=== PATIENT | male | born 1940 | race Caucasian/White ===

== ENCOUNTER 2017-06-19 20:40 | Emergency (ER) | payer MEDICARE, OTHER ==
--- NOTE | 2017-06-19 21:09 | UC ---
Lower Extremity/Ankle HPI - HPI Summary HPI Summary: worsening infection right foot second toe lateral side of 2second toe necrotic 3rd toe macerated, - History of Current Complaint Chief Complaint: UCSkin Stated Complaint: TOE COMPLAINT Time Seen by Provider: 06/19/17 21:00 Hx Obtained From: Patient Onset/Duration: Gradual Onset, Lasting Weeks, Still Present Severity Initially: Moderate Severity Currently: Severe Pain Intensity: 0 - no feeling in foot Aggravating Factor(s): Nothing Alleviating Factor(s): Nothing Able to Bear Weight: Yes - Allergies/Home Medications Allergies/Adverse Reactions: Allergies Allergy/AdvReac Type Severity Reaction Status Date / Time No Known Allergies Allergy Verified 06/19/17 20:52 Home Medications: Home Medications Insulin GLARGINE(*) [Lantus(*)] 35 units SUBCUT DAILY 06/19/17 [History Confirmed 06/19/17] PMH/Surg Hx/FS Hx/Imm Hx Previously Healthy: No Endocrine History: Diabetes, Dyslipidemia Cardiovascular History: Cardiac Disease, Hypertension Respiratory History: COPD, Asthma - Surgical History Surgical History: Yes Surgery Procedure, Year, and Place: CABG, AMPUTATION OF TOES LT FOOT - Family History Known Family History: Positive: None - Social History Occupation: Retired Lives: With Family Alcohol Use: Occasionally Substance Use Type: None Smoking Status (MU): Former Smoker Type: Cigarettes Amount Used/How Often: pack per week Length of Time of Smoking/Using Tobacco: 5 years Have You Smoked in the Last Year: No When Did the Patient Quit Smoking/Using Tobacco: 40 years ago - Immunization History Most Recent Influenza Vaccination: 08/08 Most Recent Tetanus Shot: within last 10 years Most Recent Pneumonia Vaccination: 08/08 Review of Systems Constitutional: Negative Skin: Other - necrotic and maserated 2/3 toes right foot Eyes: Negative ENT: Negative Respiratory: Negative Cardiovascular: Negative Gastrointestinal: Negative Genitourinary: Negative Motor: Negative Neurovascular: Negative Musculoskeletal: Negative, Other: - no sensation in feet--- Neurological: Negative Psychological: Negative All Other Systems Reviewed And Are Negative: Yes Physical Exam Triage Information Reviewed: Yes Appearance: No Pain Distress, Ill-Appearing, Obese Vital Signs: Initial Vital Signs Temp 100 F 06/19/17 20:47 Pulse 89 06/19/17 20:47 Resp 16 06/19/17 20:47 BP 220/89 06/19/17 20:47 Pulse Ox 98 06/19/17 20:47 Vital Signs Reviewed: Yes Eye Exam: Normal Eyes: Positive: Conjunctiva Clear ENT Exam: Normal ENT: Positive: Normal ENT inspection, Hearing grossly normal. Negative: Nasal congestion, Nasal drainage, Trismus, Muffled/hoarse voice Dental Exam: Normal Neck exam: Normal Neck: Positive: Supple, Nontender Respiratory Exam: Normal Respiratory: Positive: No respiratory distress, No accessory muscle use Cardiovascular Exam: Normal Cardiovascular: Positive: RRR, Brisk Capillary Refill, Distal Pulses Absent, Delayed Capillary Refill, Other: - no pulses palpated in feet Musculoskeletal Exam: Normal Musculoskeletal: Positive: ROM Intact, Strength Limited @ - right foot, Edema @ - right foot Neurological Exam: Normal Neurological: Positive: Alert, Muscle Tone Normal Psychological Exam: Normal Skin Exam: Other Skin: Positive: Other - necrotic area and maseration right 2/3 toe Lower Extremity Course/Dx - Course Course Of Treatment: [place] [facility] [place], dry dressing between toes - Differential Dx/Diagnosis Differential Diagnosis/HQI/PQRI: Cellulitis, Osteomyelitis Provider Diagnoses: Necrotic toes 2 and 3 right foot. Diabetic by history - Physician Notifications Discussed Patient Care With: Raymond Alfredo Time Discussed With Above Provider: 21:10 Instructed by Provider To: Transfer Discharge - Discharge Plan Condition: Guarded Disposition: TRANS HIGHER LVL OF CARE FAC
[2017-06-19 21:32] VITALS: BP 160/88
== END 2017-06-19 22:17 | disposition short-term general hospital (02) ==
LOC: UCEAST 20:40
DX: E11.52 Type 2 diabetes mellitus with diabetic peripheral angiopathy with gangrene (principal); Z79.4 Long term (current) use of insulin; E78.5 Hyperlipidemia, unspecified; I51.9 Heart disease, unspecified; I10 Essential (primary) hypertension; J44.9 Chronic obstructive pulmonary disease, unspecified; E66.9 Obesity, unspecified; Z95.1 Presence of aortocoronary bypass graft; Z87.891 Personal history of nicotine dependence
CPT/HCPCS: 99213; G0463

== ENCOUNTER 2017-06-19 21:44 | Inpatient (IN) | payer MEDICARE, OTHER ==
--- NOTE | 2017-06-19 22:44 | ED ---
Torres Hatch Thomas, scribed for Tal Reeves MD on 06/19/17 at 2219 . Lower Extremity - HPI Summary HPI Summary: The pt is a 77 y/o M with a Hx of DM BIB EMS from [facility] [place] c/o R foot toe infection. He reports that he developed an open area on his toes 2 weeks ago. The wound is on his 2nd and 3rd toe that have clear drainage. There is a strong foul odor with erythema to the toes. He was seen by his liberal arts teacher a week ago, who a course of Keflex that he finished today. The patient is also febrile with a temperature of 100.7. The patient denies pain or any other complaints at this time. PMHx: DM, HTN, CHF. PSHx: CABG, amputation of toes on L foot. SHx: former smoker, occasional alcohol use, no illicit drug use. - History of Current Complaint Chief Complaint: EDExtremityLower Stated Complaint: FOOT INFECTION Time Seen by Provider: 06/19/17 21:57 Hx Obtained From: Patient Onset/Duration: Weeks - 2 Pain Intensity: 0 Pain Scale Used: 0-10 Numeric Timing: Constant Associated Signs And Symptoms: Positive: Fever. Negative: Other - NEG: any pain Aggravating Factor(s): Nothing Alleviating Factor(s): Nothing Related History: Other - Hx of DM - Allergies/Home Medications Allergies/Adverse Reactions: Allergies Allergy/AdvReac Type Severity Reaction Status Date / Time No Known Allergies Allergy Verified 06/19/17 20:52 PMH/Surg Hx/FS Hx/Imm Hx Previously Healthy: No Endocrine/Hematology History: Reports: Hx Blood Transfusions, Hx Diabetes - DM II, Hx Anemia Denies: Hx Sickle Cell Disease, Hx Thyroid Disease, Hx Unexplained Bleeding Cardiovascular History: Reports: Hx Congestive Heart Failure - Maybe, Hx Coronary Artery Disease, Hx Hypertension Denies: Hx Aneurysm, Hx Angina, Hx Auto Implanted Cardiovert Defib, Hx Cardiac Arrest, Hx Cardiomegaly, Hx Hypercholesterolemia, Hx Pacemaker/ICD, Hx Peripheral Vascular Disease, Hx Rheumatic Fever, Hx Syncope Comment Only: Other Cardiovascular Problems/Disorders - DIABETIC GI History: Reports: Hx Gastroesophageal Reflux Disease Comment Only: Other GI Disorders - acute diarrhea History: Denies: Hx Renal Disease Musculoskeletal History: Denies: Hx Arthritis, Hx Osteoporosis Comment Only: Other Musculoskeletal History - generalized weakness Sensory History: Reports: Hx Contacts or Glasses - did not bring Denies: Hx Cataracts, Hx Glaucoma, Hx Macular Degeneration, Hx Deafness, Hx Hearing Aid Opthamlomology History: Reports: Hx Contacts or Glasses - did not bring Denies: Hx Cataracts, Hx Glaucoma, Hx Macular Degeneration Neurological History: Denies: Hx Headaches - Surgical History Surgery Procedure, Year, and Place: CABG, AMPUTATION OF TOES LT FOOT Hx Anesthesia Reactions: No Infectious Disease History: Yes Infectious Disease History: Reports: Hx of Known/Suspected MRSA Denies: Traveled Outside the [place] in Last 30 Days - Family History Known Family History: Positive: Diabetes - Social History Alcohol Use: Occasionally Substance Use Type: Reports: None Hx Tobacco Use: Yes Smoking Status (MU): Former Smoker Type: Cigarettes Amount Used/How Often: pack per week Length of Time of Smoking/Using Tobacco: 5 years Have You Smoked in the Last Year: No Review of Systems Positive: Fever - 100.7 Positive: Other - POS: open wound to R toes (onset 2 weeks ago, Hx of DM) All Other Systems Reviewed And Are Negative: Yes Physical Exam Triage Information Reviewed: Yes Vital Signs On Initial Exam: Initial Vitals Temp Pulse Resp BP Pulse Ox 100.7 F 88 16 184/78 97 06/19/17 21:50 06/19/17 21:50 06/19/17 21:50 06/19/17 21:50 06/19/17 21:50 Vital Signs Reviewed: Yes Appearance: Positive: No Pain Distress, Thin Skin: Positive: Warm, Other - rt 2,3,4 toes mixture of erythema and maceration with smalkl necrotic area Head/Face: Positive: Normal Head/Face Inspection Eyes: Positive: JAI ENT: Positive: Hearing grossly normal Neck: Positive: Supple Respiratory/Lung Sounds: Positive: Breath Sounds Present Cardiovascular: Positive: RRR Abdomen Description: Positive: Nontender, Soft Bowel Sounds: Positive: Present Musculoskeletal: Positive: Other - rt foot toes with cellulitis Neurological: Positive: Alert, Oriented to Person Place, Time Psychiatric: Positive: Affect/Mood Appropriate - Ni Coma Scale Coma Scale Total: 15 Diagnostics - Vital Signs Vital Signs Temp Pulse Resp BP Pulse Ox 06/19/17 22:00 86 96 06/19/17 21:56 167/81 06/19/17 21:50 100.7 F 88 16 184/78 97 - Laboratory Result Diagrams: 08/25/17 00:47 06/20/17 00:47 Lab Statement: Any lab studies that have been ordered have been reviewed, and results considered in the medical decision making process. - Radiology CXR Radiology Interpretation Completed By: ED Physician XR Foot Radiology Interpretation Completed By: ED Physician - EKG 23:04 Cardiac Rate: NL - 77 BPM EKG Interpretation: NSR with LVH. Lower Extremity Course/Dx - Course Assessment/Plan: The pt is a 77 y/o M with a Hx of DM BIB EMS from [facility] [place] c/o R foot toe infection. He reports that he developed an open area on his toes 2 weeks ago. The wound is on his 2nd and 3rd toe that have clear drainage. There is a strong foul odor with erythema to the toes. He was seen by his liberal arts teacher a week ago, who a course of Keflex that he finished today. The patient is also febrile with a temperature of 100.7. The patient denies pain or any other complaints at this time. PMHx: DM, HTN, CHF. PSHx: CABG, amputation of toes on L foot. SHx: former smoker, occasional alcohol use, no illicit drug use. Blood work shows WBC 13.5, RBC 3.58, Hgb 11.4, Hct 34, Sodium 132, CO2 19, BUN 40, Creatinine 1.56, Glucose 293, Calcium 8.5, Magnesium 1.6, AlkPhos 159, troponin 0.04. EKG reveals NSR with LVH. CXR and XR foot were also obtained. I consulted with Dr. Mtz, hospitalist, who admits the patient [place] [facility]03. Pt is agreeable to this plan. - Diagnoses Provider Diagnoses: Cellulitis - Physician Notifications Discussed Care Of Patient With: Ned Mtz Time Discussed With Above Provider: 00:03 Instructed by Provider To: Other - Dr. Mtz, hospitalist, admits the patient [place] [facility] [place] 00:03. Discharge - Discharge Plan Condition: Fair Disposition: ADMITTED TO [facility] The documentation as recorded by the [place] Thomas accurately reflects the service I personally performed and the decisions made by me, Tal Reeves MD.
[2017-06-19 23:31] LABS: Hematocrit 34 % (42-52); Hemoglobin 11.4 g/dl (14.0-18.0); Mean Corpuscular HGB Conc 34 g/dl (31-36); Mean Corpuscular Hemoglobin 32 pg (27-31); Mean Corpuscular Volume 94 fL (80-94); Mean Platelet Volume 10 um3 (7.4-10.4); Red Blood Count 3.58 10^6/ul (4.0-5.4); Red Cell Distribution Width 13 % (10.5-15); White Blood Count 13.5 10^3/ul (3.5-10.8)
[2017-06-19] MEDS ORDERED: Ondansetron INJ* 2 MG/ML VIAL IV PRN (23:31)
[2017-06-19] MEDS ORDERED: Acetaminophen TAB* 325 MG PO PRN (23:31)
[2017-06-19] MEDS ORDERED: Albuterol 2.5 MG/3 ML NEB.SOL* (0.083%) INH PRN (23:31)
[2017-06-19] MEDS ORDERED: CMCS: Melatonin (NF) 3 MG TAB PO PRN (23:31)
[2017-06-19] MEDS ORDERED: Cefepime(*) 1 GM in NS 0.9% 50 ML* 50 ML IVPB SCH (23:45)
[2017-06-19] MEDS ORDERED: Vancomycin(*) 1,000 MG in NS 0.9% 250 ML* 250 ML IVPB SCH (23:45)
[2017-06-19] MEDS ORDERED: NS 0.9% 1000 ML* 1,000 ML IV SCH (23:45)
[2017-06-19 23:46] LABS: Albumin 3.2 g/dL (3.2-5.2); BUN/Creatinine Ratio 25.6 (8-20); Calcium 8.5 mg/dL (8.6-10.3); EGFR African American 56.1 (>60); EGFR Non-African American 43.6 (>60); Globulin 2.7 g/dL (2-4); Magnesium 1.6 mg/dL (1.9-2.7); Potassium 4.2 mmol/L (3.5-5.0); Total Bilirubin 0.3 mg/dL (0.2-1.0); Total Protein 5.9 g/dL (6.4-8.9)
[2017-06-19 23:56] LABS: Troponin I 0.04 ng/mL (<0.04)
--- NOTE | 2017-06-20 00:04 | HP ---
H&P (Free Text) History and Physical: PCP: Jeffry Watkins MD Date/Time of Evaluation: 06/19/2017 7089 CC: R foot infection HPI: Mr Chowdhury is a 76YO white male HX NIDDM, L forefoot amputation, & 3vCABG who relates a non-traumatic wound forming on his R 2nd toe ~3 weeks ago. He saw his sap architect ~2 weeks ago and was placed on cephalexin completing two 1 week courses. Despite this, the 2nd toe has worsened over the past 3-4 days and the R 3rd toe has become reddened with a black spot. He denies subjective F/C, N/V, or sweats. He has no sensation in the lower extremities 2nd diabetic neuropathy. PMedHx DMT2 w/ retinopathy & neuropathy CAD/3vCABG PAOD HLD CKD stg 3 HTN GERD BPH Ambulatory Orders Nursing to reconcile. Aspirin Low Dose CHEW TAB* [Aspirin Low Dose TAB*] 81 mg PO DAILY 02/26/14 Cholecalciferol TAB* [Vitamin D TAB*] 1,000 unit PO DAILY 02/26/14 Terazosin CAP* [Hytrin CAP 5 MG*] 10 mg PO BID 02/26/14 Omeprazole CAP* [Prilosec CAP* 20 MG] 20 mg PO DAILY PRN 05/19/14 Albuterol 2.5MG/3ML (0.083%)* [Ventolin 2.5 MG/3 ML NEB.MALCOLM*] 2.5 mg INH Q4H PRN #100 neb.soln 02/24/16 Atorvastatin* [Lipitor 10 MG*] 10 mg PO 1700 #30 tab 02/24/16 Clopidogrel TAB* [Plavix TAB*] 75 mg PO DAILY #30 tab 02/24/16 Lisinopril TAB* [Prinivil TAB 10 MG*] 5 mg PO DAILY #30 02/24/16 Metoprolol Succinate XL TAB* [Toprol XL TAB*] 25 mg PO DAILY #30 tab.xl Furosemide [Lasix] 20 mg PO EVERY OTHER DAY #10 tab 03/01/16 Ketoconazole 2 % CREAM (NF) [Nizoral 2% CREAM (NF)] 1 applic TOPICAL BID #1 tube 03/01/16 Loperamide CAP* [Imodium CAP*] 2 mg PO DAILY PRN #10 cap 03/01/16 Magnesium Oxide TAB* [MagOx 400 TAB*] 800 mg PO DAILY #30 tab 03/01/16 Nystatin SUSPENSION* 200,000 units PO QID #1 bottle 03/01/16 Insulin GLARGINE(*) [Lantus(*)] 35 units SUBCUT DAILY 06/19/17 Allergies No Known Allergies Allergy (Verified 06/19/17 20:52) PSurgHx 3vCABG R inguinal hernia repair L transmetatarsal amputation SocHx: former light smoker, no alcohol or recreational drugs; 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[employer]; 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, no children, lives alone; full code status FamHx: reviewed, non-contributory ROS: as above, otherwise reviewed and all were negative Constitutional: NAD, normally developed, well-nourished white male vitals: Vital Signs Temp 38.2 C 06/19/17 21:50 Pulse 74 06/19/17 23:30 Resp 16 06/19/17 21:50 BP 160/77 06/19/17 23:30 Pulse Ox 97 06/19/17 23:30 Intake & Output 06/19/17 06/19/17 06/20/17 11:59 23:59 11:59 Weight 77.111 kg HEENM: atraumatic; sclera/conjunctiva: non-icteric/clear; hearing: clinically intact; oropharynx: clear, mucosa moist Neck: soft tissue: non-tender; thyroid: normal Pulmonary: clear to auscultation bilaterally, good aeration, no accessory muscle use CV: RR/RR, normal S1S2, no carotid bruit, no jugular venous distention, trace L & 1+ R DP/PT, no edema Abdominal: soft, non-distended, non-tender, no rebound/guarding/rigidity, normoactive bowel sounds, no hepatosplenomegaly or masses, no costovertebral angle tenderness Musculoskeletal: general: healed L transmetatarsal amputation; R 2nd>3rd toes with a blackened area of escar and erythema with exfoliation Integumental: as above Psychiatric orientation: AA&O to PPS affect: somewhat flat mood: cooperative eye contact: fair to good content: reliable insight: timely Testing: Lab Results 08/24/17 08/24/17 08/24/17 Range/Units 23:20 23:20 23:20 WBC 13.5 H (3.5-10.8) 10^3/ul RBC 3.58 L (4.0-5.4) 10^6/ul Hgb 11.4 L (14.0-18.0) g/dl Hct 34 L (42-52) % MCV 94 (80-94) fL MCH 32 H (27-31) pg MCHC 34 (31-36) g/dl RDW 13 (10.5-15) % Plt Count 224 (150-450) 10^3/ul MPV 10 (7.4-10.4) um3 Neut % (Auto) 87.3 H (38-83) % Lymph % (Auto) 4.8 L (25-47) % Dauphin % (Auto) 7.0 (1-9) % Eos % (Auto) 0.2 (0-6) % Baso % (Auto) 0.7 (0-2) % Absolute Neuts (auto) 11.8 H (1.5-7.7) 10^3/ul Absolute Lymphs (auto) 0.6 L (1.0-4.8) 10^3/ul Absolute Monos (auto) 0.9 H (0-0.8) 10^3/ul Absolute Eos (auto) 0 (0-0.6) 10^3/ul Absolute Basos (auto) 0.1 (0-0.2) 10^3/ul Absolute Nucleated RBC 0 10^3/ul Nucleated RBC % 0 Sodium 132 L (133-145) mmol/L Potassium 4.2 (3.5-5.0) mmol/L Chloride 105 (101-111) mmol/L Carbon Dioxide 19 L (22-32) mmol/L Anion Gap 8 (2-11) mmol/L BUN 40 H (6-24) mg/dL Creatinine 1.56 H (0.67-1.17) mg/dL Est GFR ( Amer) 56.1 (>60) Est GFR (Non-Af Amer) 43.6 (>60) BUN/Creatinine Ratio 25.6 H (8-20) Glucose 293 H (70-100) mg/dL Lactic Acid 0.8 (0.5-2.0) mmol/L Calcium 8.5 L (8.6-10.3) mg/dL Magnesium 1.6 L (1.9-2.7) mg/dL Total Bilirubin 0.30 (0.2-1.0) mg/dL AST 15 (13-39) U/L ALT 13 (7-52) U/L Alkaline Phosphatase 159 H (34-104) U/L Troponin I 0.04 H* (<0.04) ng/mL Total Protein 5.9 L (6.4-8.9) g/dL Albumin 3.2 (3.2-5.2) g/dL Globulin 2.7 (2-4) g/dL Albumin/Globulin Ratio 1.2 (1-3) ECG, personally reviewed: NSR rate 77, mild ST depression V5/6 & I/II CXR, personally reviewed: no acute process, median sternotomy wires Impression: 77M HX DM2 w/ L forefoot amputation presents with R toe infection DIAGNOSIS & PLAN Primary diabetic R foot infection : IV vancomycin, cefepime, & metronidazole : blood & wound CXs : consider ID consult in AM : supportive care Secondary DMT2 w/ retinopathy & neuropathy : check A1c : insulin carb ratio diet : basal/bolus/correctional insulin : ACHS glucometry HTN : review meds once reconciled Admission Rational: inpatient for limb threatening diabetic foot infection failed outpatient ABX DVTp: heparin SQ Code Status: full HCP: friend, Roseanna Espinoza
[2017-06-20] MEDS ORDERED: Cefepime(*) 2 GM in NS 0.9% 50 ML* 50 ML IVPB SCH (00:40)
[2017-06-20] MEDS ORDERED: Vancomycin(*) 1,000 MG ADVAN IVPB ONE (00:41)
[2017-06-20] MEDS ORDERED: Vancomycin(*) 1,250 MG in NS 0.9% 250 ML* 250 ML IVPB ONE (01:00)
[2017-06-20 01:01] LABS: Hematocrit 39 % (42-52); Hemoglobin 13.4 g/dl (14.0-18.0); Mean Corpuscular HGB Conc 35 g/dl (31-36); Mean Corpuscular Hemoglobin 31 pg (27-31); Mean Corpuscular Volume 90 fL (80-94); Mean Platelet Volume 9 um3 (7.4-10.4); Red Blood Count 4.28 10^6/ul (4.0-5.4); Red Cell Distribution Width 13 % (10.5-15); White Blood Count 8.4 10^3/ul (3.5-10.8)
[2017-06-20] MEDS ORDERED: Vancomycin per Pharmacy* NOTE FOLLOW UP PRN (01:06)
[2017-06-20 01:07] LABS: Urine Bacteria 1+ (Absent); Urine Bilirubin Negative (Negative); Urine Glucose 2+(150 mg/dL) (Negative); Urine Nitrite Negative (Negative)
[2017-06-20 01:17] LABS: Calcium 9.3 mg/dL (8.6-10.3); EGFR African American 130.6 (>60); EGFR Non-African American 101.5 (>60); Potassium 3.3 mmol/L (3.5-5.0)
[2017-06-20] MEDS ORDERED: metroNIDAZOLE IV 500 MG/100ML* 500 MG/100 ML BAG IVPB SCH ×2 (01:30→11:30)
[2017-06-20] MEDS: Heparin VIAL(*) 5000 UNITS/ML VIAL (FIVE THOUSAND) SUBCUT SCH ×3 (06:20→22:22)
--- NOTE | 2017-06-20 07:52 | RAD ---
INDICATION: Fever. COMPARISON: Comparison is made with a prior chest x-ray study from February 26, 2016. TECHNIQUE: AP and lateral views of the chest were obtained. FINDINGS: The patient is status post coronary artery bypass surgery. The heart is within normal limits in size. The lungs are clear. No pleural effusion is present. IMPRESSION: POSTSURGICAL CHANGES, NO EVIDENCE FOR ACUTE FINDING.
--- NOTE | 2017-06-20 07:56 | RAD ---
INDICATION: Fever, diabetes evaluate for infection. TECHNIQUE: 2 views of the right foot were obtained. FINDINGS: There is diffuse soft tissue swelling. The bones appear osteopenic. No significant focal osseous abnormality is seen. There are prominent vascular calcifications. IMPRESSION: SOFT TISSUE SWELLING, NO SPECIFIC EVIDENCE FOR OSTEOMYELITIS. IF THE PATIENT'S SYMPTOMS PERSIST CONSIDER MR IMAGING OF THE FOOT WITHOUT CONTRAST.
[2017-06-20] MEDS ORDERED: Vancomycin(*) 1,250 MG IV x ONCE IVPB ONE ×2 (08:30)
[2017-06-20] MEDS: Docusate CAP* 100 MG PO SCH ×2 (10:06→22:21)
[2017-06-20] MEDS: Insulin LISPRO* 1 UNITS UNIT SUBCUT SCH ×7 (10:06→22:25)
--- NOTE | 2017-06-20 14:52 | PN ---
Subjective Date of Service: 06/20/17 Interval History: HOSPITALIST PROGRESS NOTE Patient seen and examined at bedside. He feels a little better today. Has no sensation on his toes, so denies pain. Family History: Unchanged from Admission Social History: Unchanged from Admission Past Medical History: Unchanged from Admission Objective Active Medications: Acetaminophen (Tylenol Tab*) 650 mg PO Q6H PRN PRN Reason: FEVER/PAIN Albuterol (Ventolin 2.5 Mg/3 Ml Neb.Susy*) 2.5 mg INH Q2H PRN PRN Reason: SOB/WHEEZING Docusate Sodium (Colace Cap*) 200 mg PO BID [facility] Last Admin: 06/20/17 10:06 Dose: 200 mg Heparin Sodium (Porcine) (Heparin Vial(*)) 5,000 units SUBCUT Q8HR [facility] Last Admin: 06/20/17 13:11 Dose: 5,000 units Sodium Chloride (Ns 0.9% 1000 Ml*) 1,000 mls @ 75 mls/hr IV PER RATE [facility] Last Admin: 06/20/17 02:28 Dose: 75 mls/hr Cefepime HCl 2 gm/ Sodium (Chloride) 50 mls @ 100 mls/hr IVPB Q24H [facility] Last Admin: 06/20/17 02:30 Dose: 100 mls/hr Metronidazole/Sodium Chloride (Flagyl 500 Mg Ivpb*) 500 mg in 100 mls @ 100 mls /hr IVPB Q12HR [facility] Insulin Glargine (Lantus(*)) 15 units SUBCUT 2100 [facility] Stop: 06/21/17 20:00 Insulin Human Lispro (Humalog*) 0 units SUBCUT AC [facility] PRN Reason: Protocol Last Admin: 06/20/17 13:10 Dose: 3 units Insulin Human Lispro (Humalog*) 0 units SUBCUT ACHS [facility] PRN Reason: Protocol Last Admin: 06/20/17 13:11 Dose: 2 units Melatonin (Melatonin (Nf)) 3 mg PO BEDTIME PRN; Protocol PRN Reason: Sleep Nystatin (Nystatin Top Powder*) 1 applic TOPICAL TID [facility] Ondansetron HCl (Zofran Inj*) 4 mg IV Q6H PRN PRN Reason: NAUSEA Oxycodone HCl (Roxycodone Tab*) 5 mg PO Q4H PRN PRN Reason: PAIN Pharmacy Profile Note (Vancomycin Trough Check) 1 note FOLLOW UP 0030 ONE Stop: 06/21/17 00:31 Vital Signs 06/20/17 06/20/17 06/20/17 00:31 00:58 01:17 Temperature 98 F 98.3 F Pulse Rate 78 78 82 Respiratory 16 17 Rate Blood Pressure 173/79 173/79 162/72 (mmHg) O2 Sat by Pulse 98 98 Oximetry Oxygen Devices in Use Now: None Appearance: Pleasant elderly male lying in bed in NAD. Eyes: No Scleral Icterus Ears/Nose/Mouth/Throat: Mucous Membranes Moist Neck: Trachea Midline Respiratory: Symmetrical Chest Expansion and Respiratory Effort, Clear to Auscultation Cardiovascular: RRR - Normal S1 and S2 Abdominal: NL Sounds; No Tenderness; No Distention Extremities: - - s/p left TMA; right foot with wet gangrene 2nd and 3rd toes, foul smelling. Neurological: Alert and Oriented x 3, NL Muscle Strength and Tone Lines/Tubes/Other Access: Clean, Dry and Intact Peripheral IV Nutrition: Taking PO's Result Diagrams: 06/20/17 00:47 06/20/17 00:47 Assess/Plan/Problems-Billing Assessment: Mr. 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 - Patient Problems (1) Type 2 diabetes mellitus with right diabetic foot infection Comment: - Patient was treated by his Diamond Driller with cephalexin, but had worsening after he completed treatment. - Now presents with wet gangrene of 2nd and 3rd toes on the right. - Continue Cefepime and Metronidazole. - ID and Ortho consults requested. (2) Type 2 diabetes mellitus Comment: - HbA1c is 9, down from 12.4 in 2016. - Continue Lantus and Lispro SS. (3) HTN (hypertension) Comment: - Resume Lisinopril. (4) Peripheral vascular disease Comment: - Continue Aspirin and Plavix. (5) DVT prophylaxis Comment: - SQ heparin. (6) Full code status Status and Disposition: Inpatient requiring >48h for stabilization and management.
[2017-06-20] MEDS ORDERED: Vancomycin(*) 1,000 MG in NS 0.9% 250 ML* 250 ML IVPB SCH (16:30)
[2017-06-20] MEDS ORDERED: Atorvastatin* 10 MG TAB PO SCH (17:00)
--- NOTE | 2017-06-20 17:21 | CONS ---
CONSULTATION REPORT: DATE OF CONSULT/DICTATION: 06/20/17 ATTENDING PHYSICIAN: Dr. Marte (DICTATED BY RACHEL AIKEN) REQUESTING PHYSICIAN: Dr. Ramos REASON FOR CONSULT: Wet gangrene of right foot. HISTORY OF PRESENT ILLNESS: Mr. Chowdhury is a very pleasant 77-year-old gentleman who presented to the hospital on 06/19/17 upon recommendation from his neighbor. The patient reports approximately a few weeks ago, he noted a cut on his second right toe. He was seen by his insurance account manager approximately 2 weeks ago and was started on cephalexin, completing a 2-week course. He stated for the first week of antibiotics, he noted improvement to his foot; however, over the past couple of days, he has noted that the redness has begun to spread up to his midfoot and his second toe was turning black. This was seen by his neighbor who recommended he get an evaluation and brought him to the emergency room. The patient does have a history of a left midfoot amputation approximately 6 to 7 years ago for a similar presentation. Prior to admission, he denies any fevers, chills, nausea, vomiting, or sweats. Upon admission, he was febrile to 100.7 degrees Fahrenheit. He does have a history of insulin- dependent diabetes and takes Lantus 35 units subcutaneous daily. He also has a history of CAD with a 3-vessel CABG as well as diabetic neuropathy. The patient does live alone. He is ambulatory with the use of a walker or a cane. PAST MEDICAL HISTORY: 1. Insulin-dependent diabetes type 2 with associated retinopathy and neuropathy in bilateral lower extremities. 2. CAD with 3-vessel CABG. 3. PAD. 4. HLD 5. Chronic kidney disease stage 2. 6. Hypertension. 7. GERD. 8. BPH. PAST SURGICAL HISTORY: 1. Three-vessel CABG. 2. Right inguinal hernia repair. 3. Left transmetatarsal amputation. ALLERGIES: No known drug allergies. SOCIAL HISTORY: Former light smoker, stopped approximately 65 years ago. No alcohol or recreational drug use. 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 Single, no children, lives alone. Ambulatory with walker or cane. REVIEW OF SYSTEMS: The patient denies any pain in the lower extremities, has noted redness and swelling. No chest pain, shortness of breath, fevers, chills , nausea, vomiting, constipation, muscle aches, pains, or night sweats. PHYSICAL EXAM: General: Well appearing, in no acute distress. Alert and oriented. Eating lunch without difficulty. Musculoskeletal: Right lower extremity, posterior tibial pulse 1+ with 1+ pitting edema. Erythema extending from all toes up to midfoot. Positive gangrene seen over second toe on the lateral aspect with increased erythema surrounding lesions. Superficial ulcerations seen over second and fourth toes. Decreased range of motion of all toes, likely due to swelling. The patient has decreased sensation from midfoot down with no sensation over second to fourth toes, and minimal sensation over great toe. Positive mild odor. Hyperpigmentation noted over bilateral shins. ASSESSMENT: Second, third, and fourth right toe infection. PLAN: The patient was discussed with Dr. Marte. A Vascular consult will be ordered to evaluate the patient's foot prior to undergoing surgery. It is likely that the patient will require a midfoot amputation and this will be set up for Friday. The patient will be n.p.o. after midnight and he will continue antibiotics throughout the weekend. We will be following the patient to continue to progress his course and continue to determine his progress. The patient also was seen by the hospitalist and Infectious Disease. RACHEL AIKEN [id number]/CPS #: [id number] MTDD
[2017-06-20] MEDS: Nystatin TOP POWDER* 15 GM BTL TOPICAL SCH ×2 (17:34→23:28)
[2017-06-20] MEDS: ceFAZolin 1 GM VIAL(*) 1 GM in NS 0.9% 50 ML* 50 ML IVPB SCH (17:34)
[2017-06-20] MEDS: Lisinopril TAB* 5 MG PO SCH (17:39)
[2017-06-20] MEDS: metroNIDAZOLE IV 500 MG/100ML* 500 MG/100 ML BAG IVPB SCH (22:16)
[2017-06-20] MEDS: Potassium Chlor TAB* 20 MEQ TAB.ER PO SCH (22:21)
[2017-06-20] MEDS: Insulin GLARGINE(*) 1 UNITS UNIT SUBCUT SCH (22:26)
--- NOTE | 2017-06-20 22:37 | CONS ---
CONSULTATION REPORT: DATE OF CONSULTATION: 06/20/17 REQUESTING PHYSICIAN: Dr. Ramos. CONSULTING SERVICE: Infectious Disease. REASON FOR CONSULTATION: Right foot infection. IMPRESSION: Peripheral vascular disease and right second and third toe cellulitis with second toe g angrene and outpatient wound culture associated with the toe had grown MSSA on 06/04/17. I think hi s primary issue here is vascular insufficiency. He has significant soft tissue necrosis on the secon d and part of the third toes, and antibiotics alone are unlikely to cure the infection. I agree wit h having Dr. Marte see him and consider some degree of surgical treatment. RECOMMENDATIONS: 1. Ankle brachial index. 2. We will stop his vancomycin, change cefepime to cefazolin and continue Flagyl. HISTORY OF PRESENT ILLNESS: This is a 77-year-old diabetic man admitted with right foot infection. He had a wound develop about 2 weeks ago[address] He saw Dr. Hines, had Keflex started. A wound cultur e was taken by him that showed MSSA. He had initially some improvement and then the toe started to develop a foul odor, so he came to the hospital yesterday, his white count was 13,000. It is 8000 t alessia after vancomycin, cefepime, and Flagyl and fluids. Foot x-ray was unremarkable. He has not low d any ulceration like this recently. He has had a left transmetatarsal amputation in distant past. PAST MEDICAL HISTORY: 1. Peripheral vascular disease. 2. Diabetes with neuropathy and retinopathy. 3. Coronary artery disease, status post CABG. 4. Hyperlipidemia. 5. Stage 3 chronic kidney disease. 6. Hypertension. 7. Gastroesophageal reflux disease. 8. Benign prostatic hypertrophy. 9. Status post right inguinal hernia repair. 10. Status post left transmetatarsal amputation. MEDICATIONS: 1. Vancomycin. 2. Cefepime 2 g once a day. 3. Tylenol. 4. Aspirin. 5. Lipitor. 6. Plavix. 7. Docusate. 8. Heparin subcutaneous injection. 9. Flagyl 500 mg IV every 12 hours. ALLERGIES: No known drug allergies. FAMILY HISTORY: No recurrent infections. SOCIAL HISTORY: He lives in [place] by himself. He has got a pet cat, it has not been licking the w ound. He has no travel. REVIEW OF SYSTEMS: All negative except as noted above in the history of present illness. PHYSICAL EXAM: Vital Signs: Temperature 36.7, heart rate 70, respiratory rate 15, blood pressure 1 70/70, and O2 sat 97% on room air. In general, he is awake, not in distress. HEENT: There is no c onjunctival hemorrhage. Oropharynx is without lesions. Neurologic: He is oriented x3. Follows al l commands. The sensation is absent to light touch in the feet bilaterally. Neck is supple without nuchal rigidity. Lymph Nodes: There is no inguinal, axillary, epitrochlear lymphadenopathy. Hear t has regular rate and rhythm without murmurs, rubs, or gallops. Lungs are clear to auscultation bi laterally. Abdomen is soft, nontender, nondistended. There are bowel sounds present. Skin: There is no rash or splinter hemorrhages. Musculoskeletal: Right foot, there is no palpable dorsalis pe dis pulse. The foot is warm. Second toe, there is purple discoloration. Third toe has some denuda tion of skin in the medial forefoot and there is mild erythema in the forefoot without crepitus or f luctuance. LABORATORY DATA: White blood cell count 8, hemoglobin 13, platelets 212,000. Creatinine is 0.7. Ple ase see impressions and recommendations outlined above, which I have discussed with Dr. Ramos. Thank you for asking me to see Mr. Chowdhury in consultation. [id number]/[facility] #: [id number]
[2017-06-21] MEDS ORDERED: Vancomycin Trough Check NOTE FOLLOW UP ONE (00:30)
[2017-06-21] MEDS: ceFAZolin 1 GM VIAL(*) 1 GM in NS 0.9% 50 ML* 50 ML IVPB SCH ×4 (02:24→19:00)
[2017-06-21] MEDS: Heparin VIAL(*) 5000 UNITS/ML VIAL (FIVE THOUSAND) SUBCUT SCH ×3 (05:57→23:22)
[2017-06-21 06:32] LABS: Hematocrit 33 % (42-52); Hemoglobin 11.4 g/dl (14.0-18.0); Mean Corpuscular HGB Conc 34 g/dl (31-36); Mean Corpuscular Hemoglobin 32 pg (27-31); Mean Corpuscular Volume 94 fL (80-94); Mean Platelet Volume 10 um3 (7.4-10.4); Red Blood Count 3.57 10^6/ul (4.0-5.4); Red Cell Distribution Width 13 % (10.5-15); White Blood Count 10.9 10^3/ul (3.5-10.8)
[2017-06-21 06:46] LABS: BUN/Creatinine Ratio 23.9 (8-20); Calcium 8.2 mg/dL (8.6-10.3); EGFR African American 64.6 (>60); EGFR Non-African American 50.2 (>60); Potassium 4.5 mmol/L (3.5-5.0)
[2017-06-21 07:00] LABS: Troponin I 0.04 ng/mL (<0.04)
[2017-06-21] MEDS: Insulin LISPRO* 1 UNITS UNIT SUBCUT SCH ×7 (08:05→23:21)
[2017-06-21] MEDS ORDERED: Lisinopril TAB* 5 MG PO SCH (09:00)
[2017-06-21] MEDS: Potassium Chlor TAB* 20 MEQ TAB.ER PO SCH (09:21)
[2017-06-21] MEDS: Lisinopril TAB* 5 MG PO SCH (09:21)
[2017-06-21] MEDS: Clopidogrel TAB* 75 MG PO SCH (09:21)
[2017-06-21] MEDS: Nystatin TOP POWDER* 15 GM BTL TOPICAL SCH ×3 (09:22→23:31)
[2017-06-21] MEDS: Docusate CAP* 100 MG PO SCH ×2 (09:22→23:32)
[2017-06-21] MEDS: Aspirin Low Dose CHEW TAB* 81 MG PO SCH (09:34)
[2017-06-21] MEDS: metroNIDAZOLE IV 500 MG/100ML* 500 MG/100 ML BAG IVPB SCH ×2 (10:49→23:15)
--- NOTE | 2017-06-21 14:08 | CONS ---
CC: Dr. Watkins; Dr. Hines; Dr. Marte; Dr. Dixon; Dr. Kruse * INTERVENTIONAL CARDIOLOGY CONSULT NOTE: DATE OF CONSULT: 06/21/17 PRIMARY: Dr. Watkins PACKING CLERK: Dr. Hines ORTHOPEDIC SURGEON: Dr. Marte INFECTIOUS DISEASE: Dr. Dixon CASCADE OPERATOR: Dr. Kruse HISTORY OF PRESENT ILLNESS: A 77-year-old diabetic with previous coronary artery disease and prior left transmetatarsal amputation, admitted with wet gangrene, right second digit. Interventional Cardiology was consulted regarding possible need for pedal revascularization. He is a good historian, he had a left transmetatarsal amputation 8 years ago apparently for CLI. In February of last year, he was admitted here with a febrile illness. About 3 weeks ago, he noticed some drainage from the tip of his right second toe, and it has subsequently become gangrenous. It is painless. He is not aware of any injury. He has no history of claudication. He tells me he had remote ABIs, but I have not been able to find them yet in [place]. To his knowledge, he has never had lower extremity intervention. He had bypass grafting 12 years ago, had a vein harvest from the left leg. PAST MEDICAL HISTORY: 1. Diastolic heart failure. 2. 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 3. Previous bypass grafting. 4. CKD stage 3. I reviewed a prior CT of the abdomen without contrast, he has extensive aortic calcification including near the renal artery ostia. 5. Hypertension. PREHOSPITAL MEDICATIONS: 1. Insulin. 2. Lisinopril 5 mg daily. 3. Lipitor 10 mg daily. 4. Aspirin 81 mg daily. 5. Plavix 75 mg daily. REVIEW OF SYSTEMS: General: No weight loss. He is ambulatory, walks with a cane, lives independently, cares for an older woman with a broken hip. For him , the ability to ambulate is very important. FULL STACK DEVELOPER: No history of TIA or CVA. GI: He has a history of esophageal bleeding. He is apparently not on a PPI while on aspirin and Plavix. Pulmonary: No cough. No hemoptysis. Remainder negative. CURRENT MEDICATIONS: 1. Aspirin 81 mg daily. 2. Lipitor increased to 80 mg. 3. Ancef. 4. Plavix 75 mg daily. 5. Heparin 5000 units subcu q. 8. 6. Insulin. 7. Lisinopril 5 mg daily. 8. Flagyl. PHYSICAL EXAM: General: He is articulate, he is in bed. He is afebrile. Blood pressure 151/64, pulse is in the 60s. Lungs: Clear. Neck: JVP is normal. Carotids are normal without bruits. HEENT: Unremarkable. Cardiac Exam : Normal without gallop or murmur. Sternum is stable. Abdomen: I cannot feel the abdominal aorta, he has no abdominal bruit. Extremities: Femoral pulses are faintly palpable on the right, questionable on the left. His radials were also diminished. His left leg has a transmetatarsal amputation. Right foot, he has wet gangrene of the second digit extending to the base of the toe, there is foul odor, there is drainage from between the second and third toe. There is some erythema on the dorsum of the foot without norah cellulitis. His first toe has no wound. Doppler exam by me revealed the signal at the peroneal, at the posterior tibial, at the ankle, and proximal dorsalis pedis. The deep learning center instructor has a high-pitched signal, likely stenotic. The arcuate has a signal. I cannot track the plantars. DIAGNOSTIC STUDIES/LAB DATA: White count on admission 13.5, hemoglobin 11.4. His creatinine was 1.56, then down to 0.75, today 1.38. It has been as high as 2.44 in January 2016. A1c last one was 9. IMPRESSION: Atherosclerotic lower extremity vascular disease with wet gangrene , right second toe. He likely has an incomplete pedal arch, likely has multilevel disease. 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 Depending on his digital blood supply, he may need revascularization of the anterior tibial or posterior tibial if the second and possibly third toe amputation site fails to heal. As he already has a left transmetatarsal amputation, preserving his right first toe is of vital importance to help with balance and ambulation. To that end, I would recommend amputation of the second toe only, extending back into the metatarsal only if absolutely necessary, preserving the first toe, amputate the third toe only if necessary. In the meantime, I have ordered toe pressure as well as a CTA with volume loading pre-study. If he has failure to heal, he definitely will need an angiogram to plan a revascularization. He understands the critical importance of preserving his first toe. His second toe is not salvageable. Thanks for the consult. I will follow with you. I have increased his Lipitor to high dose. [id number]/[facility] #: [id number] MTDD
--- NOTE | 2017-06-21 14:49 | PN ---
Subjective Date of Service: 06/21/17 Interval History: HOSPITALIST PROGRESS NOTE Patient seen and examined at bedside. He offers no new complaints today. Family History: Unchanged from Admission Social History: Unchanged from Admission Past Medical History: Unchanged from Admission Objective Active Medications: Acetaminophen (Tylenol Tab*) 650 mg PO Q6H PRN PRN Reason: FEVER/PAIN Albuterol (Ventolin 2.5 Mg/3 Ml Neb.Susy*) 2.5 mg INH Q2H PRN PRN Reason: SOB/WHEEZING Aspirin (Aspirin Low Dose Tab*) 81 mg PO DAILY [facility] Last Admin: 06/21/17 09:34 Dose: 81 mg Atorvastatin Calcium (Lipitor*) 80 mg PO 1700 [facility] Clopidogrel Bisulfate (Plavix Tab*) 75 mg PO DAILY [facility] Last Admin: 06/21/17 09:21 Dose: 75 mg Docusate Sodium (Colace Cap*) 200 mg PO BID [facility] Last Admin: 06/21/17 09:22 Dose: Not Given Heparin Sodium (Porcine) (Heparin Vial(*)) 5,000 units SUBCUT Q8HR [facility] Last Admin: 06/21/17 13:27 Dose: 5,000 units Metronidazole/Sodium Chloride (Flagyl 500 Mg Ivpb*) 500 mg in 100 mls @ 100 mls /hr IVPB Q12HR [facility] Last Admin: 06/21/17 10:49 Dose: 100 mls/hr Cefazolin Sodium 1 gm/ Sodium (Chloride) 50 mls @ 200 mls/hr IVPB Q8H [facility] Last Admin: 06/21/17 09:21 Dose: 200 mls/hr Insulin Glargine (Lantus(*)) 15 units SUBCUT 2100 [facility] Last Admin: 06/20/17 22:26 Dose: 15 units Insulin Human Lispro (Humalog*) 0 units SUBCUT AC [facility] PRN Reason: Protocol Last Admin: 06/21/17 13:25 Dose: 4 units Insulin Human Lispro (Humalog*) 0 units SUBCUT ACHS [facility] PRN Reason: Protocol Last Admin: 06/21/17 13:26 Dose: 2 units Lisinopril (Prinivil Tab*) 5 mg PO DAILY [facility] Last Admin: 06/21/17 09:21 Dose: 5 mg Melatonin (Melatonin (Nf)) 3 mg PO BEDTIME PRN; Protocol PRN Reason: Sleep Nystatin (Nystatin Top Powder*) 1 applic TOPICAL TID TETE Last Admin: 06/21/17 13:28 Dose: 1 applic Ondansetron HCl (Zofran Inj*) 4 mg IV Q6H PRN PRN Reason: NAUSEA Oxycodone HCl (Roxycodone Tab*) 5 mg PO Q4H PRN PRN Reason: PAIN Vital Signs 06/21/17 06/21/17 06/21/17 00:21 03:39 07:29 Temperature 98.9 F 98.3 F 98.3 F Pulse Rate 69 69 69 Respiratory 14 18 16 Rate Blood Pressure 131/61 151/78 151/64 (mmHg) O2 Sat by Pulse 98 99 98 Oximetry Oxygen Devices in Use Now: None Appearance: Pleasant elderly male sitting up in a chair in NAD. Eyes: No Scleral Icterus Ears/Nose/Mouth/Throat: Mucous Membranes Moist Neck: Trachea Midline Respiratory: Symmetrical Chest Expansion and Respiratory Effort, Clear to Auscultation Cardiovascular: RRR - Normal S1 and S2 Extremities: - - Right 2nd toe wet gangrene, extending to 3rd, foul smelly Neurological: Alert and Oriented x 3, NL Muscle Strength and Tone Lines/Tubes/Other Access: Clean, Dry and Intact Peripheral IV Nutrition: Taking PO's Result Diagrams: 06/21/17 05:42 06/21/17 05:42 Assess/Plan/Problems-Billing Assessment: Mr. 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 - Patient Problems (1) Type 2 diabetes mellitus with right diabetic foot infection Comment: - Patient was treated by his Commissary Production Supervisor with cephalexin, but had worsening after he completed treatment. - Now presents with wet gangrene of 2nd and 3rd toes on the right. - Continue Cefazoline and Metronidazole. - ID and Ortho consults appreciated - tentative plan for OR 06/23/17. - Vascular input appreciated - recommended 2nd toe amputation only, maybe 3rd if necessary, but to try and save hallux as patient already has a left TMA and his mobility and ability to live independently will be compromised with a right TMA. Recommended NERY and CTA aorta and run off. (2) Type 2 diabetes mellitus Comment: - HbA1c is 9, down from 12.4 in 2016. - Continue Lantus and Lispro SS. (3) HTN (hypertension) Comment: - Continue Lisinopril. (4) Peripheral vascular disease Comment: - Continue Aspirin and Plavix. (5) Abnormal urinalysis Comment: - Patient has no urinary complaints. - Follow culture, continue Cefazolin for now. (6) DVT prophylaxis Comment: - SQ heparin. (7) Full code status Status and Disposition: Inpatient requiring >48h for stabilization and management.
[2017-06-21] MEDS ORDERED: Iodixanol* (CONTRAST) 320 MG/ML 100 ML SDV IV ONE (15:42)
[2017-06-21] MEDS: Atorvastatin* 80 MG TAB PO SCH (18:21)
[2017-06-21] MEDS: Insulin GLARGINE(*) 1 UNITS UNIT SUBCUT SCH (23:20)
[2017-06-22] MEDS: ceFAZolin 1 GM VIAL(*) 1 GM in NS 0.9% 50 ML* 50 ML IVPB SCH ×2 (00:37→08:32)
[2017-06-22] MEDS: Heparin VIAL(*) 5000 UNITS/ML VIAL (FIVE THOUSAND) SUBCUT SCH ×3 (06:23→21:32)
[2017-06-22] MEDS: Aspirin Low Dose CHEW TAB* 81 MG PO SCH (08:32)
[2017-06-22] MEDS: Docusate CAP* 100 MG PO SCH ×2 (08:32→20:27)
[2017-06-22] MEDS: Clopidogrel TAB* 75 MG PO SCH (08:32)
[2017-06-22] MEDS: Lisinopril TAB* 5 MG PO SCH (08:32)
[2017-06-22] MEDS: Insulin LISPRO* 1 UNITS UNIT SUBCUT SCH ×7 (09:52→20:30)
[2017-06-22] MEDS: Nystatin TOP POWDER* 15 GM BTL TOPICAL SCH ×3 (09:53→20:27)
[2017-06-22] MEDS: metroNIDAZOLE IV 500 MG/100ML* 500 MG/100 ML BAG IVPB SCH ×2 (09:53→20:26)
--- NOTE | 2017-06-22 11:06 | RAD ---
INDICATIONS: Diabetes, gangrene COMPARISONS: None TECHNIQUE: Ankle-brachial indices and Doppler tracings were obtained of the lower extremities bilaterally. FINDINGS: Right: The posterior tibial ankle brachial index is noncompressible. The dorsalis pedis ankle brachial index is noncompressible. The digital brachial index is 0.05 The posterior tibial waveform is monophasic. The dorsalis pedis waveform is monophasic. Left: The posterior tibial ankle brachial index is noncompressible. The dorsalis pedis ankle brachial index is noncompressible.. The posterior tibial waveform is monophasic. The dorsalis pedis waveform is monophasic. OTHER: None. IMPRESSION: THE DORSALIS PEDIS AND POSTERIOR TIBIAL VESSELS ARE NONCOMPRESSIBLE BILATERALLY CONSISTENT WITH ARTERIOSCLEROSIS GIVEN THE HISTORY OF DIABETES. THE RIGHT DIGITAL BRACHIAL INDEX IS 0.05 CONSISTENT WITH SEVERE PERIPHERAL ARTERIAL DISEASE.
[2017-06-22] MEDS: Cefepime(*) 1 GM in NS 0.9% 50 ML* 50 ML IVPB SCH ×2 (11:27→22:11)
--- NOTE | 2017-06-22 16:24 | PN ---
Subjective Date of Service: 06/22/17 Interval History: HOSPITALIST PROGRESS NOTE Patient seen and examined at bedside. He offers no new complaints today. Anxious for surgery tomorrow. Family History: Unchanged from Admission Social History: Unchanged from Admission Past Medical History: Unchanged from Admission Objective Active Medications: Acetaminophen (Tylenol Tab*) 650 mg PO Q6H PRN PRN Reason: FEVER/PAIN Albuterol (Ventolin 2.5 Mg/3 Ml Neb.Susy*) 2.5 mg INH Q2H PRN PRN Reason: SOB/WHEEZING Aspirin (Aspirin Low Dose Tab*) 81 mg PO DAILY [facility] Last Admin: 06/22/17 08:32 Dose: 81 mg Atorvastatin Calcium (Lipitor*) 80 mg PO 1700 [facility] Last Admin: 06/21/17 18:21 Dose: 80 mg Clopidogrel Bisulfate (Plavix Tab*) 75 mg PO DAILY [facility] Last Admin: 06/22/17 08:32 Dose: 75 mg Docusate Sodium (Colace Cap*) 200 mg PO BID [facility] Last Admin: 06/22/17 08:32 Dose: Not Given Heparin Sodium (Porcine) (Heparin Vial(*)) 5,000 units SUBCUT Q8HR [facility] Last Admin: 06/22/17 13:42 Dose: Not Given Metronidazole/Sodium Chloride (Flagyl 500 Mg Ivpb*) 500 mg in 100 mls @ 100 mls /hr IVPB Q12HR [facility] Last Admin: 06/22/17 09:53 Dose: 100 mls/hr Cefepime HCl 1 gm/ Sodium (Chloride) 50 mls @ 100 mls/hr IVPB Q12H [facility] Last Admin: 06/22/17 11:27 Dose: 100 mls/hr Insulin Glargine (Lantus(*)) 7 units SUBCUT 2100 [facility] Insulin Human Lispro (Humalog*) 0 units SUBCUT AC [facility] PRN Reason: Protocol Last Admin: 06/22/17 13:41 Dose: 4 units Insulin Human Lispro (Humalog*) 0 units SUBCUT ACHS [facility] PRN Reason: Protocol Last Admin: 06/22/17 13:41 Dose: 2 units Lisinopril (Prinivil Tab*) 5 mg PO DAILY [facility] Last Admin: 06/22/17 08:32 Dose: 5 mg Melatonin (Melatonin (Nf)) 3 mg PO BEDTIME PRN; Protocol PRN Reason: Sleep Nystatin (Nystatin Top Powder*) 1 applic TOPICAL TID TETE Last Admin: 06/22/17 13:42 Dose: 1 applic Ondansetron HCl (Zofran Inj*) 4 mg IV Q6H PRN PRN Reason: NAUSEA Oxycodone HCl (Roxycodone Tab*) 5 mg PO Q4H PRN PRN Reason: PAIN Vital Signs 06/22/17 06/22/17 11:37 15:40 Temperature 98.9 F 98.6 F Pulse Rate 75 79 Respiratory 16 16 Rate Blood Pressure 173/76 182/76 (mmHg) O2 Sat by Pulse 99 100 Oximetry Oxygen Devices in Use Now: None Appearance: Pleasant elderly male sitting up in bed in NAD. Eyes: No Scleral Icterus Ears/Nose/Mouth/Throat: Mucous Membranes Moist Neck: Trachea Midline Respiratory: Symmetrical Chest Expansion and Respiratory Effort, Clear to Auscultation Cardiovascular: RRR - Normal S1 and S2 Abdominal: NL Sounds; No Tenderness; No Distention Extremities: No Edema, - - 2nd toe wet gangrene extending to 3rd toe, foul smelling discharge Neurological: Alert and Oriented x 3, NL Muscle Strength and Tone Lines/Tubes/Other Access: Clean, Dry and Intact Peripheral IV Nutrition: Taking PO's Result Diagrams: 06/21/17 05:42 06/21/17 05:42 Assess/Plan/Problems-Billing Assessment: Mr. 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 - Patient Problems (1) Type 2 diabetes mellitus with right diabetic foot infection Comment: - Patient was treated by his Research Nurse with cephalexin, but had worsening after he completed treatment. - Now presents with wet gangrene of 2nd and 3rd toes on the right. - Continue Metronidazole. Culture is growing Pseudomonas, so will change back to Cefepime. - ID and Ortho consults appreciated - tentative plan for OR 06/23/17. - Vascular input appreciated - recommended 2nd toe amputation only, maybe 3rd if necessary, but to try and save hallux as patient already has a left TMA and his mobility and ability to live independently will be compromised with a right TMA. Recommended NERY and CTA aorta and run off - done, will be read by Dr. Lawson. (2) Type 2 diabetes mellitus Comment: - HbA1c is 9, down from 12.4 in 2016. - Continue Lantus (half dose as he'll be NPO for surgery tomorrow) and Lispro SS. (3) HTN (hypertension) Comment: - Uncontrolled. - Increase Lisinopril to 10mg/day. (4) Peripheral vascular disease Comment: - Continue Aspirin and Plavix. (5) Abnormal urinalysis Comment: - Patient has no urinary complaints. - Urine culture showed no growth. (6) DVT prophylaxis Comment: - SQ heparin. (7) Full code status Status and Disposition: Inpatient requiring >48h for stabilization and management.
[2017-06-22] MEDS ORDERED: Lisinopril TAB* 5 MG PO ONE (16:26)
[2017-06-22] MEDS: Atorvastatin* 80 MG TAB PO SCH (17:14)
[2017-06-22] MEDS: Insulin GLARGINE(*) 1 UNITS UNIT SUBCUT SCH (20:27)
--- NOTE | 2017-06-23 04:29 | CONS ---
CONSULTATION REPORT: DATE OF CONSULT: 06/22/17 HISTORY OF PRESENT ILLNESS: Mr. Chowdhury is a very pleasant 77-year-old diabetic gentleman with peripheral vascular disease, who has had some wet gangrene of his second toe, some cellulitis of the third and first for the last few weeks. He has been admitted for the last 48 hours for some IV antibiotics for some borderline bacteremia and vascular workup. So far his ABIs are noncompressible which is not surprising and CTA to be read in the morning. Mr. Chowdhury is very much amenable to having just his second toe excised or even possibly a transmetatarsal amputation depending on intraoperative findings. He has a history of heart failure, diabetes type 2, previous bypass grafting and hypertension. MEDICATIONS: Medicines are outlined in the chart. PHYSICAL EXAM: He is on examination, in no acute distress. He is bright, alert and very pleasant. The right foot shows him to have warm midfoot and hindfoot. There is no essentially no capillary refill noted. I am really not able to feel any definitive dorsal or posterior pulse. The great toe is intact. Second toe with wet, dry gangrene just distal to the MTP level. Third toe more marginal, but not overtly gangrenous today. ASSESSMENT AND PLAN: The patient is amenable to having second toe removed, intraoperatively checking for some arterial blood to the bed of the toe. If no flow is noted intraoperatively, then I would consider potentially transmetatarsal amputation. This will be scheduled tomorrow. He is to be n.p.o. magdy. [id number]/[facility] #: [id number] MTDD
[2017-06-23] MEDS: Heparin VIAL(*) 5000 UNITS/ML VIAL (FIVE THOUSAND) SUBCUT SCH ×2 (05:08→13:15)
[2017-06-23] MEDS: Insulin LISPRO* 1 UNITS UNIT SUBCUT SCH ×7 (07:41→22:08)
[2017-06-23] MEDS: Aspirin Low Dose CHEW TAB* 81 MG PO SCH ×2 (08:45→09:05)
[2017-06-23] MEDS: Clopidogrel TAB* 75 MG PO SCH ×2 (08:45→08:55)
[2017-06-23] MEDS: Docusate CAP* 100 MG PO SCH ×3 (08:45→22:07)
[2017-06-23] MEDS: Nystatin TOP POWDER* 15 GM BTL TOPICAL SCH ×3 (08:46→22:08)
[2017-06-23] MEDS: metroNIDAZOLE IV 500 MG/100ML* 500 MG/100 ML BAG IVPB SCH ×2 (08:46→22:07)
[2017-06-23] MEDS: Lisinopril TAB* 10 MG PO SCH (08:46)
--- NOTE | 2017-06-23 09:43 | RAD ---
INDICATION: Critical limb ischemia involving the right second toe. COMPARISON: NERY dated June 22, 2017 that yielded noncompressible pedal arteries with evidence of left lower leg arterial compromise. CT abdomen pelvis dated February 27, 2016. TECHNIQUE: A CT angiogram of the abdomen, pelvis and lower extremities was performed before and following arterial phase intravenous contrast enhancement with 100 mL of Visipaque 320. Delayed images of the lower legs were acquired as well. Contiguous axial sections were obtained and reconstructed in the sagittal, coronal planes and a maximum intensity projection 3-D was created. FINDINGS: Non-arterial findings: The lung bases exhibit diffuse centrilobular emphysematous changes. Otherwise the lung bases appear clear without significant infiltrate. There are no large pleural effusions. There is a small hiatal hernia. The liver, pancreas and adrenal glands appear to be within normal limits. There is hyperattenuating material in the dependent portion of the gallbladder. Scattered calcified granulomas are noted in the otherwise normal-appearing spleen. The renal cortices enhance promptly and symmetrically on these arterial phase images. There is no mass or hydronephrosis. Multilevel degenerative changes of the lower thoracic and lumbar spine includes loss of intervertebral disc height. There has been interval appearance of a compression deformity of the L1 vertebral body not seen on the February 27, 2016 CT examination. The sclerotic appearance of the vertebral body indicates a subacute or chronic injury. Arterial findings: Abdomen \T\ Pelvis: There is widespread calcified atherosclerosis of the abdominal aorta and major branch vessels. Coarse calcification at the origins of the celiac trunk and superior mesenteric artery likely cause mild narrowing but patency is maintained in the proximal portions of the arteries. At the mid-level superior mesenteric artery (axial image 61 and sagittal image 54) there is partially coarsely calcified mixed attenuation atherosclerosis causes a more severe degree of narrowing. Distal to this the middle colic and right colic arteries are mildly hypertrophied suggesting the presence of collateralization. There is no pathologically enlarged Arc of [place]. The inferior mesenteric artery appears to fill adequately. Coarse calcification at the origin of the bilateral renal arteries causes at least mild stenosis. Incidentally noted is bifurcation of the right renal artery immediately beyond the ostium. Coarse calcification of the infrarenal abdominal aorta extends into the bilateral common iliac arteries are adequately patent the is maintained. There is in-line flow into the bilateral common femoral arteries. There is coarse atherosclerotic calcification of the bilateral internal iliac arteries and branch arteries by patency appears to be maintained at the proximal portions of the arteries. Right leg: The right common femoral artery provides in-line flow into the femoral profundus and superficial femoral artery. There is mild narrowing in the SFA as it courses through Abel's canal (for example image 263 of 554) but luminal patency is maintained into the popliteal artery. Coarse calcification of the more inferior popliteal artery and infrapopliteal arteries greatly diminishes the ability of CTA to determine luminal patency. Patency beyond the inferior popliteal artery is indeterminant on this CTA. Left leg: The left common femoral artery provides in-line flow into the femoral profundus and superficial femoral artery. There is severe narrowing in the SFA at its junction with the popliteal artery (axial image 3 July 31, 1952) with potential focal obstruction. More distally there is questionable filling of the popliteal artery as exuberant calcified atherosclerosis limited CTA evaluation. Coarse calcification of the infrapopliteal arteries greatly diminishes the ability of CTA to determine luminal patency. Patency beyond the popliteal artery is indeterminant on this CTA. IMPRESSION: 1. Widespread calcified atherosclerosis as described in more detail in the body the report. The more severe and/or clinically relevant findings are as follows: * Advanced calcified atherosclerosis of the lower popliteal and infrapopliteal arteries renders this CTA nondiagnostic for popliteal and infrapopliteal arterial patency. Catheter arteriography is necessary to determine luminal patency of these lower extremity arteries. * There appears to be high-grade stenosis versus short, focal occlusion at the junction of the left SFA and popliteal artery. * Calcified atherosclerosis at the midportion of the superior mesenteric artery may cause flow-limiting stenosis. Please correlate to signs and symptoms of mesenteric ischemia including postprandial abdominal pain and unintentional weight loss. 2. Hyperattenuating material in the dependent portion of the otherwise normal-appearing gallbladder is noted. This could represent gallstones or sludge. 3. Compression deformity of the L1 vertebral body is new since the February 27, 2016 CT examination. Please correlate to focal back pain at this level.
--- NOTE | 2017-06-23 10:13 | PN ---
Progress Note - Progress Note Date of Service: 06/23/17 SOAP: Subjective: CC: foot infection HPI: 77 yo man with vascular disease and diabetes admitted with black 2nd right toe and foul odor, associated cellulitis. Otherwise feels well. No fever, rash , or diarrhea. Objective: [] Vital Signs Temp 36.7 C 06/23/17 08:24 Pulse 80 06/23/17 09:29 Resp 16 06/23/17 09:29 BP 181/90 06/23/17 08:24 Pulse Ox 96 06/23/17 09:29 Intake & Output 06/22/17 06/23/17 06/23/17 18:59 06:59 18:59 Intake Total 870 250 Output Total 340 950 Balance 530 -700 Weight 164 lb 14.4 oz Intake: IV Fluids 150 150 ABX - FLAGYL 100 100 NS (0.9%) 50 cefazolin 50 Oral 720 100 Output: Urine 340 950 Other: Estimated Void Medium # Bowel Movements 1 1 Estimated Stool Amount Small Small # Voids 1 1 Gen:awake, no distress HEENT:PERRL, MMM Neck:supple Heart:RRR no murmur Lungs:CTA BL Abd:+BS NTND soft Skin: no rash MSK: R 2nd toe gangrene, foul odor, faint associated erythema Laboratory Results - last 24 hr 06/22/17 06/22/17 06/22/17 11:20 16:39 20:08 POC Glucose (mg/dL) 162 H 180 H 168 H 06/23/17 07:19 POC Glucose (mg/dL) 92 Microbiology 06/20/17 00:40 Blood Venous Aerobic Blood Culture - Preliminary No Growth Day 3 06/20/17 00:40 Blood Venous Anaerobic Blood Culture - Preliminary No Growth Day 3 06/20/17 00:40 Blood Venous Blood Culture - Final 06/20/17 00:47 Blood Venous Aerobic Blood Culture - Preliminary No Growth Day 3 06/20/17 00:47 Blood Venous Anaerobic Blood Culture - Preliminary No Growth Day 3 06/20/17 00:47 Blood Venous Blood Culture - Final 06/20/17 18:00 Toe - Right Gram Stain - Final 06/20/17 18:00 Toe - Right Wound Culture - Preliminary Pseudomonas Aeruginosa Assessment: 1. R foot dry gangrene, polymicrobial, with vascular disease and diabetes 2. neuropathy 3. CAD Plan: 1. continue cefepime and flagyl; surgical therapy pending, further antibiotic plans pending extent of surgery.
[2017-06-23] MEDS: Cefepime(*) 1 GM in NS 0.9% 50 ML* 50 ML IVPB SCH ×2 (11:24→23:28)
--- NOTE | 2017-06-23 11:32 | PN ---
Subjective Date of Service: 06/23/17 Interval History: No c/o. No pain. No exertional chest pain or SOB at home, does climb 5 steps at times. Both feet have decreased sensation. Family History: Unchanged from Admission Social History: Unchanged from Admission Past Medical History: Unchanged from Admission Objective Active Medications: Acetaminophen (Tylenol Tab*) 650 mg PO Q6H PRN PRN Reason: FEVER/PAIN Albuterol (Ventolin 2.5 Mg/3 Ml Neb.Susy*) 2.5 mg INH Q2H PRN PRN Reason: SOB/WHEEZING Aspirin (Aspirin Low Dose Tab*) 81 mg PO DAILY [facility] Last Admin: 06/23/17 09:05 Dose: Not Given Atorvastatin Calcium (Lipitor*) 80 mg PO 1700 [facility] Last Admin: 06/22/17 17:14 Dose: 80 mg Clopidogrel Bisulfate (Plavix Tab*) 75 mg PO DAILY [facility] Last Admin: 06/23/17 08:55 Dose: Not Given Docusate Sodium (Colace Cap*) 200 mg PO BID [facility] Last Admin: 06/23/17 08:52 Dose: Not Given Heparin Sodium (Porcine) (Heparin Vial(*)) 5,000 units SUBCUT Q8HR [facility] Last Admin: 06/23/17 05:08 Dose: 5,000 units Metronidazole/Sodium Chloride (Flagyl 500 Mg Ivpb*) 500 mg in 100 mls @ 100 mls /hr IVPB Q12HR [facility] Last Admin: 06/23/17 08:46 Dose: 100 mls/hr Cefepime HCl 1 gm/ Sodium (Chloride) 50 mls @ 100 mls/hr IVPB Q12H [facility] Last Admin: 06/23/17 11:24 Dose: 100 mls/hr Insulin Glargine (Lantus(*)) 7 units SUBCUT 2100 [facility] Last Admin: 06/22/17 20:27 Dose: 7 units Insulin Human Lispro (Humalog*) 0 units SUBCUT AC [facility] PRN Reason: Protocol Last Admin: 06/23/17 07:41 Dose: Not Given Insulin Human Lispro (Humalog*) 0 units SUBCUT ACHS [facility] PRN Reason: Protocol Last Admin: 06/23/17 07:41 Dose: Not Given Lisinopril (Prinivil Tab*) 10 mg PO DAILY [facility] Last Admin: 06/23/17 08:46 Dose: 10 mg Melatonin (Melatonin (Nf)) 3 mg PO BEDTIME PRN; Protocol PRN Reason: Sleep Nystatin (Nystatin Top Powder*) 1 applic TOPICAL TID TETE Last Admin: 06/23/17 08:46 Dose: 1 applic Ondansetron HCl (Zofran Inj*) 4 mg IV Q6H PRN PRN Reason: NAUSEA Oxycodone HCl (Roxycodone Tab*) 5 mg PO Q4H PRN PRN Reason: PAIN Vital Signs 06/22/17 06/22/17 06/22/17 11:37 15:40 19:31 Temperature 98.9 F 98.6 F Pulse Rate 75 79 Respiratory 16 16 16 Rate Blood Pressure 173/76 182/76 (mmHg) O2 Sat by Pulse 99 100 Oximetry 06/22/17 06/22/17 06/23/17 19:45 23:38 03:17 Temperature 98.5 F 98.8 F Pulse Rate 81 82 16 Respiratory 17 96 Rate Blood Pressure 173/73 171/71 (mmHg) O2 Sat by Pulse 98 96 82 Oximetry 06/23/17 06/23/17 06/23/17 03:40 08:00 08:24 Temperature 98.4 F 98.1 F Pulse Rate 73 80 Respiratory 17 15 15 Rate Blood Pressure 164/71 181/90 (mmHg) O2 Sat by Pulse 95 97 Oximetry 06/23/17 06/23/17 09:29 10:15 Temperature Pulse Rate 80 Respiratory 16 Rate Blood Pressure 157/69 (mmHg) O2 Sat by Pulse 96 Oximetry Oxygen Devices in Use Now: None Appearance: Alert, partly up in bed. In good spirits. Looks comfortable. Eyes: No Scleral Icterus Neck: NL Appearance and Movements; NL JVP, No Thyroid Enlargement, Masses Respiratory: Symmetrical Chest Expansion and Respiratory Effort, Clear to Auscultation, Clear to Percussion Cardiovascular: NL Sounds; No Murmurs; No JVD, RRR, No Edema, - Extremities: No Edema, No Clubbing, Cyanosis, - - R 2nd and 3rd toes discolored , moist Skin: No Rash or Ulcers, No Nodules or Sclerosis, - Neurological: Alert and Oriented x 3, NL Sensation Result Diagrams: 06/21/17 05:42 06/21/17 05:42 Microbiology and Other Data: Microbiology 06/20/17 18:00 Gram Stain - Final Toe - Right Wound Culture - Preliminary Pseudomonas Aeruginosa 06/20/17 00:40 Aerobic Blood Culture - Preliminary Blood Venous No Growth Day 3 Anaerobic Blood Culture - Preliminary No Growth Day 3 Blood Culture - Final 06/20/17 00:47 Aerobic Blood Culture - Preliminary Blood Venous No Growth Day 3 Anaerobic Blood Culture - Preliminary No Growth Day 3 Blood Culture - Final 06/20/17 00:45 Urine Culture - Final Urine No Growth (<1,000 CFU/mL) 06/20/17 00:45 Nasal Screen MRSA (PCR)(SHELLY) - Final Nasal Mrsa Negative Assess/Plan/Problems-Billing Assessment: Mr. 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 - Patient Problems (1) Type 2 diabetes mellitus with right diabetic foot infection Current Visit: Yes Status: Acute Code(s): E11.628 - TYPE 2 DIABETES MELLITUS WITH OTHER SKIN COMPLICATIONS; L08.9 - LOCAL INFECTION OF THE SKIN AND SUBCUTANEOUS TISSUE, UNSP SNOMED Code(s): 48179170 Comment: - Patient was treated by his Broadcast News Producer with cephalexin, but had worsening after he completed treatment. - Now presents with wet gangrene of 2nd and 3rd toes on the right. - Continue Metronidazole and Cefepime. Plan for OR 06/23/17. - Vascular input appreciated - recommended 2nd toe amputation only, maybe 3rd if necessary, but to try and save hallux as patient already has a left TMA and his mobility and ability to live independently will be compromised with a right TMA. Recommended NERY and CTA aorta and run off is done. (2) CAD (coronary artery disease) Current Visit: Yes Status: Acute Code(s): I25.10 - ATHSCL HEART DISEASE OF [place] CORONARY ARTERY W/O ANG PCTRS SNOMED Code(s): 48839912 Comment: Remote hx CABG. Cardiac cath 02/2014 showed patent SLATER and saphenous vein grafts patent, recommended medical tx. (3) Preoperative clearance Current Visit: Yes Status: Acute Code(s): Z01.818 - ENCOUNTER FOR OTHER PREPROCEDURAL EXAMINATION SNOMED Code(s): 17256067 Comment: Patient is stable and optimized for surgery with an acceptable risk. (4) Type 2 diabetes mellitus Current Visit: Yes Status: Chronic Comment: - HbA1c is 9, down from 12.4 in 2016. - Continue Lantus and Lispro SS. Status and Disposition: Inpatient requiring >48h for stabilization and management.
[2017-06-23 13:52] LABS: BUN/Creatinine Ratio 26.1 (8-20); Calcium 8.3 mg/dL (8.6-10.3); EGFR African American 64.6 (>60); EGFR Non-African American 50.2 (>60); Potassium 4.5 mmol/L (3.5-5.0)
[2017-06-23] MEDS: Atorvastatin* 80 MG TAB PO SCH (16:45)
[2017-06-23] MEDS ORDERED: Lidocaine 2% PF * 5 ML VIAL ONE ×2 (17:17→18:59)
[2017-06-23] MEDS ORDERED: Ondansetron INJ* 2 MG/ML VIAL ONE (17:17)
[2017-06-23] MEDS ORDERED: fentaNYL* 50 MCG/ML 2 ML VIAL (100 MCG VIAL) ONE (17:17)
[2017-06-23] MEDS ORDERED: Propofol* 10 MG/ML 20 ML BTL IV PUSH ONE ×2 (17:17→18:59)
[2017-06-23] MEDS ORDERED: Midazolam* 1 MG/ML 5 ML VIAL (5 MG) ONE (17:18)
[2017-06-23] MEDS ORDERED: Bupivacaine 0.5% SDV PF* 30 ML VIAL ONE (18:08)
[2017-06-23] MEDS ORDERED: Sodium Citrate/Citric Acid* 15 ML UDC ONE (18:28)
[2017-06-23] MEDS ORDERED: Sodium Citrate/Citric Acid* 15 ML UDC PO ONE (19:14)
[2017-06-23] MEDS ORDERED: Phenylephrine IV* 40 MCG/ML 10 ML SYRINGE ONE (19:16)
[2017-06-23] MEDS: Insulin GLARGINE(*) 1 UNITS UNIT SUBCUT SCH (22:08)
[2017-06-24] MEDS: oxyCODONE TAB* 5 MG TAB PO PRN ×2 (02:50→08:35)
[2017-06-24] MEDS: Insulin LISPRO* 1 UNITS UNIT SUBCUT SCH ×8 (08:28→21:30)
[2017-06-24] MEDS: Nystatin TOP POWDER* 15 GM BTL TOPICAL SCH ×3 (08:35→21:34)
[2017-06-24] MEDS: metroNIDAZOLE IV 500 MG/100ML* 500 MG/100 ML BAG IVPB SCH (08:35)
[2017-06-24] MEDS: Aspirin Low Dose CHEW TAB* 81 MG PO SCH (08:36)
[2017-06-24] MEDS: Lisinopril TAB* 10 MG PO SCH (08:36)
[2017-06-24] MEDS: Docusate CAP* 100 MG PO SCH ×3 (08:36→21:32)
--- NOTE | 2017-06-24 10:27 | PN ---
Progress Note - Progress Note Date of Service: 06/24/17 SOAP: Subjective: []Patient seen at bedside, alert and oriented, no complaints of foot pain. No SOB, or dizziness. Objective: [] Vital Signs Temp 98.8 F 06/24/17 07:17 Pulse 80 06/24/17 07:17 Resp 20 06/24/17 09:50 BP 159/69 06/24/17 07:17 Pulse Ox 99 06/24/17 07:17 Intake & Output 06/23/17 06/24/17 06/24/17 18:59 06:59 18:59 Intake Total 245 1840 Output Total 700 1370 Balance -455 470 Weight 162 lb 8 oz Intake: IV Fluids 245 1000 ABX - FLAGYL 110 100 Cefepime 55 50 LR 750 NS (0.9%) 80 100 Oral 0 840 Output: Urine 700 1350 Estimated Blood Loss 20 Other: Estimated Void Small # Bowel Movements 0 1 Estimated Stool Amount Large # Voids 2 Laboratory Results - last 24 hr 06/23/17 06/23/17 06/23/17 11:28 13:23 16:28 Sodium 133 Potassium 4.5 Chloride 106 Carbon Dioxide 20 L Anion Gap 7 BUN 36 H Creatinine 1.38 H Est GFR ( Amer) 64.6 Est GFR (Non-Af Amer) 50.2 BUN/Creatinine Ratio 26.1 H Glucose 103 H POC Glucose (mg/dL) 113 H 120 H Calcium 8.3 L 06/23/17 06/23/17 06/23/17 17:32 19:04 21:48 Sodium Potassium Chloride Carbon Dioxide Anion Gap BUN Creatinine Est GFR ( Amer) Est GFR (Non-Af Amer) BUN/Creatinine Ratio Glucose POC Glucose (mg/dL) 127 H 135 H 124 H Calcium 06/24/17 07:19 Sodium Potassium Chloride Carbon Dioxide Anion Gap BUN Creatinine Est GFR ( Amer) Est GFR (Non-Af Amer) BUN/Creatinine Ratio Glucose POC Glucose (mg/dL) 104 H Calcium Microbiology 06/23/17 18:58 Anaerobic Culture - Preliminary Wound - Right No Growth Day 1 06/23/17 18:58 Gram Stain - Final Foot Right Wound Culture - Preliminary No Growth Day 1 06/20/17 18:00 Gram Stain - Final Toe - Right Wound Culture - Final Pseudomonas Aeruginosa Staphylococcus Aureus Normal Fely 06/20/17 00:40 Aerobic Blood Culture - Preliminary Blood Venous No Growth Day 4 Anaerobic Blood Culture - Preliminary No Growth Day 4 Blood Culture - Final 06/20/17 00:47 Aerobic Blood Culture - Preliminary Blood Venous No Growth Day 4 Anaerobic Blood Culture - Preliminary No Growth Day 4 Blood Culture - Final 06/20/17 00:45 Urine Culture - Final Urine No Growth (<1,000 CFU/mL) 06/20/17 00:45 Nasal Screen MRSA (PCR)(SHELLY) - Final Nasal Mrsa Negative Right foot splint and dressings are dry and intact Assessment: []Right TMA for gangrene POD #1 Plan: []Cefepime/ Flagyl per Dr. Dixon NWB RLE Follow up with Dr. Marte in 7- 10 days after discharge.
[2017-06-24] MEDS: Cefepime(*) 1 GM in NS 0.9% 50 ML* 50 ML IVPB SCH (10:40)
--- NOTE | 2017-06-24 14:34 | PN ---
Progress Note - Progress Note Date of Service: 06/24/17 SOAP: Subjective: CC: foot infection HPI: 77 yo man with vascular disease and diabetes admitted with black 2nd right toe and foul odor, associated cellulitis. Had TMA 06/23, feels well. No fever, rash, or diarrhea. Objective: [] Vital Signs Temp 36.9 C 06/24/17 11:21 Pulse 76 06/24/17 11:21 Resp 22 06/24/17 11:21 BP 144/70 06/24/17 11:21 Pulse Ox 99 06/24/17 11:21 Intake & Output 06/23/17 06/24/17 06/24/17 18:59 06:59 18:59 Intake Total 245 1840 295 Output Total 700 1370 200 Balance -455 470 95 Weight 162 lb 8 oz Intake: IV Fluids 245 1000 60 ABX - FLAGYL 110 100 Cefepime 55 50 LR 750 NS (0.9%) 80 100 60 IVPB 115 ABX - FLAGYL 60 Cefepime 55 Oral 0 840 120 Output: Urine 700 1350 200 Estimated Blood Loss 20 Other: Estimated Void Small Date of Last Bowel 06/23/2017 Movement # Bowel Movements 0 1 0 Estimated Stool Amount Large # Voids 2 0 Gen:awake, no distress HEENT:PERRL, MMM Neck:supple Heart:RRR no murmur Lungs:CTA BL Abd:+BS NTND soft Skin: no rash MSK: R foot wrapped Microbiology 06/23/17 18:58 Anaerobic Culture - Preliminary Wound - Right No Growth Day 1 06/23/17 18:58 Gram Stain - Final Foot Right Wound Culture - Preliminary No Growth Day 1 06/20/17 18:00 Gram Stain - Final Toe - Right Wound Culture - Final Pseudomonas Aeruginosa Staphylococcus Aureus Normal Fely 06/20/17 00:40 Aerobic Blood Culture - Preliminary Blood Venous No Growth Day 4 Anaerobic Blood Culture - Preliminary No Growth Day 4 Blood Culture - Final 06/20/17 00:47 Aerobic Blood Culture - Preliminary Blood Venous No Growth Day 4 Anaerobic Blood Culture - Preliminary No Growth Day 4 Blood Culture - Final Assessment: 1. R foot dry gangrene, polymicrobial, with vascular disease and diabetes s/p TMA 2. neuropathy 3. CAD Plan: 1. 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
--- NOTE | 2017-06-24 14:54 | PN ---
Subjective Date of Service: 06/24/17 Interval History: Pain control good with oral hydrocodone/APAP. BM last night. Appetite OK. No new c/o. Family History: Unchanged from Admission Social History: Unchanged from Admission Past Medical History: Unchanged from Admission Objective Active Medications: Acetaminophen (Tylenol Tab*) 650 mg PO Q6H PRN PRN Reason: FEVER/PAIN Albuterol (Ventolin 2.5 Mg/3 Ml Neb.Susy*) 2.5 mg INH Q2H PRN PRN Reason: SOB/WHEEZING Aspirin (Aspirin Low Dose Tab*) 81 mg PO DAILY [facility] Last Admin: 06/24/17 08:36 Dose: 81 mg Atorvastatin Calcium (Lipitor*) 80 mg PO 1700 [facility] Last Admin: 06/23/17 16:45 Dose: 80 mg Clopidogrel Bisulfate (Plavix Tab*) 75 mg PO 0900 [facility] Docusate Sodium (Colace Cap*) 200 mg PO BID [facility] Last Admin: 06/24/17 08:36 Dose: 200 mg Heparin Sodium (Porcine) (Heparin Vial(*)) 5,000 units SUBCUT Q8H [facility] Cefazolin Sodium 1 gm/ Sodium (Chloride) 50 mls @ 200 mls/hr IVPB Q8H [facility] Insulin Glargine (Lantus(*)) 7 units SUBCUT 2100 [facility] Last Admin: 06/23/17 22:08 Dose: Not Given Insulin Human Lispro (Humalog*) 0 units SUBCUT AC [facility] PRN Reason: Protocol Last Admin: 06/24/17 13:05 Dose: 5 units Insulin Human Lispro (Humalog*) 0 units SUBCUT ACHS [facility] PRN Reason: Protocol Last Admin: 06/24/17 13:05 Dose: 1 units Lisinopril (Prinivil Tab*) 10 mg PO DAILY [facility] Last Admin: 06/24/17 08:36 Dose: 10 mg Melatonin (Melatonin (Nf)) 3 mg PO BEDTIME PRN; Protocol PRN Reason: Sleep Nystatin (Nystatin Top Powder*) 1 applic TOPICAL TID [facility] Last Admin: 06/24/17 13:06 Dose: 1 applic Ondansetron HCl (Zofran Inj*) 4 mg IV Q6H PRN PRN Reason: NAUSEA Oxycodone HCl (Roxycodone Tab*) 5 mg PO Q4H PRN PRN Reason: PAIN Last Admin: 06/24/17 08:35 Dose: 5 mg Vital Signs 06/23/17 06/23/17 06/23/17 16:06 19:32 19:36 Temperature 97.5 F 97.9 F Pulse Rate 101 85 81 Respiratory 22 20 21 Rate Blood Pressure 154/82 156/78 158/82 (mmHg) O2 Sat by Pulse 99 99 97 Oximetry 06/23/17 06/23/17 06/23/17 19:40 19:45 20:00 Temperature 98.1 F Pulse Rate 83 81 78 Respiratory 20 20 18 Rate Blood Pressure 144/73 132/76 160/77 (mmHg) O2 Sat by Pulse 98 96 97 Oximetry 06/23/17 06/23/17 06/23/17 20:29 21:30 22:20 Temperature 98.7 F 97.8 F 97.6 F Pulse Rate 81 69 78 Respiratory 16 20 20 Rate Blood Pressure 158/74 150/64 169/77 (mmHg) O2 Sat by Pulse 98 98 100 Oximetry 06/24/17 06/24/17 06/24/17 01:15 02:40 02:50 Temperature 99.0 F 98.2 F Pulse Rate 79 82 Respiratory 16 16 18 Rate Blood Pressure 164/78 174/76 (mmHg) O2 Sat by Pulse 99 98 Oximetry 06/24/17 06/24/17 06/24/17 03:01 03:50 04:49 Temperature Pulse Rate 78 Respiratory 16 16 Rate Blood Pressure 164/74 (mmHg) O2 Sat by Pulse 99 Oximetry 06/24/17 06/24/17 06/24/17 07:02 07:17 07:30 Temperature 99.7 F 98.8 F Pulse Rate 83 80 Respiratory 16 22 18 Rate Blood Pressure 168/78 159/69 (mmHg) O2 Sat by Pulse 96 99 Oximetry 06/24/17 06/24/17 06/24/17 07:36 08:35 09:50 Temperature Pulse Rate Respiratory 18 20 20 Rate Blood Pressure (mmHg) O2 Sat by Pulse Oximetry 06/24/17 11:21 Temperature 98.4 F Pulse Rate 76 Respiratory 22 Rate Blood Pressure 144/70 (mmHg) O2 Sat by Pulse 99 Oximetry Oxygen Devices in Use Now: None Appearance: Alert, supine in bed. In good spiits. Looks comfortable. Ears/Nose/Mouth/Throat: Mucous Membranes Moist Extremities: No Edema, No Clubbing, Cyanosis, - - R foot bandaged Neurological: Alert and Oriented x 3, NL Sensation Result Diagrams: 06/21/17 05:42 06/23/17 13:23 Microbiology and Other Data: Microbiology 06/20/17 18:00 Gram Stain - Final Toe - Right Wound Culture - Preliminary Pseudomonas Aeruginosa 06/20/17 00:40 Aerobic Blood Culture - Preliminary Blood Venous No Growth Day 3 Anaerobic Blood Culture - Preliminary No Growth Day 3 Blood Culture - Final 06/20/17 00:47 Aerobic Blood Culture - Preliminary Blood Venous No Growth Day 3 Anaerobic Blood Culture - Preliminary No Growth Day 3 Blood Culture - Final 06/20/17 00:45 Urine Culture - Final Urine No Growth (<1,000 CFU/mL) 06/20/17 00:45 Nasal Screen MRSA (PCR)(SHELLY) - Final Nasal Mrsa Negative Assess/Plan/Problems-Billing Assessment: Mr. 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 - Patient Problems (1) Type 2 diabetes mellitus with right diabetic foot infection Current Visit: Yes Status: Acute Code(s): E11.628 - TYPE 2 DIABETES MELLITUS WITH OTHER SKIN COMPLICATIONS; L08.9 - LOCAL INFECTION OF THE SKIN AND SUBCUTANEOUS TISSUE, UNSP SNOMED Code(s): 54427088 Comment: - Patient was treated by his Pneumatic Jack Operator with cephalexin, but had worsening after he completed treatment, presented here with wet gangrene of 2nd , 3rd toes on the right. - Continue cefazolin. TMA R foot 06/23/17. - Vascular input appreciated (2) CAD (coronary artery disease) Current Visit: Yes Status: Acute Code(s): I25.10 - ATHSCL HEART DISEASE OF [place] CORONARY ARTERY W/O ANG PCTRS SNOMED Code(s): 91701719 Comment: Remote hx CABG. Cardiac cath 02/2014 showed patent SLATER and saphenous vein grafts patent, recommended medical tx. (3) Type 2 diabetes mellitus Current Visit: Yes Status: Chronic Comment: - HbA1c is 9, down from 12.4 in 2016. - Continue Lantus and Lispro SS. Status and Disposition: Inpatient requiring >48h for stabilization and management.
[2017-06-24] MEDS: Heparin VIAL(*) 5000 UNITS/ML VIAL (FIVE THOUSAND) SUBCUT SCH (16:23)
[2017-06-24] MEDS: ceFAZolin 1 GM VIAL(*) 1 GM in NS 0.9% 50 ML* 50 ML IVPB SCH ×2 (16:23→22:44)
[2017-06-24] MEDS: Atorvastatin* 80 MG TAB PO SCH (17:47)
[2017-06-24] MEDS: Insulin GLARGINE(*) 1 UNITS UNIT SUBCUT SCH (21:29)
[2017-06-25] MEDS: Heparin VIAL(*) 5000 UNITS/ML VIAL (FIVE THOUSAND) SUBCUT SCH ×5 (00:11→22:59)
[2017-06-25] MEDS: Docusate CAP* 100 MG PO SCH ×3 (03:20→22:52)
[2017-06-25] MEDS: ceFAZolin 1 GM VIAL(*) 1 GM in NS 0.9% 50 ML* 50 ML IVPB SCH ×3 (06:04→22:52)
[2017-06-25] MEDS: Insulin LISPRO* 1 UNITS UNIT SUBCUT SCH ×7 (07:40→22:58)
[2017-06-25] MEDS: Nystatin TOP POWDER* 15 GM BTL TOPICAL SCH ×3 (09:06→22:59)
[2017-06-25] MEDS: Clopidogrel TAB* 75 MG PO SCH (09:07)
[2017-06-25] MEDS: Lisinopril TAB* 10 MG PO SCH (09:07)
[2017-06-25] MEDS: Aspirin Low Dose CHEW TAB* 81 MG PO SCH (09:07)
[2017-06-25] MEDS ORDERED: Insulin GLARGINE(*) 1 UNITS UNIT SUBCUT SCH (09:45)
--- NOTE | 2017-06-25 09:50 | PN ---
Progress Note - Progress Note Date of Service: 06/25/17 SOAP: Subjective: []Patient seen at bedside. Nsg reports patient is fearful to get OOB. He offers no complaints of foot pain. Objective: [] Laboratory Results - last 24 hr 06/24/17 06/24/17 06/24/17 11:32 16:23 20:18 POC Glucose (mg/dL) 141 H 263 H 266 H 06/25/17 07:35 POC Glucose (mg/dL) 120 H Vital Signs Temp 98.2 F 06/25/17 07:45 Pulse 80 06/25/17 07:45 Resp 16 06/25/17 07:45 BP 160/71 06/25/17 07:45 Pulse Ox 98 06/25/17 07:45 Intake & Output 06/24/17 06/25/17 06/25/17 18:59 06:59 18:59 Intake Total 691 1020 Output Total 200 450 Balance 491 570 Weight 162 lb 8 oz Intake: IV Fluids 60 20 NS (0.9%) 60 20 IVPB 171 120 ABX - FLAGYL 60 Cefepime 55 cefazolin 56 120 Oral 460 880 Output: Urine 200 450 Other: Estimated Void Small Date of Last Bowel 06/23/2017 Movement # Bowel Movements 0 0 # Voids 0 100 Microbiology 06/23/17 18:58 Anaerobic Culture - Preliminary Wound - Right No Growth Day 2 06/23/17 18:58 Gram Stain - Final Foot Right Wound Culture - Preliminary No Growth Day 2 06/20/17 00:40 Aerobic Blood Culture - Final Blood Venous No Growth Day 5 Anaerobic Blood Culture - Final No Growth Day 5 Blood Culture - Final 06/20/17 00:47 Aerobic Blood Culture - Final Blood Venous No Growth Day 5 Anaerobic Blood Culture - Final No Growth Day 5 Blood Culture - Final 06/20/17 18:00 Gram Stain - Final Toe - Right Wound Culture - Final Pseudomonas Aeruginosa Staphylococcus Aureus Normal Fely 06/20/17 00:45 Urine Culture - Final Urine No Growth (<1,000 CFU/mL) 06/20/17 00:45 Nasal Screen MRSA (PCR)(SHELLY) - Final Nasal Mrsa Negative Right foot dressing and splint remains dry and intact Assessment: []s/p TMA right foot for gangrene Plan: []Will need SNF rehab Heparin/Plavix per medicine Cefazolin per Dr. Dixon Follow up in 7-[address] Marte
--- NOTE | 2017-06-25 10:10 | PN ---
Subjective Date of Service: 06/25/17 Interval History: No more pain. Had BM during th night, once only. Appetite OK. No new c/o. Family History: Unchanged from Admission Social History: Unchanged from Admission Past Medical History: Unchanged from Admission Objective Active Medications: Acetaminophen (Tylenol Tab*) 650 mg PO Q6H PRN PRN Reason: FEVER/PAIN Albuterol (Ventolin 2.5 Mg/3 Ml Neb.Susy*) 2.5 mg INH Q2H PRN PRN Reason: SOB/WHEEZING Aspirin (Aspirin Low Dose Tab*) 81 mg PO DAILY [facility] Last Admin: 06/25/17 09:07 Dose: 81 mg Atorvastatin Calcium (Lipitor*) 80 mg PO 1700 [facility] Last Admin: 06/24/17 17:47 Dose: 80 mg Clopidogrel Bisulfate (Plavix Tab*) 75 mg PO 0900 [facility] Last Admin: 06/25/17 09:07 Dose: 75 mg Docusate Sodium (Colace Cap*) 200 mg PO BID [facility] Last Admin: 06/25/17 09:07 Dose: 200 mg Heparin Sodium (Porcine) (Heparin Vial(*)) 5,000 units SUBCUT Q8H [facility] Last Admin: 06/25/17 09:11 Dose: 5,000 units Cefazolin Sodium 1 gm/ Sodium (Chloride) 50 mls @ 200 mls/hr IVPB Q8H [facility] Last Admin: 06/25/17 06:04 Dose: 200 mls/hr Insulin Glargine (Lantus(*)) 10 units SUBCUT 2100 TETE Insulin Human Lispro (Humalog*) 0 units SUBCUT ACHS [facility] PRN Reason: Protocol Last Admin: 06/25/17 07:40 Dose: Not Given Insulin Human Lispro (Humalog*) 0 units SUBCUT AC [facility] PRN Reason: Protocol Lisinopril (Prinivil Tab*) 10 mg PO DAILY [facility] Last Admin: 06/25/17 09:07 Dose: 10 mg Nystatin (Nystatin Top Powder*) 1 applic TOPICAL TID [facility] Last Admin: 06/25/17 09:06 Dose: 1 applic Ondansetron HCl (Zofran Inj*) 4 mg IV Q6H PRN PRN Reason: NAUSEA Oxycodone HCl (Roxycodone Tab*) 5 mg PO Q4H PRN PRN Reason: PAIN Last Admin: 06/24/17 08:35 Dose: 5 mg Vital Signs 06/24/17 06/24/17 06/24/17 11:21 15:37 18:15 Temperature 98.4 F 99.7 F Pulse Rate 76 78 75 Respiratory 22 16 16 Rate Blood Pressure 144/70 150/67 (mmHg) O2 Sat by Pulse 99 98 98 Oximetry 06/24/17 06/24/17 06/24/17 20:00 20:02 23:18 Temperature 98.9 F 98.9 F Pulse Rate 85 74 Respiratory 16 16 16 Rate Blood Pressure 160/70 154/66 (mmHg) O2 Sat by Pulse 97 99 Oximetry 06/25/17 06/25/17 06/25/17 00:00 04:05 04:11 Temperature 98.9 F Pulse Rate 79 16 Respiratory 16 98 Rate Blood Pressure 166/72 (mmHg) O2 Sat by Pulse 99 99 82 Oximetry 06/25/17 07:45 Temperature 98.2 F Pulse Rate 80 Respiratory 16 Rate Blood Pressure 160/71 (mmHg) O2 Sat by Pulse 98 Oximetry Oxygen Devices in Use Now: None Appearance: Alert, supine in bed. In good spirits. Looks comfortable. Eyes: No Scleral Icterus Extremities: No Edema, No Clubbing, Cyanosis, - - BL TMA's. R foot bandaged Skin: No Rash or Ulcers, No Nodules or Sclerosis Neurological: Alert and Oriented x 3, NL Sensation Result Diagrams: 06/21/17 05:42 06/23/17 13:23 Microbiology and Other Data: Microbiology 06/20/17 18:00 Gram Stain - Final Toe - Right Wound Culture - Preliminary Pseudomonas Aeruginosa 06/20/17 00:40 Aerobic Blood Culture - Preliminary Blood Venous No Growth Day 3 Anaerobic Blood Culture - Preliminary No Growth Day 3 Blood Culture - Final 06/20/17 00:47 Aerobic Blood Culture - Preliminary Blood Venous No Growth Day 3 Anaerobic Blood Culture - Preliminary No Growth Day 3 Blood Culture - Final 06/20/17 00:45 Urine Culture - Final Urine No Growth (<1,000 CFU/mL) 06/20/17 00:45 Nasal Screen MRSA (PCR)(SHELLY) - Final Nasal Mrsa Negative Assess/Plan/Problems-Billing Assessment: Mr. 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 - Patient Problems (1) Type 2 diabetes mellitus with right diabetic foot infection Current Visit: Yes Status: Acute Code(s): E11.628 - TYPE 2 DIABETES MELLITUS WITH OTHER SKIN COMPLICATIONS; L08.9 - LOCAL INFECTION OF THE SKIN AND SUBCUTANEOUS TISSUE, UNSP SNOMED Code(s): 73778725 Comment: - Patient was treated by his Plant Sciences Professor with cephalexin, but had worsening after he completed treatment, presented here with wet gangrene of 2nd , 3rd toes on the right. - Continue cefazolin, . TMA R foot 06/23/17. (2) CAD (coronary artery disease) Current Visit: Yes Status: Acute Code(s): I25.10 - ATHSCL HEART DISEASE OF [place] CORONARY ARTERY W/O ANG PCTRS SNOMED Code(s): 74562381 Comment: Remote hx CABG. Cardiac cath 02/2014 showed patent SLATER and saphenous vein grafts patent, recommended medical tx. (3) Type 2 diabetes mellitus Current Visit: Yes Status: Chronic Comment: - HbA1c is 9, down from 12.4 in 2016. - Continue Lantus and Lispro SS. Status and Disposition: Inpatient requiring >48h for stabilization and management.
[2017-06-25] MEDS: Atorvastatin* 80 MG TAB PO SCH (16:38)
[2017-06-26] MEDS ORDERED: amLODIPine TAB* 5 MG PO PRN (01:00)
[2017-06-26] MEDS ORDERED: amLODIPine TAB* 5 MG PO ONE (01:00)
[2017-06-26] MEDS: ceFAZolin 1 GM VIAL(*) 1 GM in NS 0.9% 50 ML* 50 ML IVPB SCH (06:05)
--- NOTE | 2017-06-26 08:03 | PN ---
PROGRESS NOTE: DATE OF SERVICE: 06/26/17 - ROOM #410 HISTORY: Emile is 3 days now status post right transmetatarsal amputation. He is having 0 pain in the foot at this time. The dressing is clean and dry, and I have overwrapped with a fiberglass cast so that he can begin to heel weightbear. He will need to be fit with a cast shoe, can be supplied by the physical therapist, so that he can heel weightbear. He has up-to-date recommendations in the chart and will require some type of rehab evaluation and referral. He can follow up in my office in 10 to 14 days. [id number]/[facility] #: [id number] ANDREW
[2017-06-26] MEDS: Insulin LISPRO* 1 UNITS UNIT SUBCUT SCH ×4 (08:55→13:09)
[2017-06-26] MEDS: Clopidogrel TAB* 75 MG PO SCH (08:57)
[2017-06-26] MEDS: Lisinopril TAB* 10 MG PO SCH (08:57)
[2017-06-26] MEDS: Nystatin TOP POWDER* 15 GM BTL TOPICAL SCH ×2 (08:57→13:45)
[2017-06-26] MEDS: Heparin VIAL(*) 5000 UNITS/ML VIAL (FIVE THOUSAND) SUBCUT SCH (08:57)
[2017-06-26] MEDS: Docusate CAP* 100 MG PO SCH (08:57)
[2017-06-26] MEDS: Aspirin Low Dose CHEW TAB* 81 MG PO SCH (08:57)
--- NOTE | 2017-06-26 09:31 | PN ---
Progress Note - Progress Note Date of Service: 06/26/17 SOAP: Subjective: CC: foot infection HPI: 77 yo man with vascular disease and diabetes admitted with black 2nd right toe and foul odor, associated cellulitis. Had TMA 06/23. Casted today. No fever, rash, or diarrhea. Objective: [] Vital Signs Temp 36.6 C 06/26/17 07:48 Pulse 77 06/26/17 07:48 Resp 16 06/26/17 08:00 BP 147/76 06/26/17 07:48 Pulse Ox 96 06/26/17 07:48 Intake & Output 06/25/17 06/26/17 06/26/17 18:59 06:59 18:59 Intake Total 3135 215 Output Total 600 1100 Balance 2535 -885 Weight 160 lb 4.8 oz Intake: IV Fluids 20 30 NS (0.9%) 20 30 IVPB 55 65 cefazolin 55 65 Oral 3060 120 Output: Urine 600 1100 Other: Estimated Void Small # Bowel Movements 0 # Voids 1 Gen:awake, no distress HEENT:PERRL, MMM Neck:supple Heart:RRR no murmur Lungs:CTA BL Abd:+BS NTND soft Skin: no rash MSK: R foot casted Laboratory Results - last 24 hr 06/25/17 06/25/17 06/25/17 12:02 17:08 22:36 POC Glucose (mg/dL) 181 H 184 H 149 H C-Reactive Protein 06/26/17 06/26/17 04:57 07:53 POC Glucose (mg/dL) 135 H C-Reactive Protein 147.61 H Assessment: 1. R foot dry gangrene, polymicrobial, with vascular disease and diabetes s/p TMA 2. neuropathy 3. CAD Plan: 1. continue ancef 1 gm IV Q8hrs for staph; given sufficient removal of infected bone and soft tissue, when he is discharged keflex 500 mg po TID for 14 days.
[2017-06-26] MEDS ORDERED: Insulin LISPRO* 1 UNITS UNIT SUBCUT SCH ×2 (11:41→13:00)
--- NOTE | 2017-06-26 11:41 | PN ---
Subjective Date of Service: 06/26/17 Interval History: No c/o. Family History: Unchanged from Admission Social History: Unchanged from Admission Past Medical History: Unchanged from Admission Objective Active Medications: Acetaminophen (Tylenol Tab*) 650 mg PO Q6H PRN PRN Reason: FEVER/PAIN Last Admin: 06/25/17 22:51 Dose: 650 mg Albuterol (Ventolin 2.5 Mg/3 Ml Neb.Susy*) 2.5 mg INH Q2H PRN PRN Reason: SOB/WHEEZING Amlodipine Besylate (Norvasc Tab*) 5 mg PO ONCE PRN PRN Reason: ELEVATED SYSTOLIC Stop: 06/27/17 00:59 Last Admin: 06/26/17 01:19 Dose: 5 mg Aspirin (Aspirin Low Dose Tab*) 81 mg PO DAILY [facility] Last Admin: 06/26/17 08:57 Dose: 81 mg Atorvastatin Calcium (Lipitor*) 80 mg PO 1700 [facility] Last Admin: 06/25/17 16:38 Dose: 80 mg Clopidogrel Bisulfate (Plavix Tab*) 75 mg PO 0900 [facility] Last Admin: 06/26/17 08:57 Dose: 75 mg Docusate Sodium (Colace Cap*) 200 mg PO BID [facility] Last Admin: 06/26/17 08:57 Dose: 200 mg Heparin Sodium (Porcine) (Heparin Vial(*)) 5,000 units SUBCUT Q8H [facility] Last Admin: 06/26/17 08:57 Dose: 5,000 units Cefazolin Sodium 1 gm/ Sodium (Chloride) 50 mls @ 200 mls/hr IVPB Q8H [facility] Last Admin: 06/26/17 06:05 Dose: 200 mls/hr Insulin Glargine (Lantus(*)) 10 units SUBCUT 2100 [facility] Last Admin: 06/25/17 22:58 Dose: 10 units Insulin Human Lispro (Humalog*) 0 units SUBCUT ACHS [facility] PRN Reason: Protocol Last Admin: 06/26/17 08:55 Dose: 1 units Insulin Human Lispro (Humalog*) 0 units SUBCUT AC [facility] PRN Reason: Protocol Last Admin: 06/26/17 08:56 Dose: 4 units Lisinopril (Prinivil Tab*) 10 mg PO DAILY [facility] Last Admin: 06/26/17 08:57 Dose: 10 mg Nystatin (Nystatin Top Powder*) 1 applic TOPICAL TID [facility] Last Admin: 06/26/17 08:57 Dose: 1 applic Ondansetron HCl (Zofran Inj*) 4 mg IV Q6H PRN PRN Reason: NAUSEA Oxycodone HCl (Roxycodone Tab*) 5 mg PO Q4H PRN PRN Reason: PAIN Last Admin: 06/24/17 08:35 Dose: 5 mg Vital Signs 06/25/17 06/25/17 06/25/17 15:44 16:00 19:34 Temperature 98.3 F 99.1 F Pulse Rate 82 81 Respiratory 22 21 Rate Blood Pressure 163/77 164/67 (mmHg) O2 Sat by Pulse 98 98 99 Oximetry 06/25/17 06/25/17 06/26/17 20:00 23:21 01:35 Temperature 99.3 F Pulse Rate 90 79 Respiratory 18 15 16 Rate Blood Pressure 182/85 (mmHg) O2 Sat by Pulse 96 97 Oximetry 06/26/17 06/26/17 06/26/17 03:11 07:48 08:00 Temperature 98.1 F 97.8 F Pulse Rate 72 77 Respiratory 14 16 16 Rate Blood Pressure 147/68 147/76 (mmHg) O2 Sat by Pulse 96 96 Oximetry Oxygen Devices in Use Now: None Appearance: Alert, partly up in bed. In good spirits. Looks comfortable. Extremities: No Edema, No Clubbing, Cyanosis, - - R foot in cast Skin: No Rash or Ulcers, No Nodules or Sclerosis, - Neurological: Alert and Oriented x 3, NL Sensation Result Diagrams: 06/21/17 05:42 06/23/17 13:23 Microbiology and Other Data: Microbiology 06/20/17 18:00 Gram Stain - Final Toe - Right Wound Culture - Preliminary Pseudomonas Aeruginosa 06/20/17 00:40 Aerobic Blood Culture - Preliminary Blood Venous No Growth Day 3 Anaerobic Blood Culture - Preliminary No Growth Day 3 Blood Culture - Final 06/20/17 00:47 Aerobic Blood Culture - Preliminary Blood Venous No Growth Day 3 Anaerobic Blood Culture - Preliminary No Growth Day 3 Blood Culture - Final 06/20/17 00:45 Urine Culture - Final Urine No Growth (<1,000 CFU/mL) 06/20/17 00:45 Nasal Screen MRSA (PCR)(SHELLY) - Final Nasal Mrsa Negative Assess/Plan/Problems-Billing Assessment: Mr. 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 - Patient Problems (1) Type 2 diabetes mellitus with right diabetic foot infection Current Visit: Yes Status: Acute Code(s): E11.628 - TYPE 2 DIABETES MELLITUS WITH OTHER SKIN COMPLICATIONS; L08.9 - LOCAL INFECTION OF THE SKIN AND SUBCUTANEOUS TISSUE, UNSP SNOMED Code(s): 60284542 Comment: TMA R foot 06/23/17. Change to cephalexin 500 mg po tid x 14 d on discharge. (2) CAD (coronary artery disease) Current Visit: Yes Status: Acute Code(s): I25.10 - ATHSCL HEART DISEASE OF [place] CORONARY ARTERY W/O ANG PCTRS SNOMED Code(s): 19282233 Comment: Remote hx CABG. Cardiac cath 02/2014 showed patent SLATER and saphenous vein grafts patent, recommended medical tx. (3) Type 2 diabetes mellitus Current Visit: Yes Status: Chronic Comment: - HbA1c is 9, down from 12.4 in 2016. -Increase Lantus to 12 U hs and Lispro 4 U ac. Status and Disposition: Discharge to [facility] now.
--- NOTE | 2017-06-26 12:05 | PN ---
Progress Note - Progress Note Date of Service: 06/26/17 Note: Time spent on discharge 50 minutes.
--- NOTE | 2017-06-26 12:39 | DS ---
CC: Dr. Watkins * DATE OF ADMISSION: 06/19/2017. DATE OF DISCHARGE: 06/26/2017. HISTORY OF PRESENT ILLNESS: This 77-year-old man presented with a right foot infection. He had a nontraumatic wound form on his right second toe. About three weeks ago he saw a tool sharpener and was placed on Cephalexin. He took this for two one week courses, but the toe worsened and blackened and the third toe had a black spot as well. He had a severe diabetic foot infection. He was started with treated of Vancomycin, Cefepime, and Metronidazole. He was seen in consultation by Dr. Allen to assess the possibility of revascularization. Dr. Dixon saw the patient in consultation as well. On 06/23/2017, the patient had a right transmetatarsal amputation. He tolerated this well. I note he did have an aortic study with run-off CTA on , as well as an extremity arterial study. The patient's diabetes is being managed with Lantus once a day and a fixed dose of Lispro with meals at the time of discharge. The plan is for him to take Cephalexin p.o. for 14 days following discharge. He needs to see Dr. Marte again in seven to ten days after discharge. FINAL DIAGNOSES: 1. Diabetic foot infection. 2. Coronary artery disease. 3. Diabetes. 4. COPD. DISCHARGE MEDICATIONS: 1. Acetaminophen 650 mg every 6 hours prn. 2. Albuterol 2.5 mg by nebulizer every 2 hours prn. 3. Atorvastatin 80 mg daily at 1700 hours. 4. Cephalexin 500 mg t.i.d. times 14 days. 5. Glargine insulin 12 units subcu at 2100 hours daily. 6. Lispro 4 units subcu before meals. 7. Lisinopril 10 mg daily. 8. Nystatin powder to affected areas t.i.d. 9. Amlodipine 5 mg daily. 10. Aspirin 81 mg daily. 11. Clopidogrel 75 mg daily. [id number]/[facility] #: [id number] MTDD
[2017-06-26 13:17] VITALS: BP 147/69
[2017-06-26] MEDS ORDERED: Cephalexin CAP* 500 MG PO SCH (14:00)
[2017-06-26] MEDS ORDERED: Insulin GLARGINE(*) 1 UNITS UNIT SUBCUT SCH (21:00)
--- NOTE | 2017-08-04 10:42 | OP ---
DATE OF OPERATION: 06/23/17 - ROOM #410 DATE OF : 44 SURGEON: David Marte MD. PRE-OP DIAGNOSIS: Right forefoot necrosis with infection. POST-OP DIAGNOSIS: Right forefoot necrosis with infection. OPERATIVE PROCEDURE: Right transmetatarsal amputation. DESCRIPTION OF PROCEDURE: The patient was taken to the operating room with MAC anesthetic. We made a transverse fishmouth incision over the right forefoot just at the base of the phalanges. We dissected proximally to expose the necks of the metatarsals, which were transected with a microsagittal saw. We then plantar flexed through the flap and dissected away the plantar flap. We gained electrocautery control of all hemostasis, irrigated thoroughly, sending cultures to the lab, closing with 2-0 Vicryl deep sutures and 2-0 Surgipro for the flap itself and a compression dressing and plaster splint applied. [id number] #: [id number] MTDD
== END 2017-06-26 14:25 | DRG 240 ==
LOC: ED 21:44 → MED 22:32
PROVIDERS: ADMIT Hospitalist; ATTEND Internal Medicine
PROC: 0Y6M0ZB Detachment at Right Foot, Partial 2nd Ray, Open Approach (ICD-10-PCS; 2017-06-23)
PROC: 0Y6M0ZC Detachment at Right Foot, Partial 3rd Ray, Open Approach (ICD-10-PCS; 2017-06-23)
PROC: 0Y6M0ZD Detachment at Right Foot, Partial 4th Ray, Open Approach (ICD-10-PCS; 2017-06-23)
PROC: 0Y6M0ZF Detachment at Right Foot, Partial 5th Ray, Open Approach (ICD-10-PCS; 2017-06-23)
PROC: 0Y6M0Z9 Detachment at Right Foot, Partial 1st Ray, Open Approach (ICD-10-PCS; principal; 2017-06-23 18:15)
DX: E11.52 Type 2 diabetes mellitus with diabetic peripheral angiopathy with gangrene (principal); I13.0 Hypertensive heart and chronic kidney disease with heart failure and stage 1 through stage 4 chronic kidney disease, or unspecified chronic kidney disease; E11.22 Type 2 diabetes mellitus with diabetic chronic kidney disease; I50.32 Chronic diastolic (congestive) heart failure; L03.115 Cellulitis of right lower limb; E11.40 Type 2 diabetes mellitus with diabetic neuropathy, unspecified; E11.621 Type 2 diabetes mellitus with foot ulcer; L08.9 Local infection of the skin and subcutaneous tissue, unspecified; J44.9 Chronic obstructive pulmonary disease, unspecified; I25.10 Atherosclerotic heart disease of native coronary artery without angina pectoris; E11.319 Type 2 diabetes mellitus with unspecified diabetic retinopathy without macular edema; E78.5 Hyperlipidemia, unspecified; K21.9 Gastro-esophageal reflux disease without esophagitis; R40.2412 Glasgow coma scale score 13-15, at arrival to emergency department; N18.3 Chronic kidney disease, stage 3 (moderate); N40.0 Benign prostatic hyperplasia without lower urinary tract symptoms; Z79.4 Long term (current) use of insulin; Z79.82 Long term (current) use of aspirin; Z79.02 Long term (current) use of antithrombotics/antiplatelets; Z95.1 Presence of aortocoronary bypass graft; Z89.432 Acquired absence of left foot; Z87.891 Personal history of nicotine dependence; Z83.3 Family history of diabetes mellitus; Z72.89 Other problems related to lifestyle
CPT/HCPCS: 36415; 71020; 75635; 80048; 80053; 81003; 81015; 83036; 83605; 83735; 84484; 85025; 86140; 87040; 87070; 87073; 87077; 87086; 87186; 87205; 87641; 88307; 88311; 93005; 93922; 99213; A9270-GY; G0463; J0690; J0692; J1644; J2250; J2405; J2704; J3010; J3370; Q9967

== ENCOUNTER 2017-07-15 13:43 | Inpatient (IN) | payer MEDICARE, OTHER ==
[2017-07-15] MEDS ORDERED: Vancomycin(*) 1,250 MG in NS 0.9% 250 ML* 250 ML IVPB ONE (14:48)
[2017-07-15] MEDS ORDERED: Cefepime(*) 1 GM in NS 0.9% 50 ML* 50 ML IVPB ONE (14:48)
[2017-07-15] MEDS ORDERED: NS 0.9% 1000 ML* 1,000 ML IV SCH (15:00)
[2017-07-15] MEDS ORDERED: Calcium Carbonate CHEW TAB* 500 MG (TUMS) PO PRN (15:06)
[2017-07-15] MEDS ORDERED: PROCHLORPERAZINE INJ 5 MG/ML 2 ML VIAL IV PRN (15:07)
[2017-07-15] MEDS ORDERED: Morphine INJ* 2 MG/ML 1 ML CARPUJECT IV PRN (15:07)
--- NOTE | 2017-07-15 15:26 | RAD ---
Indication: Right foot swelling. 3 views of the right foot demonstrates amputation through the mid metatarsals. Osteopenia is noted however no focal lytic areas are noted. IMPRESSION: NO EVIDENCE OF FOCAL LUCENCY TO SUGGEST OSTEOMYELITIS.
[2017-07-15] MEDS ORDERED: Dextrose 50% Syringe 50 ML* 25 GM/50 ML SYRINGE IV PUSH PRN (15:31)
[2017-07-15 15:33] LABS: Hematocrit 34 % (42-52); Hemoglobin 10.9 g/dl (14.0-18.0); Mean Corpuscular HGB Conc 32 g/dl (31-36); Mean Corpuscular Hemoglobin 30 pg (27-31); Mean Corpuscular Volume 94 fL (80-94); Mean Platelet Volume 10 um3 (7.4-10.4); Red Cell Distribution Width 13 % (10.5-15); White Blood Count 29.6 10^3/ul (3.5-10.8)
[2017-07-15 15:35] LABS: Comments Flag Yes
[2017-07-15 15:36] LABS: Add Diff/Slide Review? Slide Review Added
[2017-07-15] MEDS ORDERED: Vancomycin(*) 1,000 MG in NS 0.9% 250 ML* 250 ML IVPB SCH (16:00)
[2017-07-15 16:11] LABS: Albumin 2.5 g/dL (3.2-5.2); Calcium 8.4 mg/dL (8.6-10.3); EGFR African American 36.4 (>60); EGFR Non-African American 28.3 (>60); Globulin 4.2 g/dL (2-4); Total Bilirubin 0.7 mg/dL (0.2-1.0); Total Protein 6.7 g/dL (6.4-8.9)
[2017-07-15 16:13] LABS: Potassium 5.7 mmol/L (3.5-5.0)
[2017-07-15] MEDS ORDERED: Vancomycin per Pharmacy* NOTE FOLLOW UP PRN (16:19)
[2017-07-15] MEDS ORDERED: Sodium Polystyrene ORAL.SOL* 15 GM/60 ML BTL PO ONE (16:32)
[2017-07-15 18:02] LABS: Erythrocyte Sed Rate 115 mm/Hr (0-40)
--- NOTE | 2017-07-15 18:10 | ED ---
Lower Extremity - HPI Summary HPI Summary: 77 year old male s/p transmetatarsal amputation by DR. Marte, seen in clinic today, was to be directly admitted to hospitalist, seen in ER first. Patient states noted foot was black with an odor, brought to office by neighbor. Denies pain. - History of Current Complaint Chief Complaint: EDExtremityLower Stated Complaint: RT FOOT ISSUE Time Seen by Provider: 07/15/17 14:42 Hx Obtained From: Patient Onset of Pain: Days Onset/Duration: Days Severity Initially: Moderate Severity Currently: Moderate - no pain, however black area on foot Pain Intensity: 0 Pain Scale Used: 0-10 Numeric - Allergies/Home Medications Allergies/Adverse Reactions: Allergies Allergy/AdvReac Type Severity Reaction Status Date / Time No Known Allergies Allergy Verified 06/19/17 20:52 Home Medications: Home Medications Calcium Carbonate CHEW TAB* [Tums*] 500 mg PO Q8H PRN 07/15/17 [History Confirmed 07/15/17] Insulin GLARGINE(*) [Lantus(*)] 18 units SUBCUT 2100 07/15/17 [History Confirmed 07/15/17] Insulin LISPRO* [HumaLOG*] 3 units SUBCUT AC 07/15/17 [History Confirmed ] amLODIPine TAB* [Norvasc 5 mg TAB*] 5 mg PO DAILY 07/15/17 [History Confirmed ] PMH/Surg Hx/FS Hx/Imm Hx Previously Healthy: No - diabetes, htn Endocrine/Hematology History: Reports: Hx Blood Transfusions, Hx Diabetes - DMII with retinopathy, Hx Anemia Denies: Hx Sickle Cell Disease, Hx Thyroid Disease, Hx Unexplained Bleeding Cardiovascular History: Reports: Hx Congestive Heart Failure - Maybe, Hx Coronary Artery Disease, Hx Hypertension Denies: Hx Aneurysm, Hx Angina, Hx Auto Implanted Cardiovert Defib, Hx Cardiac Arrest, Hx Cardiomegaly, Hx Deep Vein Thrombosis, Hx Hypercholesterolemia, Hx Pacemaker/ICD, Hx Peripheral Vascular Disease, Hx Rheumatic Fever, Hx Syncope Comment Only: Other Cardiovascular Problems/Disorders - DIABETIC GI History: Reports: Hx Gastroesophageal Reflux Disease, Hx Hiatal Hernia Comment Only: Other GI Disorders - acute diarrhea History: Reports: Hx Benign Prostatic Hyperplasia, Hx Chronic Renal Failure - Stage 2 Denies: Hx Renal Disease Musculoskeletal History: Denies: Hx Arthritis, Hx Osteoporosis Comment Only: Other Musculoskeletal History - generalized weakness Sensory History: Reports: Hx Contacts or Glasses - did not bring, Other Sensory Impairments - Retinopathy Denies: Hx Cataracts, Hx Glaucoma, Hx Macular Degeneration, Hx Deafness, Hx Hearing Aid Opthamlomology History: Reports: Hx Contacts or Glasses - did not bring, Other Sensory Impairments - Retinopathy Denies: Hx Cataracts, Hx Glaucoma, Hx Macular Degeneration Neurological History: Denies: Hx Headaches - Surgical History Surgery Procedure, Year, and Place: CABG, AMPUTATION OF TOES LT FOOT Hx Anesthesia Reactions: No Infectious Disease History: Yes Infectious Disease History: Reports: Hx of Known/Suspected MRSA Denies: Hx Shingles, Traveled Outside the [place] in Last 30 Days - Family History Known Family History: Positive: None, Diabetes - Social History Alcohol Use: Occasionally Substance Use Type: Reports: None Hx Tobacco Use: Yes Smoking Status (MU): Former Smoker Type: Cigarettes Amount Used/How Often: pack per week Length of Time of Smoking/Using Tobacco: 5 years Have You Smoked in the Last Year: No Review of Systems Positive: Arthralgia, Myalgia, Decreased ROM, Edema Positive: Other - black area on foot Positive: Weakness, Numbness All Other Systems Reviewed And Are Negative: Yes Physical Exam Triage Information Reviewed: Yes Vital Signs On Initial Exam: Initial Vitals Temp Pulse Resp BP Pulse Ox 97.4 F 96 20 147/58 99 07/15/17 13:46 07/15/17 13:46 07/15/17 13:46 07/15/17 13:46 07/15/17 13:46 Vital Signs Reviewed: Yes Appearance: Positive: No Pain Distress, Ill-Appearing, Thin Skin: Positive: Warm, Other - ashen Head/Face: Positive: Normal Head/Face Inspection Musculoskeletal: Positive: Other - RIGHT foot- dressing taken down, + odor, black area on base of foot with superficial skin sloughing, incision intact, minimal weeping from around incision, non-tender to touch, erythematous region from distal foot extending to midfoot on dorsal aspect. PT 2+. no ankle pain. Neurological: Positive: Normal, Alert, Oriented to Person Place, Time, CN Intact II-III - [place] Coma Scale Coma Scale Total: 15 Diagnostics - Vital Signs Vital Signs Temp Pulse Resp BP Pulse Ox 07/15/17 14:30 96 165/95 98 09/19/17 14:00 90 148/71 97 09/19/17 13:51 97 98 07/15/17 13:50 151/66 07/15/17 13:46 97.4 F 96 20 147/58 99 - Laboratory Result Diagrams: 07/15/17 15:19 07/15/17 15:19 Lab Statement: Any lab studies that have been ordered have been reviewed, and results considered in the medical decision making process. Lower Extremity Course/Dx - Course Course Of Treatment: hospitalist aware of patient, IV abx started, hospitalists managing DM, AKD - Diagnoses Differential Diagnosis/HQI/PQRI: Positive: Bursitis, Cellulitis Provider Diagnoses: Cellulitis of right foot, Gangrene of right foot Discharge - Discharge Plan Condition: Guarded Disposition: ADMITTED TO [facility]
[2017-07-15] MEDS: Insulin LISPRO* 1 UNITS UNIT SUBCUT SCH ×3 (18:33→21:18)
[2017-07-15] MEDS: Cefepime(*) 1 GM in NS 0.9% 50 ML* 50 ML IVPB SCH (18:33)
[2017-07-15] MEDS: Atorvastatin* 80 MG TAB PO SCH (18:33)
[2017-07-15] MEDS: NS 0.9% 1000 ML* 1,000 ML IV SCH (18:44)
--- NOTE | 2017-07-15 21:14 | HP ---
CC: Dr. Watkins; Dr. Xochitl Amador; Dr. Dixon; Dr. Marte; Dr. Allen * HISTORY AND PHYSICAL: DATE OF ADMISSION: 07/15/17 TIME OF EVALUATION: 2:45 p.m. PRIMARY CARE PHYSICIAN: Dr. Watkins. PROVIDER AT JAIL: Dr. Xochitl Amador. CONSULTING INFECTIOUS DISEASE SPECIALIST: Dr. Dixon. CONSULTING ORTHOPEDIST: Dr. Marte. CONSULTING AIR LIFT OPERATOR: Dr. Allen. CHIEF COMPLAINT: "My foot is bad." HISTORY OF PRESENT ILLNESS: Mr. 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 The patient was initially admitted to [facility] on 06/19/17, and at that point, he had complaints of infection to his second toe, was found to have a wet gangrene and he was taken to the OR by Dr. Marte where he had a transmetatarsal amputation on 06/23/17. He was discharged to [facility] on cephalexin and he states he had a cast for 3 weeks and today was the first day it was removed and it was seen that he had black discoloration and foul- smelling discharge, so he was sent to the emergency room for further evaluation and treatment. He denies fever, chills, pain, or any other complaints. PAST MEDICAL HISTORY: 1. 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 2. Coronary artery disease, status post 3-vessel CABG. 3. Peripheral arterial disease. While on the prior admission, he was seen by Dr. Allen and his impression was that the patient had atherosclerotic lower extremity vascular disease with wet gangrene of the right second toe. Dr. Allen felt the patient likely had an incomplete pedal arch with multilevel disease. Depending on his digital blood supply, he would recommend revascularization of the anterior tibial or posterior tibial. The patient underwent a CTA of aorta and runoff that showed wide-spread calcified atherosclerosis of the lower popliteal and infrapopliteal artery, but the CTA was nondiagnostic for arterial patency. The recommendation was for catheter arteriography. 4. Hyperlipidemia. 5. CKD, stage 3. 6. Hypertension. 7. GERD. 8. BPH. MEDICATION LIST: 1. Acetaminophen 650 mg p.o. q.6 hours p.r.n. pain or fever. 2. Albuterol 2.5 mg nebulizer q.2 hours p.r.n. shortness of breath. 3. Amlodipine 5 mg p.o. daily. 4. Aspirin 81 mg p.o. daily. 5. Atorvastatin 80 mg p.o. at 5 p.m. 6. Calcium carbonate 500 mg p.o. q.8 hours p.r.n. indigestion. 7. Clopidogrel 75 mg p.o. daily. 8. Lantus 18 units subcutaneously at bedtime. 9. Lispro 3 units subcutaneously before meals. 10. Lisinopril 10 mg p.o. daily. 11. Nystatin powder to affected areas twice a day. ALLERGIES: No known drug allergies. FAMILY HISTORY: Reviewed and noncontributory. SOCIAL HISTORY: The patient is a former smoker and no history of alcohol or drug use. He is now residing at [facility] for rehab. Surrogate decision maker is his partner, Karina Espinoza, phone number is [phone]. REVIEW OF SYSTEMS: A 14-point review of systems was performed and all the pertinent negative and positive findings are in the HPI. PHYSICAL EXAMINATION GENERAL: The patient is a pleasant elderly male, sitting up in the ER stretcher , in no acute distress. VITAL SIGNS: Temperature 97.4, heart rate is 96, respiratory rate is 20, oxygen saturation 99% on room air, blood pressure is 147/58. HEENT: Pupils are equal. Moist mucous membranes. CHEST: Breath sounds bilaterally with no added sounds. CVS: Normal S1, S2. Regular rate and rhythm. ABDOMEN: Soft and nontender. Bowel sounds are present. EXTREMITIES: The patient has no lower extremity edema, pain. There is foul smell coming from his TMA site with black discoloration of the wound. I do not appreciate any discharge at this point, but the wound had been cleansed. NEURO: He is alert and oriented x3. Able to move all 4 extremities. DIAGNOSTIC STUDIES/LAB DATA: Labs were sent, but results are not yet available. Right foot x-ray showed no evidence for focal lucency to suggest osteomyelitis. ASSESSMENT AND PLAN: Mr. 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 1. Diabetic foot infection. The patient will be admitted to the medical floor. We are going to start him empirically on vancomycin and cefepime. He will be seen by Infectious Disease, orthopedist, and Vascular to decide what is the best approach for his foot at this time. Wound cultures were sent from the emergency room. The patient may require an angiogram since his CTA was nondiagnostic. 2. Peripheral arterial disease. As above, the patient may require a CT angiogram since a CTA was nondiagnostic. We will continue aspirin, Plavix, and atorvastatin. 3. Type 2 diabetes. We will continue Lantus and lispro. 4. Hypertension. Controlled, we will continue amlodipine and lisinopril. 5. DVT prophylaxis. The patient has a score of 3 on the DVT Prophylaxis Risk Assessment Guide and he will be started on subcutaneous heparin. 6. Code status is full. TIME SPENT: Approximately 60 minutes was spent with the patient's interview, medical records review, physical examination to complete admission. More than half of this time was spent [id number] with the patient in coordination of care. [id number]/[facility] #: [id number] ANDREW
[2017-07-15] MEDS: Insulin GLARGINE(*) 1 UNITS UNIT SUBCUT SCH (21:19)
[2017-07-15] MEDS: Nystatin TOP POWDER* 15 GM BTL TOPICAL SCH (21:20)
[2017-07-15] MEDS: Heparin VIAL(*) 5000 UNITS/ML VIAL (FIVE THOUSAND) SUBCUT SCH (21:21)
[2017-07-16] MEDS: NS 0.9% 1000 ML* 1,000 ML IV SCH ×2 (04:16→12:10)
[2017-07-16 05:54] LABS: Hematocrit 30 % (42-52); Hemoglobin 9.7 g/dl (14.0-18.0); Mean Corpuscular HGB Conc 33 g/dl (31-36); Mean Corpuscular Hemoglobin 31 pg (27-31); Mean Corpuscular Volume 93 fL (80-94); Mean Platelet Volume 10 um3 (7.4-10.4); Red Blood Count 3.18 10^6/ul (4.0-5.4); Red Cell Distribution Width 13 % (10.5-15); White Blood Count 24.5 10^3/ul (3.5-10.8)
[2017-07-16 05:55] LABS: Comments Flag Yes
[2017-07-16 05:56] LABS: Add Diff/Slide Review? Slide Review Added
[2017-07-16 06:09] LABS: BUN/Creatinine Ratio 47.8 (8-20); Calcium 7.6 mg/dL (8.6-10.3); EGFR African American 48.2 (>60); EGFR Non-African American 37.4 (>60); Potassium 3.9 mmol/L (3.5-5.0)
[2017-07-16] MEDS: Heparin VIAL(*) 5000 UNITS/ML VIAL (FIVE THOUSAND) SUBCUT SCH ×3 (07:20→22:20)
[2017-07-16] MEDS: amLODIPine TAB* 5 MG PO SCH (08:39)
[2017-07-16] MEDS: Aspirin Low Dose CHEW TAB* 81 MG PO SCH (08:39)
[2017-07-16] MEDS: Lisinopril TAB* 10 MG PO SCH (08:39)
[2017-07-16] MEDS: Clopidogrel TAB* 75 MG PO SCH (08:39)
[2017-07-16] MEDS: Insulin LISPRO* 1 UNITS UNIT SUBCUT SCH ×7 (08:40→22:21)
[2017-07-16] MEDS: Nystatin TOP POWDER* 15 GM BTL TOPICAL SCH ×3 (08:44→23:17)
--- NOTE | 2017-07-16 12:38 | PN ---
Subjective Date of Service: 07/16/17 Interval History: HOSPITALIST PROGRESS NOTE Patient seen and examined at bedside. He is anxious to have surgery, "I want the infection cut out!". Denies pain. Overall feels better today, with more energy and appetite is improving. Family History: Unchanged from Admission Social History: Unchanged from Admission Past Medical History: Unchanged from Admission Objective Active Medications: Acetaminophen (Tylenol Tab*) 650 mg PO Q6H PRN PRN Reason: FEVER/PAIN Albuterol (Ventolin 2.5 Mg/3 Ml Neb.Susy*) 2.5 mg INH Q2H PRN PRN Reason: SOB/WHEEZING Amlodipine Besylate (Norvasc Tab*) 5 mg PO DAILY [facility] Last Admin: 07/16/17 08:39 Dose: 5 mg Aspirin (Aspirin Low Dose Tab*) 81 mg PO DAILY [facility] Last Admin: 07/16/17 08:39 Dose: 81 mg Atorvastatin Calcium (Lipitor*) 80 mg PO 1700 [facility] Last Admin: 07/15/17 18:33 Dose: 80 mg Calcium Carbonate (Tums*) 500 mg PO Q8H PRN PRN Reason: DYSPEPSIA Clopidogrel Bisulfate (Plavix Tab*) 75 mg PO DAILY [facility] Last Admin: 07/16/17 08:39 Dose: 75 mg Dextrose (D50w Syringe 50 Ml*) 12.5 gm IV PUSH .FOR FS < 60 - SS PRN PRN Reason: FS < 60 Heparin Sodium (Porcine) (Heparin Vial(*)) 5,000 units SUBCUT Q8HR [facility] Last Admin: 07/16/17 07:20 Dose: 5,000 units Sodium Chloride (Ns 0.9% 1000 Ml*) 1,000 mls @ 0 mls/hr IV WIDE OPEN [facility] PRN Reason: Wide Open Last Admin: 07/15/17 15:17 Dose: 1,000 mls/hr Cefepime HCl 1 gm/ Sodium (Chloride) 50 mls @ 100 mls/hr IVPB Q24H [facility] Last Admin: 07/15/17 18:33 Dose: 100 mls/hr Sodium Chloride (Ns 0.9% 1000 Ml*) 1,000 mls @ 125 mls/hr IV PER RATE [facility] Last Admin: 07/16/17 12:10 Dose: 125 mls/hr Vancomycin HCl 1,000 mg/ (Sodium Chloride) 250 mls @ 166.667 mls/hr IVPB Q24H [facility] Insulin Glargine (Lantus(*)) 18 units SUBCUT 2100 [facility] Last Admin: 07/15/17 21:19 Dose: 18 units Insulin Human Lispro (Humalog*) 3 units SUBCUT AC [facility] Last Admin: 07/16/17 08:40 Dose: 3 units Insulin Human Lispro (Humalog*) 0 units SUBCUT ACHS [facility] PRN Reason: Protocol Last Admin: 07/16/17 08:40 Dose: 1 units Lisinopril (Prinivil Tab*) 10 mg PO DAILY [facility] Last Admin: 07/16/17 08:39 Dose: 10 mg Metronidazole (Flagyl Tab*) 500 mg PO TID [facility] Morphine Sulfate (Morphine Inj (Syringe)*) 2 mg IV Q4H PRN PRN Reason: SEVERE PAIN Nystatin (Nystatin Top Powder*) 1 applic TOPICAL TID [facility] Last Admin: 07/16/17 08:44 Dose: 1 applic Pharmacy Consult (Vancomycin Per Pharmacy*) 1 note FOLLOW UP . PRN PRN Reason: PER PROTOCOL Pharmacy Profile Note (Vancomycin Trough Check) 1 note FOLLOW UP 1530 ONE Stop: 07/18/17 15:31 Prochlorperazine Edisylate (Compazine Inj*) 5 mg IV Q6H PRN PRN Reason: NAUSEA/VOMITING Vital Signs 07/15/17 07/15/17 07/15/17 15:07 15:46 15:54 Temperature 98.3 F Pulse Rate 103 99 76 Respiratory 16 Rate Blood Pressure 143/71 149/86 (mmHg) O2 Sat by Pulse 99 98 100 Oximetry 07/15/17 07/15/17 07/15/17 16:00 19:21 21:15 Temperature 97.5 F Pulse Rate 98 106 Respiratory 18 16 Rate Blood Pressure 157/67 166/75 (mmHg) O2 Sat by Pulse 97 97 Oximetry 07/15/17 07/16/17 07/16/17 23:13 03:20 07:39 Temperature 98.6 F 99.1 F 98.5 F Pulse Rate 96 94 133 Respiratory 14 15 18 Rate Blood Pressure 141/63 156/64 118/65 (mmHg) O2 Sat by Pulse 97 96 96 Oximetry 07/16/17 07/16/17 07:45 08:00 Temperature Pulse Rate 96 Respiratory 18 Rate Blood Pressure (mmHg) O2 Sat by Pulse Oximetry Oxygen Devices in Use Now: Nasal Cannula Appearance: Elderly male lying in bed in NAD. Eyes: No Scleral Icterus Ears/Nose/Mouth/Throat: Mucous Membranes Moist Neck: Trachea Midline Respiratory: Symmetrical Chest Expansion and Respiratory Effort, Clear to Auscultation Cardiovascular: RRR - Normal S1 and S2 Abdominal: NL Sounds; No Tenderness; No Distention Extremities: - - Right foot surgical incision has foul smelling discharge with areas of necrosis extending to plantar aspect Neurological: Alert and Oriented x 3, NL Muscle Strength and Tone Lines/Tubes/Other Access: Clean, Dry and Intact Peripheral IV Nutrition: Taking PO's Result Diagrams: 07/16/17 05:16 07/16/17 05:16 Assess/Plan/Problems-Billing Assessment: Mr. Chowdhury is a 77yo M with PMH of type 2 DM, diabetic neuropathy, diabetic retinopathy, CAD s/p CABG, PAD, HLD, CKD stage 3, HTN, GERD, BPH, s/p recent admission for right foot wet gangrene, s/p TMA, who [place] [facility] with worsening infection. - Patient Problems (1) Severe sepsis Comment: - Patient met sepsis criteria on admission with leukocytosis and tachycardia. Also has ALLEN. - Source is right diabetic foot infection. (2) Type 2 diabetes mellitus with right diabetic foot infection Comment: - S/p TMA R foot 06/23/17 complicated by post op infection. - Continue Vanco, Cefepime. - ID, Ortho, and Vascular consults requested. - Follow cultures. (3) ALLEN (acute kidney injury) Comment: - Acute on chronic kidney injury, likely renal in the setting of ATN secondary to sepsis. - Improving. (4) Peripheral arterial disease Comment: - Dr. Allen to evaluate for possible revascularization. - Continue Aspirin, Plavix, Atorvastatin. (5) Type 2 diabetes mellitus Comment: - HbA1c was 9 in May 2017. - Continue Lantus 18 units and Lispro SS. (6) HTN (hypertension) Comment: - Controlled. - Continue Amlodipine and Lisinopril. (7) DVT prophylaxis Comment: - SQ heparin. (8) Full code status Status and Disposition: Inpatient for management of sepsis and foot infection requiring >48h for stabilization.
[2017-07-16] MEDS: metroNIDAZOLE TAB* 250 MG PO SCH ×2 (14:28→22:23)
[2017-07-16] MEDS ORDERED: Vancomycin(*) 1,000 MG in NS 0.9% 250 ML* 250 ML IVPB SCH (16:00)
--- NOTE | 2017-07-16 16:21 | CONS ---
CONSULTATION REPORT: DATE OF CONSULT: 07/16/17 REQUESTING PHYSICIAN: Dr. Alaniz. CONSULTING SERVICE: Infectious Disease. REASON FOR CONSULT: Right foot infection and gangrene. IMPRESSION: 1. Recent right foot infection with dry gangrene of the toes, status post transmetatarsal amputation, now with necrosis of his skin with dry gangrene of the skin and soft tissue on the plantar forefoot. Incision otherwise intact. There is likely a component of infection, but predominantly a vascular issue. 2. Type 2 diabetes, with retinopathy and neuropathy. 3. Coronary artery disease, status post CABG. 4. Peripheral vascular disease. CTA with arterial sclerosis, which made it nondiagnostic. 5. Chronic kidney disease. 6. Diarrhea. He has chronic diarrhea, but then more recently a few days of frequent liquid stools, minimal abdominal pain, chills, up to 7 or 8 bowel movements a day. It has eased off in the last 12 hours. C. diff is a consideration. RECOMMENDATIONS: 1. I agree with vancomycin, goal trough 10 to 15, and cefepime 1 g daily. We will add Flagyl 500 mg by mouth 3 times a day to cover anaerobes that may be related to his foot infection. 2. C. diff PCR. HISTORY OF PRESENT ILLNESS: This is a 77-year-old male with a recent right foot transmetatarsal amputation, has been at [facility], was on Keflex. His cast came off yesterday, found to have dry gangrene of the plantar forefoot skin , was sent to the ER. White blood cell count was 29. An x-ray of his foot showed no foreign body or fracture. He was on antibiotics here. His foot pain is a bit improved today. He has had no fevers overnight. He has had longstanding frequent loose stools, but then for the last couple of days had frequent liquid urgent stools. He had been on antibiotics a couple of weeks ago. He has been in a shelter up until yesterday. PAST MEDICAL HISTORY: 1. Chronic kidney disease, stage 3. 2. Diabetes with neuropathy and retinopathy. 3. Coronary artery disease, status post CABG. 4. Peripheral vascular disease. 5. Hyperlipidemia. 6. Hypertension. 7. Gastroesophageal reflux disease. 8. Benign prostatic hypertrophy. MEDICATIONS: 1. Tylenol. 2. Lipitor. 3. Calcium. 4. Plavix. 5. Heparin subcutaneous injection. 6. Insulin glargine. 7. Insulin lispro subcu daily. 8. Lisinopril. 9. Vancomycin 1 g once a day. 10. Amlodipine. ALLERGIES: No known drug allergies. FAMILY HISTORY: No recurrent infections or tuberculosis. SOCIAL HISTORY: He has been at [facility]. No sick contacts. REVIEW OF SYSTEMS: All negative, except as noted above. PHYSICAL EXAM: Vital Signs: Temperature 37, heart rate 90, respiratory rate 18 , blood pressure 118/65, O2 sat 96% on room air. General: He is awake, not in distress. Neurologic: He is oriented x3. Follows all commands. HEENT: There is no conjunctival hemorrhage. Oropharynx without lesions. Neck: Supple , without nuchal rigidity. Lymph nodes: There is no inguinal, axillary or epitrochlear lymphadenopathy. Heart: Regular and tachycardic, without murmurs. Lungs: Clear to auscultation bilaterally. Abdomen: Soft, nontender, nondistended. There is bowel sounds present. Skin: There is no rash or splinter hemorrhages. Musculoskeletal: No spine tenderness to palpation. The right foot, there is a transmetatarsal amputation site which is intact. Sutures are present. Plantar surface, there is necrosis of the skin. There is no crepitus or fluctuance. DIAGNOSTIC STUDIES/LAB DATA: White blood cell count 24, hemoglobin 9, platelets 354. Creatinine is 1.7. ALT was 58 and alk phos 394. Please see the impression and recommendations outlined above, which I have discussed with Dr. Alaniz. Thank you for asking me to see Mr. Chowdhury in consultation. [id number]/[facility] #: [id number] ANDREW
[2017-07-16] MEDS: Atorvastatin* 80 MG TAB PO SCH (17:45)
[2017-07-16] MEDS: Cefepime(*) 1 GM in NS 0.9% 50 ML* 50 ML IVPB SCH (17:46)
[2017-07-16] MEDS: Insulin GLARGINE(*) 1 UNITS UNIT SUBCUT SCH (22:21)
[2017-07-17] MEDS: NS 0.9% 1000 ML* 1,000 ML IV SCH ×3 (00:10→20:17)
--- NOTE | 2017-07-17 00:20 | CONS ---
CC: Dr. Allen; Dr. Lawson * FOLLOWUP INTERVENTIONAL CARDIOLOGY NOTE: DATE OF SERVICE: 07/16/17 PRIMARY: Dr. Hines and Dr. Watkins; vascular surgeon, Dr. Marte; Infectious Disease, Dr. Dixon. HISTORY OF PRESENT ILLNESS: A 77-year-old male known to me from previous consultation of 06/21/17. Subsequent CTA with run off demonstrated by report patent inflow and inadequate visualization of the below knee vessels because of heavy calcification. On my review of the CTA, there is fairly focal calcified stenosis, which may be significant at the origin of the right common iliac artery as well as the origin of the right SFA. I discussed this with Dr. Lawson , who will review the CTA before tomorrow's procedure. If needed, these areas will be evaluated with ultrasound. Noninvasive studies on 06/22/17 reported a right toe brachial index of 0.05 consistent with severe pedal ischemia. PT and DP signals were monophasic. He underwent amputation on 06/23/17 with a transmetatarsal resection. Surgical path showed osteomyelitis without specifying which digit. He was readmitted yesterday apparently after his cast was removed, apparently for the first time since surgery and he was found to have gangrene of the midfoot flap. He continues to be without pain. He has had a low-grade fever. Blood cultures are pending. Significant comorbidities include CKD, stage 3, and a history of diastolic heart failure. Past medical history, social history, family history, review of systems, see the previous consult. There was no change. CURRENT MEDICATIONS: 1. Bronchodilators. 2. Norvasc 5 mg daily. 3. Aspirin 81 daily. 4. Lipitor 80 daily. 5. Cefepime. 6. Plavix 75 daily. 7. Subcu heparin. 8. Insulin. 9. Lisinopril 10 mg daily. 10. Flagyl 500 t.i.d. 11. Vancomycin IV. PHYSICAL EXAM: He is cachectic, weak, drowsy, but easily arousable. His femoral pulses are palpable. His right midfoot has a gangrene at the surgical site with surrounding cellulitis, foul odor. DIAGNOSTIC STUDIES/LAB DATA: Today white count of 24.5 down from 29.6 on admission. Sed rate is high, 115. Hemoglobin 9.7 with hematocrit 30, his anemia has worsened since last admission. BMP yesterday showed a sodium of 131, potassium 5.7, creatinine was high at 2.27 up from 1.58 on 07/09/17 with an A1c of 305. Today's creatinine is down to 1.78 after IV fluid, blood sugar has improved to 184 to 220. Potassium is 3.9. IMPRESSION AND PLAN: Right midfoot gangrene with cellulitis. He has severe below knee calcific occlusive disease with extremely low TBI before amputation. I have discussed the case with Dr. Marte and Dr. Lawson, Dr. Lawson has a time on the schedule to do an angiogram tomorrow afternoon with potential revascularization to facilitate wound healing after additional resection. He may require a below knee amputation particularly if there is insufficient tissue to reconstruct his heel with further surgery. It is also unclear to me how ambulatory he is at this point. The extent of final surgery would be determined subsequently with Dr. Marte. The patient is aware of the increased risk of angiography with his renal insufficiency, I will order hydration and Mucomyst preprocedure. He is already on aspirin, high- dose statin, and Plavix. We will follow with you as needed. Thanks for the consultation. [id number]/[facility] #: [id number] ANDREW
[2017-07-17] MEDS: Heparin VIAL(*) 5000 UNITS/ML VIAL (FIVE THOUSAND) SUBCUT SCH (05:34)
[2017-07-17 07:32] LABS: BUN/Creatinine Ratio 47.7 (8-20); Calcium 7.3 mg/dL (8.6-10.3); EGFR African American 57.3 (>60); EGFR Non-African American 44.6 (>60)
[2017-07-17 08:16] LABS: Hematocrit 27 % (42-52); Hemoglobin 8.9 g/dl (14.0-18.0); Mean Corpuscular HGB Conc 33 g/dl (31-36); Mean Corpuscular Hemoglobin 31 pg (27-31); Mean Corpuscular Volume 92 fL (80-94); Mean Platelet Volume 10 um3 (7.4-10.4); Red Cell Distribution Width 13 % (10.5-15); White Blood Count 20.5 10^3/ul (3.5-10.8)
[2017-07-17] MEDS: Insulin LISPRO* 1 UNITS UNIT SUBCUT SCH ×7 (08:47→21:53)
[2017-07-17] MEDS: metroNIDAZOLE TAB* 250 MG PO SCH ×3 (08:59→21:53)
[2017-07-17] MEDS: amLODIPine TAB* 5 MG PO SCH (09:00)
[2017-07-17] MEDS: Clopidogrel TAB* 75 MG PO SCH (09:00)
[2017-07-17] MEDS: Lisinopril TAB* 10 MG PO SCH (09:00)
[2017-07-17] MEDS: Nystatin TOP POWDER* 15 GM BTL TOPICAL SCH ×2 (09:02→16:46)
[2017-07-17] MEDS: Aspirin Low Dose CHEW TAB* 81 MG PO SCH (09:03)
--- NOTE | 2017-07-17 10:05 | PN ---
Progress Note - Progress Note Date of Service: 07/17/17 SOAP: Subjective: CC: R foot gangrene HPI: 77 yo diabetic with vascular disease and recent R foot TMA for gangrene and osteomyelitis now with r plantar forefoot ganrene. Had chills and malaise which are improving. No fever or rash, previous diarrhea resolved, no BM since yesterday without abd pain and +flatus. Objective: [] Vital Signs Temp 36.9 C 07/17/17 07:17 Pulse 87 07/17/17 07:17 Resp 18 07/17/17 07:17 BP 136/67 07/17/17 07:17 Pulse Ox 96 07/17/17 07:17 Intake & Output 07/16/17 07/17/17 07/17/17 18:59 06:59 18:59 Intake Total 3201 1410 Output Total 200 500 Balance 3001 910 Intake: IV Fluids 2369 1410 NS (0.9%) 2369 1410 IVPB 272 ABX - VANCOMYCIN 272 Oral 560 0 Output: Urine 200 500 Other: Estimated Void Medium Large # Bowel Movements 2 0 Estimated Stool Amount Large # Voids 1 1 Gen:awake, no distress HEENT:PERRL, MMM Neck:supple Heart:RRR no murmur Lungs:CTA BL Abd:+BS NTND soft Skin: R plantar forefoot gangrene, odor improved; incision intact, no dorsal erythema Microbiology Blood culture: GN ramesh x2 Assessment: 1. GN bacteremia secondary to foot infection 2. R foot gangrene 3. PAD 4. T2DM 5. CKD 6. Diarrhea, improving Plan: 1. continue cefepime and flagyl; will stop vancomycin 2. angiography pending 35 minutes floor time >50% face to face discussing further workup and treatmen of his foot infection. Discussed with Dr Ramos.
[2017-07-17] MEDS ORDERED: Heparin 2 UNITS/ML IVPREMIX* 1,000 ML IV ONE ×3 (13:14→17:50)
[2017-07-17] MEDS ORDERED: Naloxone* 0.4 MG/ML 1 ML VIAL ONE (13:14)
[2017-07-17] MEDS ORDERED: Midazolam* 1 MG/ML 5 ML VIAL (5 MG) ONE (13:14)
[2017-07-17] MEDS ORDERED: Flumazenil* 0.1 MG/ML 5 ML MDV ONE (13:14)
[2017-07-17] MEDS ORDERED: fentaNYL* 50 MCG/ML 5 ML VIAL (250 MCG VIAL) ONE (13:14)
[2017-07-17] MEDS ORDERED: Lidocaine 1% INJ* 10 MG/ML 30 ML SDV ONE (13:14)
[2017-07-17] MEDS ORDERED: Iodixanol* (CONTRAST) 320 MG/ML 100 ML SDV ONE (13:27)
[2017-07-17] MEDS ORDERED: Heparin(*) 1000 UNIT/ML 10 ML VIAL CATH LAB IV ONE (13:46)
[2017-07-17] MEDS ORDERED: nitroGLYCERIN DRIP* 250 ML ONE (13:46)
--- NOTE | 2017-07-17 14:32 | PN ---
Subjective Date of Service: 07/17/17 Interval History: HOSPITALIST PROGRESS NOTE Patient seen and examined at bedside. Offers no new complaints today. Family History: Unchanged from Admission Social History: Unchanged from Admission Past Medical History: Unchanged from Admission Objective Active Medications: Acetaminophen (Tylenol Tab*) 650 mg PO Q6H PRN PRN Reason: FEVER/PAIN Albuterol (Ventolin 2.5 Mg/3 Ml Neb.Susy*) 2.5 mg INH Q2H PRN PRN Reason: SOB/WHEEZING Amlodipine Besylate (Norvasc Tab*) 5 mg PO DAILY [facility] Last Admin: 07/17/17 09:00 Dose: 5 mg Aspirin (Aspirin Low Dose Tab*) 81 mg PO DAILY [facility] Last Admin: 07/17/17 09:03 Dose: Not Given Atorvastatin Calcium (Lipitor*) 80 mg PO 1700 [facility] Last Admin: 07/16/17 17:45 Dose: 80 mg Calcium Carbonate (Tums*) 500 mg PO Q8H PRN PRN Reason: DYSPEPSIA Clopidogrel Bisulfate (Plavix Tab*) 75 mg PO DAILY [facility] Last Admin: 07/17/17 09:00 Dose: 75 mg Dextrose (D50w Syringe 50 Ml*) 12.5 gm IV PUSH .FOR FS < 60 - SS PRN PRN Reason: FS < 60 Cefepime HCl 1 gm/ Sodium (Chloride) 50 mls @ 100 mls/hr IVPB Q24H [facility] Last Admin: 07/16/17 17:46 Dose: 100 mls/hr Sodium Chloride (Ns 0.9% 1000 Ml*) 1,000 mls @ 125 mls/hr IV PER RATE [facility] Last Admin: 07/17/17 09:01 Dose: 125 mls/hr Insulin Glargine (Lantus(*)) 18 units SUBCUT 2100 [facility] Last Admin: 07/16/17 22:21 Dose: 18 units Insulin Human Lispro (Humalog*) 0 units SUBCUT ACHS [facility] PRN Reason: Protocol Last Admin: 07/17/17 11:20 Dose: Not Given Insulin Human Lispro (Humalog*) 0 units SUBCUT AC [facility] PRN Reason: Protocol Last Admin: 07/17/17 11:11 Dose: Not Given Lisinopril (Prinivil Tab*) 10 mg PO DAILY [facility] Last Admin: 07/17/17 09:00 Dose: 10 mg Metronidazole (Flagyl Tab*) 500 mg PO TID [facility] Last Admin: 07/17/17 08:59 Dose: 500 mg Morphine Sulfate (Morphine Inj (Syringe)*) 2 mg IV Q4H PRN PRN Reason: SEVERE PAIN Nystatin (Nystatin Top Powder*) 1 applic TOPICAL TID [facility] Last Admin: 07/17/17 09:02 Dose: Not Given Prochlorperazine Edisylate (Compazine Inj*) 5 mg IV Q6H PRN PRN Reason: NAUSEA/VOMITING Vital Signs 07/16/17 07/16/17 07/17/17 22:30 23:50 03:46 Temperature 99.7 F 98.1 F Pulse Rate 91 88 Respiratory 20 16 16 Rate Blood Pressure 150/59 129/68 (mmHg) O2 Sat by Pulse 97 97 Oximetry 07/17/17 07/17/17 07/17/17 07:17 08:00 11:13 Temperature 98.4 F 98.3 F Pulse Rate 87 91 Respiratory 18 18 18 Rate Blood Pressure 136/67 131/64 (mmHg) O2 Sat by Pulse 96 97 Oximetry Oxygen Devices in Use Now: Nasal Cannula Appearance: Pleasant elderly gentleman lying in bed in [facility]. Eyes: No Scleral Icterus Ears/Nose/Mouth/Throat: Mucous Membranes Moist Neck: Trachea Midline Respiratory: Symmetrical Chest Expansion and Respiratory Effort, Clear to Auscultation Cardiovascular: - - Normal S1 and S2, irregular Abdominal: NL Sounds; No Tenderness; No Distention Extremities: - - CDI to right foot Neurological: Alert and Oriented x 3, NL Muscle Strength and Tone Lines/Tubes/Other Access: Clean, Dry and Intact Peripheral IV Nutrition: Taking PO's Result Diagrams: 07/17/17 07:56 07/17/17 05:58 Assess/Plan/Problems-Billing Assessment: Mr. Chowdhury is a 77yo M with PMH of type 2 DM, diabetic neuropathy, diabetic retinopathy, CAD s/p CABG, PAD, HLD, CKD stage 3, HTN, GERD, BPH, s/p recent admission for right foot wet gangrene, s/p TMA, who returns to [facility] [place] with worsening infection. - Patient Problems (1) Severe sepsis Comment: - Patient met sepsis criteria on admission with leukocytosis and tachycardia. Also has ALLEN. - Source is right diabetic foot infection and gram negative septicemia. (2) Gram negative septicemia Comment: - Blood culture is growing Proteus penneri, sensitivities pending. - Follow repeat blood culture. (3) Type 2 diabetes mellitus with right diabetic foot infection Comment: - S/p TMA R foot 06/23/17 complicated by post op infection. - D/c Vanco, continue Cefepime and Flagyl. - ID, Ortho, and Vascular consults appreciated. (4) ALLEN (acute kidney injury) Comment: - Acute on chronic kidney injury, likely renal in the setting of ATN secondary to sepsis. - Improving. (5) Peripheral arterial disease Comment: - Dr. Allen input much appreciated - plan for angiogram with Dr. Lawson today. - Continue Aspirin, Plavix, Atorvastatin. (6) Irregular heart beat Comment: - EKG shows NSR with PVCs. - Potassium is normal, check magnesium. (7) Metabolic acidosis Comment: - Secondary to infection and renal failure. - Will buffer with Bicitra. (8) Type 2 diabetes mellitus Comment: - HbA1c was 9 in May 2017. - Continue Lantus 18 units and Lispro SS. (9) HTN (hypertension) Comment: - Controlled. - Continue Amlodipine and Lisinopril. (10) DVT prophylaxis Comment: - SQ heparin. (11) Full code status Status and Disposition: Inpatient for management of sepsis and foot infection requiring >48h for stabilization.
[2017-07-17 15:07] LABS: Magnesium 1.6 mg/dL (1.9-2.7)
[2017-07-17] MEDS ORDERED: Buffered Lidocaine 0.9% SYRIN* 5 ML/SYR SYRINGE INTRADERM ONE (15:20)
--- NOTE | 2017-07-17 15:41 | PN ---
Progress Note - Progress Note Date of Service: 07/17/17 SOAP: Subjective: Pt with right foot TMA, non-healing wound. Scheduled for revasculariztion procedure today. States that he has some burning pain in foot but feeling well overall. Denies CP/SOB Objective: Vital Signs: Temp Pulse Resp BP Pulse Ox 98.3 F 91 18 131/64 97 07/17/17 11:13 07/17/17 11:13 07/17/17 11:13 07/17/17 11:13 07/17/17 11:13 Gen: A&O x3, NAD at rest RLE: Incision continues to have foul odor, dusky appearance with erythema extending into foot. DP not palpable, but foot warm, sensation decreased secondary to peripheral neuropathy Labs: Laboratory Results - last 24 hr 07/16/17 07/16/17 07/17/17 17:22 22:05 05:58 WBC RBC Hgb Hct MCV MCH MCHC RDW Plt Count MPV Neut % (Auto) Lymph % (Auto) Finney % (Auto) Eos % (Auto) Baso % (Auto) Absolute Neuts (auto) Absolute Lymphs (auto) Absolute Monos (auto) Absolute Eos (auto) Absolute Basos (auto) Absolute Nucleated RBC Nucleated RBC % Sodium 136 Potassium 4.0 Chloride 113 H Carbon Dioxide 15 L Anion Gap 8 BUN 73 H Creatinine 1.53 H Est GFR ( Amer) 57.3 Est GFR (Non-Af Amer) 44.6 BUN/Creatinine Ratio 47.7 H Glucose 68 L POC Glucose (mg/dL) 200 H 211 H Calcium 7.3 L Magnesium 1.6 L 07/17/17 07/17/17 07/17/17 07:56 08:35 11:14 WBC 20.5 H RBC 2.90 L Hgb 8.9 L Hct 27 L MCV 92 MCH 31 MCHC 33 RDW 13 Plt Count 334 MPV 10 Neut % (Auto) 90.6 H Lymph % (Auto) 3.1 L Finney % (Auto) 4.6 Eos % (Auto) 1.3 Baso % (Auto) 0.4 Absolute Neuts (auto) 18.6 H Absolute Lymphs (auto) 0.6 L Absolute Monos (auto) 1.0 H Absolute Eos (auto) 0.3 Absolute Basos (auto) 0.1 Absolute Nucleated RBC 0 Nucleated RBC % 0 Sodium Potassium Chloride Carbon Dioxide Anion Gap BUN Creatinine Est GFR ( Amer) Est GFR (Non-Af Amer) BUN/Creatinine Ratio Glucose POC Glucose (mg/dL) 98 155 H Calcium Magnesium Assessment: Right foot gangrene Plan: Pt will likely need BKA, to be scheduled for tomorrow morning. NPO after midnight Will continue to follow
[2017-07-17] MEDS ORDERED: Clopidogrel TAB* 300 MG ONE (16:31)
[2017-07-17] MEDS: Cefepime(*) 1 GM in NS 0.9% 50 ML* 50 ML IVPB SCH (18:36)
[2017-07-17] MEDS ORDERED: Metoprolol Tartrate IV* 1 MG/ML 5 ML VIAL IV ONE (19:27)
[2017-07-17] MEDS ORDERED: Metoprolol Tartrate IV* 1 MG/ML 5 ML VIAL ONE (19:32)
[2017-07-17] MEDS ORDERED: Insulin GLARGINE(*) 1 UNITS UNIT SUBCUT ONE (21:00)
[2017-07-17] MEDS: Metoprolol Tartrate TAB* 25 MG PO SCH (21:53)
[2017-07-17] MEDS: Sodium Citrate/Citric Acid* 15 ML UDC PO SCH (21:54)
[2017-07-17] MEDS: Atorvastatin* 80 MG TAB PO SCH (21:55)
--- NOTE | 2017-07-17 22:16 | PN ---
PROGRESS NOTE: DATE OF SERVICE/DICTATION: 07/17/17 HISTORY: Emile is interviewed and examined in the angio recovery area. Today , he had a balloon angiopathy of the SFA and hopefully will have increased blood flow to his right foot and ankle area where he displayed a couple of days ago with norah gangrene almost up to the mid plantar arch. I discussed with Mr. Chowdhury the options for revision. We could try a hindfoot amputation, which would give him a heel surface to stand on, or go up to a below -knee prosthesis. He understands that the higher we go, the greater the chance of healing, but also the lower the utility level. At any rate, he is quite keen on trying to save at least the hindfoot area, so we will attempt this tomorrow morning. I have spoken with the medical attending. [id number]/[facility] #: [id number] ANDREW
[2017-07-17] MEDS ORDERED: Morphine INJ* 4 MG/ML 1 ML CARPUJECT ONE (23:17)
[2017-07-17] MEDS ORDERED: Morphine INJ* 4 MG/ML 1 ML CARPUJECT IV ONE (23:20)
--- NOTE | 2017-07-17 23:51 | PN ---
Progress Note - Progress Note Date of Service: 07/17/17 SOAP: Subjective: Patient with no groin or RLE pain complaints. Objective: NAD, AAO x 3 Selected Entries 07/17/17 22:49 Pulse Rate 93 Heart Rate 88 Respiratory 22 Rate O2 Sat by Pulse 98 Oximetry Arterial Blood 108/72 Pressure (ART) ART Mean 94 Groin was pulled at bedside and direct manual pressure held x 30 minutes. Figure of 8 suture tied over the percutaneous site to control superficial bleeding. 2+ pulse at right AIRCRAFT MAINTENANCE MANAGER, 1+ popliteal, doppler at DPA and CHEMICAL PREPARER Right lower leg and ankle are warm to touch Dressing is intact- no visible bleeding. Motor function in RLE grossly intact. Assessment: 77 YOM status post right leg arteriography via ipsilateral right AIRCRAFT MAINTENANCE MANAGER antegrade arteriotomy, balloon angioplasty of right SFA, popliteal, LADONNA and peroneal arteries. Sheath pulled at 2320 hours and pressure held x 30 minutes. Bleeding controlled. Suture tied at percutaneous site. Plan: 1. Patient to OR tomorrow with Dr. Marte to revise amputation. 2. Will determine need for Plavix therapy after surgery. 3. Standard groin, pulse and vitals checks s/p sheath removal.
[2017-07-18] MEDS: Nystatin TOP POWDER* 15 GM BTL TOPICAL SCH ×4 (00:59→22:05)
[2017-07-18] MEDS: NS 0.9% 1000 ML* 1,000 ML IV SCH (01:59)
[2017-07-18] MEDS ORDERED: Famotidine IV* 10 MG/ML 2 ML (20 mg) IV ONE (06:00)
[2017-07-18] MEDS ORDERED: Metoclopramide IV* 5 MG/ML 2 ML VIAL IV SLOW PU ONE (06:00)
[2017-07-18 08:28] LABS: Hematocrit 29 % (42-52); Hemoglobin 9.4 g/dl (14.0-18.0); Mean Corpuscular HGB Conc 33 g/dl (31-36); Mean Corpuscular Hemoglobin 31 pg (27-31); Mean Corpuscular Volume 94 fL (80-94); Mean Platelet Volume 10 um3 (7.4-10.4); Red Blood Count 3.06 10^6/ul (4.0-5.4); Red Cell Distribution Width 13 % (10.5-15); White Blood Count 22.8 10^3/ul (3.5-10.8)
[2017-07-18 08:29] LABS: Comments Flag Yes
--- NOTE | 2017-07-18 08:30 | PN ---
PROGRESS NOTE: DATE OF SERVICE: 07/18/17 HISTORY: Last night, I spoke with Mr. Chowdhury about his hope of saving at least part of his hindfoot. He now has forefoot necrosis. He had a revascularization last night, which appeared to be a positive intervention for him; he is now loaded with Plavix. I do not want to put Mr. Chowdhury through more than one additional surgery, so I would recommend at this point that we observe his foot for 3 to 4 days to see if he has some positive signs of hyperemia around the necrotic area. If not, then he would proceed perhaps more toward the BK level. At any rate, I think a surgical decision today would be premature, I am canceling the surgery. [id number]/[facility] #: [id number] ANDREW
[2017-07-18] MEDS: Insulin LISPRO* 1 UNITS UNIT SUBCUT SCH ×7 (08:36→22:05)
[2017-07-18 08:41] LABS: Calcium 7.1 mg/dL (8.6-10.3); Potassium 3.8 mmol/L (3.5-5.0)
[2017-07-18] MEDS: Clopidogrel TAB* 75 MG PO SCH (08:48)
[2017-07-18] MEDS: metroNIDAZOLE TAB* 250 MG PO SCH ×3 (08:48→21:52)
[2017-07-18] MEDS: Metoprolol Tartrate TAB* 25 MG PO SCH ×2 (08:48→21:53)
[2017-07-18] MEDS: Sodium Citrate/Citric Acid* 15 ML UDC PO SCH ×3 (08:48→21:51)
[2017-07-18] MEDS: Aspirin Low Dose CHEW TAB* 81 MG PO SCH (08:48)
[2017-07-18] MEDS: amLODIPine TAB* 5 MG PO SCH (08:49)
--- NOTE | 2017-07-18 09:17 | PN ---
Progress Note - Progress Note Date of Service: 07/18/17 SOAP: Subjective: Patient without pain complaints. Sitting in bed eating breakfast. Objective: [] Selected Entries 07/17/17 07/18/17 07/18/17 20:15 06:01 06:15 Temperature 98.6 F Pulse Rate 75 Heart Rate 74 Respiratory 15 Rate Blood Pressure 148/83 (mmHg) Blood Pressure 107 Mean O2 Sat by Pulse 98 Oximetry NAD, AAO x 3 Right groin is soft, nontender, slight ecchymosis Dressing is CDI 2+ pulse at right CAMERA MECHANIC, 1+ right popliteal Doppler + at DPA and WORKERS COMPENSATION COORDINATOR RLE motor function grossly intact Right foot dressing is CDI (not taken down at bedside evaluation) Assessment: 77 YOM POD #1 RLE arteriogram from ipsilateral antegrade right CF arteriotomy, balloon angioplasty of the right SFA, popliteal, LADONNA and peroneal arteries. Plan: 1. Plavix 75 mg PO daily x 6 months (this will be likely be withheld when/if Dr. Marte operates on his RLE). 2. ASA 81 mg daily for life. 3. IR clinic follow up in ~1 month. 4. Right groin suture to be removed 07/21/17
[2017-07-18] MEDS: Cefepime(*) 1 GM in NS 0.9% 50 ML* 50 ML IVPB SCH ×2 (11:12→21:49)
--- NOTE | 2017-07-18 12:25 | RAD ---
CPT II Codes: 6045F Procedure(s) performed: 1. Diagnostic right lower extremity arteriogram. 2. Balloon angioplasty of the right common femoral artery, superficial femoral artery, popliteal artery, anterior tibial artery and peroneal artery. Date of service: July 17, 2017 Indication for procedure: Critical limb ischemia. The patient is status post recent right transmetatarsal amputation with gangrenous transformation of the surgical stump. Comparison: NERY dated June 22, 2017 and CTA aorta with runoff June 21, 2017 Contrast: 95 mL of Visipaque 320 Fluoroscopy Time: 29.4 minutes Vessels Accessed: Percutaneous access was obtained with ultrasound guidance in the right common femoral artery in the antegrade direction towards the right foot. Catheter arteriography, with the catheter tip located within the lumen of the following arteries, was performed at the right common femoral artery, right superficial femoral artery and right popliteal artery. Anesthesia: Conscious sedation with IV Fentanyl and Versed as well as local 1% lidocaine injected locally at the arteriotomy site. Conscious sedation time: Timeout: 1355 hours Case end: 1612 hours Total conscious sedation time: 2 hours and 17 minutes Additional medications: * 300 mcg IA nitroglycerin injected intermittently throughout the course of the procedure to alleviate arterial spasm. * IV heparin 7000 Units to achieve a goal ACT of 250-300. PROCEDURE NOTE AND INTRAPROCEDURAL IMAGING FINDINGS: Immediately prior to the procedure the patient signed consent after thoroughly discussing all risks, benefits and alternative therapies. The patient was positioned on the fluoroscopy table in the supine position and the bilateral groins were shaved, prepped and the patient was draped in standard sterile fashion. Using fluoroscopic imaging the location of the right common femoral head was marked externally with a skin marker on the patient's groin. Utilizing sonographic guidance and palpation, the right common femoral artery was cannulated overlying the femoral head with an 21-gauge needle. An ultrasound image was saved. A microwire was slowly and smoothly advanced into the right femoral profundus under fluoroscopic imaging. No buckling of the wire was visualized to indicate dissection. With the wire securing percutaneous arterial access, the needle was removed and a 5-Venezuelan sheath was advanced under fluoroscopic control into the right femoral profundus. Attempt was made to redirect unsuccessfully into the right superficial femoral artery. Over a 0.035 inch wire a 5-Venezuelan SideArm access sheath was advanced into the proximal most portion of the right femoral profundus securing the arteriotomy. A second 0.035 inch hydrophilic wire was advanced into the sheath and the sheath was drawn back until the tip was in the right common femoral artery. From this point the 0.035 inch hydrophilic wire was directed into the right superficial femoral artery. Although the patient had prior CT angiography of the lower extremities, the heavy calcium burden prevented confident determination of luminal patency and therefore catheter arteriography was necessary. With the right common femoral access sheath in the proximal right superficial femoral artery arteriography was performed. Over the wire a 5-Venezuelan curved tip catheter was advanced into the midportion of the right superficial femoral artery and arteriography of the remaining SFA and popliteal artery was performed. Arteriography shows widespread calcified atherosclerosis with irregularity of the endothelial wall. There is narrowing at the proximal most portion of the SFA and ostium. More distally there are multifocal narrowings in the SFA as it courses through Abel's canal. The catheter was advanced to the popliteal artery and arteriography of the infrapopliteal arteries was performed. There is a focal high-grade stenosis at the proximal post portion of the right anterior tibial artery. There is high-grade stenosis at the tibioperoneal trunk immediately after the bifurcation of the LADONNA. The right posterior tibial artery is essentially occluded throughout its entire length. There is high-grade stenosis in the proximal portion of the peroneal artery with additional high-grade stenoses at the midportion. More distally the right anterior tibial artery exhibits additional foci of stenoses but in-line flow appears to be retained to the pedal arch. There is patchy filling of the distal right posterior tibial artery due to collateralized vessels. But the plantar arteries appear to derive most of their flow from collateralized branches of the peroneal artery which reconstitutes distally after a series of stenoses at its midportion. Balloon angioplasty of the distal right common femoral artery, superficial femoral ostium and proximal portion of the SFA was performed with a 5 mm x 100 mm Marcus [place] balloon. Next, this balloon was removed and the 0.035 inch wire was exchanged for a 0.014 inch advantage microwire which was advanced into the anterior tibial artery under fluoroscopic control. Over this wire a 6 mm x 200 mm ev3 NanoCross balloon was advanced into the superficial femoral artery at the narrowing is identified at Abel's canal and balloon angioplasty was performed in the lower half of the superficial femoral artery extending into the popliteal artery. This balloon was inflated slightly above nominal pressure and remained inflated for minimum of 2 minutes to assure adequate balloon angioplasty and to address vasospasm. To further address vasospasm nitroglycerin was slowly injected intermittently from the common femoral arterial sheath. This balloon was removed and replaced with a ev3 2.5-3.0 mm x 210 mm length NanoCross balloon which was advanced into the anterior tibial artery. Balloon angioplasty was performed from the distal most segment of the popliteal artery extending into the mid-level right lower leg. During each balloon inflation the balloon remained inflated for minimum of 2 minutes to a sure adequate angioplasty. The balloon was advanced further after deflation and balloon angioplasty was performed up to the level of the ankle. Arteriogram showed improved patency in the right anterior tibial artery, specifically the focal stenosis at the proximal portion had resolved. Next the wire and balloon were utilized to select the peroneal artery and balloon angioplasty was performed in the peroneal artery approximately to the mid-level right leg. Difficulty was encountered advancing the balloon further and no further angioplasty was performed more distally in the peroneal artery. Over the wire the access sheath was exchanged for a new 5-Venezuelan, 11 cm length access sheath. Due to the calcified fragility of the patient's arterial system and the inpatient status a percutaneous closure device was deemed unnecessary. The short 5-Venezuelan sheath was secured to the skin. There were no signs of bleeding at the percutaneous arterial access site and the site was dressed with sterile gauze and Tegaderm. The patient tolerated the procedure well and was transferred to the ICU to monitor the ACT to determine a safe level at which the 5-Venezuelan access sheath couldn't be removed and manual pressure applied to the groin. SUMMARY OF PROCEDURE, IMAGING FINDINGS AND INTERVENTIONS PERFORMED: 1. Diagnostic studies performed: * Arterial access was obtained at the right common femoral artery in the antegrade direction (i.e. towards the foot) with ultrasound guidance. A sonographic image was recorded. * Diagnostic catheter angiography (necessary to perform the appropriate interventions) was performed with the catheter tip in the right common femoral artery, right superficial femoral artery, right femoral profundus and right popliteal artery.. * Catheter arteriography was performed of the entire arterial vasculature of the right lower extremity from the right external iliac artery to the pedal arch at the level of the right mid foot. * At the conclusion of the procedure arteriography was performed through the side arm of the access sheath to image the distal right external iliac artery, right common femoral artery and proximal superficial femoral artery and femoral profundus. 2. Interpretation of diagnostic studies performed: * As was seen on the prior CTA with runoff, there is widespread calcified atherosclerosis which necessitated arteriography even with prior CTA imaging. * Stenosis at the right SFA ostium and in the proximal portion, multifocal long segment stenoses in the right SFA through Abel's canal extending into the popliteal artery. * There are multifocal stenoses in the right anterior tibial artery and more severely in the right peroneal artery. The right posterior tibial artery is essentially occluded throughout most of its length. * Arteriography performed for the purpose of deploying a percutaneous arterial closure device demonstrates adequately patent right external iliac artery, common femoral artery and proximal superficial femoral artery and femoral profundus. 3. Surgical interventions performed: * Balloon angioplasty of the right SFA ostium and proximal portion with a 5 mm x 100 mm Marcus [place] balloon. * Balloon angioplasty of the more distal right superficial femoral artery and proximal popliteal artery at the level of Abel's canal utilizing a 6 mm x 200 mm ev3 NanoCross balloon. * Balloon angioplasty of the right anterior tibial artery and peroneal artery utilizing a 2.5-3 0.0 mm x 210 mm Nanocross balloon. 4. Interpretation of interventions performed: * Final arteriography demonstrated improved patency in the aforementioned angioplastied arteries. Plan: 1. Aspirin 81 mg p.o. daily for life. 2. Plavix 75 mg p.o. daily x 6 months. 3. Clinical and imaging follow-up according to standard Interventional Radiology protocol. 4. Potential further surgical amputation of the right lower extremity will be determined and performed by Dr. Marte.
--- NOTE | 2017-07-18 12:34 | PN ---
Subjective Date of Service: 07/18/17 Interval History: HOSPITALIST PROGRESS NOTE Patient seen and examined at bedside. He denies any pain at this time, feels comfortable. Had an episode of Afib overnight, now back in NSR. Family History: Unchanged from Admission Social History: Unchanged from Admission Past Medical History: Unchanged from Admission Objective Active Medications: Acetaminophen (Tylenol Tab*) 650 mg PO Q6H PRN PRN Reason: FEVER/PAIN Albuterol (Ventolin 2.5 Mg/3 Ml Neb.Susy*) 2.5 mg INH Q2H PRN PRN Reason: SOB/WHEEZING Amlodipine Besylate (Norvasc Tab*) 5 mg PO DAILY [facility] Last Admin: 07/18/17 08:49 Dose: 5 mg Aspirin (Aspirin Low Dose Tab*) 81 mg PO DAILY [facility] Last Admin: 07/18/17 08:48 Dose: 81 mg Atorvastatin Calcium (Lipitor*) 80 mg PO 1700 [facility] Last Admin: 07/17/17 21:55 Dose: Not Given Calcium Carbonate (Tums*) 500 mg PO Q8H PRN PRN Reason: DYSPEPSIA Citric Acid/Sodium Citrate (Bicitra*) 15 ml PO TID [facility] Last Admin: 07/18/17 08:48 Dose: 15 ml Clopidogrel Bisulfate (Plavix Tab*) 75 mg PO DAILY [facility] Last Admin: 07/18/17 08:48 Dose: 75 mg Dextrose (D50w Syringe 50 Ml*) 12.5 gm IV PUSH .FOR FS < 60 - SS PRN PRN Reason: FS < 60 Heparin Sodium (Porcine) (Heparin Vial(*)) 5,000 units SUBCUT Q8HR [facility] Lactated Ringer's (Lactated Ringers 1000 Ml Bag*) 1,000 mls @ 125 mls/hr IV PER RATE [facility] Last Admin: 07/18/17 07:46 Dose: 125 mls/hr Cefepime HCl 1 gm/ Sodium (Chloride) 50 mls @ 100 mls/hr IVPB Q12HR [facility] Last Admin: 07/18/17 11:12 Dose: 100 mls/hr Insulin Glargine (Lantus(*)) 10 units SUBCUT 2100 [facility] Insulin Human Lispro (Humalog*) 0 units SUBCUT ACHS [facility] PRN Reason: Protocol Last Admin: 07/18/17 11:56 Dose: Not Given Insulin Human Lispro (Humalog*) 0 units SUBCUT AC [facility] PRN Reason: Protocol Last Admin: 07/18/17 11:57 Dose: Not Given Lisinopril (Prinivil Tab*) 10 mg PO 0900 [facility] Metoprolol Tartrate (Lopressor Tab*) 25 mg PO 0900,2099 [facility] Last Admin: 07/18/17 08:48 Dose: 25 mg Metronidazole (Flagyl Tab*) 500 mg PO TID [facility] Last Admin: 07/18/17 08:48 Dose: 500 mg Morphine Sulfate (Morphine Inj (Syringe)*) 2 mg IV Q4H PRN PRN Reason: SEVERE PAIN Last Admin: 07/17/17 23:23 Dose: 2 mg Nystatin (Nystatin Top Powder*) 1 applic TOPICAL TID [facility] Last Admin: 07/18/17 08:49 Dose: 1 applic Prochlorperazine Edisylate (Compazine Inj*) 5 mg IV Q6H PRN PRN Reason: NAUSEA/VOMITING Vital Signs 07/18/17 07/18/17 07/18/17 10:15 10:30 10:31 Temperature Pulse Rate 71 63 68 Respiratory 15 20 22 Rate Blood Pressure 131/58 (mmHg) O2 Sat by Pulse 99 100 99 Oximetry 07/18/17 07/18/17 07/18/17 10:45 11:00 11:01 Temperature Pulse Rate 70 71 71 Respiratory 18 22 24 Rate Blood Pressure 101/74 (mmHg) O2 Sat by Pulse 98 98 99 Oximetry Oxygen Devices in Use Now: Nasal Cannula Appearance: Pleasant elderly gentleman lying in bed in [facility]. Eyes: No Scleral Icterus Ears/Nose/Mouth/Throat: Mucous Membranes Moist Neck: Trachea Midline Respiratory: Symmetrical Chest Expansion and Respiratory Effort, Clear to Auscultation Cardiovascular: RRR Abdominal: NL Sounds; No Tenderness; No Distention Extremities: - - CDI to right foot, no right groin hematoma, sensation is intact Neurological: Alert and Oriented x 3, NL Muscle Strength and Tone Lines/Tubes/Other Access: Clean, Dry and Intact Peripheral IV Nutrition: Taking PO's Result Diagrams: 07/18/17 08:00 07/18/17 08:00 Assess/Plan/Problems-Billing Assessment: Mr. Chowdhury is a 77yo M with PMH of type 2 DM, diabetic neuropathy, diabetic retinopathy, CAD s/p CABG, PAD, HLD, CKD stage 3, HTN, GERD, BPH, s/p recent admission for right foot wet gangrene, s/p TMA, who returns to [facility] with worsening infection. - Patient Problems (1) Severe sepsis Comment: - Patient met sepsis criteria on admission with leukocytosis and tachycardia. Also has ALLEN. - Source is right diabetic foot infection and Proteus septicemia. (2) Gram negative septicemia Comment: - Blood culture is growing Proteus penneri, sensitive to Cefepime. - Repeat blood cultures show no growth so far. (3) Type 2 diabetes mellitus with right diabetic foot infection Comment: - S/p TMA R foot 06/23/17 complicated by post op infection. - Continue Cefepime and Flagyl. - ID, Ortho, and Vascular consults appreciated. (4) ALLEN (acute kidney injury) Comment: - Acute on chronic kidney injury, likely renal in the setting of ATN secondary to sepsis. - Improving. (5) Peripheral arterial disease Comment: - S/p RLE arteriogram from ipsilateral antegrade right CF arteriotomy, balloon angioplasty of the right SFA, popliteal, LADONNA and peroneal arteries by Dr. Lawson on 07/17/17. - Continue Aspirin, Plavix, Atorvastatin. (6) Irregular heart beat Comment: - He is NSR with PVCs now, but had Afib overnight. - Will replete lytes to keep K>4 and Mg>2. - [id number] score is 5 - will have low threshold to start anticoagulation if Afib reccurs (probably heparin as he'll have surgery in the near future). (7) Metabolic acidosis Comment: - Secondary to infection and renal failure - improving. - Continue buffer with Bicitra. (8) Type 2 diabetes mellitus Comment: - HbA1c was 9 in May 2017. - Continue Lantus 18 units and Lispro SS. (9) HTN (hypertension) Comment: - Controlled. - Continue Amlodipine and Lisinopril. (10) DVT prophylaxis Comment: - SQ heparin. (11) Full code status Status and Disposition: Inpatient for management of sepsis and foot infection requiring >48h for stabilization. Transfer to Telemetry floor.
[2017-07-18] MEDS ORDERED: Magnesium Sulfate 2 GM IV* 2 GM/50 ML BAG IVPB ONE (13:07)
[2017-07-18] MEDS: Heparin VIAL(*) 5000 UNITS/ML VIAL (FIVE THOUSAND) SUBCUT SCH ×2 (13:49→21:53)
[2017-07-18] MEDS ORDERED: Vancomycin Trough Check NOTE FOLLOW UP ONE (15:30)
--- NOTE | 2017-07-18 16:00 | RAD ---
HISTORY: PICC line placement COMPARISONS: June 19, 2017 VIEWS: 1: frontal portable view of the chest at 3:24 PM FINDINGS: LINES AND TUBES: A right-sided PICC line is noted with tip overlying the superior vena cava. CARDIOMEDIASTINAL SILHOUETTE: The cardiomediastinal silhouette is normal for portable technique. PLEURA: The costophrenic angles are sharp. No pleural abnormalities are noted. LUNG PARENCHYMA: There is patchy alveolar opacification of left lung base ABDOMEN: The upper abdomen is clear. There is no subphrenic gas. BONES AND SOFT TISSUES: The patient is status post median sternotomy. IMPRESSION: LINES AND TUBES ABOVE. PATCHY LEFT BASILAR ATELECTASIS VERSUS CONSOLIDATION
[2017-07-18] MEDS: Atorvastatin* 80 MG TAB PO SCH (17:49)
[2017-07-18] MEDS ORDERED: Insulin GLARGINE(*) 1 UNITS UNIT SUBCUT SCH (21:00)
[2017-07-18] MEDS: Potassium Chlor TAB* 20 MEQ TAB.ER PO SCH (21:52)
[2017-07-18] MEDS: Insulin GLARGINE(*) 1 UNITS UNIT SUBCUT SCH (21:53)
[2017-07-19] MEDS: Heparin VIAL(*) 5000 UNITS/ML VIAL (FIVE THOUSAND) SUBCUT SCH ×3 (06:00→23:06)
[2017-07-19 06:16] LABS: Hematocrit 28 % (42-52); Mean Corpuscular HGB Conc 33 g/dl (31-36); Mean Corpuscular Hemoglobin 31 pg (27-31); Mean Corpuscular Volume 95 fL (80-94); Mean Platelet Volume 10 um3 (7.4-10.4); Red Blood Count 2.92 10^6/ul (4.0-5.4); Red Cell Distribution Width 13 % (10.5-15); White Blood Count 22.3 10^3/ul (3.5-10.8)
[2017-07-19 06:17] LABS: Add Diff/Slide Review? Slide Review Added; Comments Flag Yes
[2017-07-19 06:34] LABS: BUN/Creatinine Ratio 42.7 (8-20); C Reactive Protein 127.01 mg/L (< 5.00); Calcium 7.1 mg/dL (8.6-10.3); EGFR African American 55.7 (>60); EGFR Non-African American 43.3 (>60); Potassium 4.5 mmol/L (3.5-5.0)
[2017-07-19] MEDS: Insulin LISPRO* 1 UNITS UNIT SUBCUT SCH ×7 (08:28→23:51)
[2017-07-19] MEDS: Sodium Citrate/Citric Acid* 15 ML UDC PO SCH ×3 (09:36→23:10)
[2017-07-19] MEDS: Potassium Chlor TAB* 20 MEQ TAB.ER PO SCH ×2 (09:36→23:00)
[2017-07-19] MEDS: metroNIDAZOLE TAB* 250 MG PO SCH ×3 (09:36→23:00)
[2017-07-19] MEDS: Lisinopril TAB* 10 MG PO SCH (09:37)
[2017-07-19] MEDS: amLODIPine TAB* 5 MG PO SCH (09:37)
[2017-07-19] MEDS: Clopidogrel TAB* 75 MG PO SCH (09:37)
[2017-07-19] MEDS: Aspirin Low Dose CHEW TAB* 81 MG PO SCH (09:37)
[2017-07-19] MEDS: Metoprolol Tartrate TAB* 25 MG PO SCH ×2 (09:37→22:59)
[2017-07-19] MEDS: Nystatin TOP POWDER* 15 GM BTL TOPICAL SCH ×2 (09:38→14:16)
[2017-07-19] MEDS: Cefepime(*) 1 GM in NS 0.9% 50 ML* 50 ML IVPB SCH ×2 (09:38→22:47)
[2017-07-19] MEDS: Albuterol 2.5 MG/3 ML NEB.SOL* (0.083%) INH PRN (09:57)
--- NOTE | 2017-07-19 11:16 | PN ---
Progress Note - Progress Note Date of Service: 07/19/17 Note: Cross cover note Pt doing ok. Somewhat SOB. nebulizer this am. feeling better. Had revascularization procedure with Politi. Dressing in place. Temp Pulse Resp BP Pulse Ox 97.5 F 99 26 123/54 90 07/19/17 07:57 07/19/17 09:58 07/19/17 09:58 07/19/17 07:57 07/19/17 09:58 NAD. pleasant. AAOx3. right foot dressing removed. no active drainage. dark and dusky on plantar aspect extending proximally. sensate dorsally. cap refill ~3 sec dorsally. densely neuropathic. calf soft, nontender. foul odor Laboratory Results - last 24 hr 07/18/17 07/18/17 07/18/17 11:55 17:17 20:55 WBC RBC Hgb Hct MCV MCH MCHC RDW Plt Count MPV Neut % (Auto) Lymph % (Auto) Beckham % (Auto) Eos % (Auto) Baso % (Auto) Absolute Neuts (auto) Absolute Lymphs (auto) Absolute Monos (auto) Absolute Eos (auto) Absolute Basos (auto) Absolute Nucleated RBC Nucleated RBC % Sodium Potassium Chloride Carbon Dioxide Anion Gap BUN Creatinine Est GFR ( Amer) Est GFR (Non-Af Amer) BUN/Creatinine Ratio Glucose POC Glucose (mg/dL) 115 H 104 H 110 H Calcium C-Reactive Protein 07/19/17 07/19/17 07/19/17 05:51 05:51 08:11 WBC 22.3 H RBC 2.92 L Hgb 9.0 L Hct 28 L MCV 95 H MCH 31 MCHC 33 RDW 13 Plt Count 311 MPV 10 Neut % (Auto) 92.4 H Lymph % (Auto) 2.1 L Beckham % (Auto) 4.9 Eos % (Auto) 0.2 Baso % (Auto) 0.4 Absolute Neuts (auto) 20.6 H Absolute Lymphs (auto) 0.5 L Absolute Monos (auto) 1.1 H Absolute Eos (auto) 0.1 Absolute Basos (auto) 0.1 Absolute Nucleated RBC 0 Nucleated RBC % 0 Sodium 136 Potassium 4.5 Chloride 115 H Carbon Dioxide 15 L Anion Gap 6 BUN 67 H Creatinine 1.57 H Est GFR ( Amer) 55.7 Est GFR (Non-Af Amer) 43.3 BUN/Creatinine Ratio 42.7 H Glucose 49 L POC Glucose (mg/dL) 99 Calcium 7.1 L C-Reactive Protein 127.01 H A/P s/p TMA with post op infection and hypoperfusion. s/p reperfusion procedure still dusky with foul odor dressing removed. may replace if any drainage will continue to follow but may need a bka if no reperfusion evident currently does not appear septic. please call if any acute changes but will continue to follow patient. cont medical care
--- NOTE | 2017-07-19 15:19 | PN ---
Subjective Date of Service: 07/19/17 Interval History: Patient had episode of dyspnea and hypoxia this AM. Resolved w/ O2, nebulizer, and d/c of IV fluids. Denies h/o asthma or COPD. Patient quit smoking "50 years ago." Here w/ amputation RT forefoot, w/ poor perfusion. Had angioplasty w/ Dr Renny GIBSON 2 days ago. Family History: Unchanged from Admission Social History: Unchanged from Admission Past Medical History: Unchanged from Admission Objective Active Medications: Acetaminophen (Tylenol Tab*) 650 mg PO Q6H PRN PRN Reason: FEVER/PAIN Albuterol (Ventolin 2.5 Mg/3 Ml Neb.Susy*) 2.5 mg INH Q2H PRN PRN Reason: SOB/WHEEZING Last Admin: 07/19/17 09:57 Dose: 2.5 mg Amlodipine Besylate (Norvasc Tab*) 5 mg PO DAILY [facility] Last Admin: 07/19/17 09:37 Dose: 5 mg Aspirin (Aspirin Low Dose Tab*) 81 mg PO DAILY [facility] Last Admin: 07/19/17 09:37 Dose: 81 mg Atorvastatin Calcium (Lipitor*) 80 mg PO 1700 [facility] Last Admin: 07/18/17 17:49 Dose: 80 mg Calcium Carbonate (Tums*) 500 mg PO Q8H PRN PRN Reason: DYSPEPSIA Citric Acid/Sodium Citrate (Bicitra*) 15 ml PO TID [facility] Last Admin: 07/19/17 14:15 Dose: 15 ml Clopidogrel Bisulfate (Plavix Tab*) 75 mg PO DAILY [facility] Stop: 01/12/18 08:59 Last Admin: 07/19/17 09:37 Dose: 75 mg Dextrose (D50w Syringe 50 Ml*) 12.5 gm IV PUSH .FOR FS < 60 - SS PRN PRN Reason: FS < 60 Heparin Sodium (Porcine) (Heparin Vial(*)) 5,000 units SUBCUT Q8HR [facility] Last Admin: 07/19/17 14:16 Dose: 5,000 units Heparin Sodium (Porcine) (Heparin Flush Picc/Ml/Cvc(*)) 1 - 3 ml FLUSH 0600, 1800 [facility] PRN Reason: Protocol Last Admin: 07/19/17 06:02 Dose: Not Given Lactated Ringer's (Lactated Ringers 1000 Ml Bag*) 1,000 mls @ 125 mls/hr IV PER RATE [facility] Last Admin: 07/19/17 05:56 Dose: 125 mls/hr Cefepime HCl 1 gm/ Sodium (Chloride) 50 mls @ 100 mls/hr IVPB Q12HR [facility] Last Admin: 07/19/17 09:38 Dose: 100 mls/hr Insulin Glargine (Lantus(*)) 18 units SUBCUT 2100 [facility] Last Admin: 07/18/17 21:53 Dose: 18 unit Insulin Human Lispro (Humalog*) 0 units SUBCUT ACHS [facility] PRN Reason: Protocol Last Admin: 07/19/17 14:02 Dose: Not Given Insulin Human Lispro (Humalog*) 0 units SUBCUT AC [facility] PRN Reason: Protocol Last Admin: 07/19/17 14:16 Dose: 9 unit Lisinopril (Prinivil Tab*) 10 mg PO 0900 [facility] Last Admin: 07/19/17 09:37 Dose: 10 mg Metoprolol Tartrate (Lopressor Tab*) 25 mg PO 0900,2099 [facility] Last Admin: 07/19/17 09:37 Dose: 25 mg Metronidazole (Flagyl Tab*) 500 mg PO TID [facility] Last Admin: 07/19/17 14:15 Dose: 500 mg Morphine Sulfate (Morphine Inj (Syringe)*) 2 mg IV Q4H PRN PRN Reason: SEVERE PAIN Last Admin: 07/17/17 23:23 Dose: 2 mg Nystatin (Nystatin Top Powder*) 1 applic TOPICAL TID [facility] Last Admin: 07/19/17 14:16 Dose: Not Given Potassium Chloride (Klor Con Er Tab*) 40 meq PO BID [facility] Stop: 07/19/17 21:01 Last Admin: 07/19/17 09:36 Dose: 40 meq Prochlorperazine Edisylate (Compazine Inj*) 5 mg IV Q6H PRN PRN Reason: NAUSEA/VOMITING Vital Signs 07/18/17 07/19/17 07/19/17 23:26 03:51 07:41 Temperature 37.2 C 36.8 C Pulse Rate 81 75 Respiratory 20 20 20 Rate Blood Pressure 107/59 118/50 (mmHg) O2 Sat by Pulse 95 94 Oximetry 07/19/17 07/19/17 07:57 09:58 Temperature 36.4 C Pulse Rate 82 99 Respiratory 16 26 Rate Blood Pressure 123/54 (mmHg) O2 Sat by Pulse 94 90 Oximetry Oxygen Devices in Use Now: Nasal Cannula Appearance: no acute distress Eyes: PERRLA Ears/Nose/Mouth/Throat: Clear Oropharnyx Neck: Trachea Midline Respiratory: Symmetrical Chest Expansion and Respiratory Effort, Clear to Auscultation Cardiovascular: NL Sounds; No Murmurs; No JVD, RRR Abdominal: NL Sounds; No Tenderness; No Distention, No Hepatosplenomegaly Lymphatic: No Cervical Adenopathy Extremities: - - 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, RT forefoot w/ recent amputation, skin distal to suture line purple/black Neurological: Alert and Oriented x 3 Lines/Tubes/Other Access: Clean, Dry and Intact PICC Line Result Diagrams: 07/19/17 05:51 07/19/17 05:51 Microbiology and Other Data: Microbiology Microbiology 07/17/17 05:50 Blood Venous Blood Culture - Final 07/17/17 05:45 Blood Venous Blood Culture - Final 07/15/17 15:19 Blood Venous Aerobic Blood Culture - Final 07/15/17 15:19 Blood Venous Blood Culture - Final Proteus Penneri Proteus Penneri 07/17/17 05:50 Blood Venous Aerobic Blood Culture - Preliminary 07/17/17 05:50 Blood Venous Anaerobic Blood Culture - Preliminary No Growth Day 2 No Growth Day 2 07/17/17 05:45 Blood Venous Aerobic Blood Culture - Preliminary 07/17/17 05:45 Blood Venous Anaerobic Blood Culture - Preliminary No Growth Day 2 No Growth Day 2 Assess/Plan/Problems-Billing Assessment: Mr. Chowdhury is a 77yo M with PMH of type 2 DM, diabetic neuropathy, diabetic retinopathy, CAD s/p CABG, PAD, HLD, CKD stage 3, HTN, GERD, BPH, s/p recent admission for right foot wet gangrene, s/p TMA, who returns to [facility] with worsening infection. - Patient Problems (1) Type 2 diabetes mellitus with right diabetic foot infection Current Visit: Yes Status: Acute Priority: High Code(s): E11.628 - TYPE 2 DIABETES MELLITUS WITH OTHER SKIN COMPLICATIONS; L08.9 - LOCAL INFECTION OF THE SKIN AND SUBCUTANEOUS TISSUE, UNSP SNOMED Code(s): 10246816 Comment: - S/p TMA R foot 06/23/17 complicated by post op infection. - Continue Cefepime and Flagyl. - ID, Ortho, and Vascular consults appreciated. (2) Type 2 diabetes mellitus Current Visit: Yes Status: Chronic Priority: Medium Comment: - diabetes under good control - Continue Lantus 18 units and Lispro SS. (3) Wheezing Current Visit: Yes Status: Acute Priority: High Code(s): R06.2 - WHEEZING SNOMED Code(s): 17011715 Comment: - New onset dypnea concerning for asthma, COPD exacerbation, OR, CHF w/ volume overload. - Improved w/ nebulizer and d/c IV fluids, may have mild COPD, or diastolic CHF - Will observe, consider echo if recurrent (4) DVT prophylaxis Current Visit: Yes Status: Acute Code(s): TFG7739 - SNOMED Code(s): 201107445 Comment: - SQ heparin. Status and Disposition: Inpatient for management of deep foot infection requiring >48h for stabilization.
[2017-07-19] MEDS: Atorvastatin* 80 MG TAB PO SCH (18:25)
[2017-07-19] MEDS ORDERED: Insulin GLARGINE(*) 1 UNITS UNIT SUBCUT ONE (23:15)
[2017-07-19] MEDS: Insulin GLARGINE(*) 1 UNITS UNIT SUBCUT SCH (23:51)
[2017-07-20] MEDS: Nystatin TOP POWDER* 15 GM BTL TOPICAL SCH ×4 (01:49→21:31)
[2017-07-20] MEDS: Heparin VIAL(*) 5000 UNITS/ML VIAL (FIVE THOUSAND) SUBCUT SCH ×3 (05:30→21:22)
[2017-07-20] MEDS: Albuterol 2.5 MG/3 ML NEB.SOL* (0.083%) INH PRN (05:49)
[2017-07-20] MEDS ORDERED: Furosemide IV* 10 MG/ML 2 ML VIAL (20 MG) IV SLOW PU ONE (06:15)
--- NOTE | 2017-07-20 08:27 | PN ---
Progress Note - Progress Note Date of Service: 07/20/17 Note: Pt doing well. Still some SOB but was diuresed and sao2 improving. Denies CP, nausea, fevers, chills. Temp Pulse Resp BP Pulse Ox 98.4 F 87 18 134/63 96 07/20/17 07:55 07/20/17 08:16 07/20/17 08:16 07/20/17 07:55 07/20/17 08:16 NAD. right foot remains dusky. black. mild sensation dorsally. cap refill 3 sec. calf soft, nontender. foul odor. no drainage Laboratory Results - last 24 hr 07/19/17 07/19/17 07/19/17 08:11 11:37 16:33 POC Glucose (mg/dL) 99 99 128 H 07/19/17 07/20/17 20:23 08:00 POC Glucose (mg/dL) 84 159 H A/P 77 yo M with multiple medical problems s/p TMA with infection with attempted reperfusion. Do not see any noticeable improvement Likely needs an amputation Defer to foot and ankle team Discussed with Dr Garcia who will address surgically NPO after midnight in case surgery tomorrow
[2017-07-20] MEDS: Clopidogrel TAB* 75 MG PO SCH (10:14)
[2017-07-20] MEDS: metroNIDAZOLE TAB* 250 MG PO SCH ×3 (10:14→21:29)
[2017-07-20] MEDS: Aspirin Low Dose CHEW TAB* 81 MG PO SCH (10:15)
[2017-07-20] MEDS: amLODIPine TAB* 5 MG PO SCH (10:15)
[2017-07-20] MEDS: Metoprolol Tartrate TAB* 25 MG PO SCH ×2 (10:15→21:29)
[2017-07-20] MEDS: Lisinopril TAB* 10 MG PO SCH (10:15)
[2017-07-20] MEDS: Cefepime(*) 1 GM in NS 0.9% 50 ML* 50 ML IVPB SCH ×2 (10:15→21:11)
[2017-07-20] MEDS: Sodium Citrate/Citric Acid* 15 ML UDC PO SCH ×3 (10:15→21:18)
[2017-07-20] MEDS: Insulin LISPRO* 1 UNITS UNIT SUBCUT SCH ×7 (10:17→21:31)
--- NOTE | 2017-07-20 16:12 | PN ---
Subjective Date of Service: 07/20/17 Interval History: Patient has some dyspnea at rest today. [place] better yesterday. Albuterol nebulizer seemed to help this AM. He does feel he is wheezing. Denies h/o asthma, COPD. No chest pain. Dr. Bertrand evaluated today. Patient aware RT foot not perfusing, and that he may need to go to OR tomorrow. Family History: Unchanged from Admission Social History: Unchanged from Admission Past Medical History: Unchanged from Admission Objective Active Medications: Acetaminophen (Tylenol Tab*) 650 mg PO Q6H PRN PRN Reason: FEVER/PAIN Albuterol (Ventolin 2.5 Mg/3 Ml Neb.Susy*) 2.5 mg INH Q2H PRN PRN Reason: SOB/WHEEZING Last Admin: 07/20/17 05:49 Dose: 2.5 mg Amlodipine Besylate (Norvasc Tab*) 5 mg PO DAILY [facility] Last Admin: 07/20/17 10:15 Dose: 5 mg Aspirin (Aspirin Low Dose Tab*) 81 mg PO DAILY [facility] Last Admin: 07/20/17 10:15 Dose: 81 mg Atorvastatin Calcium (Lipitor*) 80 mg PO 1700 [facility] Last Admin: 07/19/17 18:25 Dose: 80 mg Calcium Carbonate (Tums*) 500 mg PO Q8H PRN PRN Reason: DYSPEPSIA Citric Acid/Sodium Citrate (Bicitra*) 15 ml PO TID [facility] Last Admin: 07/20/17 14:07 Dose: 15 ml Clopidogrel Bisulfate (Plavix Tab*) 75 mg PO DAILY [facility] Stop: 01/12/18 08:59 Last Admin: 07/20/17 10:14 Dose: 75 mg Dextrose (D50w Syringe 50 Ml*) 12.5 gm IV PUSH .FOR FS < 60 - SS PRN PRN Reason: FS < 60 Heparin Sodium (Porcine) (Heparin Vial(*)) 5,000 units SUBCUT Q8HR [facility] Last Admin: 07/20/17 14:07 Dose: 5,000 units Heparin Sodium (Porcine) (Heparin Flush Picc/Ml/Cvc(*)) 1 - 3 ml FLUSH 0600, 1800 [facility] PRN Reason: Protocol Last Admin: 07/20/17 09:21 Dose: Not Given Cefepime HCl 1 gm/ Sodium (Chloride) 50 mls @ 100 mls/hr IVPB Q12HR [facility] Last Admin: 07/20/17 10:15 Dose: 100 mls/hr Insulin Glargine (Lantus(*)) 18 units SUBCUT BEDTIME [facility] Insulin Human Lispro (Humalog*) 0 units SUBCUT ACHS [facility] PRN Reason: Protocol Last Admin: 07/20/17 14:07 Dose: 1 units Insulin Human Lispro (Humalog*) 0 units SUBCUT AC [facility] PRN Reason: Protocol Last Admin: 07/20/17 14:07 Dose: 7 unit Lisinopril (Prinivil Tab*) 10 mg PO 0900 [facility] Last Admin: 07/20/17 10:15 Dose: 10 mg Metoprolol Tartrate (Lopressor Tab*) 25 mg PO 0900,2099 [facility] Last Admin: 07/20/17 10:15 Dose: 25 mg Metronidazole (Flagyl Tab*) 500 mg PO TID [facility] Last Admin: 07/20/17 14:07 Dose: 500 mg Morphine Sulfate (Morphine Inj (Syringe)*) 2 mg IV Q4H PRN PRN Reason: SEVERE PAIN Last Admin: 07/17/17 23:23 Dose: 2 mg Nystatin (Nystatin Top Powder*) 1 applic TOPICAL TID [facility] Last Admin: 07/20/17 14:13 Dose: Not Given Prochlorperazine Edisylate (Compazine Inj*) 5 mg IV Q6H PRN PRN Reason: NAUSEA/VOMITING Vital Signs 07/20/17 07/20/17 07/20/17 05:50 07:29 07:55 Temperature 36.9 C Pulse Rate 87 87 Respiratory 26 22 18 Rate Blood Pressure 134/63 (mmHg) O2 Sat by Pulse 92 97 Oximetry 07/20/17 07/20/17 08:16 13:02 Temperature 36.0 C Pulse Rate 87 73 Respiratory 18 20 Rate Blood Pressure 117/66 (mmHg) O2 Sat by Pulse 96 96 Oximetry Oxygen Devices in Use Now: Nasal Cannula Appearance: no distress, pleasant/cooperative Eyes: No Scleral Icterus Neck: NL Appearance and Movements; NL JVP Respiratory: Symmetrical Chest Expansion and Respiratory Effort, - - scattered wheezes and few ronchi throughout Cardiovascular: NL Sounds; No Murmurs; No JVD, RRR Abdominal: NL Sounds; No Tenderness; No Distention Lymphatic: No Cervical Adenopathy Skin: - - RT forefoot w/ black skin distal to suture line across mid-foot. Lines/Tubes/Other Access: Clean, Dry and Intact PICC Line Result Diagrams: 07/19/17 05:51 07/19/17 05:51 Microbiology and Other Data: Microbiology 07/17/17 05:50 Blood Venous Blood Culture - Final 07/17/17 05:45 Blood Venous Blood Culture - Final 07/15/17 15:19 Blood Venous Aerobic Blood Culture - Final 07/15/17 15:19 Blood Venous Blood Culture - Final Proteus Penneri Proteus Penneri 07/17/17 05:50 Blood Venous Aerobic Blood Culture - Preliminary 07/17/17 05:50 Blood Venous Anaerobic Blood Culture - Preliminary No Growth Day 3 No Growth Day 3 07/17/17 05:45 Blood Venous Aerobic Blood Culture - Preliminary 07/17/17 05:45 Blood Venous Anaerobic Blood Culture - Preliminary No Growth Day 3 No Growth Day 3 Assess/Plan/Problems-Billing Assessment: Mr. Chowdhury is a 77yo M with PMH of type 2 DM, diabetic neuropathy, diabetic retinopathy, CAD s/p CABG, PAD, HLD, CKD stage 3, HTN, GERD, BPH, s/p recent admission for right foot wet gangrene, s/p TMA, who returns to [facility] with worsening infection. - Patient Problems (1) Type 2 diabetes mellitus with right diabetic foot infection Current Visit: Yes Status: Acute Priority: High Code(s): E11.628 - TYPE 2 DIABETES MELLITUS WITH OTHER SKIN COMPLICATIONS; L08.9 - LOCAL INFECTION OF THE SKIN AND SUBCUTANEOUS TISSUE, UNSP SNOMED Code(s): 79718568 Comment: - S/p TMA R foot 06/23/17 complicated by post op infection. - Continue Cefepime and Flagyl. - Dr Bertrand today states foot/ankle surgical team will assess in AM - appears to need more proximal amputation (2) Type 2 diabetes mellitus Current Visit: Yes Status: Chronic Priority: Medium Comment: - diabetes under good control - Continue Lantus 18 units and Lispro SS. (3) Wheezing Current Visit: Yes Status: Acute Priority: High Code(s): R06.2 - WHEEZING SNOMED Code(s): 43954885 Comment: - new-onset dyspnea yesterday and today - Improved w/ nebulizer, suspect COPD, checking CXR today. - CHF in differential, echo, BNP ordered (4) DVT prophylaxis Current Visit: Yes Status: Acute Code(s): [id number] - SNOMED Code(s): 538457765 Comment: - SQ heparin. (5) Anemia Current Visit: Yes Status: Acute Priority: Medium Code(s): D64.9 - ANEMIA , UNSPECIFIED SNOMED Code(s): 541544816 Comment: - Suspect anemia related to CKD, chronic disease - checking B12, iron studies tomorrow Status and Disposition: Inpatient for management of deep foot infection requiring >48h for stabilization.
--- NOTE | 2017-07-20 17:22 | RAD ---
Indication: Dyspnea. 2 views of the chest x-ray is cardiomegaly. Interstitial edema consistent with CHF is noted. Bilateral pleural effusion with bibasilar atelectasis is noted. Patient is status post tracer thoracotomy. IMPRESSION: CARDIOMEGALY WITH INTERSTITIAL EDEMA AND BILATERAL PLEURAL EFFUSIONS.
[2017-07-20] MEDS: Atorvastatin* 80 MG TAB PO SCH (17:48)
[2017-07-20] MEDS ORDERED: Insulin GLARGINE(*) 1 UNITS UNIT SUBCUT SCH (21:00)
[2017-07-20] MEDS ORDERED: Insulin GLARGINE(*) 1 UNITS UNIT SUBCUT ONE (23:00)
[2017-07-21] MEDS: Albuterol 2.5 MG/3 ML NEB.SOL* (0.083%) INH PRN (00:37)
[2017-07-21] MEDS: Heparin VIAL(*) 5000 UNITS/ML VIAL (FIVE THOUSAND) SUBCUT SCH ×3 (05:14→21:07)
[2017-07-21 05:26] LABS: Corrected Retic Count 0.8 % (0.5-1.5); Hematocrit 25 % (42-52); Hemoglobin 8.2 g/dl (14.0-18.0); Immature Retic Fraction 0.52; Mean Corpuscular HGB Conc 33 g/dl (31-36); Mean Corpuscular Hemoglobin 31 pg (27-31); Mean Corpuscular Volume 93 fL (80-94); Mean Platelet Volume 9 um3 (7.4-10.4); Red Blood Count 2.63 10^6/ul (4.0-5.4); Red Cell Distribution Width 13 % (10.5-15); White Blood Count 21.2 10^3/ul (3.5-10.8)
[2017-07-21 05:40] LABS: BUN/Creatinine Ratio 42.9 (8-20); Blood Urea Nitrogen 69 mg/dL (6-24); C Reactive Protein 97.43 mg/L (< 5.00); CO2 Carbon Dioxide 20 mmol/L (22-32); Calcium 7.3 mg/dL (8.6-10.3); EGFR African American 54.1 (>60); Glucose 68 mg/dL (70-100); Sodium 137 mmol/L (133-145)
[2017-07-21 05:41] LABS: Iron 35 ug/dL (50-212); Total Iron Binding Capacity 105 mcg/dL (250-450); Transferrin < 75 mg/dL (203-362)
[2017-07-21 06:08] LABS: Vitamin B12 1394 pg/mL (180-914)
[2017-07-21 06:26] LABS: Anion Gap 4 mmol/L (2-11); Chloride 113 mmol/L (101-111); Potassium 5.5 mmol/L (3.5-5.0)
[2017-07-21] MEDS ORDERED: Furosemide IV* 10 MG/ML 2 ML VIAL (20 MG) IV SLOW PU ONE (08:44)
--- NOTE | 2017-07-21 08:51 | PN ---
Subjective Date of Service: 07/21/17 Interval History: HOSPITALIST PROGRESS NOTE Patient seen and examined at bedside. Family History: Unchanged from Admission Social History: Unchanged from Admission Past Medical History: Unchanged from Admission Objective Active Medications: Acetaminophen (Tylenol Tab*) 650 mg PO Q6H PRN PRN Reason: FEVER/PAIN Albuterol (Ventolin 2.5 Mg/3 Ml Neb.Susy*) 2.5 mg INH Q2H PRN PRN Reason: SOB/WHEEZING Last Admin: 07/21/17 00:37 Dose: 2.5 mg Amlodipine Besylate (Norvasc Tab*) 5 mg PO DAILY [facility] Last Admin: 07/20/17 10:15 Dose: 5 mg Aspirin (Aspirin Low Dose Tab*) 81 mg PO DAILY [facility] Last Admin: 07/20/17 10:15 Dose: 81 mg Atorvastatin Calcium (Lipitor*) 80 mg PO 1700 [facility] Last Admin: 07/20/17 17:48 Dose: 80 mg Calcium Carbonate (Tums*) 500 mg PO Q8H PRN PRN Reason: DYSPEPSIA Citric Acid/Sodium Citrate (Bicitra*) 15 ml PO TID [facility] Last Admin: 07/20/17 21:18 Dose: 15 ml Clopidogrel Bisulfate (Plavix Tab*) 75 mg PO DAILY [facility] Stop: 01/12/18 08:59 Last Admin: 07/20/17 10:14 Dose: 75 mg Dextrose (D50w Syringe 50 Ml*) 12.5 gm IV PUSH .FOR FS < 60 - SS PRN PRN Reason: FS < 60 Heparin Sodium (Porcine) (Heparin Vial(*)) 5,000 units SUBCUT Q8HR [facility] Last Admin: 07/21/17 05:14 Dose: 5,000 units Heparin Sodium (Porcine) (Heparin Flush Picc/Ml/Cvc(*)) 1 - 3 ml FLUSH 0600, 1800 TEET PRN Reason: Protocol Last Admin: 07/21/17 04:56 Dose: 1 ml Cefepime HCl 1 gm/ Sodium (Chloride) 50 mls @ 100 mls/hr IVPB Q12HR [facility] Last Admin: 07/20/17 21:11 Dose: 100 mls/hr Insulin Glargine (Lantus(*)) 18 units SUBCUT 2100 [facility] Insulin Human Lispro (Humalog*) 0 units SUBCUT ACHS TETE PRN Reason: Protocol Last Admin: 07/20/17 21:31 Dose: Not Given Insulin Human Lispro (Humalog*) 0 units SUBCUT AC [facility] PRN Reason: Protocol Last Admin: 07/20/17 18:02 Dose: Not Given Lisinopril (Prinivil Tab*) 10 mg PO 0900 [facility] Last Admin: 07/20/17 10:15 Dose: 10 mg Metoprolol Tartrate (Lopressor Tab*) 25 mg PO 0900,2100 [facility] Last Admin: 07/20/17 21:29 Dose: 25 mg Metronidazole (Flagyl Tab*) 500 mg PO TID [facility] Last Admin: 07/20/17 21:29 Dose: 500 mg Morphine Sulfate (Morphine Inj (Syringe)*) 2 mg IV Q4H PRN PRN Reason: SEVERE PAIN Last Admin: 07/17/17 23:23 Dose: 2 mg Nystatin (Nystatin Top Powder*) 1 applic TOPICAL TID [facility] Last Admin: 07/20/17 21:31 Dose: Not Given Prochlorperazine Edisylate (Compazine Inj*) 5 mg IV Q6H PRN PRN Reason: NAUSEA/VOMITING Sodium Polystyrene Sulfonate (Kayexalate Oral.Susy*) 15 gm PO ONCE ONE Stop: 07/21/17 09:01 Vital Signs 07/20/17 07/20/17 07/20/17 13:02 16:56 17:00 Temperature 96.8 F 98.1 F Pulse Rate 73 81 Respiratory 20 32 26 Rate Blood Pressure 117/66 128/69 (mmHg) O2 Sat by Pulse 96 92 Oximetry 07/20/17 07/20/17 07/20/17 20:00 20:04 23:59 Temperature 97.7 F 98.0 F Pulse Rate 84 71 Respiratory 18 18 20 Rate Blood Pressure 129/62 115/58 (mmHg) O2 Sat by Pulse 93 91 Oximetry 07/21/17 04:19 Temperature 97.3 F Pulse Rate 81 Respiratory 20 Rate Blood Pressure 118/59 (mmHg) O2 Sat by Pulse 94 Oximetry Oxygen Devices in Use Now: Nasal Cannula Result Diagrams: 07/21/17 05:05 07/21/17 05:05 Microbiology and Other Data: Microbiology 07/17/17 05:50 Blood Venous Blood Culture - Final 07/17/17 05:45 Blood Venous Blood Culture - Final 07/15/17 15:19 Blood Venous Aerobic Blood Culture - Final 07/15/17 15:19 Blood Venous Blood Culture - Final Proteus Penneri Proteus Penneri 07/17/17 05:50 Blood Venous Aerobic Blood Culture - Preliminary 07/17/17 05:50 Blood Venous Anaerobic Blood Culture - Preliminary No Growth Day 3 No Growth Day 3 07/17/17 05:45 Blood Venous Aerobic Blood Culture - Preliminary 07/17/17 05:45 Blood Venous Anaerobic Blood Culture - Preliminary No Growth Day 3 No Growth Day 3 Assess/Plan/Problems-Billing Assessment: Mr. Chowdhury is a 77yo M with PMH of type 2 DM, diabetic neuropathy, diabetic retinopathy, CAD s/p CABG, PAD, HLD, CKD stage 3, HTN, GERD, BPH, s/p recent admission for right foot wet gangrene, s/p TMA, who returns to [facility] [place] with worsening infection. - Patient Problems (1) Severe sepsis Comment: - Patient met sepsis criteria on admission with leukocytosis and tachycardia. Also has ALLEN. - Source is right diabetic foot infection and Proteus septicemia. (2) Gram negative septicemia Comment: - Blood culture is growing Proteus penneri, sensitive to Cefepime. - Repeat blood cultures show no growth so far. (3) Type 2 diabetes mellitus with right diabetic foot infection Comment: - S/p TMA R foot 06/23/17 complicated by post op infection. - Continue Cefepime and Flagyl. - Dr Bertrand today states foot/ankle surgical team will assess in AM - appears to need more proximal amputation (4) ALLEN (acute kidney injury) Comment: - Acute on chronic kidney injury, likely renal in the setting of ATN secondary to sepsis. - Improving. (5) Peripheral arterial disease Comment: - S/p RLE arteriogram from ipsilateral antegrade right CF arteriotomy, balloon angioplasty of the right SFA, popliteal, LADONNA and peroneal arteries by Dr. Lawson on 07/17/17. - Continue Aspirin, Plavix, Atorvastatin. (6) Irregular heart beat Comment: - He is NSR with PVCs now, but had Afib overnight. - Will replete lytes to keep K>4 and Mg>2. - [id number] score is 5 - will have low threshold to start anticoagulation if Afib reccurs (probably heparin as he'll have surgery in the near future). (7) Metabolic acidosis Comment: - Secondary to infection and renal failure - improving. - Continue buffer with Bicitra. (8) Type 2 diabetes mellitus Comment: - diabetes under good control - Continue Lantus 18 units and Lispro SS. (9) HTN (hypertension) Comment: - Controlled. - Continue Amlodipine and Lisinopril. (10) DVT prophylaxis Comment: - SQ heparin. (11) Full code status Status and Disposition: Inpatient for management of deep foot infection requiring >48h for stabilization.
[2017-07-21] MEDS ORDERED: Sodium Polystyrene ORAL.SOL* 15 GM/60 ML BTL PO ONE (09:00)
[2017-07-21] MEDS: Lisinopril TAB* 10 MG PO SCH (09:11)
[2017-07-21] MEDS: Metoprolol Tartrate TAB* 25 MG PO SCH ×2 (09:11→20:57)
[2017-07-21] MEDS: metroNIDAZOLE TAB* 250 MG PO SCH ×3 (09:11→20:57)
[2017-07-21] MEDS: Clopidogrel TAB* 75 MG PO SCH (09:11)
[2017-07-21] MEDS: amLODIPine TAB* 5 MG PO SCH (09:11)
[2017-07-21] MEDS: Cefepime(*) 1 GM in NS 0.9% 50 ML* 50 ML IVPB SCH ×2 (09:12→20:57)
[2017-07-21] MEDS: Sodium Citrate/Citric Acid* 15 ML UDC PO SCH ×3 (09:12→21:01)
[2017-07-21] MEDS: Insulin LISPRO* 1 UNITS UNIT SUBCUT SCH ×7 (09:13→21:01)
[2017-07-21] MEDS: Aspirin Low Dose CHEW TAB* 81 MG PO SCH (09:19)
--- NOTE | 2017-07-21 09:28 | PN ---
Progress Note - Progress Note Date of Service: 07/21/17 SOAP: Subjective: CC: R foot gangrene HPI: 77 yo diabetic with vascular disease and recent R foot TMA for gangrene and osteomyelitis now with r plantar forefoot ganrene. No foot pain. No fever or rash; had loose stool x1 today, no abd pain. Short of breath overnight without cough, better this morning. Objective: [] Vital Signs Temp 36.7 C 07/21/17 07:38 Pulse 83 07/21/17 07:38 Resp 22 07/21/17 07:38 BP 126/54 07/21/17 07:38 Pulse Ox 96 07/21/17 07:38 Intake & Output 07/20/17 07/21/17 07/21/17 18:59 06:59 18:59 Intake Total 80 Output Total 225 250 100 Balance -225 -170 -100 Intake: IV Fluids 20 ABX - CEFEPIME 20 IVPB 60 ABX - CEFEPIME 60 Oral 0 Output: Urine 225 250 100 Other: # Bowel Movements 1 Estimated Stool Amount Large Gen:awake, no distress HEENT:PERRL, MMM Neck:supple Heart:RRR no murmur Lungs:CTA BL Abd:+BS NTND soft Skin: R plantar forefoot gangrene; incision intact, no dorsal erythema Assessment: 1. Proteus bacteremia and septicemia secondary to foot infection 2. R foot gangrene 3. PAD 4. T2DM 5. CKD 6. Diarrhea Plan: 1. continue cefepime and flagyl, awaiting further debridement 25 minutes floor time >50% face to face discussing further workup and treatmen of his foot infection. Discussed with Dr Ramos.
[2017-07-21] MEDS: Nystatin TOP POWDER* 15 GM BTL TOPICAL SCH ×3 (09:38→21:01)
--- NOTE | 2017-07-21 11:46 | PN ---
Progress Note - Progress Note Date of Service: 07/21/17 SOAP: History: Mr Chowdhury is a 77 old man with diabetes and peripheral vascular disease who previously had TMA by Dr. Marte. The wound has not been healing and there is an area of necrosis plantarly. He underwent angioplasty with Dr. Lawson at the end of last week. However, the wound continues to look worse. Subjective: He denies any pain in the foot. He denies any pain in the lower leg. Objective: Temp Pulse Resp BP Pulse Ox 98.0 F 83 22 126/54 96 07/21/17 07:38 07/21/17 07:38 07/21/17 07:38 07/21/17 07:38 07/21/17 07:38 WBC 07/15/17 07/16/17 07/17/17 15:19 05:16 07:56 WBC 29.6 10^3/ul H 10^3/ul 24.5 10^3/ul H 10^3/ul 20.5 10^3/ul H 10^3/ul (3.5-10.8) (3.5-10.8) (3.5-10.8) 07/18/17 07/19/17 07/21/17 08:00 05:51 05:05 WBC 22.8 10^3/ul H 10^3/ul 22.3 10^3/ul H 10^3/ul 21.2 10^3/ul H 10^3/ul (3.5-10.8) (3.5-10.8) (3.5-10.8) examination reveals wound necrosis plantarly. The wound is malodorous. no spreading erythema. See picture below. [] J Assessment/Plan: 77-year-old man with diabetes and peripheral vascular disease who is not healing his wound from his prior TMA with Dr. Marte. at this point I think it is unlikely for this wound to improve and I think that likely the best course of action would be a revision amputation. I discussed this at length this morning with Mr. Chowdhury. He discussed his options including no surgery, a revision amputation at the level of the transverse tarsal joint, or a below knee amputation. I worry that no surgery would lead to worsening of the wound and potentially worsening of the infection. A revision amputation at the transverse tarsal joint is an option however I worry that it will lead to a similar outcome with necrosis of the plantar flap as there does not appear to be posterior tibial flow. I do feel a below knee amputation is likely to provide the best outcome as well as get the infection under the best control and get him on the road to recovery faster. We also discussed the risks of surgery at length. He expressed his understanding of this. We had a long discussion about all of these factors and I asked him to spend the next day or 2 thinking about what he would like to do moving forward. We'll plan on surgery this coming . In the meantime we will stop the Plavix if that is okay with Dr. Lawson. This was communicated with his primary team. All of Trenton's questions were answered this morning. [] A total of 45 minutes were spent [id number] with the patient during this encounter and over half of that time was spent on counseling and coordination of care. Gurpreet Garcia MD
--- NOTE | 2017-07-21 13:43 | PN ---
Subjective Date of Service: 07/21/17 Interval History: HOSPITALIST PROGRESS NOTE Patient seen and examined at bedside. He did not sleep well last night due to dyspnea. Denies CP, palpitations. No foot pain. Family History: Unchanged from Admission Social History: Unchanged from Admission Past Medical History: Unchanged from Admission Objective Active Medications: Acetaminophen (Tylenol Tab*) 650 mg PO Q6H PRN PRN Reason: FEVER/PAIN Albuterol (Ventolin 2.5 Mg/3 Ml Neb.Susy*) 2.5 mg INH Q2H PRN PRN Reason: SOB/WHEEZING Last Admin: 07/21/17 00:37 Dose: 2.5 mg Amlodipine Besylate (Norvasc Tab*) 5 mg PO DAILY [facility] Last Admin: 07/21/17 09:11 Dose: 5 mg Aspirin (Aspirin Low Dose Tab*) 81 mg PO DAILY [facility] Last Admin: 07/21/17 09:19 Dose: 81 mg Atorvastatin Calcium (Lipitor*) 80 mg PO 1700 [facility] Last Admin: 07/20/17 17:48 Dose: 80 mg Calcium Carbonate (Tums*) 500 mg PO Q8H PRN PRN Reason: DYSPEPSIA Citric Acid/Sodium Citrate (Bicitra*) 15 ml PO TID [facility] Last Admin: 07/21/17 09:12 Dose: 15 ml Dextrose (D50w Syringe 50 Ml*) 12.5 gm IV PUSH .FOR FS < 60 - SS PRN PRN Reason: FS < 60 Heparin Sodium (Porcine) (Heparin Vial(*)) 5,000 units SUBCUT Q8HR [facility] Last Admin: 07/21/17 05:14 Dose: 5,000 units Heparin Sodium (Porcine) (Heparin Flush Picc/Ml/Cvc(*)) 1 - 3 ml FLUSH 0600, 1800 TETE PRN Reason: Protocol Last Admin: 07/21/17 04:56 Dose: 1 ml Cefepime HCl 1 gm/ Sodium (Chloride) 50 mls @ 100 mls/hr IVPB Q12HR [facility] Last Admin: 07/21/17 09:12 Dose: 100 mls/hr Insulin Glargine (Lantus(*)) 18 units SUBCUT 2100 [facility] Insulin Human Lispro (Humalog*) 0 units SUBCUT ACHS TETE PRN Reason: Protocol Last Admin: 07/21/17 09:13 Dose: Not Given Insulin Human Lispro (Humalog*) 0 units SUBCUT AC [facility] PRN Reason: Protocol Last Admin: 07/21/17 09:13 Dose: Not Given Lisinopril (Prinivil Tab*) 10 mg PO 0900 [facility] Last Admin: 07/21/17 09:11 Dose: 10 mg Metoprolol Tartrate (Lopressor Tab*) 25 mg PO 0900,2100 [facility] Last Admin: 07/21/17 09:11 Dose: 25 mg Metronidazole (Flagyl Tab*) 500 mg PO TID [facility] Last Admin: 07/21/17 09:11 Dose: 500 mg Morphine Sulfate (Morphine Inj (Syringe)*) 2 mg IV Q4H PRN PRN Reason: SEVERE PAIN Last Admin: 07/17/17 23:23 Dose: 2 mg Nystatin (Nystatin Top Powder*) 1 applic TOPICAL TID [facility] Last Admin: 07/21/17 09:38 Dose: Not Given Prochlorperazine Edisylate (Compazine Inj*) 5 mg IV Q6H PRN PRN Reason: NAUSEA/VOMITING Vital Signs 07/21/17 07/21/17 07:30 07:38 Temperature 98.0 F Pulse Rate 83 Respiratory 22 22 Rate Blood Pressure 126/54 (mmHg) O2 Sat by Pulse 96 Oximetry Oxygen Devices in Use Now: Nasal Cannula Appearance: Elderly gentleman sitting up in bed in [facility]. Eyes: No Scleral Icterus Ears/Nose/Mouth/Throat: Mucous Membranes Moist Neck: Trachea Midline Respiratory: Symmetrical Chest Expansion and Respiratory Effort, - - BS+ bilaterally with bibasilar crackles Cardiovascular: RRR - normal S1 and S2 Abdominal: NL Sounds; No Tenderness; No Distention Extremities: - - Right TMA site dry gangrene, no surrounding erythema, fould smelling Neurological: Alert and Oriented x 3, NL Muscle Strength and Tone Lines/Tubes/Other Access: Clean, Dry and Intact Peripheral IV Nutrition: Taking PO's Result Diagrams: 07/21/17 05:05 07/21/17 05:05 Assess/Plan/Problems-Billing Assessment: Mr. Chowdhury is a 77yo M with PMH of type 2 DM, diabetic neuropathy, diabetic retinopathy, CAD s/p CABG, PAD, HLD, CKD stage 3, HTN, GERD, BPH, s/p recent admission for right foot wet gangrene, s/p TMA, who returns to [facility] [place] with worsening infection. - Patient Problems (1) Fluid overload Comment: - Continue gentle diuresis. (2) Severe sepsis Comment: - Patient met sepsis criteria on admission with leukocytosis and tachycardia. Also has ALLEN. - Source is right diabetic foot infection and Proteus septicemia. (3) Gram negative septicemia Comment: - Blood culture grew Proteus penneri, sensitive to Cefepime. - Repeat blood cultures show no growth so far. (4) Type 2 diabetes mellitus with right diabetic foot infection Comment: - S/p TMA R foot 06/23/17 complicated by post op infection. - Continue Cefepime and Flagyl. - Plan for surgery 07/23 or 07/24 - ortho considering a proximal amputation at the tarsal joint level vs BKA. - ID input appreciated. (5) ALLEN (acute kidney injury) Comment: - Acute on chronic kidney injury, likely renal in the setting of ATN secondary to sepsis. - Resolved. (6) Peripheral arterial disease Comment: - S/p RLE arteriogram from ipsilateral antegrade right CF arteriotomy, balloon angioplasty of the right SFA, popliteal, LADONNA and peroneal arteries by Dr. Lawson on 07/17/17. - D/w Dr. Lawson - okay to hold Plavix for now in preparation for surgery, considering risks and benefits (especially getting rid of source of infection). - Continue Aspirin and Atorvastatin. (7) Irregular heart beat Comment: - Remains NSR with PVCs. - [id number] score is 5 - will have low threshold to start anticoagulation if Afib reccurs (probably heparin as he'll have surgery in the near future). (8) Metabolic acidosis Comment: - Secondary to infection and renal failure - improving. - Continue buffer with Bicitra. (9) Type 2 diabetes mellitus Comment: - Glucose trending down. - Decrease Lantus dose to 15 units and continue Lispro SS. (10) HTN (hypertension) Comment: - Controlled. - Continue Amlodipine and Lisinopril. (11) DVT prophylaxis Comment: - SQ heparin. (12) Full code status Status and Disposition: Inpatient for management of deep foot infection requiring >48h for stabilization.
[2017-07-21] MEDS: Atorvastatin* 80 MG TAB PO SCH (18:03)
[2017-07-21] MEDS ORDERED: Insulin GLARGINE(*) 1 UNITS UNIT SUBCUT SCH (21:00)
[2017-07-21] MEDS: Insulin GLARGINE(*) 1 UNITS UNIT SUBCUT SCH (21:27)
[2017-07-22 04:49] LABS: Hematocrit 24 % (42-52); Hemoglobin 7.9 g/dl (14.0-18.0); Mean Corpuscular HGB Conc 33 g/dl (31-36); Mean Corpuscular Hemoglobin 31 pg (27-31); Mean Corpuscular Volume 94 fL (80-94); Mean Platelet Volume 9 um3 (7.4-10.4); Red Blood Count 2.58 10^6/ul (4.0-5.4); Red Cell Distribution Width 14 % (10.5-15); White Blood Count 19.4 10^3/ul (3.5-10.8)
[2017-07-22 05:05] LABS: BUN/Creatinine Ratio 43.3 (8-20); C Reactive Protein 77.82 mg/L (< 5.00); Calcium 7.3 mg/dL (8.6-10.3); EGFR African American 58.7 (>60); EGFR Non-African American 45.6 (>60)
[2017-07-22] MEDS: Heparin VIAL(*) 5000 UNITS/ML VIAL (FIVE THOUSAND) SUBCUT SCH ×3 (05:50→22:03)
[2017-07-22] MEDS: Insulin LISPRO* 1 UNITS UNIT SUBCUT SCH ×7 (07:22→22:01)
[2017-07-22] MEDS ORDERED: Magnesium Sulf 4 GM/100 ML IV* 4,000 MG/100 ML BAG IVPB ONE (07:30)
[2017-07-22] MEDS: Loperamide CAP* 2 MG PO PRN ×2 (09:48→13:11)
[2017-07-22] MEDS: Metoprolol Tartrate TAB* 25 MG PO SCH ×2 (09:49→22:02)
[2017-07-22] MEDS: Lisinopril TAB* 10 MG PO SCH (09:50)
[2017-07-22] MEDS: Sodium Citrate/Citric Acid* 15 ML UDC PO SCH ×3 (09:51→22:03)
[2017-07-22] MEDS: metroNIDAZOLE TAB* 250 MG PO SCH ×3 (09:52→22:02)
[2017-07-22] MEDS: amLODIPine TAB* 5 MG PO SCH (09:53)
[2017-07-22] MEDS: Aspirin Low Dose CHEW TAB* 81 MG PO SCH (09:54)
[2017-07-22] MEDS: Cefepime(*) 1 GM in NS 0.9% 50 ML* 50 ML IVPB SCH ×2 (09:55→21:58)
[2017-07-22] MEDS: Nystatin TOP POWDER* 15 GM BTL TOPICAL SCH ×3 (10:33→22:02)
--- NOTE | 2017-07-22 11:43 | PN ---
Progress Note - Progress Note Date of Service: 07/22/17 SOAP: Subjective: Pt with right foot gangrene on plantar forefoot, planning for BKA to happen given worsening of necrosis. Pt denies significant pain. States that he doesn't feel well overall. Denies f/c, CP, SOB Objective: Vitals: Temp Pulse Resp BP Pulse Ox 98.5 F 91 18 133/63 94 07/22/17 08:07 07/22/17 08:07 07/22/17 09:48 07/22/17 08:07 07/22/17 08:07 Gen: A&O x3, NAD at rest laying in bed RLE: Large area of necrosis to plantar forefoot, no active discharge. Odor improving. Sensation decreased below ankle. 1+ DP Labs: Laboratory Results - last 24 hr 07/21/17 07/21/17 07/22/17 16:28 20:47 04:40 WBC RBC Hgb Hct MCV MCH MCHC RDW Plt Count MPV Neut % (Auto) Lymph % (Auto) [place] % (Auto) Eos % (Auto) Baso % (Auto) Absolute Neuts (auto) Absolute Lymphs (auto) Absolute Monos (auto) Absolute Eos (auto) Absolute Basos (auto) Absolute Nucleated RBC Nucleated RBC % Sodium 138 Potassium 5.0 Chloride 113 H Carbon Dioxide 21 L Anion Gap 4 BUN 65 H Creatinine 1.50 H Est GFR ( Amer) 58.7 Est GFR (Non-Af Amer) 45.6 BUN/Creatinine Ratio 43.3 H Glucose 70 POC Glucose (mg/dL) 153 H 131 H Calcium 7.3 L C-Reactive Protein 77.82 H Blood Type Crossmatch 07/22/17 07/22/17 07/22/17 04:40 04:40 07:14 WBC 19.4 H RBC 2.58 L Hgb 7.9 L Hct 24 L MCV 94 MCH 31 MCHC 33 RDW 14 Plt Count 365 MPV 9 Neut % (Auto) 90.1 H Lymph % (Auto) 3.3 L [place] % (Auto) 4.1 Eos % (Auto) 1.8 Baso % (Auto) 0.7 Absolute Neuts (auto) 17.5 H Absolute Lymphs (auto) 0.6 L Absolute Monos (auto) 0.8 Absolute Eos (auto) 0.3 Absolute Basos (auto) 0.1 Absolute Nucleated RBC 0 Nucleated RBC % 0 Sodium Potassium Chloride Carbon Dioxide Anion Gap BUN Creatinine Est GFR ( Amer) Est GFR (Non-Af Amer) BUN/Creatinine Ratio Glucose POC Glucose (mg/dL) 98 Calcium C-Reactive Protein Blood Type A Positive Crossmatch See Detail Assessment: Right foot gangrene Plan: Cont abx per ID Cont dry dressing changes as needed Cont NWB RLE PT/OT consult to prevent significant decompensation Plan for OR 07/24/17 unless condition worsens
[2017-07-22] MEDS ORDERED: Perflutren Lipid Microsphere* 3 ML VIAL ONE (11:50)
--- NOTE | 2017-07-22 13:22 | ECHO ---
Patient: FIGUEROA BELLAMY [facility] Rec#: [id number] : 1940 Date: 07/22/2017 Age: 77y Height: 172.72 cm / 68.0 in Weight: 76.66 kg / 169.0 lbs Sex: M BSA: 1.9 Room#: 451 Admit Date#: 07/15/2017 Type: Inpatient Referring: Kalyn Siu MD Reading: Karan Love MD [employer] Machine Mechanic: Amira RealRDCS,RDMS Transthoracic Echocardiogram Indication: Dyspnea, CHF BP: 133/63 Rhythm: NSR with PVCs Findings History: CAD, CABG, DM, PAD, HLD, HTN, CKD Technical Comments: The study quality is poor. The study is technically limited due to poor apical windows. Left Ventricle: The left ventricular chamber size is normal. Mild concentric left ventricular hypertrophy is observed. Basal interventricular septum shows moderate thickening. There is a focal wall motion abnormality present.Hypokinesis of the proximal inferior wall is noted on contrast enhanced imaging. The estimated ejection fraction is 40-45%. There is no consistent Doppler evidence of clinically significant diastolic dysfunction. Left Atrium: The left atrium is moderately dilated. Right Ventricle: The right ventricle is mildly dilated. The right ventricular global systolic function is normal. Right Atrium: The right atrial cavity size is normal. Aortic Valve: The aortic valve is trileaflet. The aortic valve leaflets are mildly thickened. Systolic excursion of the aortic valve is normal. Systolic excursion of the non coronary cusp is reduced. There is no evidence of aortic regurgitation. There is no evidence of aortic stenosis. Mitral Valve: The mitral valve leaflets are mildly thickened. There is mild mitral regurgitation. There is no evidence of mitral stenosis. Tricuspid Valve: The tricuspid valve leaflets are normal. There is mild to moderate tricuspid regurgitation. There is evidence of moderate pulmonary hypertension. Pulmonic Valve: The pulmonic valve appears normal. There is a trace pulmonic regurgitation. Pericardium: There is no significant pericardial effusion. A left pleural effusion is present. Aorta: The aortic root appears normal. There is no dilatation of the aortic arch. Pulmonary Artery: The main pulmonary artery appears normal. Venous: The inferior vena cava appears normal in size. There is an approximate 50% respiratory change in the inferior vena cava dimension. Contrast: Definity was used to optimize study. A total of 3.5 ml was used Conclusions The study is technically limited due to poor apical windows. Mild concentric left ventricular hypertrophy is observed. Basal interventricular septum shows moderate thickening. Hypokinesis of the proximal inferior wall is noted on the contrast enhanced images. The apex is never visualized well. The estimated ejection fraction is 40-45%. There is mild mitral regurgitation. There is mild to moderate tricuspid regurgitation. There is a trace pulmonic regurgitation. A left pleural effusion is present. Compared to report of study from 02/27/2016 the overall LV systolic function is less (was reported as 50-55%) .the mitral regurgitation is mildly increased (was trace to mild), the tricuspid regurgitation is increased (was trace to mild). Measurements Name Value Normal Range RVIDd (AP) 2D 3.7 cm (0.9 - 2.6) RAd ISD 4CH 4.6 cm (3.4 - 4.9) RA (A4C)W 4.1 cm (2.9 - 4.6) IVSd (2D) 2 cm (0.6 - 1) LVPWd (2D) 1.1 cm (0.6 - 1) LVIDd (2D) 4.4 cm (3.6 - 5.4) LVIDs (2D) 2.9 cm - LV FS (2D) 35 % (25 - 45) Aortic Annulus 2.2 cm (1.4 - 2.6) Ao root diameter (2D) 2.8 cm (2.1 - 3.5) Ascending Ao 2.6 cm (2.1 - 3.4) Aortic arch 3.2 cm (1.8 - 3.4) LA dimension (AP) 2D 5.2 cm (2.3 - 3.8) LAd ISD 4CH 5.6 cm (2.9 - 5.3) LA ISD 4CH W 4.8 cm (2.5 - 4.5) Name Value Normal Range LA ESV SP 4CH (A/L) 83.8 ml - LA ESV SP 2CH (A/L) 104.27 ml - LA ESV BP (A/L) 98.92 ml - LA ESV BP (A/L) index 52 ml/m2 - LA ESV SP 4CH (MOD) 74.42 ml - LA ESV SP 2CH (MOD) 96.25 ml - LV EDV SP 4CH (MOD) 130.9 ml - LV ESV SP 4CH (MOD) 74.66 ml - EF SP 4CH (MOD) 42.96 % - LV EDV SP 2CH (MOD) 172.4 ml - LV ESV SP 2CH (MOD) 106.31 ml - EF SP 2CH (MOD) 38.34 % - LV EDV BP 148.97 ml - LV ESV BP 88.47 ml - BP EF (MOD) 40.61 % - LV EDV BP index 78.29 ml/m2 - LV ESV BP index 46.5 ml/m2 - Name Value Normal Range MV E-wave Vmax 0.9 m/sec - MV deceleration time 100 msec - MV A-wave Vmax 0.6 m/sec - MV E:A ratio 1.5 ratio - LV septal e' Vmax 0.04 m/sec - LV lateral e' Vmax 0.1 m/sec - LV E:e' septal ratio 22.5 ratio - LV E:e' lateral ratio 9 ratio - Name Value Normal Range AV Vmax 1.4 m/sec - AV VTI 27.5 cm - AV peak gradient 8 mmHg - AV mean gradient 4.6 mmHg - LVOT Vmax 0.8 m/sec - LVOT VTI 17.6 cm - LVOT peak gradient 2.6 mmHg - LVOT mean gradient 1.4 mmHg - Name Value Normal Range TR Vmax 3.5 m/sec - TR peak gradient 49 mmHg - RAP 3 mmHg - RVSP 52 mmHg - IVC diameter 2 cm - Name Value Normal Range PV Vmax 0.9 m/sec - PV peak gradient 3.2 mmHg -
--- NOTE | 2017-07-22 14:18 | PN ---
Subjective Date of Service: 07/22/17 Interval History: HOSPITALIST PROGRESS NOTE Patient seen and examined at bedside. He states his breathing is better today, but still gets dyspneic with exertion. Episode of 7 beat of Vtach earlier today, asymptomatic. He's very discouraged he 'll need more extensive surgery than he was hoping for. Family History: Unchanged from Admission Social History: Unchanged from Admission Past Medical History: Unchanged from Admission Objective Active Medications: Acetaminophen (Tylenol Tab*) 650 mg PO Q6H PRN PRN Reason: FEVER/PAIN Albuterol (Ventolin 2.5 Mg/3 Ml Neb.Susy*) 2.5 mg INH Q2H PRN PRN Reason: SOB/WHEEZING Last Admin: 07/21/17 00:37 Dose: 2.5 mg Amlodipine Besylate (Norvasc Tab*) 5 mg PO DAILY [facility] Last Admin: 07/22/17 09:53 Dose: 5 mg Aspirin (Aspirin Low Dose Tab*) 81 mg PO DAILY [facility] Last Admin: 07/22/17 09:54 Dose: 81 mg Atorvastatin Calcium (Lipitor*) 80 mg PO 1700 [facility] Last Admin: 07/21/17 18:03 Dose: 80 mg Calcium Carbonate (Tums*) 500 mg PO Q8H PRN PRN Reason: DYSPEPSIA Citric Acid/Sodium Citrate (Bicitra*) 15 ml PO TID [facility] Last Admin: 07/22/17 09:51 Dose: 15 ml Dextrose (D50w Syringe 50 Ml*) 12.5 gm IV PUSH .FOR FS < 60 - SS PRN PRN Reason: FS < 60 Furosemide (Lasix Iv*) 20 mg IV SLOW PU ONCE ONE Stop: 07/22/17 15:01 Heparin Sodium (Porcine) (Heparin Vial(*)) 5,000 units SUBCUT Q8HR [facility] Last Admin: 07/22/17 05:50 Dose: 5,000 units Heparin Sodium (Porcine) (Heparin Flush Picc/Ml/Cvc(*)) 1 - 3 ml FLUSH 0600, 1800 TETE PRN Reason: Protocol Last Admin: 07/22/17 04:40 Dose: 1 ml Cefepime HCl 1 gm/ Sodium (Chloride) 50 mls @ 100 mls/hr IVPB Q12HR [facility] Last Admin: 07/22/17 09:55 Dose: 100 mls/hr Insulin Glargine (Lantus(*)) 9 units SUBCUT 2100 [facility] Last Admin: 07/21/17 21:27 Dose: 9 units Insulin Human Lispro (Humalog*) 0 units SUBCUT ACHS [facility] PRN Reason: Protocol Last Admin: 07/22/17 13:03 Dose: 2 units Insulin Human Lispro (Humalog*) 0 units SUBCUT AC [facility] PRN Reason: Protocol Last Admin: 07/22/17 14:14 Dose: Not Given Lisinopril (Prinivil Tab*) 10 mg PO 0900 [facility] Last Admin: 07/22/17 09:50 Dose: 10 mg Loperamide HCl (Imodium Cap*) 2 mg PO .SEE DIRECTIONS PRN PRN Reason: DIARRHEA Last Admin: 07/22/17 13:11 Dose: 2 mg Metoprolol Tartrate (Lopressor Tab*) 25 mg PO 0900,2099 [facility] Last Admin: 07/22/17 09:49 Dose: 25 mg Metronidazole (Flagyl Tab*) 500 mg PO TID [facility] Last Admin: 07/22/17 09:52 Dose: 500 mg Morphine Sulfate (Morphine Inj (Syringe)*) 2 mg IV Q4H PRN PRN Reason: SEVERE PAIN Last Admin: 07/17/17 23:23 Dose: 2 mg Nystatin (Nystatin Top Powder*) 1 applic TOPICAL TID [facility] Last Admin: 07/22/17 10:33 Dose: Not Given Prochlorperazine Edisylate (Compazine Inj*) 5 mg IV Q6H PRN PRN Reason: NAUSEA/VOMITING Vital Signs 07/22/17 07/22/17 07/22/17 08:07 09:48 11:16 Temperature 98.5 F 98.2 F Pulse Rate 91 86 Respiratory 18 20 Rate Blood Pressure 133/63 132/112 (mmHg) O2 Sat by Pulse 94 100 Oximetry Oxygen Devices in Use Now: Nasal Cannula Appearance: Elderly male lying in bed in NAD. Eyes: No Scleral Icterus Ears/Nose/Mouth/Throat: Mucous Membranes Moist Neck: Trachea Midline Respiratory: Symmetrical Chest Expansion and Respiratory Effort, - - BS+ bilaterally with bibasilar rales Cardiovascular: RRR - Normal S1 and S2 Abdominal: NL Sounds; No Tenderness; No Distention Extremities: - - Right TMA incision dry gangrene, with no extension of erythema Neurological: Alert and Oriented x 3, NL Muscle Strength and Tone Lines/Tubes/Other Access: Clean, Dry and Intact PICC Line Nutrition: Taking PO's Result Diagrams: 07/22/17 04:40 07/22/17 04:40 Assess/Plan/Problems-Billing Assessment: Mr. Chowdhury is a 77yo M with PMH of type 2 DM, diabetic neuropathy, diabetic retinopathy, CAD s/p CABG, PAD, HLD, CKD stage 3, HTN, GERD, BPH, s/p recent admission for right foot wet gangrene, s/p TMA, who returns to [facility] [place] with worsening infection. - Patient Problems (1) V-tach Comment: - Episode of NSVtach earlier today, asymptomatic. - Electrolytes are normal. - Ef shows lower EF 40-45%. - Cardiology consultation requested. (2) Fluid overload Comment: - Continue gentle diuresis. (3) Severe sepsis Comment: - Patient met sepsis criteria on admission with leukocytosis and tachycardia. Also has ALLEN. - Source is right diabetic foot infection and Proteus septicemia. (4) Gram negative septicemia Comment: - Blood culture grew Proteus penneri, sensitive to Cefepime. - Repeat blood cultures showed no growth. (5) Type 2 diabetes mellitus with right diabetic foot infection Comment: - S/p TMA R foot 06/23/17 complicated by post op infection. - Continue Cefepime and Flagyl. - Plan for surgery 07/24 - ortho considering a proximal amputation at the tarsal joint level vs BKA. - ID input appreciated. (6) ALLEN (acute kidney injury) Comment: - Acute on chronic kidney injury, likely renal in the setting of ATN secondary to sepsis. - Resolved. (7) Peripheral arterial disease Comment: - S/p RLE arteriogram from ipsilateral antegrade right CF arteriotomy, balloon angioplasty of the right SFA, popliteal, LADONNA and peroneal arteries by Dr. Lawson on 07/17/17. - D/w Dr. Lawson - okay to hold Plavix for now in preparation for surgery, considering risks and benefits (especially getting rid of source of infection). - Continue Aspirin and Atorvastatin. (8) Irregular heart beat Comment: - Remains NSR with PVCs. - [id number] score is 5 - will have low threshold to start anticoagulation if Afib reccurs (probably heparin as he'll have surgery in the near future). (9) Metabolic acidosis Comment: - Secondary to infection and renal failure - improving. - Continue buffer with Bicitra. (10) Type 2 diabetes mellitus Comment: - Fasting glucose is controlled, but still spikes with meals - Continue Lantus 15 units and increase Lispro SS coverage. (11) HTN (hypertension) Comment: - Controlled. - Continue Amlodipine and Lisinopril. (12) DVT prophylaxis Comment: - SQ heparin. (13) Full code status Status and Disposition: Inpatient for management of deep foot infection requiring >48h for stabilization.
[2017-07-22] MEDS ORDERED: Furosemide IV* 10 MG/ML 2 ML VIAL (20 MG) IV SLOW PU ONE (15:00)
[2017-07-22] MEDS: Atorvastatin* 80 MG TAB PO SCH (17:10)
--- NOTE | 2017-07-22 21:37 | CONS ---
CARDIOLOGY CONSULTATION: DATE OF CONSULTATION: 07/22/17 INDICATION FOR CONSULTATION: History of coronary artery disease, preop right BKA. HISTORY OF PRESENT ILLNESS: The patient is a 77-year-old gentleman with multiple medical problems, who was admitted to the hospital with critical limb ischemia. The patient ultimately underwent an interventional procedure to his right leg on 07/17/17. At that time, he had balloon angioplasty to his right common femoral artery, superficial femoral artery, and popliteal artery, which then significantly changed the perfusion to his lower extremities. The patient is now being considered for right BKA. In speaking with the patient, I any specific cardiac symptoms. He says occasionally he will have some shortness of breath. He denies any angina. He denies any palpitations. He denies any lightheadedness, dizziness, or syncope. The patient does have a history of coronary artery disease, history of coronary artery bypass surgery in the distant past. He did have a cardiac catheterization in 2013, which showed that his [place] arteries are occluded. His saphenous vein graft to his obtuse marginal branch and to his PDA is open and patient. His arteriograph to the LAD is open and patent. In the hospital, the patient did have one episode of atrial fibrillation, which spontaneously converted to normal sinus rhythm. The patient also has had 2 episodes of nonsustained ventricular tachycardia, the first episode occurred in the setting of low potassium and low magnesium; however, his most recent episode of nonsustained VT, he had normal electrolytes. His most recent VT was on 07/22/17 at 6 o'clock this morning. It was a 7-beat run of VT at about 150 beats per minute. He was asymptomatic. PAST MEDICAL HISTORY: Significant for diabetes, coronary artery disease, peripheral vascular disease, hyperlipidemia, chronic kidney disease, hypertension, gastroesophageal reflux disease. OUTPATIENT MEDICATIONS: 1. Tylenol p.r.n. 2. Albuterol inhaler as needed. 3. Amlodipine 5 mg a day. 4. Aspirin 81 mg a day. 5. Atorvastatin 80 mg a day. 6. Clopidogrel 75 mg a day. 7. Insulin as directed. 8. Lisinopril 10 mg a day. 9. Nystatin. ALLERGIES: No known drug allergies. SOCIAL HISTORY: He came from [facility]. His partner is Karina Espinoza. He is a previous smoker. He denies any alcohol or tobacco use at this time. PHYSICAL EXAMINATION: On physical exam, height is 5 feet 8 inches, weight in 169 pounds, temperature is 98.2, heart rate is 80, blood pressure 132/100, respiratory rate is 20, oxygen saturation is 100% on 2 L. Sclerae anicteric. Oropharynx is pink without erythema. Carotid are 2+ without bruits. JVD is normal. Thyroid is normal. Cardiac Exam: S1, S2 without any murmurs, rubs, or gallops. Lungs are clear to auscultation. He does have some mild rales, but clear with deep inspiration. Abdomen is soft, nontender, nondistended with normoactive bowel sounds. Extremities show no edema. He has poor pulses in his right lower extremity. The patient is awake, alert, and oriented. LABORATORY DATA/DIAGNOSTIC DATA: White count 19.4, hemoglobin 8, hematocrit 24 , platelet count 365. The patient is getting a transfusion as I was interviewing him. Chemistries within normal limits. BUN 65, creatinine 1.5. EKG demonstrates normal sinus rhythm with poor R wave progression, T wave inversions unchanged from previous EKGs. He had an echocardiogram today, which demonstrated ejection fraction of 45%. It was of poor quality because of the patient's body habitus. He had no significant valvular abnormalities. His estimated ejection fraction is slightly lower than his previous study, which was done in February 2016. IMPRESSION: This is a 77-year-old gentleman with multiple medical problems, history of coronary artery disease, who is now being considered for right below the knee amputation. The patient is on appropriate medical therapy on Plavix, statin therapy, beta- beverley, and LINDY inhibitor. The patient's recent runs of nonsustained ventricular tachycardia are of unclear significance. He does not have any symptoms associated with this. At this point, I do not think the patient needs to undergo a stress test. It is not going to really change management lead at all. The patient should proceed with his [id number] as scheduled. I think the patient is at increased risk for cardiovascular complications. My recommendation is to increase his beta-blockers to Toprol XL 50 mg b.i.d. His other medications will remain the same. [id number]/[facility] #: [id number] [facility]
[2017-07-22] MEDS: Insulin GLARGINE(*) 1 UNITS UNIT SUBCUT SCH (21:59)
[2017-07-23 04:42] LABS: Hematocrit 29 % (42-52); Hemoglobin 9.5 g/dl (14.0-18.0); Mean Corpuscular HGB Conc 33 g/dl (31-36); Mean Corpuscular Hemoglobin 30 pg (27-31); Mean Corpuscular Volume 92 fL (80-94); Mean Platelet Volume 9 um3 (7.4-10.4); Red Blood Count 3.14 10^6/ul (4.0-5.4); Red Cell Distribution Width 15 % (10.5-15); White Blood Count 23.5 10^3/ul (3.5-10.8)
[2017-07-23 04:55] LABS: BUN/Creatinine Ratio 40.8 (8-20); Calcium 7.4 mg/dL (8.6-10.3); EGFR African American 57.8 (>60); EGFR Non-African American 44.9 (>60); Potassium 4.8 mmol/L (3.5-5.0)
[2017-07-23 04:56] LABS: Add Diff/Slide Review? Slide Review Added; Comments Flag Yes
[2017-07-23] MEDS: Heparin VIAL(*) 5000 UNITS/ML VIAL (FIVE THOUSAND) SUBCUT SCH ×3 (05:57→22:22)
[2017-07-23] MEDS: Insulin LISPRO* 1 UNITS UNIT SUBCUT SCH ×7 (08:30→23:25)
--- NOTE | 2017-07-23 08:50 | PN ---
Progress Note - Progress Note Date of Service: 07/23/17 SOAP: Subjective: No pain. Mr Chowdhury states he has thought a lot about our conversation on Friday and feels that a BKA is the best way to proceed. [] Objective: Exam of the foot stable. No spreading erythema. Continued necrosis of plantar skin flap. Malodorous. See picture in my last note for appearance which is unchanged. [] Assessment:77-year-old man with diabetes, CAD and peripheral vascular disease who is not healing his wound from his prior TMA with Dr. Marte and has a gangrenous foot. [] Plan: We again dicussed at length this difficult situation and his options, including attempted limb salvage. He states he has been able to wrap his head around a BKA and feels this is his best option with regards to clearing the infection and tissue as well as let him move forward with his life. I agree with him on this and feel a BKA is his best option at this point given the gangrene of the foot. We again discussed what a BKA entails and we discussed at length the pros/cons and potential risks and benefits of surgery. Surgical risks reviewed included but were not limited to recurrent/persistent infection, failure of healing, nerve injury/neuroma/phantom pain, recurrent problems/need for further surgery, deep venous thrombosis or pulmonary embolism , chronic regional pain sydrome (reflex sympathetic dystrophy), failure to return to previous functional level, failure of the surgery and also the remote risk of catastrophic complications including . After this extensive discussion Mr Chowdhury expressed his desire to move forward with surgery. All questions were answered. Specifically, the surgical plan will be for a right below the knee amputation tomorrow morning. He should be NPO at midnight tonight and will need pre-op labs and a blood bank sample. A total of 30 minutes were spent [id number] with the patient during this encounter and over half of that time was spent on counseling and coordination of care. Gurpreet Garcia MD
[2017-07-23] MEDS: Nystatin TOP POWDER* 15 GM BTL TOPICAL SCH ×3 (10:39→22:19)
[2017-07-23] MEDS: Cefepime(*) 1 GM in NS 0.9% 50 ML* 50 ML IVPB SCH ×2 (10:40→22:22)
[2017-07-23] MEDS: metroNIDAZOLE TAB* 250 MG PO SCH ×3 (10:47→22:21)
[2017-07-23] MEDS: Sodium Citrate/Citric Acid* 15 ML UDC PO SCH ×3 (10:47→22:19)
[2017-07-23] MEDS: Lisinopril TAB* 10 MG PO SCH (10:47)
[2017-07-23] MEDS: Metoprolol Tartrate TAB* 25 MG PO SCH ×2 (10:47→22:22)
[2017-07-23] MEDS: amLODIPine TAB* 5 MG PO SCH (10:47)
[2017-07-23] MEDS: Aspirin Low Dose CHEW TAB* 81 MG PO SCH (10:47)
[2017-07-23] MEDS: Loperamide CAP* 2 MG PO PRN (13:47)
--- NOTE | 2017-07-23 17:06 | PN ---
Subjective Date of Service: 07/23/17 Interval History: Pt feels "OK". anxious prior to surgery Had a period of 15 min of asymptomatic a. fib that resolved early this AM and 5 beats of V. tach Family History: Unchanged from Admission Social History: Unchanged from Admission Past Medical History: Unchanged from Admission Objective Active Medications: Acetaminophen (Tylenol Tab*) 650 mg PO Q6H PRN PRN Reason: FEVER/PAIN Albuterol (Ventolin 2.5 Mg/3 Ml Neb.Susy*) 2.5 mg INH Q2H PRN PRN Reason: SOB/WHEEZING Last Admin: 07/21/17 00:37 Dose: 2.5 mg Amlodipine Besylate (Norvasc Tab*) 5 mg PO DAILY [facility] Last Admin: 07/23/17 10:47 Dose: 5 mg Aspirin (Aspirin Low Dose Tab*) 81 mg PO DAILY [facility] Last Admin: 07/23/17 10:47 Dose: 81 mg Atorvastatin Calcium (Lipitor*) 80 mg PO 1700 [facility] Last Admin: 07/22/17 17:10 Dose: 80 mg Calcium Carbonate (Tums*) 500 mg PO Q8H PRN PRN Reason: DYSPEPSIA Citric Acid/Sodium Citrate (Bicitra*) 15 ml PO TID [facility] Last Admin: 07/23/17 10:47 Dose: 15 ml Dextrose (D50w Syringe 50 Ml*) 12.5 gm IV PUSH .FOR FS < 60 - SS PRN PRN Reason: FS < 60 Heparin Sodium (Porcine) (Heparin Vial(*)) 5,000 units SUBCUT Q8HR [facility] Last Admin: 07/23/17 13:45 Dose: 5,000 units Heparin Sodium (Porcine) (Heparin Flush Picc/Ml/Cvc(*)) 1 - 3 ml FLUSH 0600, 1800 TETE PRN Reason: Protocol Last Admin: 07/23/17 16:55 Dose: 1 ml Cefepime HCl 1 gm/ Sodium (Chloride) 50 mls @ 100 mls/hr IVPB Q12HR [facility] Last Admin: 07/23/17 10:40 Dose: 100 mls/hr Insulin Glargine (Lantus(*)) 9 units SUBCUT 2100 [facility] Last Admin: 07/22/17 21:59 Dose: 9 units Insulin Human Lispro (Humalog*) 0 units SUBCUT AC [facility] PRN Reason: Protocol Last Admin: 07/23/17 13:46 Dose: 4 unit Insulin Human Lispro (Humalog*) 0 units SUBCUT ACHS [facility] PRN Reason: Protocol Last Admin: 07/23/17 13:46 Dose: 2 units Lisinopril (Prinivil Tab*) 10 mg PO 0900 [facility] Last Admin: 07/23/17 10:47 Dose: 10 mg Loperamide HCl (Imodium Cap*) 2 mg PO .SEE DIRECTIONS PRN PRN Reason: DIARRHEA Last Admin: 07/23/17 13:47 Dose: 2 mg Metoprolol Succinate (Toprol Xl Tab*) 50 mg PO DAILY [facility] Metoprolol Tartrate (Lopressor Tab*) 25 mg PO 0900,2099 [facility] Stop: 07/23/17 23:59 Last Admin: 07/23/17 10:47 Dose: 25 mg Metronidazole (Flagyl Tab*) 500 mg PO TID [facility] Last Admin: 07/23/17 10:47 Dose: 500 mg Morphine Sulfate (Morphine Inj (Syringe)*) 2 mg IV Q4H PRN PRN Reason: SEVERE PAIN Last Admin: 07/17/17 23:23 Dose: 2 mg Nystatin (Nystatin Top Powder*) 1 applic TOPICAL TID [facility] Last Admin: 07/23/17 10:39 Dose: Not Given Prochlorperazine Edisylate (Compazine Inj*) 5 mg IV Q6H PRN PRN Reason: NAUSEA/VOMITING Vital Signs 07/22/17 07/22/17 07/22/17 19:54 20:00 23:47 Temperature 98.3 F 99.0 F Pulse Rate 79 71 Respiratory 17 17 20 Rate Blood Pressure 137/65 121/53 (mmHg) O2 Sat by Pulse 97 93 Oximetry 07/23/17 07/23/17 07/23/17 02:07 02:24 03:01 Temperature Pulse Rate 79 79 76 Respiratory 26 20 Rate Blood Pressure 129/59 129/59 (mmHg) O2 Sat by Pulse 94 94 94 Oximetry 07/23/17 07/23/17 07/23/17 03:22 07:22 08:00 Temperature 97.9 F Pulse Rate 74 81 Respiratory 20 16 Rate Blood Pressure 124/56 144/68 (mmHg) O2 Sat by Pulse 97 99 Oximetry 07/23/17 07/23/17 07/23/17 08:12 12:03 13:47 Temperature 98.1 F 97.3 F Pulse Rate 84 85 Respiratory 26 24 20 Rate Blood Pressure 139/68 119/60 (mmHg) O2 Sat by Pulse 100 100 Oximetry 07/23/17 07/23/17 15:33 15:47 Temperature 98.3 F Pulse Rate 76 Respiratory 18 20 Rate Blood Pressure 129/62 (mmHg) O2 Sat by Pulse 97 Oximetry Oxygen Devices in Use Now: Nasal Cannula - at 2l Appearance: 77 yo M in nAD, AAOx3 Eyes: No Scleral Icterus, PERRLA Ears/Nose/Mouth/Throat: NL Teeth, Lips, Gums, Mucous Membranes Moist Neck: NL Appearance and Movements; NL JVP, Trachea Midline Respiratory: Symmetrical Chest Expansion and Respiratory Effort, Clear to Auscultation Cardiovascular: NL Sounds; No Murmurs; No JVD, RRR Abdominal: NL Sounds; No Tenderness; No Distention Lymphatic: No Cervical Adenopathy Extremities: No Clubbing, Cyanosis Skin: No Nodules or Sclerosis, - - R foot (s/p TMA) wet gangrene, left foot s/p TMA with well healed stump Neurological: Alert and Oriented x 3, NL Muscle Strength and Tone Result Diagrams: 07/23/17 04:21 07/23/17 04:21 Microbiology and Other Data: Microbiology 07/17/17 05:50 Blood Venous Blood Culture - Final 07/17/17 05:45 Blood Venous Blood Culture - Final 07/15/17 15:19 Blood Venous Aerobic Blood Culture - Final 07/15/17 15:19 Blood Venous Blood Culture - Final Proteus Penneri Proteus Penneri 07/17/17 05:50 Blood Venous Aerobic Blood Culture - Preliminary 07/17/17 05:50 Blood Venous Anaerobic Blood Culture - Preliminary No Growth Day 3 No Growth Day 3 07/17/17 05:45 Blood Venous Aerobic Blood Culture - Preliminary 07/17/17 05:45 Blood Venous Anaerobic Blood Culture - Preliminary No Growth Day 3 No Growth Day 3 Assess/Plan/Problems-Billing Assessment: Mr. Chowdhury is a 77yo M with PMH of type 2 DM, diabetic neuropathy, diabetic retinopathy, CAD s/p CABG, PAD, HLD, CKD stage 3, HTN, GERD, BPH, s/p recent admission for right foot wet gangrene, s/p TMA, who [place] [facility]. - Patient Problems (1) V-tach Comment: - Episode of NSVtach earlier today and a day prior, asymptomatic. - Electrolytes are normal. - Ef shows lower EF 40-45%. - Cardiology consultation appreciated, toprol XL started. No other modifiable factors noted priro to surgery. OK to proceed as per Dr. Blanca. (2) Fluid overload Comment: - no diuresis prior to surgery (3) Severe sepsis Comment: - Patient met sepsis criteria on admission with leukocytosis and tachycardia. Also has ALLEN. - Source is right diabetic foot infection and Proteus septicemia. Plan for BKA on R by Dr. Garcia (4) Type 2 diabetes mellitus with right diabetic foot infection Comment: - S/p TMA R foot 06/23/17 complicated by post op infection. - Continue Cefepime and Flagyl. - Plan for surgery 07/24 - BKA. called blood bank and had one U PRBC placed on hold for surgery - ID input appreciated. (5) ALLEN (acute kidney injury) Comment: - Acute on chronic kidney injury, likely renal in the setting of ATN secondary to sepsis. - Resolved. creat back to baseline CKD stage 3 due to DM (6) Peripheral arterial disease Comment: - S/p RLE arteriogram from ipsilateral antegrade right CF arteriotomy, balloon angioplasty of the right SFA, popliteal, LADONNA and peroneal arteries by Dr. Lawson on 07/17/17. - as per previous d/w Dr. Lawson - okay to hold Plavix for now in preparation for surgery, considering risks and benefits (especially getting rid of source of infection). - Continue Aspirin and Atorvastatin. (7) Irregular heart beat Comment: - Remains NSR with PVCs.One period of 15 min of a. fib on 07/23/17 - [id number] score is 5 - will have low threshold to start anticoagulation if Afib reccurs post op. (8) Metabolic acidosis Comment: - Secondary to infection and renal failure - improving. - Continue buffer with Bicitra. (9) Type 2 diabetes mellitus Comment: - Fasting glucose is controlled, but still spikes with meals holding Lantus for NPO in AM (10) HTN (hypertension) Comment: - Controlled. - hold Amlodipine and Lisinopril preop, cont Toprol. (11) DVT prophylaxis Comment: - SQ heparin. Status and Disposition: Inpatient for management of deep foot infection requiring >48h for stabilization.
[2017-07-23] MEDS: Atorvastatin* 80 MG TAB PO SCH (17:16)
[2017-07-23] MEDS ORDERED: Buffered Lidocaine 0.9% SYRIN* 5 ML/SYR SYRINGE INTRADERM ONE (21:52)
[2017-07-24] MEDS: NS 0.9% 1000 ML* 1,000 ML IV SCH ×2 (05:05→12:16)
[2017-07-24 05:24] LABS: Hematocrit 28 % (42-52); Hemoglobin 9.2 g/dl (14.0-18.0); Mean Corpuscular HGB Conc 33 g/dl (31-36); Mean Corpuscular Hemoglobin 30 pg (27-31); Mean Corpuscular Volume 92 fL (80-94); Mean Platelet Volume 9 um3 (7.4-10.4); Red Blood Count 3.02 10^6/ul (4.0-5.4); Red Cell Distribution Width 14 % (10.5-15); White Blood Count 19.9 10^3/ul (3.5-10.8)
[2017-07-24 05:34] LABS: BUN/Creatinine Ratio 41.2 (8-20); Calcium 7.3 mg/dL (8.6-10.3); EGFR African American 65.7 (>60); EGFR Non-African American 51.1 (>60); Magnesium 2.3 mg/dL (1.9-2.7); Potassium 4.9 mmol/L (3.5-5.0)
[2017-07-24] MEDS: Heparin VIAL(*) 5000 UNITS/ML VIAL (FIVE THOUSAND) SUBCUT SCH ×3 (06:26→21:17)
[2017-07-24] MEDS ORDERED: EPHEDrine (Pressors)* 50 MG/ML VIAL ONE (08:14)
[2017-07-24] MEDS ORDERED: Lidocaine 2% PF * 5 ML VIAL ONE (08:14)
[2017-07-24] MEDS ORDERED: Dexamethasone IV* 4 MG/ML 1 ML (4 MG) ONE (08:14)
[2017-07-24] MEDS ORDERED: Midazolam* 1 MG/ML 2 ML VIAL (2 MG) ONE (08:14)
[2017-07-24] MEDS ORDERED: Phenylephrine INJ* 10 MG/ML 1 ML VIAL (10 MG) ONE ×2 (08:14→09:56)
[2017-07-24] MEDS ORDERED: Famotidine IV* 10 MG/ML 2 ML (20 mg) ONE (08:14)
[2017-07-24] MEDS ORDERED: Mivacurium Chloride* 20 MG/10 ML VIAL IV ONE (08:14)
[2017-07-24] MEDS ORDERED: Phenylephrine IV* 40 MCG/ML 10 ML SYRINGE ONE (08:14)
[2017-07-24] MEDS ORDERED: fentaNYL* 50 MCG/ML 2 ML VIAL (100 MCG VIAL) ONE (08:14)
[2017-07-24] MEDS ORDERED: Propofol* 10 MG/ML 20 ML BTL IV PUSH ONE (08:14)
[2017-07-24] MEDS ORDERED: Metoprolol Tartrate IV* 1 MG/ML 5 ML VIAL ONE (08:26)
[2017-07-24] MEDS: Sodium Citrate/Citric Acid* 15 ML UDC PO SCH ×2 (09:00→13:48)
[2017-07-24] MEDS: Nystatin TOP POWDER* 15 GM BTL TOPICAL SCH ×3 (09:00→21:19)
[2017-07-24] MEDS: metroNIDAZOLE TAB* 250 MG PO SCH ×3 (09:00→21:17)
[2017-07-24] MEDS: Insulin LISPRO* 1 UNITS UNIT SUBCUT SCH ×7 (09:06→21:18)
[2017-07-24] MEDS ORDERED: Calcium CHLORIDE 10% SYRINGE* 1 GM/10 ML ONE (09:20)
[2017-07-24] MEDS ORDERED: Levalbuterol 0.63MG/3ML NEB* UNIT OF USE INH PRN (09:24)
[2017-07-24] MEDS ORDERED: Phenylephrine INJ* 50 MG in NS 0.9% 250 ML* 245 ML IV PRN (09:24)
[2017-07-24] MEDS ORDERED: Ondansetron INJ* 2 MG/ML VIAL IV PRN (09:24)
[2017-07-24] MEDS ORDERED: fentaNYL* 50 MCG/ML 2 ML VIAL (100 MCG VIAL) IV PRN (09:24)
[2017-07-24] MEDS ORDERED: Bupivacaine 0.5% SDV PF* 30 ML VIAL ONE (09:43)
[2017-07-24] MEDS ORDERED: Levalbuterol 1.25MG/0.5ML NEB ONE (09:55)
[2017-07-24] MEDS: Cefepime(*) 1 GM in NS 0.9% 50 ML* 50 ML IVPB SCH ×2 (11:49→21:18)
[2017-07-24] MEDS: Metoprolol Succinate XL TAB* 50 MG PO SCH (12:14)
[2017-07-24] MEDS: Aspirin Low Dose CHEW TAB* 81 MG PO SCH (12:15)
--- NOTE | 2017-07-24 16:03 | PN ---
Subjective Date of Service: 07/24/17 Interval History: Pt is seen post op, very thankful for successful surgery. No pain. C/o wet cough Family History: Unchanged from Admission Social History: Unchanged from Admission Past Medical History: Unchanged from Admission Objective Active Medications: Acetaminophen (Tylenol Tab*) 650 mg PO Q6H PRN PRN Reason: FEVER/PAIN Albuterol (Ventolin 2.5 Mg/3 Ml Neb.Susy*) 2.5 mg INH Q2H PRN PRN Reason: SOB/WHEEZING Last Admin: 07/21/17 00:37 Dose: 2.5 mg Aspirin (Aspirin Low Dose Tab*) 81 mg PO DAILY [facility] Last Admin: 07/24/17 12:15 Dose: 81 mg Atorvastatin Calcium (Lipitor*) 80 mg PO 1700 [facility] Last Admin: 07/23/17 17:16 Dose: 80 mg Calcium Carbonate (Tums*) 500 mg PO Q8H PRN PRN Reason: DYSPEPSIA Citric Acid/Sodium Citrate (Bicitra*) 15 ml PO TID [facility] Last Admin: 07/24/17 13:48 Dose: 15 ml Dextrose (D50w Syringe 50 Ml*) 12.5 gm IV PUSH .FOR FS < 60 - SS PRN PRN Reason: FS < 60 Heparin Sodium (Porcine) (Heparin Vial(*)) 5,000 units SUBCUT Q8HR [facility] Last Admin: 07/24/17 13:49 Dose: 5,000 units Heparin Sodium (Porcine) (Heparin Flush Picc/Ml/Cvc(*)) 1 - 3 ml FLUSH 0600, 1800 TETE PRN Reason: Protocol Last Admin: 07/24/17 06:26 Dose: Not Given Cefepime HCl 1 gm/ Sodium (Chloride) 50 mls @ 100 mls/hr IVPB Q12HR [facility] Last Admin: 07/24/17 11:49 Dose: Not Given Sodium Chloride (Ns 0.9% 1000 Ml*) 1,000 mls @ 25 mls/hr IV PER RATE [facility] Last Admin: 07/24/17 12:16 Dose: 25 mls/hr Insulin Human Lispro (Humalog*) 0 units SUBCUT AC TETE PRN Reason: Protocol Last Admin: 07/24/17 13:49 Dose: 3 unit Insulin Human Lispro (Humalog*) 0 units SUBCUT ACHS [facility] PRN Reason: Protocol Last Admin: 07/24/17 13:15 Dose: Not Given Levalbuterol HCl (Xopenex 0.63mg/3ml Neb*) 0.63 mg INH ONCE PRN PRN Reason: SOB/WHEEZING Stop: 07/25/17 09:25 Loperamide HCl (Imodium Cap*) 2 mg PO .SEE DIRECTIONS PRN PRN Reason: DIARRHEA Last Admin: 07/23/17 13:47 Dose: 2 mg Metoprolol Succinate (Toprol Xl Tab*) 50 mg PO DAILY [facility] Last Admin: 07/24/17 12:14 Dose: 50 mg Metronidazole (Flagyl Tab*) 500 mg PO TID [facility] Last Admin: 07/24/17 13:48 Dose: 500 mg Morphine Sulfate (Morphine Inj (Syringe)*) 2 mg IV Q4H PRN PRN Reason: SEVERE PAIN Last Admin: 07/17/17 23:23 Dose: 2 mg Nystatin (Nystatin Top Powder*) 1 applic TOPICAL TID [facility] Last Admin: 07/24/17 09:00 Dose: Not Given Prochlorperazine Edisylate (Compazine Inj*) 5 mg IV Q6H PRN PRN Reason: NAUSEA/VOMITING Vital Signs 07/23/17 07/23/17 07/24/17 19:50 20:00 00:37 Temperature 98.2 F 98.1 F Pulse Rate 80 69 Respiratory 24 24 20 Rate Blood Pressure 126/58 129/62 (mmHg) O2 Sat by Pulse 98 96 Oximetry 07/24/17 07/24/17 07/24/17 03:16 10:25 10:30 Temperature 97.9 F 98.4 F Pulse Rate 74 85 83 Respiratory 20 24 25 Rate Blood Pressure 128/57 127/63 123/61 (mmHg) O2 Sat by Pulse 96 94 95 Oximetry 07/24/17 07/24/17 07/24/17 10:35 10:40 10:45 Temperature 98.2 F Pulse Rate 83 83 83 Respiratory 25 23 25 Rate Blood Pressure 125/61 121/64 118/62 (mmHg) O2 Sat by Pulse 97 95 94 Oximetry 07/24/17 07/24/17 07/24/17 11:43 11:52 11:53 Temperature 97.8 F Pulse Rate 83 83 Respiratory 20 20 Rate Blood Pressure 147/72 147/72 (mmHg) O2 Sat by Pulse 94 94 Oximetry 07/24/17 07/24/17 07/24/17 12:00 12:52 15:43 Temperature Pulse Rate 81 76 75 Respiratory Rate Blood Pressure (mmHg) O2 Sat by Pulse 96 Oximetry Oxygen Devices in Use Now: Nasal Cannula - at 4l Appearance: 77 yo M in nAD, AAOx3 Eyes: No Scleral Icterus, PERRLA Ears/Nose/Mouth/Throat: NL Teeth, Lips, Gums, Mucous Membranes Moist Neck: NL Appearance and Movements; NL JVP, Trachea Midline Respiratory: Symmetrical Chest Expansion and Respiratory Effort, - - R lung rhonchi, clear partially with cough Cardiovascular: NL Sounds; No Murmurs; No JVD, RRR Abdominal: NL Sounds; No Tenderness; No Distention Lymphatic: No Cervical Adenopathy Extremities: No Edema, No Clubbing, Cyanosis, - - R leg in post op dressings, L - s/p remote TMA Skin: No Nodules or Sclerosis, - - post op leg dressings not removed Neurological: Alert and Oriented x 3, NL Muscle Strength and Tone Result Diagrams: 07/24/17 05:10 07/24/17 05:10 Microbiology and Other Data: Microbiology 07/17/17 05:50 Blood Venous Blood Culture - Final 07/17/17 05:45 Blood Venous Blood Culture - Final 07/15/17 15:19 Blood Venous Aerobic Blood Culture - Final 07/15/17 15:19 Blood Venous Blood Culture - Final Proteus Penneri Proteus Penneri 07/17/17 05:50 Blood Venous Aerobic Blood Culture - Preliminary 07/17/17 05:50 Blood Venous Anaerobic Blood Culture - Preliminary No Growth Day 3 No Growth Day 3 07/17/17 05:45 Blood Venous Aerobic Blood Culture - Preliminary 07/17/17 05:45 Blood Venous Anaerobic Blood Culture - Preliminary No Growth Day 3 No Growth Day 3 Assess/Plan/Problems-Billing Assessment: Mr. Chowdhury is a 77yo M with PMH of type 2 DM, diabetic neuropathy, diabetic retinopathy, CAD s/p CABG, PAD, HLD, CKD stage 3, HTN, GERD, BPH, s/p recent admission for right foot wet gangrene, s/p TMA, who returns to [facility] [place] with worsening infection. - Patient Problems (1) V-tach Comment: - Episode of NSVtach on 07/23/17 and a day prior, asymptomatic. - Electrolytes are normal. - Ef shows lower EF 40-45%. - Cardiology consultation appreciated, toprol XL started (2) Fluid overload Comment: - no diuresis periop (3) Severe sepsis Comment: - Patient met sepsis criteria on admission with leukocytosis and tachycardia. Also has ALLEN. - Source is right diabetic foot infection and Proteus septicemia. 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 Garcia on 07/24/17 (4) Type 2 diabetes mellitus with right diabetic foot infection Comment: - S/p TMA R foot 06/23/17 complicated by post op infection. - Continue Cefepime and Flagyl. - s/p BKA on 07/24 - BKA. (5) ALLEN (acute kidney injury) Comment: - Acute on chronic kidney injury, likely renal in the setting of ATN secondary to sepsis. - Resolved. creat back to baseline CKD stage 3 due to DM (6) Peripheral arterial disease Comment: - S/p RLE arteriogram from ipsilateral antegrade right CF arteriotomy, balloon angioplasty of the right SFA, popliteal, LADONNA and peroneal arteries by Dr. Lawson on 07/17/17. - as per previous d/w Dr. Lawson - okay to hold Plavix for now, plan to restart possibly tomorrow if OK with surgery - Continue Aspirin and Atorvastatin. (7) Irregular heart beat Comment: - Remains NSR with PVCs.One period of 15 min of a. fib on 07/23/17 - [id number] score is 5 - will have low threshold to start anticoagulation if Afib reccurs post op. (8) Metabolic acidosis Comment: - Secondary to infection and renal failure - reolved. will d/c Bicitra (9) Type 2 diabetes mellitus Comment: cont ISS, lantus on hold post op (10) HTN (hypertension) Comment: - Controlled. - hold Amlodipine and Lisinopril periop, cont Toprol. (11) DVT prophylaxis Comment: - SQ heparin. Status and Disposition: Inpatient for management of deep foot infection requiring >48h for stabilization.
[2017-07-24] MEDS: Atorvastatin* 80 MG TAB PO SCH (18:19)
[2017-07-24] MEDS: Morphine INJ* 2 MG/ML 1 ML SYRINGE (TWO MG - NEW SYRINGE VERSION) IV PRN ×2 (18:20→22:32)
[2017-07-24] MEDS: Acetaminophen TAB* 325 MG PO PRN (21:17)
--- NOTE | 2017-07-25 00:29 | OP ---
OPERATIVE REPORT: DATE OF OPERATION: 07/24/17 DATE OF : 44 SURGEON: Gurpreet Garcia MD PHOTOLITHOGRAPHER: RACHEL Gudino ANESTHESIA: General endotracheal anesthesia. PRE-OP DIAGNOSIS: Right foot gangrene. POST-OP DIAGNOSIS: Right foot gangrene. OPERATIVE PROCEDURE: Right [id number] amputation. IMPLANTS: None. ESTIMATED BLOOD LOSS: Minimal. SPECIMEN: Right lower leg to pathology. TOURNIQUET TIME: Less than 2 hours at 275 mmHg. STATUS: Stable from the operating room to the recovery room. INDICATION FOR PROCEDURE: Mr. Chowdhury is a 77-year-old man with coronary artery disease, type 2 diabetes, and peripheral vascular disease, who has had bilateral transmetatarsal amputations in the past. Most recently, he had a TMA on the right side by Dr. Marte. Due to his peripheral vascular disease, the inferior flap of the TMA became necrotic and gangrenous. Angioplasty of the right lower extremity was attempted last week to improve blood flow, but the foot continued to worsen. Both operative and nonoperative treatment alternatives were reviewed at length with the patient. Further, the nature and risks of surgery were reviewed in careful detail both on the hospital floor as well as in the preoperative holding area. Our discussions regarding risk of surgery included, but were not limited to persistent infection, wound problems, neuroma or nerve injury, phantom limb pain, RSD, persistent problems and need for further surgery and even the remote chance of a catastrophic complication such as . DESCRIPTION OF PROCEDURE: The patient was seen in the preoperative holding unit and informed consent was obtained. The appropriate extremity was marked. The patient was then brought to the operating room and carefully positioned on the operating room table. DVT prophylaxis in the form of a compression boot was on the nonsurgical extremity. A well-padded thigh tourniquet was applied. Anesthesia was induced. All bony prominences were padded with great care. A chlorhexidine based pre-scrub was performed followed by a standard ChloraPrep scrub and then the patient was draped in the standard sterile fashion. A surgical safety pause was conducted in which we confirmed the appropriate patient, extremity, planned procedure, availability of equipment, indication and administration of antibiotics. We began with an Esmarch exsanguination of limb avoiding the foot and the tourniquet was inflated to 275 mmHg. We utilized a posterior flap-based incision. The tibial osteotomy was measured to be about 15 cm below the level of the knee joint. We carefully planned out the incision and began anteriorly. I dissected down through the anterior compartment musculature and identified the peroneal nerves and associated surrounding neurovascular bundle. The bundle was carefully tied off with 0 silk hand ties and the nerves were transected proximally in the soft tissue. Dissection was carried down in the intermuscular septum anteriorly and laterally. I then dissected medially. The saphenous nerve and vein were identified and transected proximally and ligated respectively. I then came down the leg both medially and laterally with care taken to maintain hemostasis. At this point, a malleable retractor was placed posterior to the tibia. I performed a tibia and fibular osteotomy with an oscillating saw, with the fibular osteotomy a couple centimeters proximal to the tibial osteotomy. The leg was then flexed up through the osteotomy site and I dissected down the posterior aspect of the tibia and removed the specimen after coming across the posterior flap distally. The posterior flap was maintained approximately 15 cm in length. Hemostasis was obtained after the leg was passed off. At this point, I dissected out the posterior neurovascular bundle. The tibial artery and vein were ligated with 0 silk ties. Tibial nerve was then transected proximal to the stump of the remnant tibia. I debulked the posterior flap and then removed the excess skin and soft tissue from the posterior flap. I identified the sural nerve and transected as far proximally as possible. I beveled the anterior tibia with a 1-25 oscillating blade and used a rasp to smooth the stump. I then used a 2.5 mm drill bit to drill 2 holes into the distal tibia through which #2 Ethibond was passed and then into the Achilles to a perform myodesis bringing the gastroc-soleus complex and Achilles tendon up to the remnant tibia. This nicely covered with tibial stump. The wound was thoroughly irrigated with saline. I then passed a 10-Wallis[place] Emir drain through the wound and out of the lateral thigh. The wound was meticulously closed in layers utilizing #1 Vicryl, 0 Vicryl, 2-0 Vicryl, 3-0 Monocryl, and 3-0 nylon on the skin. Xeroform and a sterile dressing were then applied followed by a knee immobilizer with the knee fully extended. The patient was awakened from anesthesia and transferred to the recovery room in stable condition. There were no complications. All needle and sponge counts were correct at the end of the case. ATTESTATION: I attest that I was present, scrubbed, and performed the entire procedure myself. I also attest that the assistance of Heidi Reese was necessary. POSTOPERATIVE PLAN: The patient will be readmitted to the hospitalist service postoperatively. We will monitor the drain output, and pull it when there is minimal to no output. The sutures will be left in the stump for a likely duration of 3 to 4 weeks. [id number]/CPS #: [id number] MTDD
[2017-07-25] MEDS: Morphine INJ* 2 MG/ML 1 ML SYRINGE (TWO MG - NEW SYRINGE VERSION) IV PRN ×2 (03:49→13:04)
[2017-07-25 03:51] LABS: Hematocrit 24 % (42-52); Hemoglobin 8.1 g/dl (14.0-18.0); Mean Corpuscular HGB Conc 33 g/dl (31-36); Mean Corpuscular Hemoglobin 31 pg (27-31); Mean Corpuscular Volume 93 fL (80-94); Mean Platelet Volume 9 um3 (7.4-10.4); Red Blood Count 2.62 10^6/ul (4.0-5.4); Red Cell Distribution Width 14 % (10.5-15); White Blood Count 23.4 10^3/ul (3.5-10.8)
[2017-07-25 03:56] LABS: Comments Flag Yes
[2017-07-25 04:22] LABS: BUN/Creatinine Ratio 46.3 (8-20); Calcium 7.4 mg/dL (8.6-10.3); EGFR African American 66.8 (>60); Magnesium 2.1 mg/dL (1.9-2.7)
[2017-07-25 04:31] LABS: Potassium 5.5 mmol/L (3.5-5.0)
[2017-07-25] MEDS: Heparin VIAL(*) 5000 UNITS/ML VIAL (FIVE THOUSAND) SUBCUT SCH ×3 (05:30→21:06)
[2017-07-25] MEDS ORDERED: Sodium Polystyrene ORAL.SOL* 15 GM/60 ML BTL PO ONE (07:45)
[2017-07-25] MEDS: Metoprolol Succinate XL TAB* 50 MG PO SCH (08:30)
[2017-07-25] MEDS: Cefepime(*) 1 GM in NS 0.9% 50 ML* 50 ML IVPB SCH ×2 (08:30→21:03)
[2017-07-25] MEDS: Aspirin Low Dose CHEW TAB* 81 MG PO SCH (08:30)
[2017-07-25] MEDS: metroNIDAZOLE TAB* 250 MG PO SCH ×3 (08:30→21:06)
[2017-07-25] MEDS: Nystatin TOP POWDER* 15 GM BTL TOPICAL SCH ×3 (08:40→21:06)
[2017-07-25] MEDS: Insulin LISPRO* 1 UNITS UNIT SUBCUT SCH ×7 (10:15→21:06)
--- NOTE | 2017-07-25 11:40 | PN ---
Progress Note - Progress Note Date of Service: 07/25/17 SOAP: Subjective: CC: R foot gangrene HPI: 77 yo diabetic with vascular disease and recent R foot TMA for gangrene and osteomyelitis admitted with r plantar forefoot ganrene. Below knee amputation 07/24. Tolerated it well and energy, appetite improved. No fever, rash, or diarrhea. Objective: [] Vital Signs Temp 36.3 C 07/25/17 08:25 Pulse 77 07/25/17 08:25 Resp 18 07/25/17 08:25 BP 133/69 07/25/17 08:25 Pulse Ox 100 07/25/17 08:25 Intake & Output 07/24/17 07/25/17 07/25/17 18:59 06:59 18:59 Intake Total 850 457 Output Total 120 Balance 850 457 -120 Intake: IV Fluids 850 402 1GM CEFEPRIME 50 ABX - CEFEPIME 256 NS 800 NS (0.9%) 146 IVPB 55 ABX - CEFEPIME 55 Output: Urine 120 Other: Estimated Void Small # Bowel Movements 0 # Voids 1 Gen:awake, no distress HEENT:PERRL, MMM Neck:supple Heart:RRR no murmur Lungs:CTA BL Abd:+BS NTND soft Skin: R leg amp site wrapped Laboratory Results - last 24 hr 07/22/17 07/24/17 07/24/17 04:40 12:14 17:10 WBC RBC Hgb Hct MCV MCH MCHC RDW Plt Count MPV Neut % (Auto) Lymph % (Auto) [place] % (Auto) Eos % (Auto) Baso % (Auto) Absolute Neuts (auto) Absolute Lymphs (auto) Absolute Monos (auto) Absolute Eos (auto) Absolute Basos (auto) Absolute Nucleated RBC Nucleated RBC % Sodium Potassium Chloride Carbon Dioxide Anion Gap BUN Creatinine Est GFR ( Amer) Est GFR (Non-Af Amer) BUN/Creatinine Ratio Glucose POC Glucose (mg/dL) 123 H 239 H Calcium Magnesium Crossmatch See Detail 07/24/17 07/25/17 07/25/17 19:56 03:30 03:41 WBC 23.4 H RBC 2.62 L Hgb 8.1 L Hct 24 L MCV 93 MCH 31 MCHC 33 RDW 14 Plt Count 319 MPV 9 Neut % (Auto) 94.8 H Lymph % (Auto) 2.1 L [place] % (Auto) 2.9 Eos % (Auto) 0 Baso % (Auto) 0.2 Absolute Neuts (auto) 22.2 H Absolute Lymphs (auto) 0.5 L Absolute Monos (auto) 0.7 Absolute Eos (auto) 0 Absolute Basos (auto) 0 Absolute Nucleated RBC 0 Nucleated RBC % 0 Sodium 136 Potassium 5.5 H Chloride 110 Carbon Dioxide 21 L Anion Gap 5 BUN 62 H Creatinine 1.34 H Est GFR ( Amer) 66.8 Est GFR (Non-Af Amer) 52.0 BUN/Creatinine Ratio 46.3 H Glucose 133 H POC Glucose (mg/dL) 307 H Calcium 7.4 L Magnesium 2.1 Crossmatch 07/25/17 07:41 WBC RBC Hgb Hct MCV MCH MCHC RDW Plt Count MPV Neut % (Auto) Lymph % (Auto) [place] % (Auto) Eos % (Auto) Baso % (Auto) Absolute Neuts (auto) Absolute Lymphs (auto) Absolute Monos (auto) Absolute Eos (auto) Absolute Basos (auto) Absolute Nucleated RBC Nucleated RBC % Sodium Potassium Chloride Carbon Dioxide Anion Gap BUN Creatinine Est GFR ( Amer) Est GFR (Non-Af Amer) BUN/Creatinine Ratio Glucose POC Glucose (mg/dL) 182 H Calcium Magnesium Crossmatch Assessment: 1. Proteus bacteremia and septicemia (present on admission) secondary to foot infection 2. R foot gangrene s/p BKA 3. PAD 4. T2DM 5. CKD Plan: 1. continue cefepime and flagyl day 9, for 48 more hours to cover bacteremia and soft tissue infection though likely all removed with surgery.
--- NOTE | 2017-07-25 14:30 | PN ---
Progress Note - Progress Note Date of Service: 07/25/17 SOAP: Subjective: []Patient seen OOB in chair. He states that he feels much better now that the amputation has been completed. His pain is tolerable. Objective: [] Vital Signs Temp 97.9 F 07/25/17 11:31 Pulse 73 07/25/17 11:31 Resp 18 07/25/17 14:04 BP 110/48 07/25/17 11:31 Pulse Ox 99 07/25/17 11:31 Intake & Output 07/24/17 07/25/17 07/25/17 18:59 06:59 18:59 Intake Total 850 457 Output Total 120 Balance 850 457 -120 Intake: IV Fluids 850 402 1GM CEFEPRIME 50 ABX - CEFEPIME 256 NS 800 NS (0.9%) 146 IVPB 55 ABX - CEFEPIME 55 Output: Urine 120 Other: Estimated Void Small # Bowel Movements 0 # Voids 1 Laboratory Results - last 24 hr 07/22/17 07/24/17 07/24/17 04:40 17:10 19:56 WBC RBC Hgb Hct MCV MCH MCHC RDW Plt Count MPV Neut % (Auto) Lymph % (Auto) [place] % (Auto) Eos % (Auto) Baso % (Auto) Absolute Neuts (auto) Absolute Lymphs (auto) Absolute Monos (auto) Absolute Eos (auto) Absolute Basos (auto) Absolute Nucleated RBC Nucleated RBC % Sodium Potassium Chloride Carbon Dioxide Anion Gap BUN Creatinine Est GFR ( Amer) Est GFR (Non-Af Amer) BUN/Creatinine Ratio Glucose POC Glucose (mg/dL) 239 H 307 H Calcium Magnesium Crossmatch See Detail 07/25/17 07/25/17 07/25/17 03:30 03:41 07:41 WBC 23.4 H RBC 2.62 L Hgb 8.1 L Hct 24 L MCV 93 MCH 31 MCHC 33 RDW 14 Plt Count 319 MPV 9 Neut % (Auto) 94.8 H Lymph % (Auto) 2.1 L [place] % (Auto) 2.9 Eos % (Auto) 0 Baso % (Auto) 0.2 Absolute Neuts (auto) 22.2 H Absolute Lymphs (auto) 0.5 L Absolute Monos (auto) 0.7 Absolute Eos (auto) 0 Absolute Basos (auto) 0 Absolute Nucleated RBC 0 Nucleated RBC % 0 Sodium 136 Potassium 5.5 H Chloride 110 Carbon Dioxide 21 L Anion Gap 5 BUN 62 H Creatinine 1.34 H Est GFR ( Amer) 66.8 Est GFR (Non-Af Amer) 52.0 BUN/Creatinine Ratio 46.3 H Glucose 133 H POC Glucose (mg/dL) 182 H Calcium 7.4 L Magnesium 2.1 Crossmatch 07/25/17 11:41 WBC RBC Hgb Hct MCV MCH MCHC RDW Plt Count MPV Neut % (Auto) Lymph % (Auto) [place] % (Auto) Eos % (Auto) Baso % (Auto) Absolute Neuts (auto) Absolute Lymphs (auto) Absolute Monos (auto) Absolute Eos (auto) Absolute Basos (auto) Absolute Nucleated RBC Nucleated RBC % Sodium Potassium Chloride Carbon Dioxide Anion Gap BUN Creatinine Est GFR ( Amer) Est GFR (Non-Af Amer) BUN/Creatinine Ratio Glucose POC Glucose (mg/dL) 284 H Calcium Magnesium Crossmatch Microbiology 07/17/17 05:50 Aerobic Blood Culture - Final Blood Venous No Growth Day 5 Anaerobic Blood Culture - Final No Growth Day 5 Blood Culture - Final 07/17/17 05:45 Aerobic Blood Culture - Final Blood Venous No Growth Day 5 Anaerobic Blood Culture - Final No Growth Day 5 Blood Culture - Final 07/15/17 15:19 Aerobic Blood Culture - Final Blood Venous Proteus Penneri Anaerobic Blood Culture - Final Proteus Penneri Blood Culture - Final 07/17/17 18:36 Nasal Screen MRSA (PCR)(SHELLY) - Final Nasal Mrsa Negative Right LE stump/dressings are dry and intact PACO drain is in, a few ccs of bloody drainage in grenade Immobilizer around distal LE for protection Assessment: []s/p BKA RLE POD #1 Plan: []PACO drain to be discontinued per Dr. Garcia IV Cefepime, Flagyl for [address] Dixon
--- NOTE | 2017-07-25 16:41 | PN ---
Subjective Date of Service: 07/25/17 Interval History: pt feels well today, off 02, better appetite. no pain Family History: Unchanged from Admission Social History: Unchanged from Admission Past Medical History: Unchanged from Admission Objective Active Medications: Acetaminophen (Tylenol Tab*) 650 mg PO Q6H PRN PRN Reason: FEVER/PAIN Last Admin: 07/24/17 21:17 Dose: 650 mg Albuterol (Ventolin 2.5 Mg/3 Ml Neb.Susy*) 2.5 mg INH Q2H PRN PRN Reason: SOB/WHEEZING Last Admin: 07/21/17 00:37 Dose: 2.5 mg Aspirin (Aspirin Low Dose Tab*) 81 mg PO DAILY [facility] Last Admin: 07/25/17 08:30 Dose: 81 mg Atorvastatin Calcium (Lipitor*) 80 mg PO 1700 [facility] Last Admin: 07/24/17 18:19 Dose: 80 mg Calcium Carbonate (Tums*) 500 mg PO Q8H PRN PRN Reason: DYSPEPSIA Dextrose (D50w Syringe 50 Ml*) 12.5 gm IV PUSH .FOR FS < 60 - SS PRN PRN Reason: FS < 60 Heparin Sodium (Porcine) (Heparin Vial(*)) 5,000 units SUBCUT Q8HR [facility] Last Admin: 07/25/17 13:03 Dose: 5,000 units Heparin Sodium (Porcine) (Heparin Flush Picc/Ml/Cvc(*)) 1 - 3 ml FLUSH 0600, 1800 [facility] PRN Reason: Protocol Last Admin: 07/25/17 05:33 Dose: Not Given Cefepime HCl 1 gm/ Sodium (Chloride) 50 mls @ 100 mls/hr IVPB Q12HR [facility] Last Admin: 07/25/17 08:30 Dose: 100 mls/hr Sodium Chloride (Ns 0.9% 1000 Ml*) 1,000 mls @ 25 mls/hr IV PER RATE [facility] Last Admin: 07/24/17 12:16 Dose: 25 mls/hr Insulin Human Lispro (Humalog*) 0 units SUBCUT AC [facility] PRN Reason: Protocol Last Admin: 07/25/17 13:03 Dose: 4 unit Insulin Human Lispro (Humalog*) 0 units SUBCUT ACHS [facility] PRN Reason: Protocol Last Admin: 07/25/17 13:04 Dose: 6 units Loperamide HCl (Imodium Cap*) 2 mg PO .SEE DIRECTIONS PRN PRN Reason: DIARRHEA Last Admin: 07/23/17 13:47 Dose: 2 mg Metoprolol Succinate (Toprol Xl Tab*) 50 mg PO DAILY [facility] Last Admin: 07/25/17 08:30 Dose: 50 mg Metronidazole (Flagyl Tab*) 500 mg PO TID [facility] Last Admin: 07/25/17 13:04 Dose: 500 mg Morphine Sulfate (Morphine Inj (Syringe)*) 2 mg IV Q4H PRN PRN Reason: SEVERE PAIN Last Admin: 07/25/17 13:04 Dose: 2 mg Nystatin (Nystatin Top Powder*) 1 applic TOPICAL TID [facility] Last Admin: 07/25/17 13:11 Dose: Not Given Prochlorperazine Edisylate (Compazine Inj*) 5 mg IV Q6H PRN PRN Reason: NAUSEA/VOMITING Vital Signs 07/24/17 07/24/17 07/24/17 16:43 16:52 17:00 Temperature Pulse Rate 75 76 74 Respiratory Rate Blood Pressure 136/58 (mmHg) O2 Sat by Pulse 100 99 Oximetry 07/24/17 07/24/17 07/24/17 17:43 18:20 19:20 Temperature Pulse Rate Respiratory 20 16 Rate Blood Pressure 139/57 (mmHg) O2 Sat by Pulse Oximetry 07/24/17 07/24/17 07/24/17 20:00 20:17 22:32 Temperature 97.8 F Pulse Rate 73 Respiratory 16 16 16 Rate Blood Pressure 112/56 (mmHg) O2 Sat by Pulse 96 Oximetry 07/24/17 07/25/17 07/25/17 23:32 00:00 00:25 Temperature 97.6 F 97.6 F Pulse Rate 67 67 Respiratory 16 16 16 Rate Blood Pressure 112/52 112/52 (mmHg) O2 Sat by Pulse 98 98 Oximetry 07/25/17 07/25/17 07/25/17 03:49 04:30 04:35 Temperature 97.6 F Pulse Rate 70 Respiratory 16 16 16 Rate Blood Pressure 126/59 (mmHg) O2 Sat by Pulse 99 Oximetry 07/25/17 07/25/17 07/25/17 05:14 07:11 08:25 Temperature 97.6 F 97.4 F Pulse Rate 70 77 Respiratory 16 20 18 Rate Blood Pressure 129/59 133/69 (mmHg) O2 Sat by Pulse 99 100 Oximetry 07/25/17 07/25/17 07/25/17 11:30 11:31 13:04 Temperature 97.9 F 97.9 F Pulse Rate 72 73 Respiratory 18 18 18 Rate Blood Pressure 110/48 110/48 (mmHg) O2 Sat by Pulse 99 99 Oximetry 07/25/17 14:04 Temperature Pulse Rate Respiratory 18 Rate Blood Pressure (mmHg) O2 Sat by Pulse Oximetry Oxygen Devices in Use Now: None Appearance: 77 yo M in NAD, aAOx3 Eyes: No Scleral Icterus, PERRLA Ears/Nose/Mouth/Throat: NL Teeth, Lips, Gums, Mucous Membranes Moist Neck: NL Appearance and Movements; NL JVP, Trachea Midline Respiratory: Symmetrical Chest Expansion and Respiratory Effort, Clear to Auscultation Cardiovascular: NL Sounds; No Murmurs; No JVD, RRR Abdominal: NL Sounds; No Tenderness; No Distention Lymphatic: No Cervical Adenopathy Extremities: No Clubbing, Cyanosis, - - b/l upper thigh pitting edema+1 Skin: No Nodules or Sclerosis, - - left leg -remote TMA-stump healed. R leg -s/ p BKA, surgical dressings not unwrapped Neurological: Alert and Oriented x 3, NL Muscle Strength and Tone Result Diagrams: 07/25/17 03:30 07/25/17 03:41 Microbiology and Other Data: Microbiology 07/17/17 05:50 Blood Venous Blood Culture - Final 07/17/17 05:45 Blood Venous Blood Culture - Final 07/15/17 15:19 Blood Venous Aerobic Blood Culture - Final 07/15/17 15:19 Blood Venous Blood Culture - Final Proteus Penneri Proteus Penneri 07/17/17 05:50 Blood Venous Aerobic Blood Culture - Preliminary 07/17/17 05:50 Blood Venous Anaerobic Blood Culture - Preliminary No Growth Day 3 No Growth Day 3 07/17/17 05:45 Blood Venous Aerobic Blood Culture - Preliminary 07/17/17 05:45 Blood Venous Anaerobic Blood Culture - Preliminary No Growth Day 3 No Growth Day 3 Assess/Plan/Problems-Billing Assessment: Mr. Chowdhury is a 77yo M with PMH of type 2 DM, diabetic neuropathy, diabetic retinopathy, CAD s/p CABG, PAD, HLD, CKD stage 3, HTN, GERD, BPH, s/p recent admission for right foot wet gangrene, s/p TMA, who returns to [facility] with worsening infection. - Patient Problems (1) V-tach Comment: - Episode of NSVtach on 07/23/17 and a day prior, asymptomatic. - Electrolytes are normal. - Ef shows lower EF 40-45%. - Cardiology consultation appreciated, toprol XL started (2) Fluid overload Comment: euvolemic today (3) Severe sepsis Comment: - Patient met sepsis criteria on admission with leukocytosis and tachycardia. Also has ALLEN. - Source is right diabetic foot infection and Proteus septicemia. 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 Garcia on 07/24/17 -post op leukocytosis increased to 23 000-suspect acute m reactive post op, will cont current antibiotics and monitor (4) Type 2 diabetes mellitus with right diabetic foot infection Comment: - S/p TMA R foot 06/23/17 complicated by post op infection. - Continue Cefepime and Flagyl. 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 - Resolved. creat back to baseline CKD stage 3 due to DM (6) Peripheral arterial disease Comment: - S/p RLE arteriogram from ipsilateral antegrade right CF arteriotomy, balloon angioplasty of the right SFA, popliteal, LADNONA and peroneal arteries by Dr. Lawson on 07/17/17. - as per previous d/w Dr. Lawson - okay to hold Plavix for now, plan to restart once Hb stable - Continue Aspirin and Atorvastatin. (7) Irregular heart beat Comment: - Remains NSR with PVCs.One period of 15 min of a. fib on 07/23/17 - [id number] score is 5 - will have low threshold to start anticoagulation if Afib reccurs post op. (8) Metabolic acidosis Comment: - Secondary to infection and renal failure - resolved-off Bicitra (9) Type 2 diabetes mellitus Comment: cont ISS, lantus will be restarted today (10) HTN (hypertension) Comment: - Controlled. - holding Amlodipine and Lisinopril ,cont Toprol. (11) Hyperkalemia Comment: mild holding ACEI treat with Kayexalate (12) DVT prophylaxis Comment: - SQ heparin. Status and Disposition: Inpatient Pt agrees to STR
[2017-07-25] MEDS: Atorvastatin* 80 MG TAB PO SCH (17:16)
[2017-07-25] MEDS: Insulin GLARGINE(*) 1 UNITS UNIT SUBCUT SCH (17:16)
--- NOTE | 2017-07-25 18:22 | PN ---
Progress Note - Progress Note Date of Service: 07/25/17 SOAP: Subjective: [] "I feel so much better" Objective: [] general appearance much improved. Drain with min output so pulled. Assessment: []Doing well POD1 R BKA. pt very appreciative. Plan: Dressing change Friday NWB RLE Knee immobilizer at all times
[2017-07-26] MEDS: Heparin VIAL(*) 5000 UNITS/ML VIAL (FIVE THOUSAND) SUBCUT SCH ×3 (05:04→21:28)
[2017-07-26 05:35] LABS: Hematocrit 25 % (42-52); Hemoglobin 7.8 g/dl (14.0-18.0); Mean Corpuscular HGB Conc 32 g/dl (31-36); Mean Corpuscular Hemoglobin 30 pg (27-31); Mean Corpuscular Volume 93 fL (80-94); Mean Platelet Volume 9 um3 (7.4-10.4); Red Blood Count 2.64 10^6/ul (4.0-5.4); Red Cell Distribution Width 14 % (10.5-15)
[2017-07-26 05:45] LABS: BUN/Creatinine Ratio 42.7 (8-20); Calcium 7.2 mg/dL (8.6-10.3); EGFR Non-African American 48.2 (>60)
[2017-07-26 05:52] LABS: Potassium 5.1 mmol/L (3.5-5.0)
[2017-07-26] MEDS ORDERED: Sodium Polystyrene ORAL.SOL* 15 GM/60 ML BTL PO ONE (08:07)
[2017-07-26] MEDS: Insulin LISPRO* 1 UNITS UNIT SUBCUT SCH ×8 (08:53→21:20)
[2017-07-26] MEDS: Nystatin TOP POWDER* 15 GM BTL TOPICAL SCH ×3 (08:54→21:28)
[2017-07-26] MEDS: metroNIDAZOLE TAB* 250 MG PO SCH ×3 (09:06→21:27)
[2017-07-26] MEDS: Aspirin Low Dose CHEW TAB* 81 MG PO SCH (09:06)
[2017-07-26] MEDS: Metoprolol Succinate XL TAB* 50 MG PO SCH (09:06)
[2017-07-26] MEDS: Cefepime(*) 1 GM in NS 0.9% 50 ML* 50 ML IVPB SCH ×2 (09:07→21:28)
--- NOTE | 2017-07-26 09:43 | PN ---
Subjective Family History: Unchanged from Admission Social History: Unchanged from Admission Past Medical History: Unchanged from Admission Objective Active Medications: Acetaminophen (Tylenol Tab*) 650 mg PO Q6H PRN PRN Reason: FEVER/PAIN Last Admin: 07/24/17 21:17 Dose: 650 mg Albuterol (Ventolin 2.5 Mg/3 Ml Neb.Susy*) 2.5 mg INH Q2H PRN PRN Reason: SOB/WHEEZING Last Admin: 07/21/17 00:37 Dose: 2.5 mg Aspirin (Aspirin Low Dose Tab*) 81 mg PO DAILY [facility] Last Admin: 07/26/17 09:06 Dose: 81 mg Atorvastatin Calcium (Lipitor*) 80 mg PO 1700 [facility] Last Admin: 07/25/17 17:16 Dose: 80 mg Calcium Carbonate (Tums*) 500 mg PO Q8H PRN PRN Reason: DYSPEPSIA Dextrose (D50w Syringe 50 Ml*) 12.5 gm IV PUSH .FOR FS < 60 - SS PRN PRN Reason: FS < 60 Heparin Sodium (Porcine) (Heparin Vial(*)) 5,000 units SUBCUT Q8HR [facility] Last Admin: 07/26/17 05:04 Dose: 5,000 units Heparin Sodium (Porcine) (Heparin Flush Picc/Ml/Cvc(*)) 1 - 3 ml FLUSH 0600, 1800 [facility] PRN Reason: Protocol Last Admin: 07/26/17 05:04 Dose: 1 ml Cefepime HCl 1 gm/ Sodium (Chloride) 50 mls @ 100 mls/hr IVPB Q12HR [facility] Last Admin: 07/26/17 09:07 Dose: 100 mls/hr Insulin Glargine (Lantus(*)) 5 units SUBCUT Q24H [facility] Last Admin: 07/25/17 17:16 Dose: 5 units Insulin Human Lispro (Humalog*) 0 units SUBCUT AC [facility] PRN Reason: Protocol Last Admin: 07/25/17 17:55 Dose: 2 unit Insulin Human Lispro (Humalog*) 0 units SUBCUT ACHS [facility] PRN Reason: Protocol Last Admin: 07/26/17 09:37 Dose: Not Given Loperamide HCl (Imodium Cap*) 2 mg PO .SEE DIRECTIONS PRN PRN Reason: DIARRHEA Last Admin: 07/23/17 13:47 Dose: 2 mg Metoprolol Succinate (Toprol Xl Tab*) 50 mg PO DAILY [facility] Last Admin: 07/26/17 09:06 Dose: 50 mg Metronidazole (Flagyl Tab*) 500 mg PO TID [facility] Last Admin: 07/26/17 09:06 Dose: 500 mg Morphine Sulfate (Morphine Inj (Syringe)*) 2 mg IV Q4H PRN PRN Reason: SEVERE PAIN Last Admin: 07/25/17 13:04 Dose: 2 mg Nystatin (Nystatin Top Powder*) 1 applic TOPICAL TID [facility] Last Admin: 07/26/17 08:54 Dose: Not Given Prochlorperazine Edisylate (Compazine Inj*) 5 mg IV Q6H PRN PRN Reason: NAUSEA/VOMITING Vital Signs 07/25/17 07/25/17 07/25/17 11:30 11:31 13:04 Temperature 97.9 F 97.9 F Pulse Rate 72 73 Respiratory 18 18 18 Rate Blood Pressure 110/48 110/48 (mmHg) O2 Sat by Pulse 99 99 Oximetry 07/25/17 07/25/17 07/25/17 14:04 19:37 20:00 Temperature 97.6 F Pulse Rate 73 Respiratory 18 18 16 Rate Blood Pressure 116/61 (mmHg) O2 Sat by Pulse 98 Oximetry 07/26/17 07/26/17 07/26/17 00:17 04:39 07:52 Temperature 97.7 F 98.1 F Pulse Rate 73 72 72 Respiratory 16 16 16 Rate Blood Pressure 114/59 129/58 (mmHg) O2 Sat by Pulse 97 98 98 Oximetry 07/26/17 07:56 Temperature 98.1 F Pulse Rate 75 Respiratory 20 Rate Blood Pressure 131/58 (mmHg) O2 Sat by Pulse 98 Oximetry Oxygen Devices in Use Now: None Appearance: 77 yo M in nAD, AAOx3 Eyes: No Scleral Icterus, PERRLA Ears/Nose/Mouth/Throat: NL Teeth, Lips, Gums, Mucous Membranes Moist Neck: NL Appearance and Movements; NL JVP, Trachea Midline Respiratory: Symmetrical Chest Expansion and Respiratory Effort, Clear to Auscultation Cardiovascular: NL Sounds; No Murmurs; No JVD, RRR Abdominal: NL Sounds; No Tenderness; No Distention Lymphatic: No Cervical Adenopathy Extremities: No Edema, No Clubbing, Cyanosis Skin: - - L TMA-stump healed, R Neurological: Alert and Oriented x 3, NL Muscle Strength and Tone Result Diagrams: 07/26/17 05:10 07/26/17 05:10 Microbiology and Other Data: Microbiology 07/17/17 05:50 Blood Venous Blood Culture - Final 07/17/17 05:45 Blood Venous Blood Culture - Final 07/15/17 15:19 Blood Venous Aerobic Blood Culture - Final 07/15/17 15:19 Blood Venous Blood Culture - Final Proteus Penneri Proteus Penneri 07/17/17 05:50 Blood Venous Aerobic Blood Culture - Preliminary 07/17/17 05:50 Blood Venous Anaerobic Blood Culture - Preliminary No Growth Day 3 No Growth Day 3 07/17/17 05:45 Blood Venous Aerobic Blood Culture - Preliminary 07/17/17 05:45 Blood Venous Anaerobic Blood Culture - Preliminary No Growth Day 3 No Growth Day 3 Assess/Plan/Problems-Billing Assessment: Mr. Chowdhury is a 77yo M with PMH of type 2 DM, diabetic neuropathy, diabetic retinopathy, CAD s/p CABG, PAD, HLD, CKD stage 3, HTN, GERD, BPH, s/p recent admission for right foot wet gangrene, s/p TMA, who [place] [facility] [place]. - Patient Problems (1) Type 2 diabetes mellitus with right diabetic foot infection Comment: - S/p TMA R foot 06/23/17 complicated by post op infection. - Continue Cefepime and Flagyl. 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 Also has ALLEN. - Source is right diabetic foot infection and Proteus septicemia. 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 Garcia on 07/24/17 (3) V-tach Comment: - Episode of NSVtach on 07/23/17 and a day prior, asymptomatic. - Electrolytes are normal. - Ef shows lower EF 40-45%. - Cardiology consultation appreciated, toprol XL started -no recurrence post op, telemetry d/c'd (4) Fluid overload Comment: euvolemic today (5) ALLEN (acute kidney injury) Comment: - Acute on chronic kidney injury, likely renal in the setting of ATN secondary to sepsis. - Resolved. creat back to baseline CKD stage 3 due to DM (6) Peripheral arterial disease Comment: - S/p RLE arteriogram from ipsilateral antegrade right CF arteriotomy, balloon angioplasty of the right SFA, popliteal, LADONNA and peroneal arteries by Dr. Lawson on 07/17/17. - as per previous d/w Dr. Lawson - okay to hold Plavix for now, plan to restart once Hb stable - Continue Aspirin and Atorvastatin. (7) Irregular heart beat Comment: - Remained NSR with PVCs x 2 days post op, no recurrence of a. fib. Will d/c telem. One period of 15 min of a. 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 - holding Amlodipine and Lisinopril ,cont Toprol. 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 Status and Disposition: Inpatient Pt agrees to STR
--- NOTE | 2017-07-26 11:39 | PN ---
Progress Note - Progress Note Date of Service: 07/26/17 SOAP: Subjective: POD #2 right leg BKA. Doing well. States that he is feeling much better since surgery. Denies significant pain, CP/SOB, f/c. Objective: Vitals: Temp Pulse Resp BP Pulse Ox 98.1 F 75 20 131/58 98 07/26/17 07:56 07/26/17 07:56 07/26/17 07:56 07/26/17 07:56 07/26/17 07:56 Gen: A&Ox3, NAD sitting in bed RLE: Dressing C/D/I, +f/e at knee. Assessment: POD #2 right leg BKA Plan: Dressing to be changed tomorrow. Discussed with pt knee extension exercises within immobilizer to prevent contracture Continue IV abx per ID Will continue to follow
[2017-07-26] MEDS: Sodium Citrate/Citric Acid* 15 ML UDC PO SCH ×2 (13:51→21:28)
[2017-07-26] MEDS: Morphine INJ* 2 MG/ML 1 ML SYRINGE (TWO MG - NEW SYRINGE VERSION) IV PRN (15:52)
[2017-07-26] MEDS: Loperamide CAP* 2 MG PO PRN (15:52)
[2017-07-26] MEDS: Atorvastatin* 80 MG TAB PO SCH (17:15)
[2017-07-26] MEDS: Insulin GLARGINE(*) 1 UNITS UNIT SUBCUT SCH (17:15)
[2017-07-27 04:24] LABS: Hematocrit 24 % (42-52); Hemoglobin 7.8 g/dl (14.0-18.0); Mean Corpuscular HGB Conc 33 g/dl (31-36); Mean Corpuscular Hemoglobin 31 pg (27-31); Mean Corpuscular Volume 93 fL (80-94); Mean Platelet Volume 9 um3 (7.4-10.4); Red Blood Count 2.53 10^6/ul (4.0-5.4); Red Cell Distribution Width 14 % (10.5-15)
[2017-07-27 04:36] LABS: BUN/Creatinine Ratio 40.5 (8-20); EGFR African American 75.2 (>60); EGFR Non-African American 58.5 (>60); Potassium 4.5 mmol/L (3.5-5.0)
[2017-07-27] MEDS: Heparin VIAL(*) 5000 UNITS/ML VIAL (FIVE THOUSAND) SUBCUT SCH ×3 (04:42→22:18)
[2017-07-27] MEDS: Insulin LISPRO* 1 UNITS UNIT SUBCUT SCH ×7 (07:52→22:14)
[2017-07-27] MEDS: Cefepime(*) 1 GM in NS 0.9% 50 ML* 50 ML IVPB SCH ×2 (08:37→22:14)
[2017-07-27] MEDS: Nystatin TOP POWDER* 15 GM BTL TOPICAL SCH ×3 (08:40→22:19)
[2017-07-27] MEDS: Metoprolol Succinate XL TAB* 50 MG PO SCH (08:40)
[2017-07-27] MEDS: metroNIDAZOLE TAB* 250 MG PO SCH ×3 (08:40→22:20)
[2017-07-27] MEDS: Aspirin Low Dose CHEW TAB* 81 MG PO SCH (08:40)
[2017-07-27] MEDS: Sodium Citrate/Citric Acid* 15 ML UDC PO SCH ×3 (08:40→22:15)
--- NOTE | 2017-07-27 09:33 | PN ---
Progress Note - Progress Note Date of Service: 07/27/17 SOAP: Subjective: POD #3 Right leg BKA. Doing very well. Has some mild pain to distal stump but well controlled. Denies CP/SOB, f/c. Objective: Vitals: Temp Pulse Resp BP Pulse Ox 98.6 F 87 20 132/70 99 10/11/12 08:16 10 08:16 07/27/17 08:16 07/27/17 08:16 07/27/17 08:16 Gen: A&Ox3, NAD at rest sitting in bed RLE: Incision C/I, mild serosanguinous d/c from lateral aspect of wound, no surrounding erythema, no significant edema. +ttp anterior stump. Able to fully extend at knee. Assessment: POD #3 Right leg BKA Plan: New dressing applied. Encouraged pt to continue with extension exercise at knee. PT/OT Abx per ID Will continue to follow
[2017-07-27] MEDS ORDERED: oxyCODONE/Acetamin 5/325 MG* TAB PO PRN (13:08)
--- NOTE | 2017-07-27 13:09 | PN ---
Subjective Date of Service: 07/27/17 Interval History: Pt feels well, no complains at night Family History: Unchanged from Admission Social History: Unchanged from Admission Past Medical History: Unchanged from Admission Objective Active Medications: Acetaminophen (Tylenol Tab*) 650 mg PO Q6H PRN PRN Reason: FEVER/PAIN Last Admin: 07/24/17 21:17 Dose: 650 mg Albuterol (Ventolin 2.5 Mg/3 Ml Neb.Susy*) 2.5 mg INH Q2H PRN PRN Reason: SOB/WHEEZING Last Admin: 07/21/17 00:37 Dose: 2.5 mg Aspirin (Aspirin Low Dose Tab*) 81 mg PO DAILY [facility] Last Admin: 07/27/17 08:40 Dose: 81 mg Atorvastatin Calcium (Lipitor*) 80 mg PO 1700 [facility] Last Admin: 07/26/17 17:15 Dose: 80 mg Calcium Carbonate (Tums*) 500 mg PO Q8H PRN PRN Reason: DYSPEPSIA Citric Acid/Sodium Citrate (Bicitra*) 15 ml PO TID [facility] Last Admin: 07/27/17 08:40 Dose: 15 ml Dextrose (D50w Syringe 50 Ml*) 12.5 gm IV PUSH .FOR FS < 60 - SS PRN PRN Reason: FS < 60 Heparin Sodium (Porcine) (Heparin Vial(*)) 5,000 units SUBCUT Q8HR [facility] Last Admin: 07/27/17 04:42 Dose: 5,000 units Heparin Sodium (Porcine) (Heparin Flush Picc/Ml/Cvc(*)) 1 - 3 ml FLUSH 0600, 1800 [facility] PRN Reason: Protocol Last Admin: 07/27/17 04:42 Dose: 1 ml Cefepime HCl 1 gm/ Sodium (Chloride) 50 mls @ 100 mls/hr IVPB Q12HR [facility] Last Admin: 07/27/17 08:37 Dose: 100 mls/hr Insulin Glargine (Lantus(*)) 5 units SUBCUT Q24H [facility] Last Admin: 07/26/17 17:15 Dose: 5 units Insulin Human Lispro (Humalog*) 0 units SUBCUT AC [facility] PRN Reason: Protocol Last Admin: 07/27/17 09:53 Dose: 5 unit Insulin Human Lispro (Humalog*) 0 units SUBCUT ACHS [facility] PRN Reason: Protocol Last Admin: 07/27/17 07:52 Dose: Not Given Loperamide HCl (Imodium Cap*) 2 mg PO .SEE DIRECTIONS PRN PRN Reason: DIARRHEA Last Admin: 07/26/17 15:52 Dose: 2 mg Metoprolol Succinate (Toprol Xl Tab*) 50 mg PO DAILY [facility] Last Admin: 07/27/17 08:40 Dose: 50 mg Metronidazole (Flagyl Tab*) 500 mg PO TID [facility] Last Admin: 07/27/17 08:40 Dose: 500 mg Morphine Sulfate (Morphine Inj (Syringe)*) 2 mg IV Q4H PRN PRN Reason: SEVERE PAIN Last Admin: 07/26/17 15:52 Dose: 2 mg Nystatin (Nystatin Top Powder*) 1 applic TOPICAL TID [facility] Last Admin: 07/27/17 08:40 Dose: Not Given Prochlorperazine Edisylate (Compazine Inj*) 5 mg IV Q6H PRN PRN Reason: NAUSEA/VOMITING Vital Signs 07/26/17 07/26/17 07/26/17 15:14 15:52 16:52 Temperature 98.1 F Pulse Rate 77 Respiratory 20 18 16 Rate Blood Pressure 127/59 (mmHg) O2 Sat by Pulse 100 Oximetry 07/26/17 07/26/17 07/26/17 17:52 19:53 20:00 Temperature 98.4 F Pulse Rate 79 Respiratory 16 22 22 Rate Blood Pressure 121/61 (mmHg) O2 Sat by Pulse 98 Oximetry 07/26/17 07/27/17 07/27/17 23:35 00:00 04:05 Temperature 98.9 F 98.4 F Pulse Rate 76 80 Respiratory 20 22 Rate Blood Pressure 117/56 124/59 (mmHg) O2 Sat by Pulse 97 97 95 Oximetry 07/27/17 07/27/17 07/27/17 07:50 08:16 11:28 Temperature 98.6 F 97.8 F Pulse Rate 87 72 Respiratory 17 20 20 Rate Blood Pressure 132/70 128/57 (mmHg) O2 Sat by Pulse 99 99 100 Oximetry Oxygen Devices in Use Now: None Appearance: 77 yo M in nAD, aAOx3 Eyes: No Scleral Icterus, PERRLA Ears/Nose/Mouth/Throat: NL Teeth, Lips, Gums, Mucous Membranes Moist Neck: NL Appearance and Movements; NL JVP, Trachea Midline Respiratory: Symmetrical Chest Expansion and Respiratory Effort, Clear to Auscultation Cardiovascular: NL Sounds; No Murmurs; No JVD, RRR Abdominal: NL Sounds; No Tenderness; No Distention, No Hepatosplenomegaly Lymphatic: No Cervical Adenopathy Extremities: No Edema, No Clubbing, Cyanosis Skin: - - post op stump on R not uncovered fom surgical dressings Neurological: Alert and Oriented x 3, NL Muscle Strength and Tone Result Diagrams: 07/27/17 04:10 07/27/17 04:10 Microbiology and Other Data: Microbiology 07/17/17 05:50 Blood Venous Blood Culture - Final 07/17/17 05:45 Blood Venous Blood Culture - Final 07/15/17 15:19 Blood Venous Aerobic Blood Culture - Final 07/15/17 15:19 Blood Venous Blood Culture - Final Proteus Penneri Proteus Penneri 07/17/17 05:50 Blood Venous Aerobic Blood Culture - Preliminary 07/17/17 05:50 Blood Venous Anaerobic Blood Culture - Preliminary No Growth Day 3 No Growth Day 3 07/17/17 05:45 Blood Venous Aerobic Blood Culture - Preliminary 07/17/17 05:45 Blood Venous Anaerobic Blood Culture - Preliminary No Growth Day 3 No Growth Day 3 Assess/Plan/Problems-Billing Assessment: Mr. Chowdhury is a 77yo M with PMH of type 2 DM, diabetic neuropathy, diabetic retinopathy, CAD s/p CABG, PAD, HLD, CKD stage 3, HTN, GERD, BPH, s/p recent admission for right foot wet gangrene, s/p TMA, who returns to [facility] with worsening infection. - Patient Problems (1) Type 2 diabetes mellitus with right diabetic foot infection Comment: - S/p TMA R foot 06/23/17 complicated by post op infection, now s/p BKA on 07/24 - Continue Cefepime and Flagyl. (2) Severe sepsis Comment: - Patient met sepsis criteria on admission with leukocytosis and tachycardia. Also has ALLEN. - Source is right diabetic foot infection and Proteus septicemia. 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 Garcia on 07/24/17 (3) V-tach Comment: - Episode of NSVtach on 07/23/17 and a day prior, asymptomatic. - Electrolytes are normal. - Ef shows lower EF 40-45%. - Cardiology consultation appreciated, toprol XL started -no recurrence post op, telemetry d/c'd (4) Fluid overload Comment: euvolemic today (5) ALLEN (acute kidney injury) Comment: - Acute on chronic kidney injury, likely renal in the setting of ATN secondary to sepsis. - Resolved. creat back to baseline CKD stage 3 due to DM (6) Peripheral arterial disease Comment: - S/p RLE arteriogram from ipsilateral antegrade right CF arteriotomy, balloon angioplasty of the right SFA, popliteal, LADONNA and peroneal arteries by Dr. Lawson on 07/17/17. - as per previous d/w Dr. Lawson - okay to hold Plavix for now, plan to restart once Hb stable - Continue Aspirin and Atorvastatin. (7) Irregular heart beat Comment: - Remained NSR with PVCs x 2 days post op, no recurrence of a. fib. Will d/c telem. One period of 15 min of a. 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 - holding Amlodipine and Lisinopril ,cont Toprol. 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 Status and Disposition: Inpatient Pt agrees to STR
[2017-07-27] MEDS: Insulin GLARGINE(*) 1 UNITS UNIT SUBCUT SCH (17:10)
[2017-07-27] MEDS: Atorvastatin* 80 MG TAB PO SCH (17:11)
[2017-07-28] MEDS: Acetaminophen TAB* 325 MG PO PRN (02:03)
[2017-07-28] MEDS: Morphine INJ* 2 MG/ML 1 ML SYRINGE (TWO MG - NEW SYRINGE VERSION) IV PRN (02:09)
[2017-07-28 05:47] LABS: Hematocrit 23 % (42-52); Hemoglobin 7.7 g/dl (14.0-18.0); Mean Corpuscular HGB Conc 34 g/dl (31-36); Mean Corpuscular Hemoglobin 32 pg (27-31); Mean Corpuscular Volume 94 fL (80-94); Mean Platelet Volume 9 um3 (7.4-10.4); Red Blood Count 2.44 10^6/ul (4.0-5.4); Red Cell Distribution Width 15 % (10.5-15)
[2017-07-28] MEDS: Heparin VIAL(*) 5000 UNITS/ML VIAL (FIVE THOUSAND) SUBCUT SCH ×3 (05:51→22:29)
[2017-07-28 06:02] LABS: BUN/Creatinine Ratio 37.4 (8-20); EGFR African American 79.7 (>60); Potassium 4.7 mmol/L (3.5-5.0)
[2017-07-28] MEDS: metroNIDAZOLE TAB* 250 MG PO SCH (09:46)
[2017-07-28] MEDS: Metoprolol Succinate XL TAB* 50 MG PO SCH (09:46)
[2017-07-28] MEDS: Sodium Citrate/Citric Acid* 15 ML UDC PO SCH ×3 (09:46→22:29)
[2017-07-28] MEDS: Aspirin Low Dose CHEW TAB* 81 MG PO SCH (09:46)
[2017-07-28] MEDS: Insulin LISPRO* 1 UNITS UNIT SUBCUT SCH ×7 (09:47→22:28)
[2017-07-28] MEDS: Nystatin TOP POWDER* 15 GM BTL TOPICAL SCH ×3 (09:48→22:29)
[2017-07-28] MEDS: Cefepime(*) 1 GM in NS 0.9% 50 ML* 50 ML IVPB SCH (09:53)
--- NOTE | 2017-07-28 10:45 | PN ---
Progress Note - Progress Note Date of Service: 07/28/17 SOAP: Subjective: CC: R foot gangrene HPI: 77 yo diabetic with vascular disease and recent R foot TMA for gangrene and osteomyelitis admitted with r plantar forefoot ganrene. Below knee amputation 07/24. Feels well, no complaints. Objective: [] Gen:awake, no distress HEENT:PERRL, MMM Neck:supple Heart:RRR no murmur Lungs:CTA BL Abd:+BS NTND soft Skin: R leg wrapped Laboratory Results - last 24 hr 07/27/17 07/27/17 07/27/17 11:44 16:30 22:01 WBC RBC Hgb Hct MCV MCH MCHC RDW Plt Count MPV Sodium Potassium Chloride Carbon Dioxide Anion Gap BUN Creatinine Est GFR ( Amer) Est GFR (Non-Af Amer) BUN/Creatinine Ratio Glucose POC Glucose (mg/dL) 198 H 250 H 194 H Calcium 07/28/17 07/28/17 07/28/17 05:20 05:20 07:55 WBC 9.0 RBC 2.44 L Hgb 7.7 L Hct 23 L MCV 94 MCH 32 H MCHC 34 RDW 15 Plt Count 293 MPV 9 Sodium 136 Potassium 4.7 Chloride 109 Carbon Dioxide 26 Anion Gap 1 L BUN 43 H Creatinine 1.15 Est GFR ( Amer) 79.7 Est GFR (Non-Af Amer) 62.0 BUN/Creatinine Ratio 37.4 H Glucose 108 H POC Glucose (mg/dL) 132 H Calcium 7.0 L Assessment: 1. Proteus bacteremia and septicemia (present on admission) secondary to foot infection 2. R foot gangrene s/p BKA 3. PAD 4. T2DM 5. CKD Plan: 1. has had 2 weeks cefepime/flagyl; will stop today and follow exam
--- NOTE | 2017-07-28 10:53 | PN ---
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 Patient feeling well, pain under control with pain meds, working well with PT, agreeable to D/C to rehab. No other symptoms, concerned about H&H. Objective: General- Well appearing, resting in chair comfortably, NAD MSK- surgical dressing intact with knee immobilizer in place. PT L foot 2+. 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 Plan: - Continue Pain management - IV ABX to stop per Dr. Dixon. - Follow up with Dr. Henderson within 10 days for wound check. Vital Signs Temp 97.2 F 07/28/17 07:43 Pulse 79 07/28/17 07:43 Resp 20 07/28/17 07:43 BP 139/73 07/28/17 07:43 Pulse Ox 96 07/28/17 07:43 Intake & Output 07/27/17 07/28/17 07/28/17 18:59 06:59 18:59 Intake Total 1033 75 240 Output Total 700 350 525 Balance 333 -275 -285 Intake: IV Fluids 15 25 ABX - CEFEPIME 15 25 IVPB 58 50 ABX - CEFEPIME 58 50 Oral 960 240 Output: Urine 700 350 525 Other: Estimated Void Small # Bowel Movements 0 # Voids 2 2 Active Medications Generic Name Dose Route Start Last Admin Trade Name Freq PRN Reason Stop Dose Admin Acetaminophen 650 mg 07/15/17 15:06 07/28/17 02:03 Tylenol Tab* PO 650 mg Q6H PRN Administration FEVER/PAIN Albuterol 2.5 mg 07/15/17 15:06 07/21/17 00:37 Ventolin 2.5 Mg/3 Ml Neb.Susy* INH 2.5 mg Q2H PRN Administration SOB/WHEEZING Aspirin 81 mg 07/16/17 09:00 07/28/17 09:46 Aspirin Low Dose Tab* PO 81 mg DAILY TEET Administration Atorvastatin Calcium 80 mg 07/15/17 17:00 07/27/17 17:11 Lipitor* PO 80 mg 1700 TETE Administration Calcium Carbonate 500 mg 07/15/17 15:06 Tums* PO Q8H PRN DYSPEPSIA Citric Acid/Sodium Citrate 15 ml 07/26/17 14:00 07/28/17 09:46 Bicitra* PO 15 ml TID TETE Administration Dextrose 12.5 gm 07/15/17 15:31 D50w Syringe 50 Ml* IV PUSH .FOR FS < 60 - SS PRN FS < 60 Heparin Sodium (Porcine) 5,000 units 07/18/17 14:00 07/28/17 05:51 Heparin Vial(*) SUBCUT 5,000 units Q8HR TETE Administration Heparin Sodium (Porcine) 1 - 3 ml 07/18/17 18:00 07/28/17 05:52 Heparin Flush Picc/Ml/Cvc(*) FLUSH 1 ml 0600,1800 [facility] Administration Protocol Insulin Glargine 5 units 07/25/17 17:00 07/27/17 17:10 Lantus(*) SUBCUT 5 units Q24H TETE Administration Insulin Human Lispro 0 units 07/16/17 16:30 07/28/17 09:47 Humalog* SUBCUT 6 unit AC [facility] Administration Protocol Insulin Human Lispro 0 units 07/22/17 14:22 07/28/17 09:47 Humalog* SUBCUT 1 units ACHS [facility] Administration Protocol Loperamide HCl 2 mg 07/22/17 08:59 07/26/17 15:52 Imodium Cap* PO 2 mg .SEE DIRECTIONS PRN Administration DIARRHEA Metoprolol Succinate 50 mg 07/24/17 09:00 07/28/17 09:46 Toprol Xl Tab* PO 50 mg DAILY TETE Administration Metronidazole 500 mg 07/29/17 14:00 Flagyl Tab* PO TID TETE Morphine Sulfate 2 mg 07/24/17 18:15 07/28/17 02:09 Morphine Inj (Syringe)* IV 2 mg Q4H PRN Administration SEVERE PAIN Nystatin 1 applic 07/15/17 21:00 07/28/17 09:48 Nystatin Top Powder* TOPICAL Not Given TID [facility] Oxycodone/Acetaminophen 1 tab 07/27/17 13:08 Percocet 5/325 Tab* PO Q4H PRN PAIN Prochlorperazine Edisylate 5 mg 07/15/17 15:07 Compazine Inj* IV Q6H PRN NAUSEA/VOMITING
--- NOTE | 2017-07-28 14:52 | PN ---
Subjective Date of Service: 07/28/17 Interval History: pt feels well, no new complaints Family History: Unchanged from Admission Social History: Unchanged from Admission Past Medical History: Unchanged from Admission Objective Active Medications: Acetaminophen (Tylenol Tab*) 650 mg PO Q6H PRN PRN Reason: FEVER/PAIN Last Admin: 07/28/17 02:03 Dose: 650 mg Albuterol (Ventolin 2.5 Mg/3 Ml Neb.Susy*) 2.5 mg INH Q2H PRN PRN Reason: SOB/WHEEZING Last Admin: 07/21/17 00:37 Dose: 2.5 mg Aspirin (Aspirin Low Dose Tab*) 81 mg PO DAILY [facility] Last Admin: 07/28/17 09:46 Dose: 81 mg Atorvastatin Calcium (Lipitor*) 80 mg PO 1700 [facility] Last Admin: 07/27/17 17:11 Dose: 80 mg Calcium Carbonate (Tums*) 500 mg PO Q8H PRN PRN Reason: DYSPEPSIA Citric Acid/Sodium Citrate (Bicitra*) 15 ml PO TID [facility] Last Admin: 07/28/17 14:03 Dose: 15 ml Dextrose (D50w Syringe 50 Ml*) 12.5 gm IV PUSH .FOR FS < 60 - SS PRN PRN Reason: FS < 60 Heparin Sodium (Porcine) (Heparin Vial(*)) 5,000 units SUBCUT Q8HR [facility] Last Admin: 07/28/17 14:03 Dose: 5,000 units Heparin Sodium (Porcine) (Heparin Flush Picc/Ml/Cvc(*)) 1 - 3 ml FLUSH 0600, 1800 [facility] PRN Reason: Protocol Last Admin: 07/28/17 14:19 Dose: 1 ml Insulin Glargine (Lantus(*)) 5 units SUBCUT Q24H [facility] Last Admin: 07/27/17 17:10 Dose: 5 units Insulin Human Lispro (Humalog*) 0 units SUBCUT AC [facility] PRN Reason: Protocol Last Admin: 07/28/17 14:02 Dose: 5 unit Insulin Human Lispro (Humalog*) 0 units SUBCUT ACHS [facility] PRN Reason: Protocol Last Admin: 07/28/17 14:02 Dose: 2 units Loperamide HCl (Imodium Cap*) 2 mg PO .SEE DIRECTIONS PRN PRN Reason: DIARRHEA Last Admin: 07/26/17 15:52 Dose: 2 mg Metoprolol Succinate (Toprol Xl Tab*) 50 mg PO DAILY [facility] Last Admin: 07/28/17 09:46 Dose: 50 mg Metronidazole (Flagyl Tab*) 500 mg PO TID [facility] Morphine Sulfate (Morphine Inj (Syringe)*) 2 mg IV Q4H PRN PRN Reason: SEVERE PAIN Last Admin: 07/28/17 02:09 Dose: 2 mg Nystatin (Nystatin Top Powder*) 1 applic TOPICAL TID [facility] Last Admin: 07/28/17 14:03 Dose: Not Given Oxycodone/Acetaminophen (Percocet 5/325 Tab*) 1 tab PO Q4H PRN PRN Reason: PAIN Prochlorperazine Edisylate (Compazine Inj*) 5 mg IV Q6H PRN PRN Reason: NAUSEA/VOMITING Vital Signs 07/27/17 07/27/17 07/27/17 15:39 17:14 20:00 Temperature 98.1 F Pulse Rate 73 Respiratory 16 18 Rate Blood Pressure 131/61 (mmHg) O2 Sat by Pulse 96 96 Oximetry 07/27/17 07/27/17 07/28/17 20:43 23:38 00:00 Temperature 98.5 F Pulse Rate 75 77 Respiratory 16 16 Rate Blood Pressure 127/61 143/63 (mmHg) O2 Sat by Pulse 100 95 95 Oximetry 07/28/17 07/28/17 07/28/17 02:09 03:09 04:21 Temperature 98.5 F Pulse Rate 70 Respiratory 18 18 16 Rate Blood Pressure 131/60 (mmHg) O2 Sat by Pulse 97 Oximetry 07/28/17 07:43 Temperature 97.2 F Pulse Rate 79 Respiratory 20 Rate Blood Pressure 139/73 (mmHg) O2 Sat by Pulse 96 Oximetry Oxygen Devices in Use Now: None Appearance: 77 yo M in nAD, AAOx3 Eyes: No Scleral Icterus, PERRLA Ears/Nose/Mouth/Throat: NL Teeth, Lips, Gums, Mucous Membranes Moist Neck: NL Appearance and Movements; NL JVP, Trachea Midline Respiratory: Symmetrical Chest Expansion and Respiratory Effort, Clear to Auscultation Cardiovascular: NL Sounds; No Murmurs; No JVD, RRR Abdominal: NL Sounds; No Tenderness; No Distention, No Hepatosplenomegaly Lymphatic: No Cervical Adenopathy Extremities: No Edema, No Clubbing, Cyanosis Skin: No Nodules or Sclerosis, - - lef leg with remote TMA, R leg in surgical dressings- not removed Neurological: Alert and Oriented x 3, NL Muscle Strength and Tone Result Diagrams: 07/28/17 05:20 07/28/17 05:20 Microbiology and Other Data: Microbiology 07/17/17 05:50 Blood Venous Blood Culture - Final 07/17/17 05:45 Blood Venous Blood Culture - Final 07/15/17 15:19 Blood Venous Aerobic Blood Culture - Final 07/15/17 15:19 Blood Venous Blood Culture - Final Proteus Penneri Proteus Penneri 07/17/17 05:50 Blood Venous Aerobic Blood Culture - Preliminary 07/17/17 05:50 Blood Venous Anaerobic Blood Culture - Preliminary No Growth Day 3 No Growth Day 3 07/17/17 05:45 Blood Venous Aerobic Blood Culture - Preliminary 07/17/17 05:45 Blood Venous Anaerobic Blood Culture - Preliminary No Growth Day 3 No Growth Day 3 Assess/Plan/Problems-Billing Assessment: Mr. Chowdhury is a 77yo M with PMH of type 2 DM, diabetic neuropathy, diabetic retinopathy, CAD s/p CABG, PAD, HLD, CKD stage 3, HTN, GERD, BPH, s/p recent admission for right foot wet gangrene, s/p TMA, who returns to [facility] with worsening infection. - Patient Problems (1) Type 2 diabetes mellitus with right diabetic foot infection Comment: - S/p TMA R foot 06/23/17 complicated by post op infection, now s/p BKA on 07/24 - disontinue Cefepime and Flagyl today as per ID recommendation. (2) Severe sepsis Comment: - Patient was septic on admission with leukocytosis and tachycardia. Also had ALLEN. - Source is right diabetic foot infection and Proteus septicemia. 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 Garcia on 07/24/17 (3) V-tach Comment: - Episode of NSVtach on 07/23/17 and a day prior, asymptomatic. - Electrolytes are normal. - Ef shows lower EF 40-45%. - Cardiology consultation appreciated, toprol XL started -no recurrence post op, telemetry d/c'd (4) Fluid overload Comment: euvolemic today (5) ALLEN (acute kidney injury) Comment: - Acute on chronic kidney injury, likely renal in the setting of ATN secondary to sepsis. - Resolved. creat back to baseline CKD stage 3 due to DM (6) Peripheral arterial disease Comment: - S/p RLE arteriogram from ipsilateral antegrade right CF arteriotomy, balloon angioplasty of the right SFA, popliteal, LADONNA and peroneal arteries by Dr. Lawson on 07/17/17. - as per previous d/w Dr. Lawson - held Plavix periop, will restart today since Hb stable - Continue Aspirin and Atorvastatin. (7) Irregular heart beat Comment: - Remained NSR with PVCs x 2 days post op, no recurrence of a. fib. Will d/c telem. One period of 15 min of a. 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 - holding Amlodipine and Lisinopril ,cont Toprol. 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 Status and Disposition: Inpatient Pt agrees to STR, but doesn't want to go back to [facility]. PMRU consult pending
[2017-07-28] MEDS: Atorvastatin* 80 MG TAB PO SCH (18:33)
[2017-07-28] MEDS: Insulin GLARGINE(*) 1 UNITS UNIT SUBCUT SCH (18:33)
[2017-07-28] MEDS: Ferrous Sulfate TAB* 325 MG PO SCH (18:35)
[2017-07-29] MEDS: Heparin VIAL(*) 5000 UNITS/ML VIAL (FIVE THOUSAND) SUBCUT SCH (05:54)
[2017-07-29 07:59] VITALS: BP 140/63
[2017-07-29] MEDS: Insulin LISPRO* 1 UNITS UNIT SUBCUT SCH ×2 (08:00→09:58)
--- NOTE | 2017-07-29 08:57 | PN ---
Progress Note - Progress Note Date of Service: 07/28/17 SOAP: Subjective: patient resting comfortably with no complaints of pain Objective: Vital Signs Temp Pulse Resp BP Pulse Ox 98.1 F 79 22 140/63 96 07/29/17 07:33 07/29/17 07:33 07/29/17 08:00 07/29/17 07:33 07/29/17 07:33 Laboratory Last Values WBC 9.0 10^3/ul (3.5-10.8) 07/28/17 05:20 RBC 2.44 10^6/ul (4.0-5.4) L 07/28/17 05:20 RBC (Retic) 2.63 10^6/ul (4.6-6.2) L 07/21/17 05:05 Hgb 7.7 g/dl (14.0-18.0) L 07/28/17 05:20 Hct 23 % (42-52) L 07/28/17 05:20 HCT (Retic) 25 % (42-52) L 07/21/17 05:05 MCV 94 fL (80-94) 07/28/17 05:20 MCH 32 pg (27-31) H 07/28/17 05:20 MCHC 34 g/dl (31-36) 07/28/17 05:20 RDW 15 % (10.5-15) 07/28/17 05:20 Plt Count 293 10^3/ul (150-450) 07/28/17 05:20 MPV 9 um3 (7.4-10.4) 07/28/17 05:20 Neut % (Auto) 85.3 % (38-83) H 07/26/17 05:10 Lymph % (Auto) 7.3 % (25-47) L 07/26/17 05:10 Douglas % (Auto) 4.1 % (1-9) 07/26/17 05:10 Eos % (Auto) 3.0 % (0-6) 07/26/17 05:10 Baso % (Auto) 0.3 % (0-2) 07/26/17 05:10 Absolute Neuts (auto) 13.7 10^3/ul (1.5-7.7) H 07/26/17 05:10 Absolute Lymphs (auto) 1.2 10^3/ul (1.0-4.8) 07/26/17 05:10 Absolute Monos (auto) 0.7 10^3/ul (0-0.8) 07/26/17 05:10 Absolute Eos (auto) 0.5 10^3/ul (0-0.6) 07/26/17 05:10 Absolute Basos (auto) 0.1 10^3/ul (0-0.2) 07/26/17 05:10 Absolute Nucleated RBC 0.01 10^3/ul 07/26/17 05:10 Nucleated RBC % 0.1 07/26/17 05:10 ESR 115 mm/Hr (0-40) H 07/15/17 15:19 Retic Count, Calc 1.4 % (0.5-1.5) 07/21/17 05:05 Corrected Retic Count 0.8 % (0.5-1.5) 07/21/17 05:05 Retic Shift Factor 2.0 07/21/17 05:05 Retic Production Index 0.40 07/21/17 05:05 Immature Retic Fraction 0.52 07/21/17 05:05 Mean Retic Volume 115.5 07/21/17 05:05 INR (Anticoag Therapy) 1.66 (0.89-1.11) H 07/24/17 06:25 Sodium 136 mmol/L (133-145) 07/28/17 05:20 Potassium 4.7 mmol/L (3.5-5.0) 07/28/17 05:20 Chloride 109 mmol/L (101-111) 07/28/17 05:20 Carbon Dioxide 26 mmol/L (22-32) 07/28/17 05:20 Anion Gap 1 mmol/L (2-11) L 07/28/17 05:20 BUN 43 mg/dL (6-24) H 07/28/17 05:20 Creatinine 1.15 mg/dL (0.67-1.17) 07/28/17 05:20 Est GFR ( Amer) 79.7 (>60) 07/28/17 05:20 Est GFR (Non-Af Amer) 62.0 (>60) 07/28/17 05:20 BUN/Creatinine Ratio 37.4 (8-20) H 07/28/17 05:20 Glucose 108 mg/dL (70-100) H 07/28/17 05:20 POC Glucose (mg/dL) 100 mg/dL (70-100) 07/29/17 07:38 Lactic Acid 2.0 mmol/L (0.5-2.0) 07/15/17 15:19 Calcium 7.0 mg/dL (8.6-10.3) L 07/28/17 05:20 Magnesium 2.1 mg/dL (1.9-2.7) 07/25/17 03:41 Iron 35 ug/dL (50-212) L 07/21/17 05:05 TIBC 105 mcg/dL (250-450) L 07/21/17 05:05 % Saturation 33 % (15-55) 07/21/17 05:05 Unsat Iron Binding 70 ug/dL 07/21/17 05:05 Transferrin Cancelled 07/22/17 04:40 Ferritin Cancelled 07/22/17 04:40 Total Bilirubin 0.70 mg/dL (0.2-1.0) 07/15/17 15:19 AST 46 U/L (13-39) H 07/15/17 15:19 ALT 58 U/L (7-52) H 07/15/17 15:19 Alkaline Phosphatase 394 U/L (34-104) H 07/15/17 15:19 C-Reactive Protein 77.82 mg/L (< 5.00) H 07/22/17 04:40 B-Natriuretic Peptide 1062 pg/mL (-100) H 07/21/17 05:05 Total Protein 6.7 g/dL (6.4-8.9) 07/15/17 15:19 Albumin 2.5 g/dL (3.2-5.2) L 07/15/17 15:19 Globulin 4.2 g/dL (2-4) H 07/15/17 15:19 Albumin/Globulin Ratio 0.6 (1-3) L 07/15/17 15:19 Vitamin B12 1394 pg/mL (180-914) H 07/21/17 05:05 Folate Cancelled 07/22/17 04:40 Blood Type A Positive 07/22/17 04:40 Antibody Screen Negative 07/22/17 04:40 Crossmatch See Detail 07/22/17 04:40 incision: c/d PE: able to flex/extend at knee Assessment: s/p BKA right LE Plan: 1) Hospitalist co-managing 2) PT/OT- encourage knee ROM 3) continue IV Abx per ID 4) likely PMRU transfer today 5) F/U with Jose in 10-14 days
[2017-07-29] MEDS ORDERED: Clopidogrel TAB* 75 MG PO SCH (09:00)
[2017-07-29] MEDS: Metoprolol Succinate XL TAB* 50 MG PO SCH (09:57)
[2017-07-29] MEDS: Sodium Citrate/Citric Acid* 15 ML UDC PO SCH (09:57)
[2017-07-29] MEDS: Ferrous Sulfate TAB* 325 MG PO SCH (09:57)
[2017-07-29] MEDS: Aspirin Low Dose CHEW TAB* 81 MG PO SCH (09:58)
[2017-07-29] MEDS ORDERED: metroNIDAZOLE TAB* 250 MG PO SCH (14:00)
--- NOTE | 2017-07-30 05:53 | DS ---
CC: Dr. Watkins; Dr. Dixon; Dr. Marte; Dr. Garcia; Dr. Allen; Dr. Lawson ; Dr. Tim Renteria at [facility] * DISCHARGE SUMMARY: DATE OF ADMISSION: 07/15/17 DATE OF DISCHARGE: 07/29/17 HOSPITAL COURSE: Mr. 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 He was discharged to [facility] on cephalexin, but his wound did not heal well and he developed an infection. For more details about his presentation, I refer you to his history and physical. He met severe sepsis criteria on admission with leukocytosis, tachycardia, and acute kidney injury. The patient was seen in consultation by Infectious Disease (Dr. Dixon) that recommended broad-spectrum antibiotics. The patient was seen by Interventional Radiology, Dr. Lawson and he had right lower extremity arteriogram with right CF arteriotomy, balloon angioplasty of the right SFA, popliteal, LADONNA, and peritoneal. The patient's blood cultures grew Proteus penneri and followup cultures were negative. The patient had a brief episode of atrial fibrillation while in the hospital and some episodes of V-tach. He had a transthoracic echocardiogram that showed an ejection fraction of 40% to 45% with hypokinesis of the proximal inferior wall. He was seen in consultation by Cardiology (Dr. Blanca) and his impression is that the patient had multiple medical problems, history of coronary artery disease and was now being considered for right [id number] amputation. He felt that the patient was already on appropriate medical therapy on Plavix, statin, beta-beverley, and LINDY inhibitor. He felt that the patient's recent runs of nonsustained V-tach were of unclear significance. He did not think the patient needed to undergo a stress test as it would not really change his management at all. He recommended proceeding with his vacrg-qpu-qzjf amputation as scheduled and to add metoprolol. The patient had a [id number]-ucn-[id number] amputation performed on July 24 with minimal blood loss. He did well in the postop period. Dr. Dixon felt that the patient had already completed 2 weeks of IV antibiotics (cefepime and Flagyl ) and the recommendation was to stop it. The patient was found to have rehab needs and he did not want to return to [facility]. He was seen by [facility] and offered a bed for further rehabilitation process. PHYSICAL EXAMINATION: Vital Signs: Temperature 98.1, heart rate is 79, respiratory rate is 22, oxygen saturation 96% on room air, blood pressure is 140 /63. General: The patient is a pleasant gentleman, lying in bed, in no acute distress. CVS: Normal S1 and S2, regular rate and rhythm. Chest: Breath sounds present bilaterally with no added sounds. Abdomen: Soft. Bowel sounds are present. Neuro: He is alert, awake, and oriented x3. Able to move all 4 extremities. Extremities: He has a left well-healed TMA and a right BKA with clean dressing intact. DISCHARGE DIAGNOSES: 1. Severe sepsis. 2. Acute kidney injury. 3. Right TMA site diabetic foot infection. 4. Proteus penneri septicemia. 5. Brief episode of atrial fibrillation. 6. Nonsustained ventricular tachycardia. 7. Metabolic acidosis and hyperkalemia secondary to acute kidney injury. 8. Acute chronic obstructive pulmonary disease exacerbation. 9. Fluid overload. 10. Hyperkalemia. 11. Acute blood loss anemia. SECONDARY DIAGNOSES: 1. 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 2. Coronary artery disease, status post 3-vessel CABG. 3. Peripheral arterial disease. 4. Hyperlipidemia. 5. Chronic kidney disease stage 3. 6. Hypertension. 7. Gastroesophageal reflux disease. 8. Benign prostatic hyperplasia. MEDICATION LIST: 1. Acetaminophen 650 mg p.o. q.6 hours p.r.n. pain or fever. 2. Albuterol 2.5 mg nebulizer q.2 hours p.r.n. shortness of breath. 3. Aspirin 81 mg p.o. daily. 4. Atorvastatin 80 mg p.o. daily. 5. Tums 500 mg p.o. q.8 hours p.r.n. indigestion. 6. Plavix 75 mg p.o. daily. 7. Ferrous sulfate 325 mg p.o. daily. 8. Lantus 5 units subcutaneously daily. 9. Lispro sliding scale. 10. Loperamide 2 mg p.o. after each diarrheal bowel movement, maximum 8 mg a day. 11. Metoprolol succinate 50 mg p.o. daily. 12. Percocet 5/325 mg 1 tablet p.o. q.4 hours p.r.n. pain MDD 6 tablets. DIET: Heart healthy, consistent carb diet. ACTIVITY: As tolerated. DISPOSITION: To [facility]. STATUS WHILE IN THE HOSPITAL: Inpatient. Please keep in mind, this is a summarized version of this patient's prolonged and complex hospital stay. If you need more information, please feel free to call me at [phone] or please obtain the full medical records. TIME SPENT: Approximately 45 minutes were spent to complete this discharge. [id number]/[facility] #: [id number] ANDREW
== END 2017-07-29 11:11 | DRG 853 ==
LOC: ED 13:43 → MED 14:58 → ICU 07-17 17:43 → MEDTELE 07-18 12:16
PROVIDERS: ADMIT Internal Medicine; ATTEND Internal Medicine
PROC: 047K3ZZ Dilation of Right Femoral Artery, Percutaneous Approach (ICD-10-PCS; 2017-07-18)
PROC: 047M3ZZ Dilation of Right Popliteal Artery, Percutaneous Approach (ICD-10-PCS; 2017-07-18)
PROC: 047P3ZZ Dilation of Right Anterior Tibial Artery, Percutaneous Approach (ICD-10-PCS; 2017-07-18)
PROC: 047T3ZZ Dilation of Right Peroneal Artery, Percutaneous Approach (ICD-10-PCS; 2017-07-18)
PROC: B41FYZZ Fluoroscopy of Right Lower Extremity Arteries using Other Contrast (ICD-10-PCS; 2017-07-18)
PROC: 30233N1 Transfusion of Nonautologous Red Blood Cells into Peripheral Vein, Percutaneous Approach (ICD-10-PCS; 2017-07-22)
PROC: 0Y6H0Z1 Detachment at Right Lower Leg, High, Open Approach (ICD-10-PCS; principal; 2017-07-24 07:45)
DX: A41.59 Other Gram-negative sepsis (principal); N17.0 Acute kidney failure with tubular necrosis; I13.0 Hypertensive heart and chronic kidney disease with heart failure and stage 1 through stage 4 chronic kidney disease, or unspecified chronic kidney disease; I50.32 Chronic diastolic (congestive) heart failure; N18.3 Chronic kidney disease, stage 3 (moderate); E11.52 Type 2 diabetes mellitus with diabetic peripheral angiopathy with gangrene; T87.43 Infection of amputation stump, right lower extremity; M86.9 Osteomyelitis, unspecified; L03.115 Cellulitis of right lower limb; R65.20 Severe sepsis without septic shock; T87.53 Necrosis of amputation stump, right lower extremity; E78.5 Hyperlipidemia, unspecified; I48.91 Unspecified atrial fibrillation; J44.1 Chronic obstructive pulmonary disease with (acute) exacerbation; I47.2 Ventricular tachycardia; E87.2 Acidosis; D62 Acute posthemorrhagic anemia; E87.5 Hyperkalemia; R19.7 Diarrhea, unspecified; E11.22 Type 2 diabetes mellitus with diabetic chronic kidney disease; E11.40 Type 2 diabetes mellitus with diabetic neuropathy, unspecified; E11.319 Type 2 diabetes mellitus with unspecified diabetic retinopathy without macular edema; I25.10 Atherosclerotic heart disease of native coronary artery without angina pectoris; K21.9 Gastro-esophageal reflux disease without esophagitis; N40.0 Benign prostatic hyperplasia without lower urinary tract symptoms; E11.69 Type 2 diabetes mellitus with other specified complication; B96.4 Proteus (mirabilis) (morganii) as the cause of diseases classified elsewhere; D63.1 Anemia in chronic kidney disease; Z79.82 Long term (current) use of aspirin; Z79.02 Long term (current) use of antithrombotics/antiplatelets; Z79.4 Long term (current) use of insulin; Z95.1 Presence of aortocoronary bypass graft; Z83.3 Family history of diabetes mellitus; Z89.432 Acquired absence of left foot; Z72.89 Other problems related to lifestyle; Z87.891 Personal history of nicotine dependence
CPT/HCPCS: 36415; 71010; 71020; 76937; 80048; 80053; 82270; 82607; 83540; 83550; 83605; 83735; 83880; 85025; 85027; 85045; 85610; 85652; 86140; 86850; 86900; 86901; 86922; 87040; 87077; 87186; 87205; 87641; 88307; 88311; 93005; 93306; 94640; 94760; 99156; 99157; A9270-GY; C1725; C1751; C1769; C1887; C1894; C8929; J0692; J1100; J1644; J1940; J2001; J2250; J2270; J2310; J2704; J2765; J3010; J3370; J3475; P9040

== ENCOUNTER 2017-07-29 08:04 | Inpatient (IN) | payer MEDICARE, OTHER ==
[2017-07-29] MEDS ORDERED: Senna TAB PO PRN (11:40)
[2017-07-29] MEDS ORDERED: Magnesium Hydroxide LIQ* 30 ML UDC PO PRN (11:40)
[2017-07-29] MEDS ORDERED: Acetaminophen TAB* 325 MG PO PRN (11:40)
[2017-07-29] MEDS ORDERED: Dextrose 50% Syringe 50 ML* 25 GM/50 ML SYRINGE IV PUSH PRN (11:45)
[2017-07-29] MEDS ORDERED: Docusate CAP* 100 MG PO PRN (11:52)
--- NOTE | 2017-07-29 12:38 | PMRUTEAM ---
PMRU: Goals Current Status: Physical Therapy: Current Status Bed Mobility Assistance Min Assist Transfer Moblility Assistance Total Assist,2 or More Person Assist Ambulation Assistance Unable Ambulation Assistive Devices Rolling Walker OCCUPATIONAL THERAPY: Supervision UB dressing, Total Assist LB dressing, Toileting total assist, toilet transfers total assist Goals: PHYSICAL THERAPY: Modified Independent Stand pivot transfers, household wheelchair ambulation OCCUPATIONAL THERAPY: modified independent toileting, dressing Medicine Note: Length of Stay: 3 weeks Anticipated Discharge Destination: Tentative Discharge Date: 08/19/17 Discharged to: Home
[2017-07-29] MEDS ORDERED: oxyCODONE/Acetamin 5/325 MG* TAB PO PRN (13:32)
[2017-07-29] MEDS ORDERED: metroNIDAZOLE TAB* 250 MG PO SCH (14:00)
[2017-07-29] MEDS: Heparin VIAL(*) 5000 UNITS/ML VIAL (FIVE THOUSAND) SUBCUT SCH ×2 (14:08→21:18)
[2017-07-29] MEDS: Insulin LISPRO* 1 UNITS UNIT SUBCUT SCH ×3 (18:14→21:19)
[2017-07-29] MEDS: Insulin GLARGINE(*) 1 UNITS UNIT SUBCUT SCH (18:14)
[2017-07-29] MEDS: Atorvastatin* 80 MG TAB PO SCH (18:15)
[2017-07-29] MEDS ORDERED: Docusate CAP* 100 MG PO SCH (21:00)
--- NOTE | 2017-07-29 22:33 | HP ---
ADMISSION HISTORY AND PHYSICAL: DATE OF ADMISSION: 07/29/17 REASON FOR ADMISSION: Right [id number] amputation. HISTORY OF PRESENT ILLNESS: Emile Chowdhury is a 77-year-old white male. He has a medical history significant for diabetes mellitus. In addition, he has a history of peripheral vascular disease. He also has a history of coronary artery disease. He has had a 3-vessel bypass in the past and he has a history of chronic kidney disease stage 3. In May 2017, the patient was admitted with infections of his second toe of his right foot. He was found to have wet gangrene of the right foot and was taken to the operating room by Dr. Marte. He had a transmetatarsal amputation on 06/23/17. Following the surgery, he had difficulty with mobilization and maintaining his weightbearing status on his right foot. He was transferred to [facility] to attempt rehab. According to the patient, he did not do a lot of rehab while he was there. His right foot became increasingly foul smelling and he was sent back to the emergency room at [facility] on 07/15/17. He was evaluated for possible revascularization. He was evaluated by Dr. Lawson and underwent balloon angioplasty of his right superior femoral artery, popliteal artery and peroneal arteries. His foot was observed over the next few days. Necrosis seemed to worsen in the right foot and plans were made for right below- the-knee amputation. He was taken to the operating room on 07/24/17 and underwent a right [id number] amputation that day. Postop, again he was evaluated and slowly mobilized. He was treated with IV antibiotics, cefepime and Flagyl for 2 weeks. This was discontinued after 2 full weeks. The patient was felt to have physical therapy and occupational therapy needs. He did not wish to go back to [facility]. He said he was willing to work as hard as he could to return home. He has got friend who said that he would help him at home if necessary. The patient is now being admitted for inpatient rehab so that he might return home to independent living. PAST MEDICAL HISTORY: Significant for the aforementioned diabetes mellitus, peripheral vascular disease, chronic kidney disease, diabetic peripheral neuropathy. He has a history of diabetic retinopathy as well. He has got gastro-esophageal reflux disease, benign prostatic hypertrophy, hyperlipidemia, and coronary artery disease. CURRENT MEDICATIONS: Include: 1. Lipitor. 2. Plavix. 3. He is on Lantus insulin, lispro insulin. 4. Toprol XL. 5. Percocet. 6. Bowel medications. 7. Lispro. ALLERGIES: No known drug allergies. SOCIAL HISTORY: He is a nonsmoker, nondrinker. He lives by himself in a trailer. He is never . Does not have any children. He has a friend next door, who is willing to help him. REVIEW OF SYSTEMS: The patient reports no current shortness of breath or chest pain. PHYSICAL EXAMINATION VITAL SIGNS: The patient's temperature is 97.8, blood pressure is 147/68, pulse 79, respirations 18. HEENT: His extraocular movements are intact. Tongue is midline. NECK: Supple with no lymphadenopathy. LUNGS: Sound clear to auscultation bilaterally. HEART: Sounds are regular. S1 and S2 audible. ABDOMEN: Soft and nontender. EXTREMITIES: His right BKA site is wrapped. His left foot was examined. He has a transmetatarsal amputation of the left foot. The left foot skin appears to be clean. NEUROLOGIC: The patient was awake and alert. He has decreased sensation peripherally in his left foot. Muscle strength is about 4+/5 throughout. FUNCTIONAL EXAM: He transfers with max assist. ASSESSMENT: Right [id number] amputation. PLAN: We are going to integrate him into a comprehensive and therapeutic rehab program with the following goals: 1. Physical Therapy is going to work with him. They are going to work on sitting balance, core strengthening, functional transfer training using a slide board and hopefully graduating to a stand pivot transfer. They will work on preprosthetic training as well. 2. Occupational Therapy will see the patient and work on his activities of daily living including toileting and toilet transfers. 3. Heparin for DVT prophylaxis. 4. We will continue Plavix after his interventional procedure. 5. For his diabetes, we will do fingerstick 4 times a day with appropriate insulin coverage. We may increase his Lantus depending on how his blood sugars are doing. 6. For coronary artery disease, we are going to continue with Toprol XL and Lipitor as well as an aspirin a day. 7. Adequate analgesia. 8. His bowels will be regulated. 9. director of rehabilitative services will be closely involved to make sure that any services and equipment that the patient requires are in place prior to discharge. 10. Advanced directives: The patient is a full code. His domestic partner is his healthcare proxy. 11. Training of his friend and domestic partner as needed. 12. Home with appropriate services. ESTIMATED LENGTH OF STAY: Three weeks. [id number]/CPS #: [id number] MTDD
[2017-07-30] MEDS: Heparin VIAL(*) 5000 UNITS/ML VIAL (FIVE THOUSAND) SUBCUT SCH ×3 (05:48→21:01)
[2017-07-30 06:29] LABS: Hematocrit 26 % (42-52); Hemoglobin 8.4 g/dl (14.0-18.0); Mean Corpuscular HGB Conc 32 g/dl (31-36); Mean Corpuscular Hemoglobin 30 pg (27-31); Mean Corpuscular Volume 94 fL (80-94); Mean Platelet Volume 10 um3 (7.4-10.4); Red Blood Count 2.77 10^6/ul (4.0-5.4); Red Cell Distribution Width 15 % (10.5-15); White Blood Count 11.1 10^3/ul (3.5-10.8)
[2017-07-30 06:45] LABS: Albumin 1.8 g/dL (3.2-5.2); BUN/Creatinine Ratio 38.8 (8-20); Calcium 7.2 mg/dL (8.6-10.3); EGFR African American 90.5 (>60); EGFR Non-African American 70.4 (>60); Total Bilirubin 0.3 mg/dL (0.2-1.0); Total Protein 4.8 g/dL (6.4-8.9)
[2017-07-30] MEDS: Insulin LISPRO* 1 UNITS UNIT SUBCUT SCH ×7 (07:30→21:02)
[2017-07-30 07:46] LABS: Potassium 5.2 mmol/L (3.5-5.0)
[2017-07-30] MEDS: Clopidogrel TAB* 75 MG PO SCH (09:41)
[2017-07-30] MEDS: Ferrous Sulfate TAB* 325 MG PO SCH (09:41)
[2017-07-30] MEDS: Aspirin Low Dose CHEW TAB* 81 MG PO SCH (09:41)
[2017-07-30] MEDS: Metoprolol Succinate XL TAB* 50 MG PO SCH (09:41)
[2017-07-30] MEDS ORDERED: Albuterol 2.5 MG/3 ML NEB.SOL* (0.083%) INH PRN (10:15)
[2017-07-30] MEDS: Nystatin TOP POWDER* 15 GM BTL TOPICAL SCH ×2 (11:49→21:05)
--- NOTE | 2017-07-30 15:26 | PN ---
Progress Note - Progress Note Date of Service: 07/30/17 Note: Emile visited. He feels like he is doing OK. Therapy notes read and reviewed. He is quite weak and having a hard time with endurance. He remains a Kulwant for transfers. Laboratory Results - last 24 hr 07/29/17 07/29/17 07/30/17 16:43 20:03 05:40 WBC 11.1 H RBC 2.77 L Hgb 8.4 L Hct 26 L MCV 94 MCH 30 MCHC 32 RDW 15 Plt Count 327 MPV 10 Neut % (Auto) 83.0 Lymph % (Auto) 7.2 L Troup % (Auto) 5.5 Eos % (Auto) 3.6 Baso % (Auto) 0.7 Absolute Neuts (auto) 9.2 H Absolute Lymphs (auto) 0.8 L Absolute Monos (auto) 0.6 Absolute Eos (auto) 0.4 Absolute Basos (auto) 0.1 Absolute Nucleated RBC 0 Nucleated RBC % 0 Sodium Potassium Chloride Carbon Dioxide Anion Gap BUN Creatinine Est GFR ( Amer) Est GFR (Non-Af Amer) BUN/Creatinine Ratio Glucose POC Glucose (mg/dL) 226 H 186 H Calcium Total Bilirubin AST ALT Alkaline Phosphatase Total Protein Albumin Globulin Albumin/Globulin Ratio 07/30/17 07/30/17 07/30/17 05:40 07:23 11:49 WBC RBC Hgb Hct MCV MCH MCHC RDW Plt Count MPV Neut % (Auto) Lymph % (Auto) Troup % (Auto) Eos % (Auto) Baso % (Auto) Absolute Neuts (auto) Absolute Lymphs (auto) Absolute Monos (auto) Absolute Eos (auto) Absolute Basos (auto) Absolute Nucleated RBC Nucleated RBC % Sodium 133 Potassium 5.2 H Chloride 107 Carbon Dioxide 23 Anion Gap 3 BUN 40 H Creatinine 1.03 Est GFR ( Amer) 90.5 Est GFR (Non-Af Amer) 70.4 BUN/Creatinine Ratio 38.8 H Glucose 91 POC Glucose (mg/dL) 124 H 188 H Calcium 7.2 L Total Bilirubin 0.30 AST 108 H ALT 43 Alkaline Phosphatase 566 H Total Protein 4.8 L Albumin 1.8 L Globulin 3.0 Albumin/Globulin Ratio 0.6 L Vital Signs Temp Pulse Resp BP Pulse Ox 98.3 F 75 24 140/64 97 07/30/17 06:13 07/30/17 06:13 07/30/17 06:13 07/30/17 06:13 07/30/17 06:13 EXAM: LUNGS: Coarse rales HEART: S1, S2 ABDOMEN: Soft EXTREMITIES: Right BKA. Groins erythematous, suggesting yeast ASSESSMENT/PLAN: 1. Right BKA: PT/OT. I spoke with his surgeon. Knee immobilizer AAT. Will try to arrange for grants assistant. 2. Diabetes: Continue Lantus/Lispro. May need to increase Lantus 3. Yeast: Nystatin powder 4. Asthma: Order Albuterol Nebs 5. DVT Prophylaxis: Heparin SQ 6. Full code
[2017-07-30] MEDS: Insulin GLARGINE(*) 1 UNITS UNIT SUBCUT SCH (17:04)
[2017-07-30] MEDS: Atorvastatin* 80 MG TAB PO SCH (17:05)
[2017-07-30] MEDS: Benzocaine/Menthol LOZ* 1 LOZENGE PO PRN (22:18)
[2017-07-31] MEDS: Benzocaine/Menthol LOZ* 1 LOZENGE PO PRN (03:39)
[2017-07-31] MEDS: Heparin VIAL(*) 5000 UNITS/ML VIAL (FIVE THOUSAND) SUBCUT SCH ×3 (06:04→21:35)
[2017-07-31] MEDS: Nystatin TOP POWDER* 15 GM BTL TOPICAL SCH ×2 (09:25→21:35)
[2017-07-31] MEDS: Ferrous Sulfate TAB* 325 MG PO SCH (09:26)
[2017-07-31] MEDS: Aspirin Low Dose CHEW TAB* 81 MG PO SCH (09:26)
[2017-07-31] MEDS: Clopidogrel TAB* 75 MG PO SCH (09:26)
[2017-07-31] MEDS: Metoprolol Succinate XL TAB* 50 MG PO SCH (09:26)
[2017-07-31] MEDS: Insulin LISPRO* 1 UNITS UNIT SUBCUT SCH ×7 (09:27→21:32)
[2017-07-31] MEDS: LORazepam TAB(*) 0.5 MG PO PRN (10:52)
[2017-07-31] MEDS: Atorvastatin* 80 MG TAB PO SCH (17:20)
--- NOTE | 2017-07-31 17:35 | PN ---
Progress Note - Progress Note Date of Service: 07/31/17 Note: Emile visited. Therapy notes read and reviewed. He is working hard but remains anxious and tires easily. Reports cough, which is new. Has not gotten any nebuliizer treatments. Does use the benzocaine lozenges. Transfers with gurmeet. Was able to sit forward with OT to pull shirt down Vital Signs Temp Pulse Resp BP Pulse Ox 97.2 F 78 24 149/62 99 07/31/17 15:39 07/31/17 15:39 07/31/17 15:54 07/31/17 15:39 07/31/17 15:54 Glucose Results Blood Glucose Monitoring POC Start: 07/29/17 11: 40 Freq: ACHS Status: Active Document 07/29/17 20:10 [id number] (Rec: 07/29/17 20:10 [id number] [facility]-1) Blood Glucose Monitoring POC Glucose Obtained Yes Glucose Result Being Addressed/Treated ( 186 mg/dL) Blood Glucose Method POC Glucose (bedside) Document 07/30/17 11:51 [id number] (Rec: 07/30/17 11:51 [id number] [facility] [place]-M10) Blood Glucose Monitoring POC Glucose Obtained Yes Glucose Result Being Addressed/Treated ( 188 mg/dL) Blood Glucose Method POC Glucose (bedside) Additional Actions Taken Nurse Notified Document 07/31/17 07:30 [id number] (Rec: 07/31/17 11:03 [id number] [facility] [place]-C14) Blood Glucose Monitoring POC Glucose Obtained Yes Glucose Result Being Addressed/Treated ( 145 mg/dL) Blood Glucose Method POC Glucose (bedside) Additional Actions Taken Nurse Notified Document 07/31/17 16:30 [id number] (Rec: 07/31/17 16:45 [id number] [facility] [place]-M10) Blood Glucose Monitoring POC Glucose Obtained Yes Glucose Result Being Addressed/Treated ( 132 mg/dL) Blood Glucose Method POC Glucose (bedside) Additional Actions Taken Nurse Notified Current Medications Acetaminophen (Tylenol Tab*) 650 mg PO Q6H PRN PRN Reason: FEVER/PAIN Albuterol (Ventolin 2.5 Mg/3 Ml Neb.Susy*) 2.5 mg INH Q4H PRN PRN Reason: SOB/WHEEZING Aspirin (Aspirin Low Dose Tab*) 81 mg PO DAILY [facility] Last Admin: 07/31/17 09:26 Dose: 81 mg Atorvastatin Calcium (Lipitor*) 80 mg PO 1700 [facility] Last Admin: 07/31/17 17:20 Dose: 80 mg Clopidogrel Bisulfate (Plavix Tab*) 75 mg PO DAILY [facility] Last Admin: 07/31/17 09:26 Dose: 75 mg Dextrose (D50w Syringe 50 Ml*) 12.5 gm IV PUSH .FOR FS < 60 - SS PRN PRN Reason: FS < 60 Docusate Sodium (Colace Cap*) 100 mg PO BID PRN PRN Reason: CONSTIPATION Ferrous Sulfate (Ferrous Sulfate Tab*) 325 mg PO DAILY [facility] Last Admin: 07/31/17 09:26 Dose: 325 mg Heparin Sodium (Porcine) (Heparin Vial(*)) 5,000 units SUBCUT Q8HR [facility] Last Admin: 07/31/17 14:02 Dose: 5,000 units Insulin Glargine (Lantus(*)) 5 units SUBCUT Q24H [facility] Last Admin: 07/30/17 17:04 Dose: 5 unit Insulin Human Lispro (Humalog*) 0 - 10 units SUBCUT ACHS [facility] PRN Reason: Protocol Last Admin: 07/31/17 12:00 Dose: 1 units Insulin Human Lispro (Humalog*) 0 - 20 units SUBCUT AC [facility] PRN Reason: Protocol Last Admin: 07/31/17 12:00 Dose: 5 units Lorazepam (Ativan Tab(*)) 0.5 mg PO Q6H PRN PRN Reason: ANXIETY Last Admin: 07/31/17 10:52 Dose: 0.5 mg Magnesium Hydroxide (Milk Of Magnesia Liq*) 30 ml PO Q6H PRN PRN Reason: CONSTIPATION Metoprolol Succinate (Toprol Xl Tab*) 50 mg PO DAILY [facility] Last Admin: 07/31/17 09:26 Dose: 50 mg Nystatin (Nystatin Top Powder*) 1 applic TOPICAL BID [facility] Last Admin: 07/31/17 09:25 Dose: 1 applic Oxycodone/Acetaminophen (Percocet 5/325 Tab*) 1 tab PO Q4H PRN PRN Reason: PAIN - MODERATE TO SEVERE Senna (Senokot Tab*) 2 tab PO BEDTIME PRN PRN Reason: CONSTIPATION Throat Lozenges (Chloraseptic Nigel*) 1 nigel PO Q6H PRN PRN Reason: COUGH Last Admin: 07/31/17 03:39 Dose: 1 nigel EXAM: LUNGS: CTA HEART: Reg rhythm, S1, S2 ABDOMEN: Soft EXTREMITIES: Right BKA ASSESSMENT/PLAN: 1. Right BKA: PT/OT. Try to increase endurance. Knee immobilizer AAT. Will try to arrange for biological sciences professor. 2. Diabetes: Continue Lantus/Lispro. 3. Yeast: Nystatin powder 4. Asthma: Ordered Albuterol Nebs. Has not had any. Encouraged nursing staff to use if needed 5. DVT Prophylaxis: Heparin SQ 6. Analgesia: Percocet PRN 7. Full code
[2017-07-31] MEDS: Insulin GLARGINE(*) 1 UNITS UNIT SUBCUT SCH (18:33)
[2017-08-01] MEDS: Heparin VIAL(*) 5000 UNITS/ML VIAL (FIVE THOUSAND) SUBCUT SCH ×3 (04:56→21:14)
[2017-08-01] MEDS: Insulin LISPRO* 1 UNITS UNIT SUBCUT SCH ×7 (07:41→21:06)
[2017-08-01] MEDS: Clopidogrel TAB* 75 MG PO SCH (08:52)
[2017-08-01] MEDS: Metoprolol Succinate XL TAB* 50 MG PO SCH (08:52)
[2017-08-01] MEDS: Aspirin Low Dose CHEW TAB* 81 MG PO SCH (08:52)
[2017-08-01] MEDS: Ferrous Sulfate TAB* 325 MG PO SCH (08:52)
[2017-08-01] MEDS: Nystatin TOP POWDER* 15 GM BTL TOPICAL SCH ×2 (08:54→21:14)
[2017-08-01] MEDS: LORazepam TAB(*) 0.5 MG PO PRN (09:53)
--- NOTE | 2017-08-01 12:12 | PN ---
Progress Note - Progress Note Date of Service: 08/01/17 Note: Patient visited. Therapy and nursing notes reviewed. He believes glucerna is giving him loose stools. He denies any chest pain, shortness of breath or abdominal pain. Cough resolved and he has not used nebulizer at all. Nursing asks I look at left leg abrasion possibly from right knee immobilizer. Acetaminophen (Tylenol Tab*) 650 mg PO Q6H PRN PRN Reason: FEVER/PAIN Albuterol (Ventolin 2.5 Mg/3 Ml Neb.Susy*) 2.5 mg INH Q4H PRN PRN Reason: SOB/WHEEZING Aspirin (Aspirin Low Dose Tab*) 81 mg PO DAILY [facility] Last Admin: 08/01/17 08:52 Dose: 81 mg Atorvastatin Calcium (Lipitor*) 80 mg PO 1700 [facility] Last Admin: 07/31/17 17:20 Dose: 80 mg Clopidogrel Bisulfate (Plavix Tab*) 75 mg PO DAILY [facility] Last Admin: 08/01/17 08:52 Dose: 75 mg Dextrose (D50w Syringe 50 Ml*) 12.5 gm IV PUSH .FOR FS < 60 - SS PRN PRN Reason: FS < 60 Docusate Sodium (Colace Cap*) 100 mg PO BID PRN PRN Reason: CONSTIPATION Ferrous Sulfate (Ferrous Sulfate Tab*) 325 mg PO DAILY [facility] Last Admin: 08/01/17 08:52 Dose: 325 mg Heparin Sodium (Porcine) (Heparin Vial(*)) 5,000 units SUBCUT Q8HR [facility] Last Admin: 08/01/17 04:56 Dose: 5,000 units Insulin Glargine (Lantus(*)) 5 units SUBCUT Q24H [facility] Last Admin: 07/31/17 18:33 Dose: 5 unit Insulin Human Lispro (Humalog*) 0 - 10 units SUBCUT ACHS [facility] PRN Reason: Protocol Last Admin: 08/01/17 07:41 Dose: Not Given Insulin Human Lispro (Humalog*) 0 - 20 units SUBCUT AC [facility] PRN Reason: Protocol Last Admin: 08/01/17 08:53 Dose: 5 units Lorazepam (Ativan Tab(*)) 0.5 mg PO Q6H PRN PRN Reason: ANXIETY Last Admin: 08/01/17 09:53 Dose: 0.5 mg Magnesium Hydroxide (Milk Of Magnesia Liq*) 30 ml PO Q6H PRN PRN Reason: CONSTIPATION Metoprolol Succinate (Toprol Xl Tab*) 50 mg PO DAILY [facility] Last Admin: 08/01/17 08:52 Dose: 50 mg Nystatin (Nystatin Top Powder*) 1 applic TOPICAL BID [facility] Last Admin: 08/01/17 08:54 Dose: 1 applic Oxycodone/Acetaminophen (Percocet 5/325 Tab*) 1 tab PO Q4H PRN PRN Reason: PAIN - MODERATE TO SEVERE Senna (Senokot Tab*) 2 tab PO BEDTIME PRN PRN Reason: CONSTIPATION Throat Lozenges (Chloraseptic Nigel*) 1 nigel PO Q6H PRN PRN Reason: COUGH Last Admin: 07/31/17 03:39 Dose: 1 nigel Temp Pulse Resp BP Pulse Ox 99.3 F 89 22 157/69 98 08/01/17 04:54 08/01/17 04:54 08/01/17 09:53 08/01/17 04:54 08/01/17 04:54 Glucose Results Blood Glucose Monitoring POC Start: 07/29/17 11: 40 Freq: ACHS Status: Active Document 07/30/17 11:51 [id number] (Rec: 07/30/17 11:51 [id number] [facility]-M10) Blood Glucose Monitoring POC Glucose Obtained Yes Glucose Result Being Addressed/Treated ( 188 mg/dL) Blood Glucose Method POC Glucose (bedside) Additional Actions Taken Nurse Notified Document 07/31/17 07:30 [id number] (Rec: 07/31/17 11:03 [id number] [facility]-C14) Blood Glucose Monitoring POC Glucose Obtained Yes Glucose Result Being Addressed/Treated ( 145 mg/dL) Blood Glucose Method POC Glucose (bedside) Additional Actions Taken Nurse Notified Document 07/31/17 16:30 [id number] (Rec: 07/31/17 16:45 [id number] [facility]-M10) Blood Glucose Monitoring POC Glucose Obtained Yes Glucose Result Being Addressed/Treated ( 132 mg/dL) Blood Glucose Method POC Glucose (bedside) Additional Actions Taken Nurse Notified Document 07/31/17 21:00 [id number] (Rec: 07/31/17 22:09 [id number]) Blood Glucose Monitoring POC Glucose Obtained Yes Glucose Result Being Addressed/Treated ( 95 mg/dL) Blood Glucose Method POC Glucose (bedside) Additional Actions Taken Nurse Notified Document 08/01/17 07:41 [id number] (Rec: 08/01/17 07:41 [id number]) Blood Glucose Monitoring POC Glucose Obtained Yes Glucose Result Being Addressed/Treated ( 104 mg/dL) Blood Glucose Method POC Glucose (bedside) PE: Gen: no acute distress. Alert and appropriate. Lungs: clear bilaterally. CV: regular rate and rhythm Abd: + bowel sounds. soft, non-tender, non-distended. Ext: No left leg edema. Right BKA in knee immobilizer and kevin wrapped. Skin: Left medial left with less than pea size blister and patch of abrasion with erythema, scant weeping. 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 1. Right BKA: PT/OT. Try to increase endurance. Knee immobilizer AAT. Video Production Engineer when ready. 2. Diabetes: Continue Lantus/Lispro. 3. Yeast: Nystatin powder 4. Asthma: Albuterol Nebs prn. 5. DVT Prophylaxis: Heparin SQ 6. Analgesia: Percocet PRN 7. Left leg abrasion: telfa and kerlix to left leg dressing change bid. Nurses advised to protect from right knee immobilizer (may need pillow between legs). 8. Loose stools: Bowel meds are prn. I will ask for nutrition consult to see him and consider helping him with more fiber in diet. Could add metamucil for bulking. 9. Advanced Directives: Full code. Dr. Carissa Nicolas is hcp [place]).
[2017-08-01] MEDS: Insulin GLARGINE(*) 1 UNITS UNIT SUBCUT SCH (17:59)
[2017-08-01] MEDS: Atorvastatin* 80 MG TAB PO SCH (18:01)
[2017-08-02] MEDS: Heparin VIAL(*) 5000 UNITS/ML VIAL (FIVE THOUSAND) SUBCUT SCH ×3 (05:15→21:26)
[2017-08-02] MEDS: Insulin LISPRO* 1 UNITS UNIT SUBCUT SCH ×7 (08:38→22:35)
[2017-08-02] MEDS ORDERED: Influenza VAC *QUAD* 2017-18* 0.5 ML SYRINGE IM ONE (09:00)
[2017-08-02] MEDS: Aspirin Low Dose CHEW TAB* 81 MG PO SCH (09:31)
[2017-08-02] MEDS: Clopidogrel TAB* 75 MG PO SCH (09:31)
[2017-08-02] MEDS: Ferrous Sulfate TAB* 325 MG PO SCH (09:31)
[2017-08-02] MEDS: Nystatin TOP POWDER* 15 GM BTL TOPICAL SCH ×2 (09:31→21:26)
[2017-08-02] MEDS: LORazepam TAB(*) 0.5 MG PO PRN (09:35)
[2017-08-02] MEDS: Metoprolol Succinate XL TAB* 50 MG PO SCH (10:29)
--- NOTE | 2017-08-02 11:07 | PN ---
Progress Note - Progress Note Date of Service: 08/02/17 - ] Note: Patient visited. Nursing and therapy notes reviewed. Still having loose stool yet it has been 2 days since he last had glucerna. He feels like he is doing better. No chest pain, shortness of breath or abdominal pain. Acetaminophen (Tylenol Tab*) 650 mg PO Q6H PRN PRN Reason: FEVER/PAIN Albuterol (Ventolin 2.5 Mg/3 Ml Neb.Susy*) 2.5 mg INH Q4H PRN PRN Reason: SOB/WHEEZING Aspirin (Aspirin Low Dose Tab*) 81 mg PO DAILY [facility] Last Admin: 08/02/17 09:31 Dose: 81 mg Atorvastatin Calcium (Lipitor*) 80 mg PO 1700 [facility] Last Admin: 08/01/17 18:01 Dose: 80 mg Clopidogrel Bisulfate (Plavix Tab*) 75 mg PO DAILY [facility] Last Admin: 08/02/17 09:31 Dose: 75 mg Dextrose (D50w Syringe 50 Ml*) 12.5 gm IV PUSH .FOR FS < 60 - SS PRN PRN Reason: FS < 60 Docusate Sodium (Colace Cap*) 100 mg PO BID PRN PRN Reason: CONSTIPATION Ferrous Sulfate (Ferrous Sulfate Tab*) 325 mg PO DAILY [facility] Last Admin: 08/02/17 09:31 Dose: 325 mg Heparin Sodium (Porcine) (Heparin Vial(*)) 5,000 units SUBCUT Q8HR [facility] Last Admin: 08/02/17 05:15 Dose: 5,000 units Insulin Glargine (Lantus(*)) 5 units SUBCUT Q24H [facility] Last Admin: 08/01/17 17:59 Dose: 5 unit Insulin Human Lispro (Humalog*) 0 - 10 units SUBCUT ACHS [facility] PRN Reason: Protocol Last Admin: 08/02/17 08:38 Dose: Not Given Insulin Human Lispro (Humalog*) 0 - 20 units SUBCUT AC [facility] PRN Reason: Protocol Last Admin: 08/02/17 09:32 Dose: 5 units Lorazepam (Ativan Tab(*)) 0.5 mg PO Q6H PRN PRN Reason: ANXIETY Last Admin: 08/02/17 09:35 Dose: 0.5 mg Magnesium Hydroxide (Milk Of Magnesia Liq*) 30 ml PO Q6H PRN PRN Reason: CONSTIPATION Metoprolol Succinate (Toprol Xl Tab*) 50 mg PO DAILY [facility] Last Admin: 08/02/17 10:29 Dose: 50 mg Nystatin (Nystatin Top Powder*) 1 applic TOPICAL BID [facility] Last Admin: 08/02/17 09:31 Dose: 1 applic Oxycodone/Acetaminophen (Percocet 5/325 Tab*) 1 tab PO Q4H PRN PRN Reason: PAIN - MODERATE TO SEVERE Senna (Senokot Tab*) 2 tab PO BEDTIME PRN PRN Reason: CONSTIPATION Throat Lozenges (Chloraseptic Suni*) 1 suni PO Q6H PRN PRN Reason: COUGH Last Admin: 07/31/17 03:39 Dose: 1 suni Temp Pulse Resp BP Pulse Ox 98.3 F 81 20 144/76 95 08/02/17 05:13 08/02/17 05:13 08/02/17 09:35 08/02/17 05:13 08/02/17 10:48 Glucose Results Blood Glucose Monitoring POC Start: 07/29/17 11: 40 Freq: ACHS Status: Active Document 07/31/17 16:30 [id number] (Rec: 07/31/17 16:45 [id number] [place] [id number]) Blood Glucose Monitoring POC Glucose Obtained Yes Glucose Result Being Addressed/Treated ( 132 mg/dL) Blood Glucose Method POC Glucose (bedside) Additional Actions Taken Nurse Notified Document 07/31/17 21:00 [id number] (Rec: 07/31/17 22:09 [id number] [facility] [place]) Blood Glucose Monitoring POC Glucose Obtained Yes Glucose Result Being Addressed/Treated ( 95 mg/dL) Blood Glucose Method POC Glucose (bedside) Additional Actions Taken Nurse Notified Document 08/01/17 07:41 [id number] (Rec: 08/01/17 07:41 [id number] [facility]-1) Blood Glucose Monitoring POC Glucose Obtained Yes Glucose Result Being Addressed/Treated ( 104 mg/dL) Blood Glucose Method POC Glucose (bedside) Document 08/01/17 12:08 [id number] (Rec: 08/01/17 12:08 [id number] [facility]-1) Blood Glucose Monitoring POC Glucose Obtained Yes Glucose Result Being Addressed/Treated ( 118 mg/dL) Blood Glucose Method POC Glucose (bedside) Document 08/01/17 17:00 [id number] (Rec: 08/01/17 19:36 [id number]) Blood Glucose Monitoring POC Glucose Obtained Yes Glucose Result Being Addressed/Treated ( 110 mg/dL) Blood Glucose Method POC Glucose (bedside) Additional Actions Taken Nurse Notified Document 08/01/17 21:00 [id number] (Rec: 08/01/17 22:03 [id number]) Blood Glucose Monitoring POC Glucose Obtained Yes Glucose Result Being Addressed/Treated ( 81 mg/dL) Blood Glucose Method POC Glucose (bedside) Additional Actions Taken PO Snack Document 08/02/17 07:35 [id number] (Rec: 08/02/17 07:35 [id number]) Blood Glucose Monitoring POC Glucose Obtained Yes Glucose Result Being Addressed/Treated ( 74 mg/dL) Blood Glucose Method POC Glucose (bedside) PE: Gen: no acute distress. Alert and appropriate. Lungs: clear bilaterally. CV: regular rate and rhythm Abd: + bowel sounds. soft, non-tender, non-distended. Ext: No left leg edema. Right BKA incision with sutures. Mild blanchable surrounding erythema. No drainage. Skin: Left medial leg with resolved blister and patch of erythema. No weeping today and looks a bit better. 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 1. Right BKA: PT/OT. Try to increase endurance. Knee immobilizer AAT. Technical Training Coordinator when ready. Monitor incision for healing. 2. Diabetes: Continue Lantus/Lispro. 3. Yeast: Nystatin powder 4. Asthma: Albuterol Nebs prn. 5. DVT Prophylaxis: Heparin SQ 6. Analgesia: Percocet PRN 7. Left leg abrasion: continue telfa and kerlix to left leg dressing change bid. Nurses advised to protect from right knee immobilizer (may need pillow between legs). 8. Loose stools: Bowel meds are prn. I ordered nutrition consult to see him and consider helping him with more fiber in diet. He was seen but only diabetes addressed. Will add culturelle. Could add metamucil for bulking. 9. Advanced Directives: Full code. Dr. Carissa Nicolas is hcp ([phone] [place]).
[2017-08-02] MEDS: Lactobacillus Acidophilu (GG)* 1 CAP CAP PO SCH ×2 (12:08→21:26)
[2017-08-02] MEDS: Insulin GLARGINE(*) 1 UNITS UNIT SUBCUT SCH (18:21)
[2017-08-02] MEDS: Atorvastatin* 80 MG TAB PO SCH (18:22)
[2017-08-03] MEDS: Heparin VIAL(*) 5000 UNITS/ML VIAL (FIVE THOUSAND) SUBCUT SCH ×3 (05:53→21:26)
[2017-08-03] MEDS: Insulin LISPRO* 1 UNITS UNIT SUBCUT SCH ×5 (07:52→21:25)
[2017-08-03] MEDS: Clopidogrel TAB* 75 MG PO SCH (09:36)
[2017-08-03] MEDS: Metoprolol Succinate XL TAB* 50 MG PO SCH (09:36)
[2017-08-03] MEDS: Aspirin Low Dose CHEW TAB* 81 MG PO SCH (09:37)
[2017-08-03] MEDS: Ferrous Sulfate TAB* 325 MG PO SCH (09:37)
[2017-08-03] MEDS: Lactobacillus Acidophilu (GG)* 1 CAP CAP PO SCH ×2 (09:37→21:26)
[2017-08-03] MEDS: Nystatin TOP POWDER* 15 GM BTL TOPICAL SCH ×2 (09:38→21:25)
--- NOTE | 2017-08-03 11:28 | PN ---
Progress Note - Progress Note Date of Service: 08/03/17 Note: Patient visited. Therapy and nursing notes reviewed. I noted glucose levels have been normal except for once at 125. Patient states at home he just used 20u of glargine (prior to last 2 hospital stays and [facility]). No chest pain, shortness of breath or abdominal pain. Started culturelle. Temp Pulse Resp BP Pulse Ox 98.6 F 85 28 125/64 96 08/03/17 05:48 08/03/17 05:48 08/03/17 05:48 08/03/17 05:48 08/03/17 05:48 Laboratory Results - last 24 hr 08/02/17 08/02/17 08/02/17 11:32 16:46 20:11 POC Glucose (mg/dL) 88 83 125 H 08/03/17 07:45 POC Glucose (mg/dL) 99 PE: Gen: no acute distress. Alert and appropriate. Lungs: clear bilaterally. Not tachypneic on my eval. Rate of 16. CV: regular rate and rhythm Abd: + bowel sounds. soft, non-tender, non-distended. Ext: No left leg edema. Right BKA incision with sutures. Mild blanchable surrounding erythema less than yesterday. No drainage. Skin: Left medial leg with less erythema. There is just 1 small area about 1cm x 0.5cm of denuded skin which looks benign. It all looks better. 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 1. Right BKA: PT/OT. Try to increase endurance. Knee immobilizer AAT. Mushroom Laborer when ready. Monitor incision for healing. 2. Diabetes: Continue Lantus 5mg qday. I am going to d/c the lispro carb counting and just use lispro sliding scale. Goal will be to get back to just a once daily dose of lantus. I expect his insulin needs had decreased post- amputation and clearance of infection. 3. Yeast: Nystatin powder 4. Asthma: Albuterol Nebs prn. 5. DVT Prophylaxis: Heparin SQ 6. Analgesia: Percocet PRN 7. Left leg abrasion: continue telfa and kerlix to left leg dressing change bid. Nurses advised to protect from right knee immobilizer (may need pillow between legs). 8. Loose stools: Bowel meds are prn. Continue culturelle and assess results. [employer] Manager also stated could add metamucil for bulking and does not think it is from glucerna which he has stopped drinking. If culturelle is not enough will add metamucil. 9. Advanced Directives: Full code. Dr. Carissa Nicolas is hcp ([phone] [place]).
[2017-08-03] MEDS: Atorvastatin* 80 MG TAB PO SCH (17:28)
[2017-08-03] MEDS: Insulin GLARGINE(*) 1 UNITS UNIT SUBCUT SCH (17:29)
[2017-08-03] MEDS ORDERED: Loperamide CAP* 2 MG PO ONE (22:00)
[2017-08-04] MEDS: Heparin VIAL(*) 5000 UNITS/ML VIAL (FIVE THOUSAND) SUBCUT SCH ×3 (06:09→21:20)
[2017-08-04] MEDS: Insulin LISPRO* 1 UNITS UNIT SUBCUT SCH ×4 (08:19→21:19)
[2017-08-04] MEDS: Nystatin TOP POWDER* 15 GM BTL TOPICAL SCH ×2 (08:45→22:28)
[2017-08-04] MEDS: Clopidogrel TAB* 75 MG PO SCH (08:46)
[2017-08-04] MEDS: Metoprolol Succinate XL TAB* 50 MG PO SCH (08:46)
[2017-08-04] MEDS: Lactobacillus Acidophilu (GG)* 1 CAP CAP PO SCH ×2 (08:46→21:20)
[2017-08-04] MEDS: Aspirin Low Dose CHEW TAB* 81 MG PO SCH (08:46)
[2017-08-04] MEDS: Ferrous Sulfate TAB* 325 MG PO SCH (08:46)
[2017-08-04] MEDS: Insulin GLARGINE(*) 1 UNITS UNIT SUBCUT SCH (17:23)
[2017-08-04] MEDS: Atorvastatin* 80 MG TAB PO SCH (17:23)
--- NOTE | 2017-08-04 17:31 | PN ---
Progress Note - Progress Note Date of Service: 08/04/17 Note: Ramon visited. His therapy notes were read and reviewed. He was able to sit unsupported on the mat, and is making some progress with endurance. He believes he is getting diarrhea from Glucerna so we will switch to Ensure and follow blood sugars. He has an area of erythema on his distal left leg from irritation of the knee immobilizer. Current Medications Acetaminophen (Tylenol Tab*) 650 mg PO Q6H PRN PRN Reason: FEVER/PAIN Albuterol (Ventolin 2.5 Mg/3 Ml Neb.Susy*) 2.5 mg INH Q4H PRN PRN Reason: SOB/WHEEZING Aspirin (Aspirin Low Dose Tab*) 81 mg PO DAILY [facility] Last Admin: 08/04/17 08:46 Dose: 81 mg Atorvastatin Calcium (Lipitor*) 80 mg PO 1700 [facility] Last Admin: 08/04/17 17:23 Dose: 80 mg Clopidogrel Bisulfate (Plavix Tab*) 75 mg PO DAILY [facility] Last Admin: 08/04/17 08:46 Dose: 75 mg Dextrose (D50w Syringe 50 Ml*) 12.5 gm IV PUSH .FOR FS < 60 - SS PRN PRN Reason: FS < 60 Docusate Sodium (Colace Cap*) 100 mg PO BID PRN PRN Reason: CONSTIPATION Ferrous Sulfate (Ferrous Sulfate Tab*) 325 mg PO DAILY [facility] Last Admin: 08/04/17 08:46 Dose: 325 mg Heparin Sodium (Porcine) (Heparin Vial(*)) 5,000 units SUBCUT Q8HR [facility] Last Admin: 08/04/17 13:49 Dose: 5,000 units Insulin Glargine (Lantus(*)) 5 units SUBCUT Q24H [facility] Last Admin: 08/04/17 17:23 Dose: 5 unit Insulin Human Lispro (Humalog*) 0 - 10 units SUBCUT ACHS [facility] PRN Reason: Protocol Last Admin: 08/04/17 16:47 Dose: Not Given Lactobacillus Rhamnosus (Culturelle*) 1 cap PO BID [facility] Last Admin: 08/04/17 08:46 Dose: 1 cap Lorazepam (Ativan Tab(*)) 0.5 mg PO Q6H PRN PRN Reason: ANXIETY Last Admin: 08/02/17 09:35 Dose: 0.5 mg Magnesium Hydroxide (Milk Of Magnesia Liq*) 30 ml PO Q6H PRN PRN Reason: CONSTIPATION Metoprolol Succinate (Toprol Xl Tab*) 50 mg PO DAILY [facility] Last Admin: 08/04/17 08:46 Dose: 50 mg Nystatin (Nystatin Top Powder*) 1 applic TOPICAL BID [facility] Last Admin: 08/04/17 08:45 Dose: 1 applic Oxycodone/Acetaminophen (Percocet 5/325 Tab*) 1 tab PO Q4H PRN PRN Reason: PAIN - MODERATE TO SEVERE Senna (Senokot Tab*) 2 tab PO BEDTIME PRN PRN Reason: CONSTIPATION Throat Lozenges (Chloraseptic Suni*) 1 suni PO Q6H PRN PRN Reason: COUGH Last Admin: 07/31/17 03:39 Dose: 1 suni Glucose Results Blood Glucose Monitoring POC Start: 07/29/17 11: 40 Freq: ACHS Status: Active Document 08/03/17 16:48 [id number] (Rec: 08/03/17 16:48 [id number]) Blood Glucose Monitoring POC Glucose Obtained Yes Glucose Result Being Addressed/Treated ( 139 mg/dL) Blood Glucose Method POC Glucose (bedside) Document 08/03/17 21:00 [id number] (Rec: 08/03/17 21:31 [id number] [facility]-C14) Blood Glucose Monitoring POC Glucose Obtained Yes Glucose Result Being Addressed/Treated ( 171 mg/dL) Blood Glucose Method POC Glucose (bedside) Document 08/04/17 07:30 [id number] (Rec: 08/04/17 11:52 [id number] [facility]-C14) Blood Glucose Monitoring POC Glucose Obtained Yes Glucose Result Being Addressed/Treated ( 92 mg/dL) Blood Glucose Method POC Glucose (bedside) Additional Actions Taken Nurse Notified Document 08/04/17 16:30 [id number] (Rec: 08/04/17 16:47 [id number]) Blood Glucose Monitoring POC Glucose Obtained Yes Glucose Result Being Addressed/Treated ( 119 mg/dL) Blood Glucose Method POC Glucose (bedside) Vital Signs Temp Pulse Resp BP Pulse Ox 97.7 F 72 20 130/66 98 08/04/17 15:05 08/04/17 15:05 08/04/17 15:05 08/04/17 15:05 08/04/17 15:05 EXAM: LUNGS: CTA HEART: Reg rhythm, S1, S2 ABDOMEN: Soft EXTREMITIES: Right BKA. Left distal erythema ASSESSMENT/PLAN: 1. Right BKA: PT/OT. Try to increase endurance. Knee immobilizer AAT. Will try to arrange for [facility] specialists. 2. Diabetes: Continue Lantus/Lispro. 3. Yeast: Nystatin powder 4. Asthma: Albuterol Nebs. Encouraged nursing staff to use if needed 5. DVT Prophylaxis: Heparin SQ 6. Analgesia: Percocet PRN 7. Full code 8. Diarrhea: D/C glucerna. May need Immodium. On Culturelle, seems better today
[2017-08-05] MEDS: Heparin VIAL(*) 5000 UNITS/ML VIAL (FIVE THOUSAND) SUBCUT SCH ×3 (05:06→20:50)
[2017-08-05] MEDS: Insulin LISPRO* 1 UNITS UNIT SUBCUT SCH ×4 (07:30→20:44)
[2017-08-05] MEDS: Metoprolol Succinate XL TAB* 50 MG PO SCH (09:15)
[2017-08-05] MEDS: Lactobacillus Acidophilu (GG)* 1 CAP CAP PO SCH ×2 (09:15→20:44)
[2017-08-05] MEDS: Aspirin Low Dose CHEW TAB* 81 MG PO SCH (09:16)
[2017-08-05] MEDS: Clopidogrel TAB* 75 MG PO SCH (09:16)
[2017-08-05] MEDS: Nystatin TOP POWDER* 15 GM BTL TOPICAL SCH ×2 (09:16→20:44)
[2017-08-05] MEDS: Ferrous Sulfate TAB* 325 MG PO SCH (09:16)
--- NOTE | 2017-08-05 12:41 | PMRUTEAM ---
PMRU: Goals Current Status: Nursing: Current Status Skin Deviations [RLQ] Other Skin Deviations [Left Arm] Other Skin Deviations [Right Hand] Abrasion Skin Deviations [Right Elbow] Abrasion Skin Deviations [Right Lower Incision Leg] Skin Deviations [Groin] Rash Skin Deviations [Coccyx] Wound Skin Deviations [Left Lower Abrasion Leg] Skin Deviations [Right Knee] Incision Skin Deviation Description [ drsg intact RLQ] Skin Deviation Description [ antebub has round yeasty rash noted Left Arm] Skin Deviation Description [ tegaderm intact Right Hand] Skin Deviation Description [ tegaderm intact Right Elbow] Skin Deviation Description [ stump drsg intact Right Lower Leg] Skin Deviation Description [ nystatin ordered for HS Groin] Skin Deviation Description [ pink- t&p , air mattress, cream applied, incont Coccyx] care provided prn Skin Deviation Description [ drsg intact Left Lower Leg] Skin Deviation Description [ Knee immobilizer in place Right Knee] Bladder Current Status using urinal. sometimes spills it Bowel Current Status imodium for loose stool Nutrition Current Status appetite good Medication Current Status needs reinforcement. no pain meds given Physical Therapy: Current Status Bed Mobility Assistance Not Tested Transfer Moblility Assistance Mod Assist,Max Assist,2 or More Person Assist Transfer/Bed Mobility Kulwant Lift,Slide Board Recommended Devices Ambulation Assistance Unable Ambulation Assistive Devices Rolling Walker Manual Wheelchair Control/ Bilateral UE's Technique Wheelchair Propulsion Ability Minimum Assistance Wheelchair Distance (ft) 80 Objective Comments Pt has difficulty with turns in wheelchair. Occupational Therapy: Current Status Upper Body Dressing Mod Assist Upper Body Dressing Progress pt requires Marla to doff, modA to don shirt overhead Lower Body Dressing Total Assist,2 Person Assist Lower Body Dressing Progress rolling left and right in supine Bathing Mod Assist,2 Person Assist Bathing Progress pt washes Breezy UE, chest, abdomen, front perineal area, 2 assist for rolling Toileting Total Assist,2 Person Assist Toileting Progress in supine, assist to place urinal Toilet Transfer Total Assist Toilet Transfer Progress KULWANT lift for transfers Shower Transfer Total Assist Shower Transfer Progress KULWANT to w/c to roll in shower Eating Supervision Eating Progress requires assist for opening containers, cutting food prn Instrumental ADL totalA Rec Therapy: Current Status Summary of Assessment and RT assessment complete, pt. is aware of RT Clinical Impression services. Pt. is very engaged in leisure visits. Treatment Goals Pt. will engage in leisure activities prior to admission. Treatment Plan Provide RT services and encourage involvement. Social Work: Current Status Discharge Plan return home with home care svs and support from friends Potential for Family Training pt's friend [place] is involved and supportive Anticipated Discharge Home Destination Discharge With home care svs and support from friends Nutrition: Current Status Monitoring po intake has been variable, but avg ~65% of meals (consistent carb diet w/mech soft textures). Supplemented w/Glucerna Shakes, which he requested be d/c'd, as he believes they are contributing to diarrhea and bowel incontinence. Changed to Ensure Enlive. BG controlled in [id number]; notably improved since 07/29-07/30. Culturelle started 08/02; Imodium d/c'd 08/03 (date of last BM) . If diarrhea persists, suggest consider Metamucil once/day (2 tsp/8 oz water) and monitor for improvement. Goals: Physical Therapy: Initial Goals Bed Mobility Assistance Independent Transfer Mobility Assistance Independent Transfer/Bed Mobility Rolling Walker Recommended Devices Wheelchair Propulsion Ability Independent Wheelchair Distance (ft) 150 Physical Therapy: Updated Goals Transfer/Bed Mobility Kulwant Lift Recommended Devices Occupational Therapy: Initial Goals Goals to be Completed in (Days 21 days ) Upper Body Bathing Routine Independent Lower Body Bathing Routine Modified Independent with Upper Body Dressing Routine Independent Lower Body Dressing Routine Modified Independent with Toilet Hygeine and Clothing Modified Independent with Management Routine Toilet Transfer Routine Modified Independent with Step-In Shower Transfer Modified Independent with Routine Functional Transfers for ADL Modified Independent with Grooming Routine Independent Feeding Routine Independent Nursing: Goals Bladder Goal independent Bowel Goal independent Nutrition Goal 100% of all meals Medication Goal independent Nutrition: Goals Intervention Goals 1. Intake will be adequate to maintain stable wt and lean body mass 2. Pt will establish regular bowel pattern without diarrhea 3. BG will be adequately controlled per inpt parameters Social Work: Goals Discharge Plan return home with home care svs and support from friends Potential for Family Training pt's friend [place] is involved and supportive Anticipated Discharge Home Destination Discharge With home care svs and support from friends Care Plan: Care Plan ADL's - Improve/Maintain Start: 07/31/17 13:15 Freq: DAILY Status: Active Target: Activity Type Activity Date Activity User E-Sign Co-Sign Detail Recorded Client Recorded Date Recorded By Document 08/05/17 11:03 [id number] 08/05/17 11:03 [id number] 08/05/17 11:03 PMRU Outcome: ADL's/ADL Transfers Orders/Interventions Occupational Therapy Evaluation & Treatment Communication Tool in Patient Room Device Yes Address Deficits Secondary To: Right BKA Patient to receive OT 5x/wk for 60-120 Therex min/day Self Care Management Group Therapy UE/LE ADL's with Assist Yes: Rosalia ADL Transfers with Assist Yes: Rosalia Toileting: Transfers,Clothing Management Yes: Rosalia ,Hygeine w/Assist Light Kitchen/Laundry w/Assist No Progression Toward Outcome/Goals Not Progressing Outcome/Goals Met Pt pleasant and cooperative, although requires cues for motivation to increase effort with completion of ADL routine. Pt continues to require significant assistance for completion of ADLs and continues to report anxiety/ fear of falling with transfers . [ End ] Cardiovascular- Improve/Maintain Start: 07/30/17 14:38 Freq: DAILY Status: Active Target: Activity Type Activity Date Activity User E-Sign Co-Sign Detail Recorded Client Recorded Date Recorded By Document 08/05/17 09:00 [id number] 08/05/17 11:04 [id number] 08/05/17 09:00 PMRU Outcome: Cardiovascular Vital Signs q Shift for 48hrs Then BID Yes Daily Weight Ordered No Current Cardiovascular Outcome/Goal Maintain/ Achieve Baseline HR, BP , Perfusion Progression Toward Outcome/Goal Progressing Outcome/Goals Met Comment compliant with cardiac meds Coping/Psych-Improve/Maintain Start: 07/30/17 14:38 Freq: DAILY Status: Active Target: Activity Type Activity Date Activity User E-Sign Co-Sign Detail Recorded Client Recorded Date Recorded By Document 08/05/17 09:00 [id number] 08/05/17 11:04 [id number] 08/05/17 09:00 PMRU Outcome: Coping/Psychosocial Coping Outcome/Goals Verbalization of Acceptance of Rehab Admit Verbalization of Sense of Control Over Health Status Utilization of Appropriate Problem Solving Techniques Willingness to Participate in Treatment Plan and Basic Needs Utilization of Available Support Systems Psychosocial Outcome/Goals Maintain/ Improve Emotional Health Demonstrates Knowledge of Healthy Coping Mechanisms Available Cooperate/ Participate in Plan Other Outcome/Goals some statements indicate depression Progression Toward Outcome/Goals - Not Progressing Coping Progression Toward Outcome/Goals - Not Progressing Psychosocial Outcome/Goals Met Comment some statements indicate depression, can exhibit some acts of anxiety DVT Prophylaxis- Improve/Maintain Start: 07/30/17 14:38 Freq: DAILY Status: Active Target: Activity Type Activity Date Activity User E-Sign Co-Sign Detail Recorded Client Recorded Date Recorded By Document 08/05/17 09:00 [id number] 08/05/17 11:04 [id number] 08/05/17 09:00 PMRU Outcome: DVT Prophylaxis Outcome/Goals Remains Free of DVT Complies with DVT Prophylaxis /Treatment Demonstrates Knowledge of DVT Prevention/ Treatment TEDS Stockings on Every AM, Off at HS Progression Toward Outcome/Goals Progressing Discharge Planning - Improve/Maintain Start: 07/30/17 14:38 Freq: DAILY Status: Active Target: Activity Type Activity Date Activity User E-Sign Co-Sign Detail Recorded Client Recorded Date Recorded By Document 08/05/17 00:53 [id number] 08/05/17 00:54 [id number] 08/05/17 00:53 PMRU Outcome: Discharge Planning Identify Patient Needs yes Update Patient Family No Outcome/Goals Demonstrates Understanding of Discharge Plan Progression Toward Outcome/Goals Progressing Education-Improve/Maintain Start: 07/30/17 14:38 Freq: DAILY Status: Active Target: Activity Type Activity Date Activity User E-Sign Co-Sign Detail Recorded Client Recorded Date Recorded By Document 08/05/17 09:00 [id number] 08/05/17 11:04 [id number] 08/05/17 09:00 PMRU Outcome: Education Outcome/Goals Demonstrate/ Verbalize Understanding of Written Discharge Instructions Encourage Questions Progression Toward Outcome/Goals Progressing /GI-Improve/Maintain Start: 07/30/17 14:38 Freq: DAILY Status: Active Target: Activity Type Activity Date Activity User E-Sign Co-Sign Detail Recorded Client Recorded Date Recorded By Document 08/05/17 09:00 [id number] 08/05/17 11:04 [id number] 08/05/17 09:00 PMRU Outcome: Genitourinary/ Gastrointestinal Genitourinary- Outcome/Goals Maintain/ Achieve Urinary Continence Remain Free of Hospital- Acquired UTI Gastrointestinal-Outcome/Goals Maintain/ Achieve Bowel Regularity in Accordance with Pt's Baseline Remain Free of Emesis Prevent Constipation Laxatives as Ordered Progression Toward Outcome/Goals - Not Progressing Progression Toward Outcome/Goals - GI Not Progressing Medication Administration Start: 07/30/17 14:38 Freq: DAILY Status: Active Target: Activity Type Activity Date Activity User E-Sign Co-Sign Detail Recorded Client Recorded Date Recorded By Document 08/05/17 09:00 [id number] 08/05/17 11:04 [id number] 08/05/17 09:00 PMRU Outcome: Medication Administration Assess Patient Knowledge/Teach Med Yes Education for all Meds Outcome/Goals Demonstrates Understanding Progression Towards Outcome/Goals Progressing Is Patient Going Home on Lovenox? No Metabolic Status- Improve/Maintain Start: 07/30/17 14:38 Freq: DAILY Status: Active Target: Activity Type Activity Date Activity User E-Sign Co-Sign Detail Recorded Client Recorded Date Recorded By Document 08/05/17 09:00 [id number] 08/05/17 11:04 [id number] 08/05/17 09:00 PMRU Outcome: Metabolic Status Have Fingersticks Been Ordered Yes Fingerstick Order Frequency AC & HS Outcome/Goals Maintain/ Improve Metabolic Status Demonstrate Knowledge of Prevention/ Treatment of Metabolic Imbalances Progression Toward Outcome/Goals Progressing Mobility- Improve/Maintain Start: 07/29/17 13:51 Freq: DAILY Status: Active Target: Activity Type Activity Date Activity User E-Sign Co-Sign Detail Recorded Client Recorded Date Recorded By Document 08/04/17 13:48 [id number] 08/04/17 13:48 [id number] 08/04/17 13:48 PMRU Outcome: Mobility Physical Therapy Evaluation and Yes Treatment Activity OOB with Assistance Yes NWB Yes: RLE Device Yes Assistance Yes Patient to be seen 5x/wk for 60-120 min/ Therex day for: Mobility Training W/C Mobility Balance Other Therapy Comment Slide board transfers Outcome/Goals Maintain/ Achieve Baseline Mobility Status Improve Mobility Status Demonstrates Proper Use of Assistive Devices Free from Complications of Immobility Other Other Outcome/Goals maintain knee flexion of 0-90 degrees Progression Toward Outcome/Goals Progressing Bed Mobility Yes: independent Transfers Yes: independent with walker and /or slideboard W/C Mobility x ft Yes: independnet 150 ' with BUE and LLE Pain/Comfort- Improve/Maintain Start: 07/30/17 14:38 Freq: DAILY Status: Active Target: Activity Type Activity Date Activity User E-Sign Co-Sign Detail Recorded Client Recorded Date Recorded By Document 08/05/17 09:00 [id number] 08/05/17 11:04 [id number] 08/05/17 09:00 PMRU Outcome: Pain/Comfort Outcome/Goals Demonstrates Knowledge and Use of Available Comfort Measures Achieves Acceptable Comfort/Pain Level as Determined by Patient/Condit Maintain Comfort Level Allowing Patient to Fully Participate in Rehab Progression Toward Outcome/Goals Progressing Outcome/Goals Met Comment pt denies pain Respiratory - Improve/Maintain Start: 07/30/17 14:38 Freq: DAILY Status: Active Target: Activity Type Activity Date Activity User E-Sign Co-Sign Detail Recorded Client Recorded Date Recorded By Document 08/05/17 09:00 [id number] 08/05/17 11:04 [id number] 08/05/17 09:00 PMRU Outcome: Respiratory Does Patient Have a Trach No Outcome/Goals Maintain/ Improve Baseline Respiratory Status Maintain/ Improve Activity Tolerance Prevent Pneumonia/ Atelectasis Progression Toward Outcome/Goals Progressing Safety- Improve/Maintain Start: 07/30/17 14:38 Freq: DAILY Status: Active Target: Activity Type Activity Date Activity User E-Sign Co-Sign Detail Recorded Client Recorded Date Recorded By Document 08/05/17 09:00 [id number] 08/05/17 11:04 [id number] 08/05/17 09:00 PMRU Outcome: Safety Outcome/Goals Remain Free of Injury or Harm Cooperates with Safety Measures for Least Restrictive Environment Prevent Falls/ Injury Progression Toward Outcome/Goals Progressing Outcome/Goals Met Comment ringing appropriately Skin- Improve/Maintain Start: 07/30/17 14:38 Freq: DAILY Status: Active Target: Activity Type Activity Date Activity User E-Sign Co-Sign Detail Recorded Client Recorded Date Recorded By Document 08/05/17 09:00 [id number] 08/05/17 11:04 [id number] 08/05/17 09:00 PMRU Outcome: Skin Skin Risk Level Medium Skin Orders Dressing Change Teach Patient Air Mattress Spenco Boots Heels Off Bed Turn/Position q2hr While in Bed Outcome/Goals Maintain/ Improve Skin Intergrity Free from Decubitus Surgical Incisions Healing Progression Toward Outcome/Goals Progressing Medicine Note: Length of Stay: 2 weeks Anticipated Discharge Destination: Home Tentative Discharge Date: 08/19/17 Discharged to: D
--- NOTE | 2017-08-05 16:25 | PN ---
Progress Note - Progress Note Date of Service: 08/05/17 Note: Ramon was visited. He was discussed in interdisciplinary team rounds. Still requiring a lot of help. Very fearful of falling, and tends to lean back when therapy tries to assist. Current Medications Acetaminophen (Tylenol Tab*) 650 mg PO Q6H PRN PRN Reason: FEVER/PAIN Albuterol (Ventolin 2.5 Mg/3 Ml Neb.Susy*) 2.5 mg INH Q4H PRN PRN Reason: SOB/WHEEZING Aspirin (Aspirin Low Dose Tab*) 81 mg PO DAILY [facility] Last Admin: 08/05/17 09:16 Dose: 81 mg Atorvastatin Calcium (Lipitor*) 80 mg PO 1700 [facility] Last Admin: 08/04/17 17:23 Dose: 80 mg Clopidogrel Bisulfate (Plavix Tab*) 75 mg PO DAILY [facility] Last Admin: 08/05/17 09:16 Dose: 75 mg Dextrose (D50w Syringe 50 Ml*) 12.5 gm IV PUSH .FOR FS < 60 - SS PRN PRN Reason: FS < 60 Docusate Sodium (Colace Cap*) 100 mg PO BID PRN PRN Reason: CONSTIPATION Ferrous Sulfate (Ferrous Sulfate Tab*) 325 mg PO DAILY [facility] Last Admin: 08/05/17 09:16 Dose: 325 mg Heparin Sodium (Porcine) (Heparin Vial(*)) 5,000 units SUBCUT Q8HR [facility] Last Admin: 08/05/17 13:14 Dose: 5,000 units Insulin Glargine (Lantus(*)) 5 units SUBCUT Q24H [facility] Last Admin: 08/04/17 17:23 Dose: 5 unit Insulin Human Lispro (Humalog*) 0 - 10 units SUBCUT ACHS [facility] PRN Reason: Protocol Last Admin: 08/05/17 12:24 Dose: 4 units Lactobacillus Rhamnosus (Culturelle*) 1 cap PO BID [facility] Last Admin: 08/05/17 09:15 Dose: 1 cap Lorazepam (Ativan Tab(*)) 0.5 mg PO Q6H PRN PRN Reason: ANXIETY Last Admin: 08/02/17 09:35 Dose: 0.5 mg Magnesium Hydroxide (Milk Of Magnesia Liq*) 30 ml PO Q6H PRN PRN Reason: CONSTIPATION Metoprolol Succinate (Toprol Xl Tab*) 50 mg PO DAILY [facility] Last Admin: 08/05/17 09:15 Dose: 50 mg Nystatin (Nystatin Top Powder*) 1 applic TOPICAL BID [facility] Last Admin: 08/05/17 09:16 Dose: 1 applic Oxycodone/Acetaminophen (Percocet 5/325 Tab*) 1 tab PO Q4H PRN PRN Reason: PAIN - MODERATE TO SEVERE Senna (Senokot Tab*) 2 tab PO BEDTIME PRN PRN Reason: CONSTIPATION Sertraline HCl (Zoloft*) 25 mg PO DAILY [facility] Throat Lozenges (Chloraseptic Nigel*) 1 nigel PO Q6H PRN PRN Reason: COUGH Last Admin: 07/31/17 03:39 Dose: 1 nigel Glucose Results Blood Glucose Monitoring POC Start: 07/29/17 11: 40 Freq: ACHS Status: Active Blood Glucose Method POC Glucose (bedside) Document 08/04/17 20:52 [id number] (Rec: 08/04/17 20:52 [id number]) Blood Glucose Monitoring POC Glucose Obtained Yes Glucose Result Being Addressed/Treated ( 175 mg/dL) Blood Glucose Method POC Glucose (bedside) Document 08/05/17 07:30 [id number] (Rec: 08/05/17 11:04 [id number]) Blood Glucose Monitoring POC Glucose Obtained Yes Glucose Result Being Addressed/Treated ( 110 mg/dL) Blood Glucose Method POC Glucose (bedside) Additional Actions Taken Nurse Notified Document 08/05/17 11:30 [id number] (Rec: 08/05/17 12:17 [id number]) Blood Glucose Monitoring POC Glucose Obtained Yes Glucose Result Being Addressed/Treated ( 213 mg/dL) Blood Glucose Method POC Glucose (bedside) Additional Actions Taken Nurse Notified EXAM: LUNGS: CTA HEART: Reg rhythm, S1, S2 ABDOMEN: Soft EXTREMITIES: Right BKA. Left distal erythema ASSESSMENT/PLAN: 1. Right BKA: PT/OT. Try to increase endurance. Knee immobilizer AAT. Will try to arrange for supervisor production department. 2. Diabetes: Continue Lantus/Lispro. 3. Yeast: Nystatin powder 4. Asthma: Albuterol Nebs. Encouraged nursing staff to use if needed 5. DVT Prophylaxis: Heparin SQ 6. Analgesia: Percocet PRN 7. Full code 8. Diarrhea: D/C glucerna, now on Ensure. May need Immodium. On Culturelle, seems better today
[2017-08-05] MEDS: Insulin GLARGINE(*) 1 UNITS UNIT SUBCUT SCH (16:51)
[2017-08-05] MEDS: Atorvastatin* 80 MG TAB PO SCH (16:51)
[2017-08-06] MEDS: Heparin VIAL(*) 5000 UNITS/ML VIAL (FIVE THOUSAND) SUBCUT SCH ×3 (05:27→21:14)
[2017-08-06 06:34] LABS: Hematocrit 24 % (42-52); Hemoglobin 8.2 g/dl (14.0-18.0); Mean Corpuscular HGB Conc 34 g/dl (31-36); Mean Corpuscular Hemoglobin 32 pg (27-31); Mean Corpuscular Volume 94 fL (80-94); Mean Platelet Volume 10 um3 (7.4-10.4); Red Blood Count 2.58 10^6/ul (4.0-5.4); Red Cell Distribution Width 15 % (10.5-15); White Blood Count 8.1 10^3/ul (3.5-10.8)
[2017-08-06 06:48] LABS: BUN/Creatinine Ratio 28.1 (8-20); Calcium 7.4 mg/dL (8.6-10.3); EGFR African American 98.2 (>60); EGFR Non-African American 76.4 (>60); Globulin 2.9 g/dL (2-4); Potassium 4.4 mmol/L (3.5-5.0); Total Bilirubin 0.3 mg/dL (0.2-1.0); Total Protein 4.9 g/dL (6.4-8.9)
[2017-08-06] MEDS: Metoprolol Succinate XL TAB* 50 MG PO SCH (07:38)
[2017-08-06] MEDS: Clopidogrel TAB* 75 MG PO SCH (07:38)
[2017-08-06] MEDS: Ferrous Sulfate TAB* 325 MG PO SCH (07:38)
[2017-08-06] MEDS: Lactobacillus Acidophilu (GG)* 1 CAP CAP PO SCH ×2 (07:38→21:14)
[2017-08-06] MEDS: Aspirin Low Dose CHEW TAB* 81 MG PO SCH (07:39)
[2017-08-06] MEDS: Sertraline* 25 MG TAB PO SCH (07:39)
[2017-08-06] MEDS: Insulin LISPRO* 1 UNITS UNIT SUBCUT SCH ×4 (07:40→21:13)
[2017-08-06] MEDS: Nystatin TOP POWDER* 15 GM BTL TOPICAL SCH ×2 (07:41→21:15)
[2017-08-06] MEDS ORDERED: Lisinopril TAB* 5 MG PO SCH (10:00)
--- NOTE | 2017-08-06 13:12 | PN ---
Progress Note - Progress Note Date of Service: 08/06/17 Note: Has not had a bowel movement since the 1 dose of immodium. No chest pain, shortness of breath or abdominal pain. He is congested and coughing. Current Medications Acetaminophen (Tylenol Tab*) 650 mg PO Q6H PRN PRN Reason: FEVER/PAIN Albuterol (Ventolin 2.5 Mg/3 Ml Neb.Susy*) 2.5 mg INH Q4H PRN PRN Reason: SOB/WHEEZING Aspirin (Aspirin Low Dose Tab*) 81 mg PO DAILY [facility] Last Admin: 08/06/17 07:39 Dose: 81 mg Atorvastatin Calcium (Lipitor*) 80 mg PO 1700 [facility] Last Admin: 08/05/17 16:51 Dose: 80 mg Clopidogrel Bisulfate (Plavix Tab*) 75 mg PO DAILY [facility] Last Admin: 08/06/17 07:38 Dose: 75 mg Dextrose (D50w Syringe 50 Ml*) 12.5 gm IV PUSH .FOR FS < 60 - SS PRN PRN Reason: FS < 60 Docusate Sodium (Colace Cap*) 100 mg PO BID PRN PRN Reason: CONSTIPATION Ferrous Sulfate (Ferrous Sulfate Tab*) 325 mg PO DAILY [facility] Last Admin: 08/06/17 07:38 Dose: 325 mg Heparin Sodium (Porcine) (Heparin Vial(*)) 5,000 units SUBCUT Q8HR [facility] Last Admin: 08/06/17 05:27 Dose: 5,000 units Insulin Glargine (Lantus(*)) 5 units SUBCUT Q24H [facility] Last Admin: 08/05/17 16:51 Dose: 5 unit Insulin Human Lispro (Humalog*) 0 - 10 units SUBCUT ACHS [facility] PRN Reason: Protocol Last Admin: 08/06/17 12:13 Dose: 2 units Lactobacillus Rhamnosus (Culturelle*) 1 cap PO BID [facility] Last Admin: 08/06/17 07:38 Dose: 1 cap Lisinopril (Prinivil Tab*) 5 mg PO DAILY [facility] Last Admin: 08/06/17 10:25 Dose: 5 mg Lorazepam (Ativan Tab(*)) 0.5 mg PO Q6H PRN PRN Reason: ANXIETY Last Admin: 08/02/17 09:35 Dose: 0.5 mg Magnesium Hydroxide (Milk Of Magnesia Liq*) 30 ml PO Q6H PRN PRN Reason: CONSTIPATION Metoprolol Succinate (Toprol Xl Tab*) 50 mg PO DAILY [facility] Last Admin: 08/06/17 07:38 Dose: 50 mg Nystatin (Nystatin Top Powder*) 1 applic TOPICAL BID [facility] Last Admin: 08/06/17 07:41 Dose: 1 applic Oxycodone/Acetaminophen (Percocet 5/325 Tab*) 1 tab PO Q4H PRN PRN Reason: PAIN - MODERATE TO SEVERE Senna (Senokot Tab*) 2 tab PO BEDTIME PRN PRN Reason: CONSTIPATION Sertraline HCl (Zoloft*) 25 mg PO DAILY [facility] Last Admin: 08/06/17 07:39 Dose: 25 mg Throat Lozenges (Chloraseptic Suni*) 1 suni PO Q6H PRN PRN Reason: COUGH Last Admin: 07/31/17 03:39 Dose: 1 suni Temp Pulse Resp BP Pulse Ox 99.1 F 98 18 161/68 93 08/06/17 05:24 08/06/17 05:24 08/06/17 05:24 08/06/17 05:24 08/06/17 07:44 Glucose Results Blood Glucose Monitoring POC Start: 07/29/17 11: 40 Freq: ACHS Status: Active Document 08/04/17 16:30 [id number] (Rec: 08/04/17 16:47 [id number] [email or web address] Blood Glucose Monitoring POC Glucose Obtained Yes Glucose Result Being Addressed/Treated ( 119 mg/dL) Blood Glucose Method POC Glucose (bedside) Document 08/04/17 20:52 [id number] (Rec: 08/04/17 20:52 [id number] [id number] Blood Glucose Monitoring POC Glucose Obtained Yes Glucose Result Being Addressed/Treated ( 175 mg/dL) Blood Glucose Method POC Glucose (bedside) Document 08/05/17 07:30 [id number] (Rec: 08/05/17 11:04 [id number] [facility] [place]) Blood Glucose Monitoring POC Glucose Obtained Yes Glucose Result Being Addressed/Treated ( 110 mg/dL) Blood Glucose Method POC Glucose (bedside) Additional Actions Taken Nurse Notified Document 08/05/17 11:30 [id number] (Rec: 08/05/17 12:17 [id number] [facility]) Blood Glucose Monitoring POC Glucose Obtained Yes Glucose Result Being Addressed/Treated ( 213 mg/dL) Blood Glucose Method POC Glucose (bedside) Additional Actions Taken Nurse Notified Document 08/05/17 16:30 [id number] (Rec: 08/05/17 16:39 [id number] [facility]) Blood Glucose Monitoring POC Glucose Obtained Yes Glucose Result Being Addressed/Treated ( 213 mg/dL) Blood Glucose Method POC Glucose (bedside) Document 08/05/17 20:30 [id number] (Rec: 08/05/17 20:30 [id number] [email or web address]) Blood Glucose Monitoring POC Glucose Obtained Yes Glucose Result Being Addressed/Treated ( 205 mg/dL) Blood Glucose Method POC Glucose (bedside) Document 08/06/17 07:23 [id number] (Rec: 08/06/17 07:23 [id number] [facility]) Blood Glucose Monitoring POC Glucose Obtained Yes Glucose Result Being Addressed/Treated ( 135 mg/dL) Blood Glucose Method POC Glucose (bedside) Document 08/06/17 12:11 [id number] (Rec: 08/06/17 12:11 [id number] [facility]) Blood Glucose Monitoring POC Glucose Obtained Yes Glucose Result Being Addressed/Treated ( 175 mg/dL) Blood Glucose Method POC Glucose (bedside) PE: Gen: no acute distress. Alert and appropriate. Lungs: Insp and exp upper airways noises bilaterally. CV: regular rate and rhythm Abd: + bowel sounds. soft, non-tender, non-distended. Ext: No left leg edema. Right BKA incision with sutures. Mild blanchable surrounding dull erythema less than 3 days ago. No drainage. Skin: Left medial leg with less dull erythema. It all looks better. Laboratory Results - last 24 hr 08/05/17 08/05/17 08/05/17 12:08 16:36 20:23 WBC RBC Hgb Hct MCV MCH MCHC RDW Plt Count MPV Neut % (Auto) Lymph % (Auto) [place] % (Auto) Eos % (Auto) Baso % (Auto) Absolute Neuts (auto) Absolute Lymphs (auto) Absolute Monos (auto) Absolute Eos (auto) Absolute Basos (auto) Absolute Nucleated RBC Nucleated RBC % Sodium Potassium Chloride Carbon Dioxide Anion Gap BUN Creatinine Est GFR ( Amer) Est GFR (Non-Af Amer) BUN/Creatinine Ratio Glucose POC Glucose (mg/dL) 213 H 213 H 205 H Calcium Total Bilirubin AST ALT Alkaline Phosphatase Total Protein Albumin Globulin Albumin/Globulin Ratio 08/06/17 08/06/17 08/06/17 06:02 06:02 07:20 WBC 8.1 RBC 2.58 L Hgb 8.2 L Hct 24 L MCV 94 MCH 32 H MCHC 34 RDW 15 Plt Count 288 MPV 10 Neut % (Auto) 82.4 Lymph % (Auto) 7.5 L [place] % (Auto) 5.2 Eos % (Auto) 3.9 Baso % (Auto) 1.0 Absolute Neuts (auto) 6.6 Absolute Lymphs (auto) 0.6 L Absolute Monos (auto) 0.4 Absolute Eos (auto) 0.3 Absolute Basos (auto) 0.1 Absolute Nucleated RBC 0 Nucleated RBC % 0 Sodium 136 Potassium 4.4 Chloride 108 Carbon Dioxide 24 Anion Gap 4 BUN 27 H Creatinine 0.96 Est GFR ( Amer) 98.2 Est GFR (Non-Af Amer) 76.4 BUN/Creatinine Ratio 28.1 H Glucose 114 H POC Glucose (mg/dL) 135 H Calcium 7.4 L Total Bilirubin 0.30 AST 60 H ALT 61 H Alkaline Phosphatase 452 H Total Protein 4.9 L Albumin 2.0 L Globulin 2.9 Albumin/Globulin Ratio 0.7 L 08/06/17 12:09 WBC RBC Hgb Hct MCV MCH MCHC RDW Plt Count MPV Neut % (Auto) Lymph % (Auto) [place] % (Auto) Eos % (Auto) Baso % (Auto) Absolute Neuts (auto) Absolute Lymphs (auto) Absolute Monos (auto) Absolute Eos (auto) Absolute Basos (auto) Absolute Nucleated RBC Nucleated RBC % Sodium Potassium Chloride Carbon Dioxide Anion Gap BUN Creatinine Est GFR ( Amer) Est GFR (Non-Af Amer) BUN/Creatinine Ratio Glucose POC Glucose (mg/dL) 175 H Calcium Total Bilirubin AST ALT Alkaline Phosphatase Total Protein Albumin Globulin Albumin/Globulin Ratio ASSESSMENT/PLAN: 77yo man with diabetes mellitus, peripheral vascular disease and neuropathy 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 1. Right BKA: PT/OT. Try to increase endurance. Knee immobilizer AAT. Vp Care Management when ready. Monitor incision for healing. Per last ortho note is to f/u with Dr. Garcia between 08/08-08/12. 2. Diabetes: Increase Lantus to 10mg qday. Continue lispro ssI. 3. Hypertension: Prior to amputation was also on lisinopril 10mg qday and amlodipine 5mg qday. On metoprolol now. I will add back in lisinopril 5mg qday to start. 4. Cough: Get chest x-ray. 5. Yeast: Nystatin powder 6. Asthma: Albuterol Nebs prn. 7. DVT Prophylaxis: Heparin SQ 8. Analgesia: Percocet PRN 9. Left leg abrasion: continue telfa and kerlix to left leg dressing change bid. Nurses advised to protect from right knee immobilizer (may need pillow between legs). 10. Loose stools resolved with culturelle, ensure and 1 dose of immodium but no BM in 3 days. Bowel meds are prn. May need to schedule again if constipated. 11. Anemia: stable compared to 07/30. Continue to monitor. 12. Advanced Directives: Full code. Dr. Carissa Nicolas is hcp [place]).
--- NOTE | 2017-08-06 13:49 | RAD ---
Indication: Productive cough. Comparison: July 20, 2017 Technique: Sitting AP and lateral chest views. Report: Median sternotomy wires. Borderline cardiomegaly. Prominent ill-defined central pulmonary vasculature with cephalization. Prominent mid to lower lung zone interstitial markings and LEFT larger than RIGHT small pleural effusions. Negative for pneumothorax. IMPRESSION: The constellation of findings is most consistent with pulmonary vascular congestion and interstitial pulmonary edema with associated LEFT larger than RIGHT pleural effusions. Inflammatory infiltrate at the LEFT lung base is not excluded.
[2017-08-06] MEDS: Insulin GLARGINE(*) 1 UNITS UNIT SUBCUT SCH (17:22)
[2017-08-06] MEDS: Atorvastatin* 80 MG TAB PO SCH (17:24)
[2017-08-06] MEDS ORDERED: Furosemide TAB* 20 MG PO ONE ×2 (17:35→23:00)
[2017-08-07] MEDS: Heparin VIAL(*) 5000 UNITS/ML VIAL (FIVE THOUSAND) SUBCUT SCH ×3 (05:28→22:03)
[2017-08-07 07:06] LABS: BUN/Creatinine Ratio 27.5 (8-20); Calcium 7.7 mg/dL (8.6-10.3); EGFR African American 84.8 (>60); EGFR Non-African American 65.9 (>60); Potassium 4.7 mmol/L (3.5-5.0)
[2017-08-07] MEDS: Aspirin Low Dose CHEW TAB* 81 MG PO SCH (07:31)
[2017-08-07] MEDS: Lactobacillus Acidophilu (GG)* 1 CAP CAP PO SCH ×2 (07:31→22:04)
[2017-08-07] MEDS: Clopidogrel TAB* 75 MG PO SCH (07:31)
[2017-08-07] MEDS: Lisinopril TAB* 10 MG PO SCH (07:31)
[2017-08-07] MEDS: Ferrous Sulfate TAB* 325 MG PO SCH (07:32)
[2017-08-07] MEDS: Metoprolol Succinate XL TAB* 50 MG PO SCH (07:32)
[2017-08-07] MEDS: Sertraline* 25 MG TAB PO SCH (07:32)
[2017-08-07] MEDS: Insulin LISPRO* 1 UNITS UNIT SUBCUT SCH ×4 (07:33→22:01)
[2017-08-07] MEDS: Nystatin TOP POWDER* 15 GM BTL TOPICAL SCH ×2 (09:08→22:06)
[2017-08-07] MEDS ORDERED: Furosemide TAB* 20 MG PO ONE (13:28)
--- NOTE | 2017-08-07 13:34 | PN ---
Progress Note - Progress Note Date of Service: 08/07/17 Note: Patient visited. Nursing and therapy notes reviewed. He received po lasix 20mg x2 last night after CXR showed vascular congestion. He is less congested today but still with some cough. No chest pain, shortness of breath or abdominal pain. He had some liquid stool today and this is the first BM since immodium earlier in the week. Temp Pulse Resp BP Pulse Ox 97.9 F 92 18 151/71 95 08/07/17 05:28 08/07/17 05:28 08/07/17 05:28 08/07/17 05:28 08/07/17 10:42 PE: Gen: no acute distress. Alert and appropriate. Lungs: much better than yesterday. Still some fine inspiratory rales. CV: regular rate and rhythm Abd: + bowel sounds. soft, non-tender, non-distended. Ext: No left leg edema. Right BKA with lindy on. Skin: Left medial leg dressed. Laboratory Results - last 24 hr 08/06/17 08/06/17 08/07/17 16:24 20:28 06:19 Sodium 136 Potassium 4.7 Chloride 107 Carbon Dioxide 24 Anion Gap 5 BUN 30 H Creatinine 1.09 Est GFR ( Amer) 84.8 Est GFR (Non-Af Amer) 65.9 BUN/Creatinine Ratio 27.5 H Glucose 114 H POC Glucose (mg/dL) 230 H 199 H Calcium 7.7 L 08/07/17 08/07/17 07:17 12:10 Sodium Potassium Chloride Carbon Dioxide Anion Gap BUN Creatinine Est GFR ( Amer) Est GFR (Non-Af Amer) BUN/Creatinine Ratio Glucose POC Glucose (mg/dL) 138 H 188 H Calcium CXR 08/06/17: pulmonary vascular congestion with left greater than right small pleural effusion. Left lower inflammatory infiltrate not excluded. 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 1. Right BKA: PT/OT. Try to increase endurance. Knee immobilizer AAT. Receiver when ready. Monitor incision for healing. Per last ortho note is to f/u with Dr. Garcia between 08/08-08/12. 2. Diabetes: Lantus 10mg qday. Continue lispro ssI. 3. Hypertension: Prior to amputation was also on lisinopril 10mg qday and amlodipine 5mg qday. On metoprolol now. Lisinopril 10mg/day added back and may add back amlodipine pending vitals in next day. 4. Congestive heart failure. Had ECHO 07/22/17 showing EF 40-45%. On beta beverley and LINDY-I. Will give another dose of lasix today since creatinine stable. Hopefully this will improve with better BP control. 5. Yeast: Nystatin powder 6. Asthma: Albuterol Nebs prn. 7. DVT Prophylaxis: Heparin SQ 8. Analgesia: Percocet PRN 9. Left leg abrasion: continue telfa and kerlix to left leg dressing change bid. Nurses advised to protect from right knee immobilizer (may need pillow between legs). 10. Loose stools returned. Culturelle. Add in metamucil. 11. Anemia: stable compared to 07/30. Continue to monitor. 12. Advanced Directives: Full code. Dr. Carissa Nicolas is hcp ([phone] [place]).
[2017-08-07] MEDS ORDERED: Insulin GLARGINE(*) 1 UNITS UNIT SUBCUT SCH (17:00)
[2017-08-07] MEDS: Atorvastatin* 80 MG TAB PO SCH (17:46)
[2017-08-07] MEDS: Psyllium PAK PO SCH (17:48)
[2017-08-08] MEDS: Heparin VIAL(*) 5000 UNITS/ML VIAL (FIVE THOUSAND) SUBCUT SCH ×3 (05:40→21:06)
--- NOTE | 2017-08-08 08:12 | PN ---
Progress Note - Progress Note Date of Service: 08/08/17 SOAP: Subjective: Doing well. No complaints Objective: [] Temp Pulse Resp BP Pulse Ox 97.6 F 80 20 131/66 98 08/08/17 05:23 08/08/17 05:23 08/08/17 05:23 08/08/17 05:23 08/08/17 05:23 Stump wound c/d/i, no erythema or drainage Dressing changed Assessment: 2 weeks postop from a right BKA, doing well in rehab Plan: Continue PT and daily dressing changes Leave sutures in for another 1-2 weeks
[2017-08-08] MEDS: Nystatin TOP POWDER* 15 GM BTL TOPICAL SCH ×2 (08:38→21:06)
[2017-08-08] MEDS: Sertraline* 25 MG TAB PO SCH (08:39)
[2017-08-08] MEDS: Lactobacillus Acidophilu (GG)* 1 CAP CAP PO SCH ×2 (08:39→21:06)
[2017-08-08] MEDS: Aspirin Low Dose CHEW TAB* 81 MG PO SCH (08:39)
[2017-08-08] MEDS: Insulin LISPRO* 1 UNITS UNIT SUBCUT SCH ×4 (08:39→21:05)
[2017-08-08] MEDS: Clopidogrel TAB* 75 MG PO SCH (08:39)
[2017-08-08] MEDS: Metoprolol Succinate XL TAB* 50 MG PO SCH (08:39)
[2017-08-08] MEDS: Ferrous Sulfate TAB* 325 MG PO SCH (08:39)
[2017-08-08] MEDS: Lisinopril TAB* 10 MG PO SCH (08:39)
[2017-08-08] MEDS: Psyllium PAK PO SCH (08:55)
--- NOTE | 2017-08-08 11:21 | PN ---
Progress Note - Progress Note Date of Service: 08/08/17 Note: Patient visited. Nursing and therapy notes reviewed. Nursing sees stool is starting to be a little formed. He is often incontinent of urine and stool and not alerting staff to this. Dr. Garcia in this morning for f/u this morning. No chest pain, shortness of breath or abdominal pain. He thinks his cough and congestion is less. Temp Pulse Resp BP Pulse Ox 97.6 F 80 20 131/66 98 08/08/17 05:23 08/08/17 05:23 08/08/17 05:23 08/08/17 05:23 08/08/17 09:18 Glucose Results Blood Glucose Monitoring POC Start: 07/29/17 11: 40 Freq: ACHS Status: Active Document 08/06/17 12:11 [id number] (Rec: 08/06/17 12:11 [id number] [place] [id number]) Blood Glucose Monitoring POC Glucose Obtained Yes Glucose Result Being Addressed/Treated ( 175 mg/dL) Blood Glucose Method POC Glucose (bedside) Document 08/06/17 21:00 [id number] (Rec: 08/07/17 00:29 [id number] [facility] [place] Blood Glucose Monitoring POC Glucose Obtained Yes: by previous rn Glucose Result Being Addressed/Treated ( 199 mg/dL) Blood Glucose Method POC Glucose (bedside) Document 08/07/17 07:27 [id number] (Rec: 08/07/17 07:27 [id number] [place] [id number]) Blood Glucose Monitoring POC Glucose Obtained Yes Glucose Result Being Addressed/Treated ( 138 mg/dL) Blood Glucose Method POC Glucose (bedside) Document 08/08/17 07:41 [id number] (Rec: 08/08/17 07:41 [id number] [place] [id number]) Blood Glucose Monitoring POC Glucose Obtained Yes Glucose Result Being Addressed/Treated ( 98 mg/dL) Blood Glucose Method POC Glucose (bedside) PE: Gen: no acute distress. Alert and appropriate. Lungs: bilateral inspiratory rales. CV: regular rate and rhythm Abd: + bowel sounds. soft, non-tender, non-distended. Ext: No left leg edema. Right BKA with lindy on (changed by Dr. Garcia this AM). Skin: Left medial leg is healing well. CXR 08/06/17: pulmonary vascular congestion with left greater than right small pleural effusion. Left lower inflammatory infiltrate not excluded. CXR repeated this morning and pending report. 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 1. Right BKA: PT/OT. Try to increase endurance. Knee immobilizer. Supervisor Packing when ready. Monitor incision for healing. Per Dr. Garcia on 08/08/17 keep sutures in 1-2 more weeks. 2. Diabetes: Lantus 10mg qday. Continue lispro ssI. 3. Hypertension: Prior to amputation was also on lisinopril 10mg qday and amlodipine 5mg qday. On metoprolol now. Lisinopril 10mg/day added back and may add back amlodipine in future. 4. Congestive heart failure. Had ECHO 07/22/17 showing EF 40-45%. On beta beverley and LINDY-I. Continue lasix daily 20mg qday. Follow P3 for potassium and creatinine with known nephropathy. 5. Yeast: Nystatin powder 6. Asthma: Albuterol Nebs prn. 7. DVT Prophylaxis: Heparin SQ 8. Analgesia: Percocet PRN 9. Left leg abrasion: continue telfa and kerlix to left leg dressing change qday. Nurses advised to protect from right knee immobilizer (may need pillow between legs). 10. Loose stools. Culturelle and metamucil. 11. Anemia: stable, continue to monitor. 12. Advanced Directives: Full code. Dr. Carissa Nicolas is [facility] [place]).
--- NOTE | 2017-08-08 11:46 | RAD ---
HISTORY: CHF COMPARISONS: August 06, 2017, July 20, 2017, CT dated June 21, 2017 VIEWS: 4: Frontal dual-energy and lateral views of the chest. FINDINGS: CARDIOMEDIASTINAL SILHOUETTE: The cardiomediastinal silhouette is stable. JAXON: The jaxon are normal. PLEURA: There are stable small bilateral pleural effusions. LUNG PARENCHYMA: There is prominence of the pulmonary vasculature. There is persistent, slightly progressed patchy opacification of the right lower lung ABDOMEN: The upper abdomen is clear. There is no subphrenic gas. BONES AND SOFT TISSUES: The patient is status post median sternotomy. OTHER: None. IMPRESSION: 1. PULMONARY VASCULAR CONGESTION. 2. SMALL BILATERAL PLEURAL EFFUSIONS. 3. PERSISTENT RIGHT LOWER LUNG CONSOLIDATION. GIVEN THE PERSISTENCE FROM MULTIPLE PRIOR EXAMINATIONS, CONSIDER FURTHER EVALUATION WITH CROSS SECTIONAL IMAGING OF THE CHEST.
--- NOTE | 2017-08-08 11:58 | PN ---
Progress Note - Progress Note Date of Service: 08/08/17 Note: I reviewed CXR from 08/08/17 with radiology. There is still pulmonary congestion and left greater than right pleural effusion. There is a persistent consolidated area in the right lower lung that has been present since 07/20, but not on a CT chest from May. He recommends CT to better evaluate. I d/w pt and he agrees to CT.
[2017-08-08] MEDS: Furosemide TAB* 20 MG PO SCH (12:07)
--- NOTE | 2017-08-08 13:00 | RAD ---
Indication: Right lung consolidation. CT of the chest was performed without IV contrast. Comparison is made with previous exam dated August 08, 2017. Coronal and sagittal reconstructed images were obtained. There are moderate-sized bilateral pleural effusions noted. Compressive atelectasis is noted in the lower lobes bilaterally. The heart demonstrates no pericardial effusion. No other pulmonary nodules are identified. The trachea and major bronchi appear patent. Small mediastinal lymph nodes are noted. Heart is of normal size without evidence of pericardial effusion. Gallbladder demonstrates multiple calcified gallstones. Calcified granulomas are noted in the spleen. The remainder of the abdominal organs are unremarkable. IMPRESSION: Moderate bilateral pleural effusion with bibasilar atelectasis is noted. Cholelithiasis is noted.
[2017-08-08] MEDS: Insulin GLARGINE(*) 1 UNITS UNIT SUBCUT SCH (18:18)
[2017-08-08] MEDS: Atorvastatin* 80 MG TAB PO SCH (18:18)
[2017-08-09] MEDS: Heparin VIAL(*) 5000 UNITS/ML VIAL (FIVE THOUSAND) SUBCUT SCH ×3 (06:11→21:20)
[2017-08-09 07:08] LABS: Calcium 7.5 mg/dL (8.6-10.3); EGFR African American 93.7 (>60); EGFR Non-African American 72.8 (>60)
[2017-08-09] MEDS: Insulin LISPRO* 1 UNITS UNIT SUBCUT SCH ×4 (07:19→21:18)
[2017-08-09] MEDS: Psyllium PAK PO SCH (09:07)
[2017-08-09] MEDS: Lactobacillus Acidophilu (GG)* 1 CAP CAP PO SCH ×2 (09:08→21:20)
[2017-08-09] MEDS: Furosemide TAB* 20 MG PO SCH (09:08)
[2017-08-09] MEDS: Metoprolol Succinate XL TAB* 50 MG PO SCH (09:08)
[2017-08-09] MEDS: Aspirin Low Dose CHEW TAB* 81 MG PO SCH (09:09)
[2017-08-09] MEDS: Clopidogrel TAB* 75 MG PO SCH (09:09)
[2017-08-09] MEDS: Lisinopril TAB* 10 MG PO SCH (09:09)
[2017-08-09] MEDS: Ferrous Sulfate TAB* 325 MG PO SCH (09:09)
[2017-08-09] MEDS: Sertraline* 25 MG TAB PO SCH (09:09)
--- NOTE | 2017-08-09 09:57 | PN ---
Progress Note - Progress Note Date of Service: 08/09/17 Note: Patient visited. Nursing and therapy notes reviewed. Overnight did not feel well. FS 77. Nelson better with nebulizer and O2, which is off now. Cough is less. No chest pain, shortness of breath or abdominal pain. Temp Pulse Resp BP Pulse Ox 98.2 F 81 18 153/63 100 08/09/17 06:39 08/09/17 06:39 08/09/17 06:39 08/09/17 06:39 08/09/17 06:39 FS [id number] PE: Gen: no acute distress. Alert and appropriate. Lungs: bilateral inspiratory rales. CV: regular rate and rhythm Abd: + bowel sounds. soft, non-tender, non-distended. Ext: No left leg edema. Right BKA healing well and stable with sutures in place. No significant drainage. Skin: Left medial leg is healing well. Laboratory Results - last 24 hr 08/08/17 08/08/17 08/08/17 11:37 16:33 20:46 Sodium Potassium Chloride Carbon Dioxide Anion Gap BUN Creatinine Est GFR ( Amer) Est GFR (Non-Af Amer) BUN/Creatinine Ratio Glucose POC Glucose (mg/dL) 200 H 213 H 181 H Calcium 08/09/17 08/09/17 08/09/17 02:34 06:37 07:15 Sodium 136 Potassium 5.0 Chloride 107 Carbon Dioxide 26 Anion Gap 3 BUN 34 H Creatinine 1.00 Est GFR ( Amer) 93.7 Est GFR (Non-Af Amer) 72.8 BUN/Creatinine Ratio 34.0 H Glucose 102 H POC Glucose (mg/dL) 77 118 H Calcium 7.5 L CXR 08/06/17: pulmonary vascular congestion with left greater than right small pleural effusion. Left lower inflammatory infiltrate not excluded. CXR 08/08/17: pulmonary vascular congestion, small bilateral pleural effusions, persistent RLL consolidation. Given the persistence from multiple prior examinations, consider further evaluation with cross sectional imaging of the chest. CT chest 08/08/17 showed moderate bilateral pleural effusions with bibasilar atelectasis. 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 1. Right BKA: PT/OT. Try to increase endurance. Knee immobilizer. Sanforizing Machine Operator when ready. Monitor incision for healing. Per Dr. Garcia on 08/08/17 keep sutures in 1-2 more weeks. 2. Diabetes: Lantus 10mg qday. Continue lispro ssI. Add bedtime snack. Consistent carb diet. Ensure ok. 3. Hypertension: Add back in amlodipine 5mg qday. Continue metoprolol and lisinopril. 4. Congestive heart failure. Had ECHO 07/22/17 showing EF 40-45%. On beta beverley and LINDY-I. Continue lasix daily 20mg qday. Follow P3 for potassium and creatinine with known nephropathy. 5. Yeast: Nystatin powder 6. Asthma: Albuterol Nebs prn. 7. DVT Prophylaxis: Heparin SQ 8. Analgesia: Percocet PRN 9. Left leg abrasion: continue telfa and kerlix to left leg dressing change qday. Nurses advised to protect from right knee immobilizer (may need pillow between legs). 10. Loose stools improving. Culturelle and metamucil. 11. Anemia: stable, continue to monitor. 12. Advanced Directives: Full code. Dr. Carissa Nicolas is hcp [place]). 13. Dispo: See social work follow-up. Looking into [facility].
[2017-08-09] MEDS: amLODIPine TAB* 5 MG PO SCH (12:25)
[2017-08-09] MEDS: Nystatin TOP POWDER* 15 GM BTL TOPICAL SCH ×2 (12:27→21:00)
[2017-08-09] MEDS: Insulin GLARGINE(*) 1 UNITS UNIT SUBCUT SCH (17:33)
[2017-08-09] MEDS: Atorvastatin* 80 MG TAB PO SCH (17:33)
[2017-08-10] MEDS: Heparin VIAL(*) 5000 UNITS/ML VIAL (FIVE THOUSAND) SUBCUT SCH ×3 (06:31→20:54)
[2017-08-10] MEDS: Insulin LISPRO* 1 UNITS UNIT SUBCUT SCH ×4 (07:28→20:56)
[2017-08-10] MEDS: Lisinopril TAB* 10 MG PO SCH (08:41)
[2017-08-10] MEDS: Metoprolol Succinate XL TAB* 50 MG PO SCH (08:41)
[2017-08-10] MEDS: Clopidogrel TAB* 75 MG PO SCH (08:41)
[2017-08-10] MEDS: amLODIPine TAB* 5 MG PO SCH (08:41)
[2017-08-10] MEDS: Furosemide TAB* 20 MG PO SCH (08:41)
[2017-08-10] MEDS: Sertraline* 25 MG TAB PO SCH (08:41)
[2017-08-10] MEDS: Ferrous Sulfate TAB* 325 MG PO SCH (08:41)
[2017-08-10] MEDS: Lactobacillus Acidophilu (GG)* 1 CAP CAP PO SCH ×2 (08:41→20:54)
[2017-08-10] MEDS: Psyllium PAK PO SCH (08:41)
[2017-08-10] MEDS: Aspirin Low Dose CHEW TAB* 81 MG PO SCH (08:41)
--- NOTE | 2017-08-10 11:02 | PN ---
Progress Note - Progress Note Date of Service: 08/10/17 Note: Patient visited. Nursing notes reviewed. Less congestion. No chest pain, shortness of breath or abdominal pain. Acetaminophen (Tylenol Tab*) 650 mg PO Q6H PRN PRN Reason: FEVER/PAIN Albuterol (Ventolin 2.5 Mg/3 Ml Neb.Susy*) 2.5 mg INH Q4H PRN PRN Reason: SOB/WHEEZING Last Admin: 08/09/17 02:42 Dose: 2.5 mg Amlodipine Besylate (Norvasc Tab*) 5 mg PO DAILY [facility] Last Admin: 08/10/17 08:41 Dose: 5 mg Aspirin (Aspirin Low Dose Tab*) 81 mg PO DAILY [facility] Last Admin: 08/10/17 08:41 Dose: 81 mg Atorvastatin Calcium (Lipitor*) 80 mg PO 1700 [facility] Last Admin: 08/09/17 17:33 Dose: 80 mg Clopidogrel Bisulfate (Plavix Tab*) 75 mg PO DAILY [facility] Last Admin: 08/10/17 08:41 Dose: 75 mg Dextrose (D50w Syringe 50 Ml*) 12.5 gm IV PUSH .FOR FS < 60 - SS PRN PRN Reason: FS < 60 Docusate Sodium (Colace Cap*) 100 mg PO BID PRN PRN Reason: CONSTIPATION Last Admin: 08/07/17 07:31 Dose: 100 mg Ferrous Sulfate (Ferrous Sulfate Tab*) 325 mg PO DAILY [facility] Last Admin: 08/10/17 08:41 Dose: 325 mg Furosemide (Lasix Tab*) 20 mg PO DAILY [facility] Last Admin: 08/10/17 08:41 Dose: 20 mg Heparin Sodium (Porcine) (Heparin Vial(*)) 5,000 units SUBCUT Q8HR [facility] Last Admin: 08/10/17 06:31 Dose: 5,000 units Insulin Glargine (Lantus(*)) 12 units SUBCUT Q24H [facility] Last Admin: 08/09/17 17:33 Dose: 12 units Insulin Human Lispro (Humalog*) 0 - 10 units SUBCUT ACHS [facility] PRN Reason: Protocol Last Admin: 08/10/17 07:28 Dose: Not Given Lactobacillus Rhamnosus (Culturelle*) 1 cap PO BID [facility] Last Admin: 08/10/17 08:41 Dose: 1 cap Lisinopril (Prinivil Tab*) 10 mg PO DAILY [facility] Last Admin: 08/10/17 08:41 Dose: 10 mg Lorazepam (Ativan Tab(*)) 0.5 mg PO Q6H PRN PRN Reason: ANXIETY Last Admin: 08/02/17 09:35 Dose: 0.5 mg Magnesium Hydroxide (Milk Of Magnesia Liq*) 30 ml PO Q6H PRN PRN Reason: CONSTIPATION Metoprolol Succinate (Toprol Xl Tab*) 50 mg PO DAILY [facility] Last Admin: 08/10/17 08:41 Dose: 50 mg Nystatin (Nystatin Top Powder*) 1 applic TOPICAL BID [facility] Last Admin: 08/09/17 21:00 Dose: Not Given Oxycodone/Acetaminophen (Percocet 5/325 Tab*) 1 tab PO Q4H PRN PRN Reason: PAIN - MODERATE TO SEVERE Psyllium Hydrophilic Mucilloid (Metamucil Denzel*) 1 pkt PO DAILY [facility] Last Admin: 08/10/17 08:41 Dose: 1 pkt Senna (Senokot Tab*) 2 tab PO BEDTIME PRN PRN Reason: CONSTIPATION Sertraline HCl (Zoloft*) 25 mg PO DAILY [facility] Last Admin: 08/10/17 08:41 Dose: 25 mg Throat Lozenges (Chloraseptic Nigel*) 1 nigel PO Q6H PRN PRN Reason: COUGH Last Admin: 07/31/17 03:39 Dose: 1 nigel Temp Pulse Resp BP Pulse Ox 98.1 F 87 18 156/77 96 08/10/17 06:16 08/10/17 06:16 08/10/17 06:16 08/10/17 06:16 08/10/17 06:16 Fingersticks 72-163 PE: Gen: no acute distress. Alert and appropriate. Lungs: bilateral fine inspiratory rales. CV: regular rate and rhythm Abd: + bowel sounds. soft, non-tender, non-distended. Ext: No left leg edema. Right BKA healing well and stable with sutures in place. No significant drainage. Skin: Left medial leg now just has a small scab. CXR 08/06/17: pulmonary vascular congestion with left greater than right small pleural effusion. Left lower inflammatory infiltrate not excluded. CXR 08/08/17: pulmonary vascular congestion, small bilateral pleural effusions, persistent RLL consolidation. Given the persistence from multiple prior examinations, consider further evaluation with cross sectional imaging of the chest. CT chest 08/08/17 showed moderate bilateral pleural effusions with bibasilar atelectasis. 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 1. Right BKA: PT/OT. Try to increase endurance. Knee immobilizer. Project Archivist when ready. Monitor incision for healing. Per Dr. Garcia on 08/08/17 keep sutures in 1-2 more weeks. 2. Diabetes: Lantus 12mg qday. Continue lispro ssI. Bedtime snack. Consistent carb diet. Ensure ok. 3. Hypertension: Amlodipine, metoprolol and lisinopril. 4. Congestive heart failure. Had ECHO 07/22/17 showing EF 40-45%. On aspirin, beta beverley and LINDY-I. Continue lasix daily 20mg qday. Follow P3 for potassium and creatinine with known nephropathy. 5. Yeast: Nystatin powder 6. Asthma: Albuterol Nebs prn. 7. DVT Prophylaxis: Heparin SQ. Also on plavix and aspirin. 8. Analgesia: Percocet PRN 9. Left leg abrasion now just a small scab. D/c dressings. Nurses advised to continue to protect from right knee immobilizer (may need pillow between legs). 10. Loose stools improved. Culturelle and metamucil. 11. Anemia: stable, continue to monitor. 12. Advanced Directives: Full code. Dr. Carissa Nicolas is hcp ([phone] [place]). 13. Dispo: See social work follow-up. Looking into [facility].
[2017-08-10] MEDS: Nystatin TOP POWDER* 15 GM BTL TOPICAL SCH ×2 (11:59→20:58)
[2017-08-10] MEDS: Atorvastatin* 80 MG TAB PO SCH (17:13)
[2017-08-10] MEDS: Insulin GLARGINE(*) 1 UNITS UNIT SUBCUT SCH (17:15)
[2017-08-11] MEDS: Heparin VIAL(*) 5000 UNITS/ML VIAL (FIVE THOUSAND) SUBCUT SCH ×3 (05:29→21:33)
[2017-08-11 07:28] LABS: BUN/Creatinine Ratio 28.6 (8-20); Calcium 7.6 mg/dL (8.6-10.3); EGFR African American 95.9 (>60); EGFR Non-African American 74.6 (>60); Potassium 4.4 mmol/L (3.5-5.0)
[2017-08-11] MEDS: Insulin LISPRO* 1 UNITS UNIT SUBCUT SCH ×4 (07:30→21:25)
[2017-08-11] MEDS: Psyllium PAK PO SCH (09:22)
[2017-08-11] MEDS: Lisinopril TAB* 10 MG PO SCH (09:22)
[2017-08-11] MEDS: Metoprolol Succinate XL TAB* 50 MG PO SCH (09:23)
[2017-08-11] MEDS: amLODIPine TAB* 5 MG PO SCH (09:23)
[2017-08-11] MEDS: Clopidogrel TAB* 75 MG PO SCH (09:23)
[2017-08-11] MEDS: Lactobacillus Acidophilu (GG)* 1 CAP CAP PO SCH ×2 (09:23→21:33)
[2017-08-11] MEDS: Nystatin TOP POWDER* 15 GM BTL TOPICAL SCH ×2 (09:23→21:33)
[2017-08-11] MEDS: Aspirin Low Dose CHEW TAB* 81 MG PO SCH (09:23)
[2017-08-11] MEDS: Sertraline* 25 MG TAB PO SCH (09:23)
[2017-08-11] MEDS: Ferrous Sulfate TAB* 325 MG PO SCH (09:23)
[2017-08-11] MEDS: Furosemide TAB* 20 MG PO SCH (09:23)
--- NOTE | 2017-08-11 16:53 | PN ---
Progress Note - Progress Note Date of Service: 08/11/17 Note: Ramon was visited. Therapy notes read and reviewed. Events of last week reviewed. Now on Lasix for CHF. He feels that his breathing is slightly better. He had wanted to transition to [facility] but they have no male beds. Laboratory Results - last 24 hr 08/10/17 08/10/17 08/11/17 16:34 20:11 06:18 Sodium 135 Potassium 4.4 Chloride 105 Carbon Dioxide 24 Anion Gap 6 BUN 28 H Creatinine 0.98 Est GFR ( Amer) 95.9 Est GFR (Non-Af Amer) 74.6 BUN/Creatinine Ratio 28.6 H Glucose 53 L POC Glucose (mg/dL) 102 H 141 H Calcium 7.6 L 08/11/17 08/11/17 07:18 11:48 Sodium Potassium Chloride Carbon Dioxide Anion Gap BUN Creatinine Est GFR ( Amer) Est GFR (Non-Af Amer) BUN/Creatinine Ratio Glucose POC Glucose (mg/dL) 60 L 124 H Calcium Current Medications Acetaminophen (Tylenol Tab*) 650 mg PO Q6H PRN PRN Reason: FEVER/PAIN Albuterol (Ventolin 2.5 Mg/3 Ml Neb.Susy*) 2.5 mg INH Q4H PRN PRN Reason: SOB/WHEEZING Last Admin: 08/09/17 02:42 Dose: 2.5 mg Amlodipine Besylate (Norvasc Tab*) 5 mg PO DAILY [facility] Last Admin: 08/11/17 09:23 Dose: 5 mg Aspirin (Aspirin Low Dose Tab*) 81 mg PO DAILY [facility] Last Admin: 08/11/17 09:23 Dose: 81 mg Atorvastatin Calcium (Lipitor*) 80 mg PO 1700 [facility] Last Admin: 08/10/17 17:13 Dose: 80 mg Clopidogrel Bisulfate (Plavix Tab*) 75 mg PO DAILY [facility] Last Admin: 08/11/17 09:23 Dose: 75 mg Dextrose (D50w Syringe 50 Ml*) 12.5 gm IV PUSH .FOR FS < 60 - SS PRN PRN Reason: FS < 60 Docusate Sodium (Colace Cap*) 100 mg PO BID PRN PRN Reason: CONSTIPATION Last Admin: 08/07/17 07:31 Dose: 100 mg Ferrous Sulfate (Ferrous Sulfate Tab*) 325 mg PO DAILY [facility] Last Admin: 08/11/17 09:23 Dose: 325 mg Furosemide (Lasix Tab*) 20 mg PO DAILY [facility] Last Admin: 08/11/17 09:23 Dose: 20 mg Heparin Sodium (Porcine) (Heparin Vial(*)) 5,000 units SUBCUT Q8HR [facility] Last Admin: 08/11/17 14:20 Dose: 5,000 units Insulin Glargine (Lantus(*)) 12 units SUBCUT Q24H [facility] Last Admin: 08/10/17 17:15 Dose: 12 units Insulin Human Lispro (Humalog*) 0 - 10 units SUBCUT ACHS [facility] PRN Reason: Protocol Last Admin: 08/11/17 11:52 Dose: Not Given Lactobacillus Rhamnosus (Culturelle*) 1 cap PO BID [facility] Last Admin: 08/11/17 09:23 Dose: 1 cap Lisinopril (Prinivil Tab*) 10 mg PO DAILY [facility] Last Admin: 08/11/17 09:22 Dose: 10 mg Lorazepam (Ativan Tab(*)) 0.5 mg PO Q6H PRN PRN Reason: ANXIETY Last Admin: 08/02/17 09:35 Dose: 0.5 mg Magnesium Hydroxide (Milk Of Magntona Liq*) 30 ml PO Q6H PRN PRN Reason: CONSTIPATION Metoprolol Succinate (Toprol Xl Tab*) 50 mg PO DAILY [facility] Last Admin: 08/11/17 09:23 Dose: 50 mg Nystatin (Nystatin Top Powder*) 1 applic TOPICAL BID [facility] Last Admin: 08/11/17 09:23 Dose: 1 applic Oxycodone/Acetaminophen (Percocet 5/325 Tab*) 1 tab PO Q4H PRN PRN Reason: PAIN - MODERATE TO SEVERE Psyllium Hydrophilic Mucilloid (Metamucil Denzel*) 1 pkt PO DAILY [facility] Last Admin: 08/11/17 09:22 Dose: 1 pkt Senna (Senokot Tab*) 2 tab PO BEDTIME PRN PRN Reason: CONSTIPATION Sertraline HCl (Zoloft*) 25 mg PO DAILY [facility] Last Admin: 08/11/17 09:23 Dose: 25 mg Throat Lozenges (Chloraseptic Nigel*) 1 nigel PO Q6H PRN PRN Reason: COUGH Last Admin: 07/31/17 03:39 Dose: 1 nigel Vital Signs Temp Pulse Resp BP Pulse Ox 98.1 F 74 18 164/88 96 08/11/17 05:28 08/11/17 05:28 08/11/17 05:28 08/11/17 05:28 08/11/17 05:28 EXAM: LUNGS: CTA HEART: Reg rhythm, S1, S2 ABDOMEN: Soft EXTREMITIES: Right BKA. Left distal erythema ASSESSMENT/PLAN: 1. Right BKA: PT/OT. Try to increase endurance. Knee immobilizer AAT. Will try to arrange for accelerator technician. 2. Diabetes: Continue Lantus/Lispro. 3. Yeast: Nystatin powder 4. CHF: Continue LAsix/ASA/Beta beverley/LINDY-I 5. Asthma: Albuterol Nebs. Encouraged nursing staff to use if needed 6. DVT Prophylaxis: Heparin SQ 7. Analgesia: Percocet PRN 8. Code Status: Full code 9. Diarrhea: now on Ensure. May need Immodium. On Culturelle, seems better today 10. Disposition: Family will need to look at other subacute facilities
[2017-08-11] MEDS: Atorvastatin* 80 MG TAB PO SCH (17:27)
[2017-08-11] MEDS: Insulin GLARGINE(*) 1 UNITS UNIT SUBCUT SCH (17:32)
[2017-08-12] MEDS: Heparin VIAL(*) 5000 UNITS/ML VIAL (FIVE THOUSAND) SUBCUT SCH ×3 (06:16→21:00)
[2017-08-12] MEDS: Insulin LISPRO* 1 UNITS UNIT SUBCUT SCH ×4 (08:43→20:48)
[2017-08-12] MEDS: Psyllium PAK PO SCH (08:43)
[2017-08-12] MEDS: Lactobacillus Acidophilu (GG)* 1 CAP CAP PO SCH ×2 (08:44→20:59)
[2017-08-12] MEDS: Clopidogrel TAB* 75 MG PO SCH (08:44)
[2017-08-12] MEDS: Aspirin Low Dose CHEW TAB* 81 MG PO SCH (08:44)
[2017-08-12] MEDS: Ferrous Sulfate TAB* 325 MG PO SCH (08:44)
[2017-08-12] MEDS: Nystatin TOP POWDER* 15 GM BTL TOPICAL SCH ×3 (08:44→21:00)
[2017-08-12] MEDS: amLODIPine TAB* 5 MG PO SCH (08:44)
[2017-08-12] MEDS: Furosemide TAB* 20 MG PO SCH (08:44)
[2017-08-12] MEDS: Lisinopril TAB* 10 MG PO SCH (08:44)
[2017-08-12] MEDS: Sertraline* 25 MG TAB PO SCH (08:44)
[2017-08-12] MEDS: Metoprolol Succinate XL TAB* 50 MG PO SCH (08:44)
--- NOTE | 2017-08-12 12:30 | PMRUTEAM ---
PMRU: Goals Current Status: Nursing: Current Status Skin Deviations [RLQ] Previous Access Point Skin Deviations [Left Anterior Abrasion Foot] Skin Deviations [Left Lateral Abrasion Leg] Skin Deviations [Left Arm] Abrasion Skin Deviations [Right Hand] Other Skin Deviations [Right Elbow] Abrasion Skin Deviations [Right Lower Incision Leg] Skin Deviations [Groin] Rash Skin Deviations [Coccyx] Abrasion Skin Deviations [Left Lower Abrasion Leg] Skin Deviations [Right Knee] Incision Skin Deviation Description [ area washed with soap and water. triple antibiotic RLQ] cream applied. 2x2 and tegaderm applied Skin Deviation Description [ dressing applied to prevent further breakdown Left Anterior Foot] Skin Deviation Description [ healed Left Lateral Leg] Skin Deviation Description [ mepilex intact Left Arm] Skin Deviation Description [ abrasion healed Right Hand] Skin Deviation Description [ area washed new tegaderm applied Right Elbow] Skin Deviation Description [ healing well. area washed with soap and water. Right Lower Leg] xeroform, telfa, 4x4, queenie and kevin applied Skin Deviation Description [ Healed Groin] Skin Deviation Description [ Abrasion and raised area, barrier cream applied Coccyx] Skin Deviation Description [ Left SURGERY TEACHER, healing well, WALT applied Left Lower Leg] Skin Deviation Description [ Knee immobilizer placed Right Knee] Bladder Current Status using urinal. sometimes spills it, incontinent at times Bowel Current Status Multiple loose stools on previous shift, 1 loost stool thus far today Nutrition Current Status poor appitite Medication Current Status needs reinforcement. no pain meds given Physical Therapy: Current Status Bed Mobility Assistance Max Assist,2 or More Person Assist Transfer Moblility Assistance Total Assist,2 or More Person Assist Transfer/Bed Mobility Kulwant Lift,Slide Board Recommended Devices Ambulation Assistance Unable Ambulation Assistive Devices Rolling Walker Stairs Assistance Not Tested Manual Wheelchair Control/ Bilateral UE's Technique Wheelchair Propulsion Ability Standby Assistance Wheelchair Distance (ft) 150' Objective Comments patient completes W/C mobility with slow pace. needs cuing for procedure and pathfinding. Occupational Therapy: Current Status Upper Body Dressing Min Assist Upper Body Dressing Progress pt requires Marla to pull down over torso in supine Lower Body Dressing Max Asst,Total Assist Lower Body Dressing Progress rolling left and right in supine Bathing Mod Assist Bathing Progress pt washes Breezy UE, chest, abdomen, front perineal area, 2 assist for rolling Toileting Total Assist Toileting Progress in supine, assist to place urinal Toilet Transfer Total Assist Toilet Transfer Progress KULWANT lift for transfers Shower Transfer Total Assist Shower Transfer Progress KULWANT to w/c to roll in shower Eating Supervision Eating Progress requires assist for opening containers, cutting food prn Instrumental ADL totalA Rec Therapy: Current Status Summary of Assessment and RT assessment complete, pt. is aware of RT Clinical Impression services. Pt. is very engaged in leisure visits. Treatment Goals Pt. will engage in leisure activities prior to admission. Treatment Plan Provide RT services and encourage involvement. Social Work: Current Status Discharge Plan transition to short term rehab at [facility] Potential for Family Training n/a Anticipated Discharge [facility] Facility Destination Discharge With [facility] at [facility] Nutrition: Current Status Monitoring po intake has been variable, but generally 50-100 % of meals (consistent carb diet w/mech soft textures). All supplements have been d/c'd per his request, so no further Glucerna or Ensure offered. Still w/liquid BM x3 yesterday. Receiving Culturelle, Metamucil, and iron supplementation, all of which should help firm stools. Note a.m. hypoglycemia since 08/09 ( Lantus was increased to 12 units/day on 08/08 due to BGs >200). K remains wnl (4.4) despite diarrhea. Goals: Physical Therapy: Initial Goals Bed Mobility Assistance Independent Transfer Mobility Assistance Independent Transfer/Bed Mobility Rolling Walker Recommended Devices Wheelchair Propulsion Ability Independent Wheelchair Distance (ft) 150 Physical Therapy: Updated Goals Bed Mobility Assistance Independent Transfer/Bed Mobility Rolling Walker,Kulwant Lift Recommended Devices Wheelchair Propulsion Ability Independent Wheelchair Distance (ft) 150 Occupational Therapy: Initial Goals Goals to be Completed in (Days 21 days ) Upper Body Bathing Routine Independent Lower Body Bathing Routine Modified Independent with Upper Body Dressing Routine Independent Lower Body Dressing Routine Modified Independent with Toilet Hygeine and Clothing Modified Independent with Management Routine Toilet Transfer Routine Modified Independent with Step-In Shower Transfer Modified Independent with Routine Functional Transfers for ADL Modified Independent with Grooming Routine Independent Feeding Routine Independent Nursing: Goals Bladder Goal independent Bowel Goal independent Nutrition Goal 100% of all meals Medication Goal independent Nutrition: Goals Intervention Goals 1. Intake will be adequate to maintain stable wt and lean body mass 2. Pt will establish regular bowel pattern without diarrhea 3. BG will be adequately controlled per inpt parameters Social Work: Goals Discharge Plan transition to short term rehab at [facility] Potential for Family Training n/a Anticipated Discharge [facility] Facility Destination Discharge With [facility] at [facility] Care Plan: Care Plan ADL's - Improve/Maintain Start: 07/31/17 13:15 Freq: DAILY Status: Active Target: Activity Type Activity Date Activity User E-Sign Co-Sign Detail Recorded Client Recorded Date Recorded By Document 08/11/17 16:10 [id number] 08/11/17 16:10 [id number] 08/11/17 16:10 PMRU Outcome: ADL's/ADL Transfers Orders/Interventions Occupational Therapy Evaluation & Treatment Communication Tool in Patient Room Device Yes Address Deficits Secondary To: Right BKA Patient to receive OT 5x/wk for 60-120 Therex min/day Self Care Management Group Therapy UE/LE ADL's with Assist Yes: Rosalia ADL Transfers with Assist Yes: Rosalia Toileting: Transfers,Clothing Management Yes: Rosalia ,Hygeine w/Assist Light Kitchen/Laundry w/Assist No Progression Toward Outcome/Goals Not Progressing Outcome/Goals Met Pt continues with posterior lean when seated at EOB and with slideboard transfers requiring ongoing education, little carryover between sessions 2* anxiety/fear of falling. Cardiovascular- Improve/Maintain Start: 07/30/17 14:38 Freq: DAILY Status: Active Target: Activity Type Activity Date Activity User E-Sign Co-Sign Detail Recorded Client Recorded Date Recorded By Document 08/12/17 00:59 [id number] 08/12/17 01:01 [id number] 08/12/17 00:59 PMRU Outcome: Cardiovascular Vital Signs q Shift for 48hrs Then BID Yes Daily Weight Ordered No Current Cardiovascular Outcome/Goal Maintain/ Achieve Baseline HR, BP , Perfusion Progression Toward Outcome/Goal Progressing Coping/Psych-Improve/Maintain Start: 07/30/17 14:38 Freq: DAILY Status: Active Target: Activity Type Activity Date Activity User E-Sign Co-Sign Detail Recorded Client Recorded Date Recorded By Document 08/12/17 00:59 [id number] 08/12/17 01:01 [id number] 08/12/17 00:59 PMRU Outcome: Coping/Psychosocial Coping Outcome/Goals Verbalization of Acceptance of Rehab Admit Verbalization of Sense of Control Over Health Status Utilization of Appropriate Problem Solving Techniques Willingness to Participate in Treatment Plan and Basic Needs Utilization of Available Support Systems Psychosocial Outcome/Goals Maintain/ Improve Emotional Health Demonstrates Knowledge of Healthy Coping Mechanisms Available Cooperate/ Participate in Plan Progression Toward Outcome/Goals - Progressing Coping Progression Toward Outcome/Goals - Progressing Psychosocial Outcome/Goals Met Comment occasional anxiety noted DVT Prophylaxis- Improve/Maintain Start: 07/30/17 14:38 Freq: DAILY Status: Active Target: Activity Type Activity Date Activity User E-Sign Co-Sign Detail Recorded Client Recorded Date Recorded By Document 08/12/17 00:59 [id number] 08/12/17 01:01 [id number] 08/12/17 00:59 PMRU Outcome: DVT Prophylaxis Outcome/Goals Remains Free of DVT Complies with DVT Prophylaxis /Treatment Demonstrates Knowledge of DVT Prevention/ Treatment TEDS Stockings on Every AM, Off at HS Progression Toward Outcome/Goals Progressing Discharge Planning - Improve/Maintain Start: 07/30/17 14:38 Freq: DAILY Status: Active Target: Activity Type Activity Date Activity User E-Sign Co-Sign Detail Recorded Client Recorded Date Recorded By Document 08/12/17 00:59 [id number] 08/12/17 01:01 [id number] 08/12/17 00:59 PMRU Outcome: Discharge Planning Identify Patient Needs yes Update Patient Family No Outcome/Goals Demonstrates Understanding of Discharge Plan Progression Toward Outcome/Goals Progressing Education-Improve/Maintain Start: 07/30/17 14:38 Freq: DAILY Status: Active Target: Activity Type Activity Date Activity User E-Sign Co-Sign Detail Recorded Client Recorded Date Recorded By Document 08/12/17 00:59 [id number] 08/12/17 01:01 [id number] 08/12/17 00:59 PMRU Outcome: Education Outcome/Goals Demonstrate/ Verbalize Understanding of Written Discharge Instructions Encourage Questions Progression Toward Outcome/Goals Progressing /GI-Improve/Maintain Start: 07/30/17 14:38 Freq: DAILY Status: Active Target: Activity Type Activity Date Activity User E-Sign Co-Sign Detail Recorded Client Recorded Date Recorded By Document 08/12/17 00:59 [id number] 08/12/17 01:01 [id number] 08/12/17 00:59 PMRU Outcome: Genitourinary/ Gastrointestinal Genitourinary- Outcome/Goals Maintain/ Achieve Urinary Continence Remain Free of Hospital- Acquired UTI Gastrointestinal-Outcome/Goals Maintain/ Achieve Bowel Regularity in Accordance with Pt's Baseline Remain Free of Emesis Prevent Constipation Laxatives as Ordered Progression Toward Outcome/Goals - Progressing Progression Toward Outcome/Goals - GI Progressing Outcome/Goals Met Comment pt frustrated with all the liquid BMs Medication Administration Start: 07/30/17 14:38 Freq: DAILY Status: Active Target: Activity Type Activity Date Activity User E-Sign Co-Sign Detail Recorded Client Recorded Date Recorded By Document 08/12/17 00:59 [id number] 08/12/17 01:01 [id number] 08/12/17 00:59 PMRU Outcome: Medication Administration Assess Patient Knowledge/Teach Med Yes Education for all Meds Outcome/Goals Demonstrates Understanding Progression Towards Outcome/Goals Progressing Is Patient Going Home on Lovenox? No Metabolic Status- Improve/Maintain Start: 07/30/17 14:38 Freq: DAILY Status: Active Target: Activity Type Activity Date Activity User E-Sign Co-Sign Detail Recorded Client Recorded Date Recorded By Document 08/12/17 00:59 [id number] 08/12/17 01:01 [id number] 08/12/17 00:59 PMRU Outcome: Metabolic Status Have Fingersticks Been Ordered Yes Fingerstick Order Frequency AC & HS Outcome/Goals Maintain/ Improve Metabolic Status Demonstrate Knowledge of Prevention/ Treatment of Metabolic Imbalances Progression Toward Outcome/Goals Progressing Mobility- Improve/Maintain Start: 07/29/17 13:51 Freq: DAILY Status: Active Target: Activity Type Activity Date Activity User E-Sign Co-Sign Detail Recorded Client Recorded Date Recorded By Document 08/11/17 17:17 [id number] 08/11/17 17:17 [id number] 08/11/17 17:17 PMRU Outcome: Mobility Physical Therapy Evaluation and Yes Treatment Activity OOB with Assistance Yes NWB Yes: RLE Device Yes Assistance Yes Patient to be seen 5x/wk for 60-120 min/ Therex day for: Mobility Training W/C Mobility Balance Other Therapy Comment Slide board transfers Outcome/Goals Maintain/ Achieve Baseline Mobility Status Improve Mobility Status Demonstrates Proper Use of Assistive Devices Free from Complications of Immobility Other Other Outcome/Goals maintain knee flexion of 0-90 degrees Progression Toward Outcome/Goals Not Progressing Bed Mobility Yes: independent Transfers Yes: independent with walker and /or slideboard W/C Mobility x ft Yes: independnet 150 ' with BUE and LLE Pain/Comfort- Improve/Maintain Start: 07/30/17 14:38 Freq: DAILY Status: Complete Target: Activity Type Activity Date Activity User E-Sign Co-Sign Detail Recorded Client Recorded Date Recorded By Document 08/11/17 11:00 [id number] 08/11/17 11:02 [id number] 08/11/17 11:00 PMRU Outcome: Pain/Comfort Outcome/Goals Demonstrates Knowledge and Use of Available Comfort Measures Achieves Acceptable Comfort/Pain Level as Determined by Patient/Condit Maintain Comfort Level Allowing Patient to Fully Participate in Rehab Progression Toward Outcome/Goals Progressing Outcome/Goals Met Demonstrates Knowledge and Use of Available Comfort Measures Achieves Acceptable Comfort/Pain Level as Determined by Patient/Condit Outcome/Goals Met Comment pt denies pain Respiratory - Improve/Maintain Start: 07/30/17 14:38 Freq: DAILY Status: Active Target: Activity Type Activity Date Activity User E-Sign Co-Sign Detail Recorded Client Recorded Date Recorded By Document 08/12/17 00:59 [id number] 08/12/17 01:01 [id number] 08/12/17 00:59 PMRU Outcome: Respiratory Does Patient Have a Trach No Outcome/Goals Maintain/ Improve Baseline Respiratory Status Maintain/ Improve Activity Tolerance Prevent Pneumonia/ Atelectasis Progression Toward Outcome/Goals Progressing Safety- Improve/Maintain Start: 07/30/17 14:38 Freq: DAILY Status: Active Target: Activity Type Activity Date Activity User E-Sign Co-Sign Detail Recorded Client Recorded Date Recorded By Document 08/12/17 00:59 [id number] 08/12/17 01:01 [id number] 08/12/17 00:59 PMRU Outcome: Safety Outcome/Goals Remain Free of Injury or Harm Cooperates with Safety Measures for Least Restrictive Environment Prevent Falls/ Injury Progression Toward Outcome/Goals Progressing Outcome/Goals Met Comment ringing appropriately Skin- Improve/Maintain Start: 07/30/17 14:38 Freq: DAILY Status: Active Target: Activity Type Activity Date Activity User E-Sign Co-Sign Detail Recorded Client Recorded Date Recorded By Document 08/12/17 00:59 [id number] 08/12/17 01:01 [id number] 08/12/17 00:59 PMRU Outcome: Skin Skin Risk Level Medium Skin Orders Dressing Change Teach Patient Air Mattress Spenco Boots Heels Off Bed Turn/Position q2hr While in Bed Outcome/Goals Maintain/ Improve Skin Intergrity Free from Decubitus Surgical Incisions Healing Progression Toward Outcome/Goals Progressing Outcome/Goals Met Comment T&P, spanko boot in place Medicine Note: Length of Stay: 1 day Anticipated Discharge Destination: [facility] Facility Tentative Discharge Date: 08/13/17 Discharged to: [facility]
[2017-08-12] MEDS: Atorvastatin* 80 MG TAB PO SCH (17:12)
--- NOTE | 2017-08-12 17:13 | PN ---
Progress Note - Progress Note Date of Service: 08/12/17 Note: Ramon visited. He was discussed in interdisciplinary team rounds. He still has a significant posterior lean when therapy is trying to work with him. He may have better balance when he is not thinking about it. He will transfer to [facility] tomorrow for subacute rehab. Blood sugars have been low and will cut back Lantus Insulin Current Medications Acetaminophen (Tylenol Tab*) 650 mg PO Q6H PRN PRN Reason: FEVER/PAIN Albuterol (Ventolin 2.5 Mg/3 Ml Neb.Susy*) 2.5 mg INH Q4H PRN PRN Reason: SOB/WHEEZING Last Admin: 08/09/17 02:42 Dose: 2.5 mg Amlodipine Besylate (Norvasc Tab*) 5 mg PO DAILY [facility] Last Admin: 08/12/17 08:44 Dose: 5 mg Aspirin (Aspirin Low Dose Tab*) 81 mg PO DAILY [facility] Last Admin: 08/12/17 08:44 Dose: 81 mg Atorvastatin Calcium (Lipitor*) 80 mg PO 1700 [facility] Last Admin: 08/11/17 17:27 Dose: 80 mg Clopidogrel Bisulfate (Plavix Tab*) 75 mg PO DAILY [facility] Last Admin: 08/12/17 08:44 Dose: 75 mg Dextrose (D50w Syringe 50 Ml*) 12.5 gm IV PUSH .FOR FS < 60 - SS PRN PRN Reason: FS < 60 Docusate Sodium (Colace Cap*) 100 mg PO BID PRN PRN Reason: CONSTIPATION Last Admin: 08/07/17 07:31 Dose: 100 mg Ferrous Sulfate (Ferrous Sulfate Tab*) 325 mg PO DAILY [facility] Last Admin: 08/12/17 08:44 Dose: 325 mg Furosemide (Lasix Tab*) 20 mg PO DAILY [facility] Last Admin: 08/12/17 08:44 Dose: 20 mg Heparin Sodium (Porcine) (Heparin Vial(*)) 5,000 units SUBCUT Q8HR [facility] Last Admin: 08/12/17 14:14 Dose: 5,000 units Insulin Glargine (Lantus(*)) 10 units SUBCUT Q24H [facility] Insulin Human Lispro (Humalog*) 0 - 10 units SUBCUT ACHS TETE PRN Reason: Protocol Last Admin: 08/12/17 17:09 Dose: Not Given Lactobacillus Rhamnosus (Culturelle*) 1 cap PO BID [facility] Last Admin: 08/12/17 08:44 Dose: 1 cap Lisinopril (Prinivil Tab*) 10 mg PO DAILY [facility] Last Admin: 08/12/17 08:44 Dose: 10 mg Lorazepam (Ativan Tab(*)) 0.5 mg PO Q6H PRN PRN Reason: ANXIETY Last Admin: 08/02/17 09:35 Dose: 0.5 mg Magnesium Hydroxide (Milk Of Magnesia Liq*) 30 ml PO Q6H PRN PRN Reason: CONSTIPATION Metoprolol Succinate (Toprol Xl Tab*) 50 mg PO DAILY [facility] Last Admin: 08/12/17 08:44 Dose: 50 mg Nystatin (Nystatin Top Powder*) 1 applic TOPICAL BID [facility] Last Admin: 08/12/17 09:48 Dose: Not Given Oxycodone/Acetaminophen (Percocet 5/325 Tab*) 1 tab PO Q4H PRN PRN Reason: PAIN - MODERATE TO SEVERE Psyllium Hydrophilic Mucilloid (Metamucil Denzel*) 1 pkt PO DAILY [facility] Last Admin: 08/12/17 08:43 Dose: 1 pkt Senna (Senokot Tab*) 2 tab PO BEDTIME PRN PRN Reason: CONSTIPATION Sertraline HCl (Zoloft*) 50 mg PO DAILY [facility] Throat Lozenges (Chloraseptic Nigel*) 1 nigel PO Q6H PRN PRN Reason: COUGH Last Admin: 07/31/17 03:39 Dose: 1 nigel Laboratory Results - last 24 hr 08/11/17 08/12/17 08/12/17 21:16 07:31 07:54 POC Glucose (mg/dL) 99 54 L 67 L 08/12/17 08/12/17 08/12/17 08:13 11:31 16:44 POC Glucose (mg/dL) 82 90 93 Vital Signs Temp Pulse Resp BP Pulse Ox 97.9 F 78 18 141/66 93 08/12/17 06:10 08/12/17 06:10 08/12/17 06:10 08/12/17 06:10 08/12/17 14:35 EXAM: LUNGS: CTA HEART: Reg rhythm, S1, S2 ABDOMEN: Soft EXTREMITIES: Right BKA. Left distal erythema ASSESSMENT/PLAN: 1. Right BKA: PT/OT. Try to increase endurance. Knee immobilizer AAT. Arranged for air chipper through Medical Records [employer]ust[employer]. He is wearing it. 2. Diabetes: Continue Lantus/Lispro. 3. Yeast: Nystatin powder 4. CHF: Continue LAsix/ASA/Beta beverley/LINDY-I 5. Asthma: Albuterol Nebs. Encouraged nursing staff to use if needed 6. DVT Prophylaxis: Heparin SQ 7. Analgesia: Percocet PRN 8. Code Status: Full code 9. Diarrhea: now on Ensure. May need Immodium. On Culturelle, seems better today 10. Disposition: To [facility] tomorrow
[2017-08-12] MEDS ORDERED: Insulin GLARGINE(*) 1 UNITS UNIT SUBCUT SCH (21:00)
--- NOTE | 2017-08-13 03:31 | TRS ---
CC: [facility] * TRANSFER SUMMARY: DATE OF ADMISSION: 07/29/17 DATE OF DISCHARGE: 08/13/17 DISCHARGE DIAGNOSES: 1. Right orpnh-mxh-rbsl amputation. 2. Diabetes mellitus. 3. Peripheral vascular disease. 4. Chronic kidney disease. 5. Diabetic peripheral neuropathy. 6. Diabetic retinopathy. 7. Gastroesophageal reflux disease. 8. Benign prostatic hypertrophy. 9. Coronary artery disease. 10. Diarrhea. 11. Congestive heart failure. HISTORY OF PRESENT ILLNESS AND HOSPITAL COURSE: For a complete history of the events leading up to his rehab stay, please see the history and physical dictated by me on 07/29/17. While on the rehab unit, the patient's wound on his right below- the-knee amputation healed well. The stump mine patrol was ordered for him. He did have followup from his orthopedic surgeon, Dr. Garcia , who felt that his stitches would need to stay in for a while longer. He plans on leaving the sutures in until 08/15/17 to 08/22/17. The patient's blood sugars were in fairly good control. He was maintained on Lantus insulin. His Lantus dose had to be adjusted upward and then downward during his rehab stay. The patient was in a knee immobilizer, which was ordered by his orthopedic surgeon for the right knee. He had some irritation over the left qureshi from the knee immobilizer. This area of skin was protected and the irritation site got better. The patient did have some difficulty breathing over the weekend of 08/08/17, 08/09/17, and 08/10/17. The patient had a chest x - ray, which seemed to suggest congestive heart failure. A diuretic was added to his medication regimen. Also was noted on his chest x-ray right lower lung consolidation. It was recommended that a CAT scan be done. The CAT scan of the chest was ordered on 08/08/17 and that consolidation was not seen. The patient was seen by physical therapy and occupational therapy while on the rehab unit. He made good gains with both disciplines; however, he had a lot of difficulty motivating himself and a lot of difficulty achieving independence. With physical therapy at the time of admission, he was total assistance for transfers. He was total assistance for toileting and toilet transfers with occupational therapy. By the time of discharge, the patient's transfers still required a Kulwant Lift. He was able to use a slide board on occasion and sit up unsupported on occasion. He required min assist for upper body dressing, total assistance for lower body dressing, mod assist for bathing. The patient is being transferred to [facility] and ordered to undergo continued rehab on a slightly slower scale, so that he might return to independent living. DISCHARGE DIET: Consistent carbohydrate. DISCHARGE MEDICATIONS: 1. Lasix 20 mg daily. 2. Lantus insulin 10 units at 2100 hours subcutaneously. 3. Amlodipine 5 mg daily. 4. Zoloft 50 mg daily. 5. Metamucil 1 packet in a glass of water daily. 6. Lisinopril 10 mg daily. 7. Albuterol HFA inhaler 2 puffs every 6 hours as needed. 8. Percocet 1 tablet every 4 hours as needed. 9. Lipitor 80 mg at bedtime. 10. Aspirin 81 mg daily. 11. Plavix 75 mg daily. 12. Toprol-XL 50 mg daily. 13. Tylenol 650 mg every 6 hours as needed. 14. Colace 100 mg twice a day as needed. 15. Heparin 5000 units subcutaneously every 8 hours. SERVICES AFTER DISCHARGE: The patient should have restorative physical therapy and occupational therapy. FOLLOWUP: Follow up with Dr. Garcia, his orthopedic surgeon in 1 to 2 weeks. [id number]/[facility] #: [id number] [facility]ENTER[facility]
[2017-08-13] MEDS: Heparin VIAL(*) 5000 UNITS/ML VIAL (FIVE THOUSAND) SUBCUT SCH (05:20)
[2017-08-13] MEDS: Nystatin TOP POWDER* 15 GM BTL TOPICAL SCH (07:42)
[2017-08-13] MEDS: Insulin LISPRO* 1 UNITS UNIT SUBCUT SCH (08:41)
[2017-08-13] MEDS ORDERED: Sertraline* 50 MG TAB PO SCH (09:00)
[2017-08-13] MEDS: Lisinopril TAB* 10 MG PO SCH (09:03)
[2017-08-13] MEDS: Ferrous Sulfate TAB* 325 MG PO SCH (09:03)
[2017-08-13] MEDS: Aspirin Low Dose CHEW TAB* 81 MG PO SCH (09:03)
[2017-08-13] MEDS: Clopidogrel TAB* 75 MG PO SCH (09:03)
[2017-08-13] MEDS: Metoprolol Succinate XL TAB* 50 MG PO SCH (09:03)
[2017-08-13] MEDS: Lactobacillus Acidophilu (GG)* 1 CAP CAP PO SCH (09:03)
[2017-08-13] MEDS: amLODIPine TAB* 5 MG PO SCH (09:03)
[2017-08-13] MEDS: Furosemide TAB* 20 MG PO SCH (09:03)
[2017-08-13 09:04] VITALS: BP 121/59
[2017-08-13 09:21] LABS: Hematocrit 28 % (42-52); Hemoglobin 9.4 g/dl (14.0-18.0); Mean Corpuscular HGB Conc 34 g/dl (31-36); Mean Corpuscular Hemoglobin 31 pg (27-31); Mean Corpuscular Volume 94 fL (80-94); Mean Platelet Volume 10 um3 (7.4-10.4); Red Blood Count 2.98 10^6/ul (4.0-5.4); Red Cell Distribution Width 16 % (10.5-15); White Blood Count 5.2 10^3/ul (3.5-10.8)
[2017-08-13 09:32] LABS: Albumin 2.4 g/dL (3.2-5.2); BUN/Creatinine Ratio 21.5 (8-20); Calcium 7.7 mg/dL (8.6-10.3); EGFR African American 86.6 (>60); EGFR Non-African American 67.4 (>60); Globulin 3.2 g/dL (2-4); Potassium 4.8 mmol/L (3.5-5.0); Total Bilirubin 0.3 mg/dL (0.2-1.0); Total Protein 5.6 g/dL (6.4-8.9)
[2017-08-13] MEDS: Psyllium PAK PO SCH (09:57)
== END 2017-08-13 11:30 | DRG 560 ==
LOC: UNDODISIN 11:11 → PMRU 11:11
PROVIDERS: ADMIT Physical Medicine & Rehabilitation; ATTEND Physical Medicine & Rehabilitation
PROC: F07Z5ZZ Bed Mobility Treatment (ICD-10-PCS; principal; 2017-07-29)
PROC: F07Z9ZZ Gait Training/Functional Ambulation Treatment (ICD-10-PCS; 2017-07-29)
PROC: F07Z8ZZ Transfer Training Treatment (ICD-10-PCS; 2017-07-29)
PROC: F07Z4ZZ Wheelchair Mobility Treatment (ICD-10-PCS; 2017-07-29)
PROC: F08Z0ZZ Bathing/Showering Techniques Treatment (ICD-10-PCS; 2017-07-29)
PROC: F08Z1ZZ Dressing Techniques Treatment (ICD-10-PCS; 2017-07-29)
PROC: F08Z3ZZ Feeding/Eating Treatment (ICD-10-PCS; 2017-07-29)
DX: Z47.81 Encounter for orthopedic aftercare following surgical amputation (principal); I13.0 Hypertensive heart and chronic kidney disease with heart failure and stage 1 through stage 4 chronic kidney disease, or unspecified chronic kidney disease; E11.22 Type 2 diabetes mellitus with diabetic chronic kidney disease; Z89.511 Acquired absence of right leg below knee; E11.42 Type 2 diabetes mellitus with diabetic polyneuropathy; E11.319 Type 2 diabetes mellitus with unspecified diabetic retinopathy without macular edema; N18.3 Chronic kidney disease, stage 3 (moderate); E11.51 Type 2 diabetes mellitus with diabetic peripheral angiopathy without gangrene; K21.9 Gastro-esophageal reflux disease without esophagitis; N40.0 Benign prostatic hyperplasia without lower urinary tract symptoms; I25.10 Atherosclerotic heart disease of native coronary artery without angina pectoris; R19.7 Diarrhea, unspecified; I50.9 Heart failure, unspecified; Z95.1 Presence of aortocoronary bypass graft; E78.5 Hyperlipidemia, unspecified; Z79.01 Long term (current) use of anticoagulants; Z79.4 Long term (current) use of insulin; Z79.899 Other long term (current) drug therapy; J45.909 Unspecified asthma, uncomplicated; S80.812A Abrasion, left lower leg, initial encounter; X58.XXXA Exposure to other specified factors, initial encounter; Y92.9 Unspecified place or not applicable
CPT/HCPCS: 36415; 71020; 71250; 80048; 80053; 85025; 90686; A9270-GY; J1644

== ENCOUNTER → 2018-01-21 10:55 | Day surgery (SDC) | payer MEDICARE, OTHER ==
[~2018-01-21 10:55] MED LIST: Diazepam TAB(*) 5 MG ONE; Flumazenil* 0.1 MG/ML 5 ML MDV ONE; Heparin 2 UNITS/ML IVPREMIX* 2,000 ML IV ONE; Heparin(*) 1000 UNIT/ML 10 ML VIAL CATH LAB IV ONE; Iodixanol* (CONTRAST) 320 MG/ML 100 ML SDV ONE; Lidocaine 1% INJ* 10 MG/ML 30 ML SDV ONE; Midazolam* 1 MG/ML 5 ML VIAL (5 MG) ONE; Naloxone* 0.4 MG/ML 1 ML VIAL ONE; VERAPAMIL 2.5 MG/ML 2 ML VIAL ** 5 mg/2 ml ONE; diPHENhydraMINE PO* 25 MG ONE; fentaNYL* 50 MCG/ML 2 ML VIAL (100 MCG VIAL) ONE; nitroGLYCERIN DRIP* 25,000 MCG/250 ML BTL ONE
[2018-01-21 12:34] LABS: ABS Basophils 0.1 10^3/ul (0-0.2); ABS Eosinophils 0.3 10^3/ul (0-0.6); ABS Lymphocytes 0.8 10^3/ul (1.0-4.8); ABS Monocytes 0.5 10^3/ul (0-0.8); ABS Neutrophils 5.5 10^3/ul (1.5-7.7); ABS Nucleated RBC 0 10^3/ul; Eosinophil % 3.7 % (0-6); Hematocrit 26 % (42-52); Hemoglobin 8.8 g/dl (14.0-18.0); Lymphocyte % 10.9 % (25-47); Mean Corpuscular HGB Conc 34 g/dl (31-36); Mean Corpuscular Hemoglobin 32 pg (27-31); Mean Corpuscular Volume 94 fL (80-94); Mean Platelet Volume 10.2 um3 (7.4-10.4); Nucleated Red Blood Cells % 0.1; Platelet Count 250 10^3/ul (150-450); Red Blood Count 2.75 10^6/ul (4.0-5.4); Red Cell Distribution Width 14 % (10.5-15); White Blood Count 7.2 10^3/ul (3.5-10.8)
[2018-01-21 12:46] LABS: INR 1.07 (0.77-1.02)
[2018-01-21 12:54] LABS: EGFR Non-African American 55.8 (>60)
[2018-01-21 19:02] VITALS: BP 171/77
--- NOTE | 2018-01-23 09:15 | CATH ---
CC: Dr. Watkins; Dr. Thorpe; Dr. Allen. PERIPHERAL ANGIOGRAM AND INTERVENTION REPORT: DATE OF PROCEDURE: 01/21/18 PRIMARY PHYSICIAN: Dr. Watkins. PROCEDURES: 1. Left common femoral artery access, antegrade angiography, left superficial femoral artery, popliteal and below knee vessels. 2. Orbital atherectomy, left peroneal and left anterior tibial 1.25 micro radha. Angioplasty, left peroneal 2.5 x 60 mm; angioplasty left anterior tibial 2 -2.5 x 200; angioplasty, Angio-Seal left common femoral artery. HISTORY: A 77-year-old diabetic with CKD stage 3, remote transmetatarsal amputation, more recent right transmetatarsal amputation followed by BK amputation. He is undergoing angiography for evaluation of a non-healing left heel wound, his sole remaining extremity. CTA showed patency of inflow, was technically inadequate to define below knee vessels. CTA suggested a significant distal SFA stenosis. PROCEDURE ACCESS: Left common femoral artery sheath 5F. MEDICATIONS: 1. Subcutaneous lidocaine. 2. IV Versed. 3. IV fentanyl. 4. Heparin 7000 units, 3000 units, 2000 units. 5. Nitroglycerin 400, 200, 200, 400 micrograms IA. Utilizing an ultrasound, left common femoral artery antegrade access was achieved. A 5-Welsh, 11 sheath was placed in the common femoral and angiography was performed of the common femoral, SFA to the popliteal. The significant stenosis described on the CTA in the distal SFA was not evident. A 5-Welsh braided sheath was then introduced, positioned in the popliteal, injections were performed to image below knee vessels with digital subtraction. The occluded PT appeared suboptimal for revascularization. The proximal peroneal was crossed with a wire, treated with 1.25 micro orbital atherectomy at low speed followed by balloon dilatation 2.5 x 60 mm, with slow gradual increase inflation to a total of 8 atmospheres for 3 minutes. A micro 14 ES micro cross catheter was then used with a Fielder XT wire to wire the anterior tibial, I was able to advance the wire all the way to the ankle using the tip of the microcatheter with the wire protruding. The microcatheter was then used to exchange for a ViperWire after which the 1.25 micro was used to treat the anterior tibial essentially in its distal half. This was then followed by a gradual stepwise balloon inflation with a 2-2.5 x 200 balloon to a total 8 atmosphere for 180 seconds. A focal area of incomplete expansion was treated with a 2.5 x 60 balloon to 10 atmospheres for 120 seconds. Angio-Seal was used for the right common femoral artery access. HEMODYNAMICS: Initial BP 159/77, final 162/79. ANGIOGRAPHY: The left common femoral and SFA are heavily calcified as is the profunda. The SFA has diffuse luminal irregularity without significant stenosis. It has no significant distal stenosis as suggested by the CTA. The popliteal has a 30% stenosis. The anterior tibial is calcified, has proximal luminal irregularity, but no significant stenosis, in its proximal third it has a focal 80% stenosis, this has been followed by a number of focal stenosis up to 80 to 90% as well as diffuse plaquing. The proximal dorsalis pedis fills. Peroneal: The peroneal is moderate, diffusely diseased, proximally, has luminal irregularity, the posterior tibial is occluded at its origin. The proximal peroneal has focal 80% stenosis followed by diffuse less significant stenosis. The peroneal is patent to the ankle, provides collaterals to the foot. There was a very short segment collateral filling of a few millimeters of the posterior tibial close to the ankle. The anterior tibial distally is severely and diffusely diseased, the dorsalis pedis appears to be occluded. After revascularization of the peroneal as well as the anterior tibial, there is a 30% residual stenosis in the proximal anterior tibial, no significant stenosis remaining in the peroneal. There are branches supplying the medial and lateral heel. The dorsalis pedis is occluded distally. The plantar branches are occluded. I am dubious the pedal loop could be recanalized via the anterior tibial, or the posterior tibial. CONCLUSION: 1. Critical limb ischemia, left foot with non-healing wound of the plantar surface of the heel, with occlusion of the posterior tibial with successful revascularization of the peroneal and anterior tibial to the ankle, the pedal loop remains occluded, the plantars are occluded. 2. Successful Angio-Seal left common femoral artery. [id number]/CPS #: [id number] MTDD
== END | disposition home or self-care (01) ==
LOC: CHICATH 10:55
PROVIDERS: ATTEND Internal Medicine Cardiovascular Disease
DX: I70.244 Atherosclerosis of native arteries of left leg with ulceration of heel and midfoot (principal); N18.3 Chronic kidney disease, stage 3 (moderate); I12.9 Hypertensive chronic kidney disease with stage 1 through stage 4 chronic kidney disease, or unspecified chronic kidney disease; E11.9 Type 2 diabetes mellitus without complications; Z79.4 Long term (current) use of insulin; I42.5 Other restrictive cardiomyopathy; I25.810 Atherosclerosis of coronary artery bypass graft(s) without angina pectoris; Z87.891 Personal history of nicotine dependence; E78.2 Mixed hyperlipidemia
CPT/HCPCS: 36415; 76937; 80048; 85025; 85610; 85730; A9270-GY; C1724; C1725; C1760; C1769; C1887; C1894; J1644; J2250; J2310; J3010

== ENCOUNTER 2018-02-16 13:09 | Inpatient (IN) | payer MEDICARE, OTHER ==
[~2018-02-16 13:09] MED LIST changes: -Diazepam TAB(*) 5 MG ONE; -Flumazenil* 0.1 MG/ML 5 ML MDV ONE; -Heparin 2 UNITS/ML IVPREMIX* 2,000 ML IV ONE; -Heparin(*) 1000 UNIT/ML 10 ML VIAL CATH LAB IV ONE; -Iodixanol* (CONTRAST) 320 MG/ML 100 ML SDV ONE; -Lidocaine 1% INJ* 10 MG/ML 30 ML SDV ONE; +Lidocaine 2% JELLY* 6 ML JELLY TOPICAL ONE; -Midazolam* 1 MG/ML 5 ML VIAL (5 MG) ONE; -Naloxone* 0.4 MG/ML 1 ML VIAL ONE; -VERAPAMIL 2.5 MG/ML 2 ML VIAL ** 5 mg/2 ml ONE; -diPHENhydraMINE PO* 25 MG ONE; -fentaNYL* 50 MCG/ML 2 ML VIAL (100 MCG VIAL) ONE; -nitroGLYCERIN DRIP* 25,000 MCG/250 ML BTL ONE
[2018-02-16] MEDS ORDERED: NS 0.9% 1000 ML* 1,000 ML IV SCH (13:30)
[2018-02-16 13:58] LABS: ABS Basophils 0.1 10^3/ul (0-0.2); ABS Eosinophils 0.2 10^3/ul (0-0.6); ABS Lymphocytes 0.7 10^3/ul (1.0-4.8); ABS Neutrophils 18.6 10^3/ul (1.5-7.7); ABS Nucleated RBC 0 10^3/ul; Eosinophil % 0.8 % (0-6); Hematocrit 26 % (42-52); Hemoglobin 8.5 g/dl (14.0-18.0); Lymphocyte % 3.5 % (25-47); Mean Corpuscular HGB Conc 33 g/dl (31-36); Mean Corpuscular Hemoglobin 30 pg (27-31); Mean Corpuscular Volume 90 fL (80-94); Mean Platelet Volume 8.9 um3 (7.4-10.4); Nucleated Red Blood Cells % 0; Platelet Count 447 10^3/ul (150-450); Red Blood Count 2.88 10^6/ul (4.0-5.4); Red Cell Distribution Width 15 % (10.5-15); White Blood Count 20.5 10^3/ul (3.5-10.8)
[2018-02-16 14:07] LABS: INR 1.25 (0.77-1.02)
[2018-02-16 14:17] LABS: EGFR Non-African American 45.2 (>60)
[2018-02-16] MEDS ORDERED: Cefepime(*) 2 GM in NS 0.9% 50 ML* 50 ML IVPB ONE (15:13)
[2018-02-16] MEDS ORDERED: Vancomycin(*) 1,000 MG in NS 0.9% 250 ML* 250 ML IVPB ONE (15:13)
[2018-02-16] MEDS ORDERED: metroNIDAZOLE IV 500 MG/100ML* 500 MG/100 ML BAG IVPB ONE (15:13)
[2018-02-16] MEDS ORDERED: Hemorrhoidal OINT PR ONE (15:14)
--- NOTE | 2018-02-16 15:24 | RAD ---
Indication: LEFT Heel infection. Previous amputation of toes from LEFT foot. Comparison: January 15, 2018 MRI. Technique: Noncontrast CT LEFT foot. Multiplanar reformation. Report: Probable post resection/debridement of soft tissues superficial to the dorsal plantar aspect of the calcaneal tuberosity compared with the prior exam. Negative for subcutaneous emphysema. No loculated soft tissue plane abscess collection is identified. Subtle osteolysis at the posterior margin of the calcaneal tuberosity without gross change compared with the January 15, 2018 MRI. Negative for fracture. Diffuse polyarticular osteoarthritis. Diffuse peripheral vascular calcifications. IMPRESSION: 1. Probable post resection/debridement of soft tissues superficial to the dorsal plantar aspect of the calcaneal tuberosity compared with the prior exam. Negative for subcutaneous emphysema. While assessment of soft tissues with CT particularly without IV contrast no loculated soft tissue plane abscess collection is identified. 2. Subtle osteolysis at the posterior margin of the calcaneal tuberosity most consistent with osteomyelitis given the clinical context without gross change compared with the January 15, 2018 MRI.
[2018-02-16] MEDS ORDERED: Cefepime 2 GM in Dextrose(*) 2 GM/50 ML BAG IV ONE (16:00)
[2018-02-16] MEDS ORDERED: Dextrose 50% Syringe 50 ML* 25 GM/50 ML SYRINGE IV PUSH PRN (16:07)
[2018-02-16] MEDS ORDERED: Hemorrhoidal SUPP PR PRN (16:32)
--- NOTE | 2018-02-16 16:48 | ED ---
[facility] Thomas, scribed for Raymond Alfredo MD on 02/16/18 at 1323 . Skin Complaint - HPI Summary HPI Summary: The patient is a 78 year old male with a history of DM, peripheral vascular disease, right BKA, and left foot toe amputation. Today, he comes into the ED with a nonhealing wound to his left heel for the last 2-3 months. He has been on Keflex. He denies fevers, chills, sweats, and abdominal pain. He is accompanied by his healthcare representative. - History of Current Complaint Chief Complaint: EDExtremityLower Stated Complaint: LEFT HEEL INFECTIONS Hx Obtained From: Patient Onset/Duration: Started Weeks Ago - 2-3 months, Still Present Timing: Constant Current Severity: None Pain Intensity: 0 Pain Scale Used: 0-10 Numeric Skin Location: Other: - Left heel Character: Redness Aggravating Symptom(s): Nothing Alleviating Symptom(s): Nothing Associated Signs & Symptoms: Negative - fever, chills, sweats, abd pain Related History: Diabetes, PVD - Additional Pertinent History Primary Care Physician: HELENE - Allergy/Home Medications Allergies/Adverse Reactions: Allergies Allergy/AdvReac Type Severity Reaction Status Date / Time omeprazole Allergy Diarrhea Verified 02/16/18 13:16 PMH/Surg Hx/FS Hx/Imm Hx Endocrine/Hematology History: Reports: Hx Blood Transfusions, Hx Diabetes - with retinopathy and neuropathy, Hx Anemia Denies: Hx Sickle Cell Disease, Hx Thyroid Disease, Hx Unexplained Bleeding Cardiovascular History: Reports: Hx Congestive Heart Failure - Maybe, Hx Coronary Artery Disease, Hx Hypertension, Hx Peripheral Vascular Disease Denies: Hx Aneurysm, Hx Angina, Hx Auto Implanted Cardiovert Defib, Hx Cardiac Arrest, Hx Cardiomegaly, Hx Deep Vein Thrombosis, Hx Hypercholesterolemia, Hx Pacemaker/ICD, Hx Rheumatic Fever, Hx Syncope Comment Only: Other Cardiovascular Problems/Disorders - DIABETIC GI History: Reports: Hx Gastroesophageal Reflux Disease, Hx Hiatal Hernia Comment Only: Other GI Disorders - acute diarrhea History: Reports: Hx Benign Prostatic Hyperplasia, Hx Chronic Renal Failure - Stage 2 Denies: Hx Renal Disease Musculoskeletal History: Denies: Hx Arthritis, Hx Osteoporosis Comment Only: Other Musculoskeletal History - generalized weakness Sensory History: Reports: Hx Contacts or Glasses, Other Sensory Impairments - Retinopathy Denies: Hx Cataracts, Hx Glaucoma, Hx Macular Degeneration, Hx Hearing Aid Opthamlomology History: Reports: Hx Contacts or Glasses, Other Sensory Impairments - Retinopathy Denies: Hx Cataracts, Hx Glaucoma, Hx Macular Degeneration Neurological History: Denies: Hx Headaches Psychiatric History: Denies: Hx Panic Disorder - Surgical History Surgery Procedure, Year, and Place: CABG, AMPUTATION OF TOES LT FOOT, hernia, below knee amputation right Hx Anesthesia Reactions: No Infectious Disease History: No Infectious Disease History: Reports: Hx of Known/Suspected MRSA Denies: Hx Shingles, Traveled Outside the [place] in Last 30 Days - Family History Known Family History: Positive: Diabetes - Social History Alcohol Use: Occasionally Substance Use Type: Reports: None Hx Tobacco Use: Yes Smoking Status (MU): Former Smoker Type: Cigarettes Amount Used/How Often: pack per week Length of Time of Smoking/Using Tobacco: 5 years Have You Smoked in the Last Year: No Review of Systems Negative: Fever, Chills, Other - sweats Negative: Abdominal Pain Positive: Other - Heel wound All Other Systems Reviewed And Are Negative: Yes Physical Exam - Summary Physical Exam Summary: General: well-appearing, no pain distress. On his left heel, there is 6 cm of skin breakdown. There is surrounding erythema. There is some drainage on the left heel. Skin: warm, color reflects adequate perfusion, dry Head: normal Eyes: EOMI, JAI ENT: normal Neck: supple, nontender Respiratory: CTA, breath sounds present Cardiovascular: RRR Abdomen: soft, nontender Bowel: present Musculoskeletal: strength/ROM intact Extremities: On his left heel, there is 6 cm of skin breakdown. There is surrounding erythema. There is some drainage on the left heel. He has a left BKA and amputation of the right toes. Neurological: normal, sensory/motor intact, A&O x3 Psychological: affect/mood appropriate Triage Information Reviewed: Yes Vital Signs On Initial Exam: Initial Vitals Temp Pulse Resp BP Pulse Ox 98.1 F 79 16 201/68 96 02/16/18 13:16 02/16/18 13:16 02/16/18 13:16 02/16/18 13:16 02/16/18 13:16 Vital Signs Reviewed: Yes Diagnostics - Vital Signs Vital Signs Temp Pulse Resp BP Pulse Ox 02/16/18 13:16 98.1 F 79 16 201/68 96 - Laboratory Lab Results: Lab Results 0402/16/18 02/16/18 Range/Units 13:47 13:47 13:47 WBC (3.5-10.8) 10^3/ul RBC (4.0-5.4) 10^6/ul Hgb (14.0-18.0) g/dl Hct (42-52) % MCV (80-94) fL MCH (27-31) pg MCHC (31-36) g/dl RDW (10.5-15) % Plt Count (150-450) 10^3/ul MPV (7.4-10.4) um3 Neut % (Auto) (38-83) % Lymph % (Auto) (25-47) % [place] % (Auto) (0-7) % Eos % (Auto) (0-6) % Baso % (Auto) (0-2) % Absolute Neuts (auto) (1.5-7.7) 10^3/ul Absolute Lymphs (auto) (1.0-4.8) 10^3/ul Absolute Monos (auto) (0-0.8) 10^3/ul Absolute Eos (auto) (0-0.6) 10^3/ul Absolute Basos (auto) (0-0.2) 10^3/ul Absolute Nucleated RBC 10^3/ul Nucleated RBC % INR (Anticoag Therapy) 1.25 H (0.77-1.02) APTT 33.3 (26.0-36.3) seconds Sodium 134 L (139-145) mmol/L Potassium 4.6 (3.5-5.0) mmol/L Chloride 104 (101-111) mmol/L Carbon Dioxide 24 (22-32) mmol/L Anion Gap 6 (2-11) mmol/L BUN 59 H (6-24) mg/dL Creatinine 1.51 H (0.67-1.17) mg/dL Est GFR ( Amer) 58.1 (>60) Est GFR (Non-Af Amer) 45.2 (>60) BUN/Creatinine Ratio 39.1 H (8-20) Glucose 155 H (70-100) mg/dL Lactic Acid 0.9 (0.5-2.0) mmol/L Calcium 8.3 L (8.6-10.3) mg/dL Total Bilirubin 0.40 (0.2-1.0) mg/dL AST 44 H (13-39) U/L ALT 39 (7-52) U/L Alkaline Phosphatase 328 H (34-104) U/L C-Reactive Protein 141.68 H (< 5.00) mg/L Total Protein 5.5 L (6.4-8.9) g/dL Albumin 2.4 L (3.2-5.2) g/dL Globulin 3.1 (2-4) g/dL Albumin/Globulin Ratio 0.8 L (1-3) 02/16/18 Range/Units 13:47 WBC 20.5 H (3.5-10.8) 10^3/ul RBC 2.88 L (4.0-5.4) 10^6/ul Hgb 8.5 L (14.0-18.0) g/dl Hct 26 L (42-52) % MCV 90 (80-94) fL MCH 30 (27-31) pg MCHC 33 (31-36) g/dl RDW 15 (10.5-15) % Plt Count 447 (150-450) 10^3/ul MPV 8.9 (7.4-10.4) um3 Neut % (Auto) 90.5 H (38-83) % Lymph % (Auto) 3.5 L (25-47) % [place] % (Auto) 4.7 (0-7) % Eos % (Auto) 0.8 (0-6) % Baso % (Auto) 0.5 (0-2) % Absolute Neuts (auto) 18.6 H (1.5-7.7) 10^3/ul Absolute Lymphs (auto) 0.7 L (1.0-4.8) 10^3/ul Absolute Monos (auto) 1.0 H (0-0.8) 10^3/ul Absolute Eos (auto) 0.2 (0-0.6) 10^3/ul Absolute Basos (auto) 0.1 (0-0.2) 10^3/ul Absolute Nucleated RBC 0 10^3/ul Nucleated RBC % 0 INR (Anticoag Therapy) (0.77-1.02) APTT (26.0-36.3) seconds Sodium (139-145) mmol/L Potassium (3.5-5.0) mmol/L Chloride (101-111) mmol/L Carbon Dioxide (22-32) mmol/L Anion Gap (2-11) mmol/L BUN (6-24) mg/dL Creatinine (0.67-1.17) mg/dL Est GFR ( Amer) (>60) Est GFR (Non-Af Amer) (>60) BUN/Creatinine Ratio (8-20) Glucose (70-100) mg/dL Lactic Acid (0.5-2.0) mmol/L Calcium (8.6-10.3) mg/dL Total Bilirubin (0.2-1.0) mg/dL AST (13-39) U/L ALT (7-52) U/L Alkaline Phosphatase (34-104) U/L C-Reactive Protein (< 5.00) mg/L Total Protein (6.4-8.9) g/dL Albumin (3.2-5.2) g/dL Globulin (2-4) g/dL Albumin/Globulin Ratio (1-3) Result Diagrams: 02/16/18 13:47 02/16/18 13:47 Lab Statement: Any lab studies that have been ordered have been reviewed, and results considered in the medical decision making process. - CT CT Lower Extremity CT Interpretation: No Acute Changes - IMPRESSION: 1. Probable post resection/ debridement of soft tissues superficial to the dorsal plantar aspect of the calcaneal tuberosity compared with the prior exam. Negative for subcutaneous emphysema. While assessment of soft tissues with CT particularly without IV contrast no loculated soft tissue plane abscess collection is identified. 2. Subtle osteolysis at the posterior margin of the calcaneal tuberosity most consistent with osteomyelitis given the clinical context without gross change compared with the January 15, [address] Alfredo has reviewed this report. CT Interpretation Completed By: Radiologist Course/Dx - Course Course Of Treatment: ADMIT HOSPITALIST Assessment/Plan: Medications reviewed. Allergies noted. BP noted and patient urged to follow up with primary care. - Diagnoses Provider Diagnoses: HTN (hypertension), Cellulitis of left foot, Osteomyelitis of left foot - Physician Notifications Discussed Care Of Patient With: Xochitl Amador Time Discussed With Above Provider: 15:16 Instructed by Provider To: Admit As Inpatient Discharge - Sign-Out/Discharge Documenting (check all that apply): Discharge/Admit/Transfer - Discharge Plan Condition: Stable Disposition: ADMITTED TO [facility] Referrals: Kevin Ortega MD [Primary Care Provider] - - Billing Disposition and Condition Condition: STABLE Disposition: [facility] [place] The documentation as recorded by the [facility] [place] [facility] accurately reflects the service I personally performed and the decisions made by me, Raymond Alfredo MD.
[2018-02-16] MEDS ORDERED: Vancomycin per Pharmacy* NOTE FOLLOW UP SCH (17:00)
--- NOTE | 2018-02-16 19:12 | HP ---
HISTORY AND PHYSICAL: DATE OF ADMISSION: 02/16/18 PROVIDER: Vinod Martinez NP ATTENDING PHYSICIAN: Dr. Amador* (report dictated by Vinod Martinez NP). PRIMARY CARE PROVIDER: Dr. Kevin Ortega. CURRENT PRIMARY CARE PROVIDER: [facility]. CHIEF COMPLAINT: Sent from Wound Clinic for concern for osteo and necrotic left foot with nonhealing wound on left foot. HISTORY OF PRESENT ILLNESS: Mr. Chowdhury is a 78-year-old male with a past medical history of type 2 diabetes; chronic kidney disease, stage 3; coronary artery disease, status post CABG; hypertension; hyperlipidemia; GERD; BPH and peripheral vascular disease with a history of remote transmetatarsal amputation with more recent transmetatarsal amputation followed by a hhipi-xan-mnpo amputation of the right lower extremity, as well he is status post left transmetatarsal amputation with a nonhealing wound. He underwent a right lower extremity angiogram with a right CF arteriotomy, balloon angioplasty of the right SFA, popliteal, LADONNA and peroneal with Dr. Lawson in June 2017. His right zlreg-aqf-qvqw amputation was on 07/24/17. His right ptivz-wsz-tlgd incision has healed well. He has developed a chronic wound on the left foot in which he has been followed by the wound clinic as well as he underwent a successful revascularization of the left lower extremity with Dr. Allen on for critical limb ischemia in the left foot with nonhealing wound on the plantar surface of the heel with occlusion of the posterior tibial, in which he reports is a "successful revascularization of the peroneal, anterior tibial to the ankle, the pedal loop remains occluded, the plantars are occluded." He has been following with the wound clinic daily for hyperbaric chamber treatment and wound care. He was there today for a treatment and it was noted that areas on his foot have turned black and necrotic and he was sent to the emergency department for further evaluation. He underwent a CT of his foot, which is showing: "1. Probable post resection/debridement of soft tissue superficial to the dorsal plantar aspect of the calcaneal tuberosity compared with prior exam. Negative for subcutaneous emphysema. While assessment of soft tissues with CT particularly without IV contrast, no loculated soft tissue plane abscess collection is identified. 2. Subtle osteolysis at the posterior margin of calcaneal tuberosity most consistent with osteomyelitis given the clinical context without gross change compared with 01/15/18 MRI." In the emergency department, the patient was noted to have a leukocytosis of 20.5. It is noted on 01/21/18, his white blood cell count was 7.2, as well as CRP is 141 noted on 12/29/17 to be 27. On evaluation of the patient, he denies any fevers or chills. He reports decreased appetite over the last couple weeks , but otherwise has no complaints. His biggest complaint today on exam is that his hemorrhoids are bothering him. It was reported that the patient has been on a long course of Keflex. PAST MEDICAL HISTORY: 1. Coronary artery disease, status post 3-vessel CABG and history of NSTEMI. 2. History of insulin-dependent type 2 diabetes. 3. Chronic kidney disease, stage 3. 4. History of thrombocytopenia. 5. History of diastolic congestive heart failure. 6. Peripheral arterial disease. 7. Hyperlipidemia. 8. Hypertension. 9. GERD. 10. BPH. 11. Status post right pvrks-oda-fiem amputation. 12. Anemia. CURRENT MEDICATIONS: 1. Lantus 10 units subcu at bedtime. 2. Lispro sliding scale. 3. Ammonium lactate 12% topical at bedtime. 4. Vitamin D 2000 units p.o. daily. 5. Lipitor 20 mg p.o. daily. 6. Zoloft 50 mg p.o. daily. 7. Synthroid 50 mcg p.o. daily. 8. Lasix 20 mg p.o. daily. 9. Metoprolol succinate XL 50 mg p.o. daily. 10. Lisinopril 10 mg p.o. daily. 11. Plavix 75 mg p.o. daily. 12. Aspirin 81 mg p.o. daily. 13. Keflex unknown dosage. ALLERGIES: OMEPRAZOLE. FAMILY HISTORY: Mother, father and grandfather, history of coronary artery disease. SOCIAL HISTORY: The patient is a former smoker, quitting approximately 40 years ago. Denies any alcohol use. He is currently residing at [facility] and has been there for the past several months for rehab. His surrogate decision maker is Karina Espinoza, number is [phone]. 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 He has no children. REVIEW OF SYSTEMS: A 14-point review of systems was performed. All the pertinent positives and negatives are mentioned in the history of present illness. Otherwise are negative. PHYSICAL EXAMINATION GENERAL: Very pleasant, elderly male, appears chronically ill, sitting up in the emergency department stretcher, alert and oriented x3, in no acute distress. VITAL SIGNS: Temperature 98.1, heart rate 79, respirations 16, O2 sat 96% on room air, blood pressure 138/60. HEENT: Head is normocephalic, atraumatic. Pupils are equal and reactive to light. Oropharynx is clear. Moist mucous membranes. No thrush noted. LUNGS: Clear to auscultation bilaterally. Good aeration throughout. CARDIAC: S1, S2. Regular rate and rhythm. Trace lower extremity edema noted to left lower extremity. ABDOMEN: Soft, nontender, nondistended. Normal bowel sounds throughout. EXTREMITIES: Status post right nkerc-bwq-tohs amputation. Status post left transmetatarsal amputation. There is a foul smell from his left foot with noted black discoloration on the top of his foot. The dressing was taken down and he has a deep wide ulcerated area with noted necrotic areas. NEURO: Alert and oriented x3. Moves all extremities. No focal deficits noted. LABORATORY DATA AND DIAGNOSTIC STUDIES: WBC is 20.5, RBC 2.88, Hgb 8.5, HCT 28 , MCV 90, MCH 30, MCHC 33, RDW 15, platelet count 447. INR 1.25. Sodium 134, potassium 4.6, chloride 104, carbon dioxide 24, anion gap 6, BUN 59, creatinine 1.51, glucose 155, lactic acid 0.9, calcium 8.3. Total bilirubin 0.40, AST 44, ALT 39, alkaline phosphatase 328. C-reactive protein 141.68, total protein 5.4, albumin 2.4. Lower extremity CT, please see HPI for impression. ASSESSMENT AND PLAN: Mr. Chowdhury is a 78-year-old male with a complex past medical history as stated above, who presents from the wound clinic today for concern of osteomyelitis and necrotic areas on his foot. 1. Left lower extremity osteomyelitis with nonhealing wound. The patient has been started on broad-spectrum antibiotics with vancomycin, Flagyl and cefepime. I have asked Dr. Dixon, Infectious Disease to consult. As well, I spoke with Dr. Field, who will see the patient this evening. The patient is stable and does not screen positive for sepsis. Wound dressing changes per wound department orders. Normal saline at 125 mL an hour. Obtain wound cultures. I have asked the nurse to call the wound clinic for further notes documentation as a wound culture may have already been sent. 2. Peripheral vascular disease. As stated in the HPI, he recently underwent a revascularization with Dr. Allen. Continue Plavix, aspirin. 3. Type 2 diabetes. Continue Lantus and lispro. 4. Hypertension, controlled. Continue metoprolol and lisinopril. 5. History of congestive heart failure, appears to be euvolemic at this time. Continue Lasix. 6. History of coronary artery disease, status post coronary artery bypass graft , stable. Continue beta-beverley, aspirin, Lipitor. The patient's last echocardiogram was in June 2017 showing an EF of 40% to 45%, mitral regurgitation, tricuspid regurgitation. We will obtain EKG, which was not done on admission. 7. Hemorrhoids. Preparation H. 8. Depression. Continue Zoloft. 9. DVT prophylaxis: Heparin subcu. 10. Code status: Full code. 11. Hospital status: Inpatient to medical. TIME SPENT: Sixty minutes was spent on this admission. This case was discussed with attending physician, Dr. Amador, who agrees with the plan of care. VINOD MARTINEZ, MARILUZ [id number]/CPS #: [id number]
[2018-02-16] MEDS: Insulin LISPRO* 1 UNITS UNIT SUBCUT SCH ×4 (21:10→21:20)
[2018-02-16] MEDS: Insulin GLARGINE(*) 1 UNITS UNIT SUBCUT SCH (21:18)
--- NOTE | 2018-02-16 21:52 | CONS ---
CONSULTATION NOTE: DATE OF CONSULTATION: 02/16/18 Thank you for this orthopedic consultation. CHIEF COMPLAINT: Left foot pain and open wounds. HISTORY OF PRESENT ILLNESS: Mr. Chowdhury is a 78-year-old diabetic male with peripheral vascular disease. He is normally a patient of Dr. Dickersons in outpatient clinic. Today, I am consulted by the hospitalist team for open nonhealing left heel ulcer. The patient reports this has been ongoing for several months. Recently over the last week, the patient notes that he has had further more rapid breakdown of the heel wound as well as some black necrotic area starting on the anterior portion of his left distal TMA site. He denies any fevers or chills. He denies recent illness. He feels that perhaps his heel and TMA site have had extra pressure with transfers. The patient has prior tolnx-cyx-kekb amputation on the right lower extremity and on 01/21/18, he had a successful revascularization of the left lower extremity with Dr. Allen for critical limb ischemia in which Dr. Allen reported a successful revascularization of the peroneal anterior tibia to the ankle. The pedals remained occluded, the plantars remained occluded. The patient has been seen in the wound clinic daily for hyperbaric chamber treatment and wound care. He was sent here today because they noted increased breakdown of the wounds with purulence and new necrotic areas. The patient did have a CT of the foot today showing likely osteomyelitis of the calcaneal tuberosity. No subcutaneous emphysema or abscesses were noted. The patient is admitted today with leukocytosis of 20, elevated CRP at 141. He reports decreased appetite, but otherwise no positive review of systems. PAST MEDICAL HISTORY: 1. Coronary artery disease and STEMI. 2. Insulin dependent type 2 diabetes. 3. Chronic kidney disease stage 3. 4. Thrombocytopenia. 5. Diastolic congestive heart failure. 6. Peripheral arterial disease. 7. Hyperlipidemia. 8. Hypertension. 9. GERD. 10. BPH. 11. Anemia. PAST SURGICAL HISTORY: 1. CABG, 3 vessel. 2. Right puqrr-vhw-drzi amputation. 3. Left transmetatarsal amputation. CURRENT MEDICATIONS: 1. Lantus. 2. Lispro. 3. Ammonium lactate. 4. Vitamin D. 5. Lipitor. 6. Zoloft. 7. Synthroid. 8. Lasix. 9. Atenolol. 10. Metoprolol. 11. Lisinopril. 12. Plavix. 13. Aspirin. 14. Keflex. Please see med reconciliation form for dosages. ALLERGIES: OMEPRAZOLE. FAMILY HISTORY: Maternal and paternal heart disease. SOCIAL HISTORY: The patient is a former smoker who quit 40 years ago. He denies alcohol or recreational drug use. He resides at [facility]. 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 He has no children. REVIEW OF SYSTEMS: Fourteen systems were reviewed with the patient today. Positive for the left wound breakdown, fatigue. Negative for fevers, chills, chest pain, shortness of breath, otherwise the patient reports review of systems as negative or not relevant. PHYSICAL EXAM: Vital Signs: Temperature 98.7, pulse of 78, blood pressure 168/ 73. General: The patient is a well-nourished male, in no apparent distress. Alert and oriented x3. Pleasant mood and appropriate affect. Gait is not assessed. HEENT: Atraumatic, normocephalic. Pupils are equal and reactive to light. Chest: Unlabored breathing. Left lower extremity, the patient has an open wound along the majority of his heel, this measures greater than 8 x 7 cm. I can probe down to the calcaneal tuberosity. There is some purulence and fat necrosis. There is a foul odor. He has 2 large necrotic areas along the medial and lateral border of the anterior transmetatarsal amputation site. These measure 4 x 3 cm each. The skin has not broke down yet, but these are necrotic, more proximal. I cannot palpate a DP pulse. He does have sensation at mid calf. He can flex and extend the knee without pain. No significant cellulitis of the tibia or calf. DIAGNOSTIC STUDIES/LAB DATA: The patient has CT scan from today that is reviewed, showing some osteomyelitis of the calcaneal tuberosity. No obvious subcutaneous emphysema or abscesses. Labs today on 02/16/18 show leukocytosis, white blood cell 20.5 with a left shift and neutrophils at 90.5, hematocrit 26, platelets 447,000. INR 1.25. Sodium 134, potassium 4.6, BUN and creatinine 59 and 1.51, lactic acid 0.9, calcium 8.3, albumin 2.4, total protein 5.5, CRP 141, alk phos 328. ASSESSMENT AND PLAN: Mr. Chowdhury is a 78-year-old diabetic male with peripheral vascular disease. He had a prior left transmetatarsal amputation and developed a heel ulcer. This is being followed by Dr. Garcia. He now has further breakdown of the heel ulcer as well as new necrotic areas along the anterior stump of the transmetatarsal amputation on the left. The patient is admitted now with IV antibiotics. Infectious Disease will be consulted. I did discuss with the patient that he will likely need open debridement versus further amputation proximally. He is currently in favor of nmsps-pdt-hvmw amputation as this did well on his right side. I have contacted Dr. Garcia, who sees this patient regularly in the outpatient clinic and he has agreed graciously to see the patient tomorrow on . The patient and Dr. Garcia can discuss further surgical intervention. Today the patient's wound was being cultured by his nurse, I feel this will likely be polymicrobial results. He should have sterile dressing changes and the IV antibiotics for now. Orthopedics to follow. [id number]/[facility] #: [id number] [facility] CENTERChiquita
[2018-02-17] MEDS ORDERED: Hemorrhoidal SUPP PR PRN (00:10)
[2018-02-17] MEDS: metroNIDAZOLE IV 500 MG/100ML* 500 MG/100 ML BAG IVPB SCH ×3 (00:35→15:24)
[2018-02-17] MEDS: NS 0.9% 1000 ML* 1,000 ML IV SCH ×2 (02:33→14:52)
[2018-02-17] MEDS ORDERED: Vancomycin(*) 1,000 MG in NS 0.9% 250 ML* 250 ML IVPB SCH (05:00)
[2018-02-17 06:37] LABS: EGFR Non-African American 53.2 (>60)
[2018-02-17] MEDS: Levothyroxine TAB* 50 MCG TAB PO SCH (06:38)
[2018-02-17 07:00] LABS: ABS Basophils 0.1 10^3/ul (0-0.2); ABS Eosinophils 0.2 10^3/ul (0-0.6); ABS Lymphocytes 0.7 10^3/ul (1.0-4.8); ABS Monocytes 0.8 10^3/ul (0-0.8); ABS Nucleated RBC 0 10^3/ul; Eosinophil % 1.4 % (0-6); Hematocrit 25 % (42-52); Hemoglobin 7.7 g/dl (14.0-18.0); Lymphocyte % 3.7 % (25-47); Mean Corpuscular HGB Conc 31 g/dl (31-36); Mean Corpuscular Hemoglobin 29 pg (27-31); Mean Corpuscular Volume 94 fL (80-94); Mean Platelet Volume 9.1 um3 (7.4-10.4); Nucleated Red Blood Cells % 0; Platelet Count 403 10^3/ul (150-450); Red Blood Count 2.62 10^6/ul (4.0-5.4); Red Cell Distribution Width 15 % (10.5-15); White Blood Count 17.8 10^3/ul (3.5-10.8)
[2018-02-17] MEDS: Cefepime 2 GM in Dextrose(*) 2 GM/50 ML BAG IV SCH ×2 (07:12→16:41)
[2018-02-17] MEDS: Metoprolol Succinate XL TAB* 50 MG PO SCH (07:24)
[2018-02-17] MEDS: Sertraline* 50 MG TAB PO SCH (07:24)
[2018-02-17] MEDS: Furosemide TAB* 20 MG PO SCH (07:24)
[2018-02-17] MEDS: Atorvastatin* 20 MG TAB PO SCH (07:24)
[2018-02-17] MEDS: Aspirin 81 mg CHEW TAB* 81 MG TAB.CHEW PO SCH (07:24)
[2018-02-17] MEDS: Lisinopril TAB* 10 MG PO SCH (07:24)
[2018-02-17] MEDS: Cholecalciferol TAB* 1000 UNITS PO SCH (07:24)
[2018-02-17] MEDS: Clopidogrel TAB* 75 MG PO SCH (07:25)
[2018-02-17] MEDS: Insulin LISPRO* 1 UNITS UNIT SUBCUT SCH ×4 (07:31→20:37)
--- NOTE | 2018-02-17 08:48 | CONSULT ---
Consult Consult: Date of Service: 02/17/18 Reason for Consultation: Left lower leg gangrene in a known vasculopath. Requesting Physician: Gurpreet Garcia MD (Focused) HPI: Mr. Chowdhury is a 78-year-old diabetic male with peripheral vascular disease. On he underwent RLE arteriography with balloon angioplasty of the right SFA , pop and infrapopliteal arteries followed by right BKA 07/24/17 with good stump healing. Consultation requested today by Dr. Garcia regarding open nonhealing left heel ulcer. The patient reports this has been ongoing for several months. Recently over the last week, the patient notes that he has had further more rapid breakdown of the heel wound as well as some black necrotic area starting on the anterior portion of his left distal TMA site. He denies any fevers or chills. He denies recent illness. He feels that perhaps his heel and TMA site have had extra pressure with transfers. On 01/21/18, he had a successful revascularization of the left lower extremity with Dr. Allen for critical limb ischemia in which Dr. lAlen reported a successful revascularization of the peroneal and LADONNA to the ankle. The pedal loop remained occluded, the plantars remained occluded. The patient has been seen in the wound clinic daily for hyperbaric chamber treatment and wound care. He was referred to [facility] because they noted increased breakdown of the wounds with purulence and new necrotic areas. The patient did have a CT of the foot showing likely osteomyelitis of the calcaneal tuberosity. No subcutaneous emphysema or abscesses were noted.The patient was admitted with leukocytosis of 20, elevated CRP at 141. He reports decreased appetite, but otherwise no positive review of systems. PAST MEDICAL HISTORY: 1. Coronary artery disease and STEMI. 2. Insulin dependent type 2 diabetes. 3. Chronic kidney disease stage 3. 4. Thrombocytopenia. 5. Diastolic congestive heart failure. 6. Peripheral arterial disease. 7. Hyperlipidemia. 8. Hypertension. 9. GERD. 10. BPH. 11. Anemia. PAST SURGICAL HISTORY: 1. CABG, 3 vessel. 2. Right fzusa-hag-noaz amputation 07/24/17 3. Left transmetatarsal amputation. 4. RLE angiography with balloon angioplasty at multiple levels, 07/17/17 5. LLE angiography, orbital atherectomy and angioplasty of the left peroneal and LADONNA, 01/21/18 CURRENT MEDICATIONS: Please see med reconciliation form. ALLERGIES: OMEPRAZOLE. FAMILY HISTORY: Maternal and paternal heart disease. SOCIAL HISTORY: The patient is a former smoker who quit 40 years ago. He denies alcohol or recreational drug use. He resides at [facility]. 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 He has no children. REVIEW OF SYSTEMS: Fourteen systems were reviewed with the patient today. Positive for the left wound breakdown, fatigue. Negative for fevers, chills, chest pain, shortness of breath, otherwise the patient reports review of systems as negative or not relevant. PHYSICAL EXAM: 02/17/18 02/17/18 02/17/18 03:35 07:15 07:37 Temperature 99.1 F Temperature Oral Source Pulse Rate 70 Respiratory 16 Rate Blood Pressure 134/69 (mmHg) Blood Pressure 90 Mean O2 Sat by Pulse 98 Oximetry Patient on Room Yes Air No apparent distress. Alert and oriented x3. Pleasant mood and appropriate affect. Gait is not assessed. HEENT: Atraumatic, normocephalic. Pupils are equal and reactive to light. Chest: CTAB Heart: RRR, S1/S2 Vascular: 2+ pulses palpated at BL FIELD CHECKER, 1+ left Pop, non palpable right Pop Left lower extremity: Visible left lower leg is erythematous and warm to touch, left foot dressed with gauze and brace, +malodorous Labs: Laboratory Tests 02/17/18 02/17/18 05:58 05:58 WBC 17.8 H RBC 2.62 L Hgb 7.7 L Hct 25 L Neut % (Auto) 90.1 H BUN 53 H Creatinine 1.31 H Est GFR ( Amer) 68.4 Est GFR (Non-Af Amer) 53.2 Relevant Imaging: Patient Name: FIGUEROA CHOWDHURY Medical Record#: [id number] Ordering Physician: Raymond Alfredo MD Acct.#: [id number] : 1940 Age: 78 Sex: M Location: EMERGENCY DEPARTMENT Exam Date: 02/16/181347 ADM Status: REG ER Order Information: CT EXTREMITY LOWER LEFT WO Accession Number: [id number] CPT: 79075 Indication: LEFT Heel infection. Previous amputation of toes from LEFT foot. Comparison: January 15, 2018 MRI. Technique: Noncontrast CT LEFT foot. Multiplanar reformation. Report: Probable post resection/debridement of soft tissues superficial to the dorsal plantar aspect of the calcaneal tuberosity compared with the prior exam. Negative for subcutaneous emphysema. No loculated soft tissue plane abscess collection is identified. Subtle osteolysis at the posterior margin of the calcaneal tuberosity without gross change compared with the January 15, 2018 MRI. Negative for fracture. Diffuse polyarticular osteoarthritis. Diffuse peripheral vascular calcifications. IMPRESSION: 1. Probable post resection/debridement of soft tissues superficial to the dorsal plantar aspect of the calcaneal tuberosity compared with the prior exam. Negative for subcutaneous emphysema. While assessment of soft tissues with CT particularly without IV contrast no loculated soft tissue plane abscess collection is identified. 2. Subtle osteolysis at the posterior margin of the calcaneal tuberosity most consistent with osteomyelitis given the clinical context without gross change compared with the January 15, 2018 MRI. <Electronically signed by Elbert Castro MD in OV> 02/16/18 1520 Dictated By: Elbert Castro MD Dictated Date/Time: 02/16/18 1520 Transcribed Date/Time: 02/16/18 1511 Copy to: CC:Kevin Ortega MD; Raymond Alfredo MD Imaging - [facility] Imaging - [facility] [address] [address] ph ([phone]) ph ([phone]) ph ([phone]) 1 of 1 LLE Catheterization Report Patient: FIGUEROA CHOWDHURY /Age: 04 1940 77 Medical Record#: [id number] Admission Date: 01/21/18 Provider: Kemi Allen MD CC: Dr. Wtakins; Dr. hTorpe; Dr. Allen. PERIPHERAL ANGIOGRAM AND INTERVENTION REPORT: DATE OF PROCEDURE: 01/21/18 PRIMARY PHYSICIAN: Dr. Watkins. PROCEDURES: 1. Left common femoral artery access, antegrade angiography, left superficial femoral artery, popliteal and below knee vessels. 2. Orbital atherectomy, left peroneal and left anterior tibial 1.25 micro radha. Angioplasty, left peroneal 2.5 x 60 mm; angioplasty left anterior tibial 2-2.5 x 200; angioplasty, Angio-Seal left common femoral artery. HISTORY: A 77-year-old diabetic with CKD stage 3, remote transmetatarsal amputation, more recent right transmetatarsal amputation followed by BK amputation. He is undergoing angiography for evaluation of a non-healing left heel wound, his sole remaining extremity. CTA showed patency of inflow, was technically inadequate to define below knee vessels. CTA suggested a significant distal SFA stenosis. PROCEDURE ACCESS: Left common femoral artery sheath 5F. MEDICATIONS: 1. Subcutaneous lidocaine. 2. IV Versed. 3. IV fentanyl. 4. Heparin 7000 units, 3000 units, 2000 units. 5. Nitroglycerin 400, 200, 200, 400 micrograms IA. Utilizing an ultrasound, left common femoral artery antegrade access was achieved. A 5-[place]ay[place] Islander, 11 sheath was placed in the common femoral and angiography was performed of the common femoral , SFA to the popliteal. The significant stenosis described on the CTA in the distal SFA was not evident. A 5-[place] Islander braided sheath was then introduced, positioned in the popliteal, injections were performed to image below knee vessels with digital subtraction. The occluded PT appeared suboptimal for revascularization. The proximal peroneal was crossed with a wire, treated with 1.25 micro orbital atherectomy at low speed followed by balloon dilatation 2.5 x 60 mm, with slow gradual increase inflation to a total of 8 atmospheres for 3 minutes. A micro 14 ES micro cross catheter was then used with a Fielder XT wire to wire the anterior tibial, I was able to advance the wire all the way to the ankle using the tip of the microcatheter with the wire protruding. The microcatheter was then used to exchange for a ViperWire after which the 1.25 micro was used to treat the anterior tibial essentially in its distal half. This was then followed by a gradual stepwise balloon inflation with a 2-2.5 x 200 balloon to a total 8 atmosphere for 180 seconds. A focal area of incomplete expansion was treated with a 2.5 x 60 balloon to 10 atmospheres for 120 seconds. Angio-Seal was used for the right common femoral artery access. 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 The patient underwent LLE angiography with revascularization of the left LADONNA and peroneal artery, but still has deteriorated to gangrene in the left foot and heel. If the left femoropopliteal arteries are patent I do not expect additional arteriography to be of much benefit. Plan: 1. Confirm patency of left femoral and popliteal arteries and determine patency of infrapopliteal artereis with arterial duplex sonography. 2. If there is large arterial occlusion amenable to angiographic then endovascular intervention may be indicated. If not, surgical and antibiotic therapy supported by wound care are indicated.
--- NOTE | 2018-02-17 10:47 | PN ---
Progress Note - Progress Note Date of Service: 02/17/18 SOAP: Subjective: Patient resting comfortably with no complaints Objective: Vital Signs Temp Pulse Resp BP Pulse Ox 99.1 F 70 16 134/69 98 02/17/18 03:35 02/17/18 07:15 02/17/18 07:37 02/17/18 07:15 02/17/18 03:35 Laboratory Last Values WBC 17.8 10^3/ul (3.5-10.8) H 02/17/18 05:58 RBC 2.62 10^6/ul (4.0-5.4) L 02/17/18 05:58 Hgb 7.7 g/dl (14.0-18.0) L 02/17/18 05:58 Hct 25 % (42-52) L 02/17/18 05:58 MCV 94 fL (80-94) 02/17/18 05:58 MCH 29 pg (27-31) 02/17/18 05:58 MCHC 31 g/dl (31-36) 02/17/18 05:58 RDW 15 % (10.5-15) 02/17/18 05:58 Plt Count 403 10^3/ul (150-450) 02/17/18 05:58 MPV 9.1 um3 (7.4-10.4) 02/17/18 05:58 Neut % (Auto) 90.1 % (38-83) H 02/17/18 05:58 Lymph % (Auto) 3.7 % (25-47) L 02/17/18 05:58 Bosque % (Auto) 4.4 % (0-7) 02/17/18 05:58 Eos % (Auto) 1.4 % (0-6) 02/17/18 05:58 Baso % (Auto) 0.4 % (0-2) 02/17/18 05:58 Absolute Neuts (auto) 16.0 10^3/ul (1.5-7.7) H 02/17/18 05:58 Absolute Lymphs (auto) 0.7 10^3/ul (1.0-4.8) L 02/17/18 05:58 Absolute Monos (auto) 0.8 10^3/ul (0-0.8) 02/17/18 05:58 Absolute Eos (auto) 0.2 10^3/ul (0-0.6) 02/17/18 05:58 Absolute Basos (auto) 0.1 10^3/ul (0-0.2) 02/17/18 05:58 Absolute Nucleated RBC 0 10^3/ul 02/17/18 05:58 Nucleated RBC % 0 02/17/18 05:58 INR (Anticoag Therapy) 1.25 (0.77-1.02) H 02/16/18 13:47 APTT 33.3 seconds (26.0-36.3) 02/16/18 13:47 Sodium 136 mmol/L (139-145) L 02/17/18 05:58 Potassium 4.2 mmol/L (3.5-5.0) 02/17/18 05:58 Chloride 108 mmol/L (101-111) 02/17/18 05:58 Carbon Dioxide 22 mmol/L (22-32) 02/17/18 05:58 Anion Gap 6 mmol/L (2-11) 02/17/18 05:58 BUN 53 mg/dL (6-24) H 02/17/18 05:58 Creatinine 1.31 mg/dL (0.67-1.17) H 02/17/18 05:58 Est GFR ( Amer) 68.4 (>60) 02/17/18 05:58 Est GFR (Non-Af Amer) 53.2 (>60) 02/17/18 05:58 BUN/Creatinine Ratio 40.5 (8-20) H 02/17/18 05:58 Glucose 109 mg/dL (70-100) H 02/17/18 05:58 POC Glucose (mg/dL) 128 mg/dL (70-100) H 02/17/18 07:30 Lactic Acid 0.9 mmol/L (0.5-2.0) 02/16/18 13:47 Calcium 7.6 mg/dL (8.6-10.3) L 02/17/18 05:58 Total Bilirubin 0.40 mg/dL (0.2-1.0) 02/16/18 13:47 AST 44 U/L (13-39) H 02/16/18 13:47 ALT 39 U/L (7-52) 02/16/18 13:47 Alkaline Phosphatase 328 U/L (34-104) H 02/16/18 13:47 C-Reactive Protein 141.68 mg/L (< 5.00) H 02/16/18 13:47 Total Protein 5.5 g/dL (6.4-8.9) L 02/16/18 13:47 Albumin 2.4 g/dL (3.2-5.2) L 02/16/18 13:47 Globulin 3.1 g/dL (2-4) 02/16/18 13:47 Albumin/Globulin Ratio 0.8 (1-3) L 02/16/18 13:47 LLE: dressing clean and intact Assessment: LLE chronic infection Plan: 1) continue IV Abx 2) continue DVT prophylaxis 3) Plan for BKA with Jose on
--- NOTE | 2018-02-17 12:36 | RAD ---
INDICATION: Gangrenous left foot and a nonvascular path COMPARISON: Left lower extremity arteriography dated January 21, 2018 TECHNIQUE: Britt scale, color Doppler, and spectral analysis utilized to image the left lower extremity arteries. Flow velocities were determined at each visualized artery. REPORT: The left common femoral artery, proximal femoral profundus, superficial femoral artery and popliteal artery exhibit patency. The left peroneal artery and anterior tibial artery exhibited adequate patency. At the proximal left anterior tibial artery there is increased velocity of 161 cm/s indicating relative stenosis. At the left dorsalis pedis artery flow velocity measures 195 cm/s indicating stenosis. The proximal posterior tibial artery does not exhibit any flow. More distally at the mid-level posterior tibial artery there is flow measuring 61 cm/s. This flow is not continuous to the distal portion of the artery. IMPRESSION: 1. Adequate in-line flow without suspiciously elevated velocities are documented from the left common femoral artery through the popliteal artery. The left peroneal artery appears to be adequately patent without suspiciously elevated flow velocities. 2. The left anterior tibial artery and dorsalis pedis artery appear to be patent but do exhibit increased flow velocities at the proximal LADONNA and dorsalis pedis indicating focal stenoses. 3. As had been documented on prior arteriography, the proximal posterior tibial artery is occluded.
--- NOTE | 2018-02-17 15:20 | PN ---
Progress Note - Progress Note Date of Service: 02/17/18 Note: I saw Ramon and examined him this morning. He is well known to me. In brief, he is a brittle diabetic with severe peripheral vascular disease. He's had multiple amputations of his bilateral feet and legs in the past. This past fall, I performed a right below the knee amputation on him. Overall he has done very well with that, and healed the skin incision well. He has been dealing with a left plantar heel ulcer for a couple of months now. He is now admitted to the hospital for worsening of this ulcer, as well as the development of 2 ulcers at his transmetatarsal amputation stump of the left foot. He has been nonweightbearing on the left lower extremity and has been going to wound care. On exam, he has a large plantar heel ulcer on the left, with exposed calcaneus , and it is quite malodorous. He also has developed 2 new ulcers at the amputation stump medially and laterally. There are no drainage from these. There is no significant erythema. I reviewed his CT scan and MRI, which are consistent with osteomyelitis of the posterior and inferior aspect of the calcaneus. He had noncompressible ABIs. His white count is elevated at 17.8. CRP is 141. Unfortunately, Ramon's left foot and heel has worsened. He now clearly has osteomyelitis of the calcaneus. He also has developed ulcers of the left transmetatarsal stump as well. This is a very difficult situation. We discussed attempting limb salvage with a debridement and antibiotics. We also discussed surgical options, including a Gaenslen procedure, and a below the knee amputation. We spent a long time discussing the potential pros/cons and risks/benefits of each. I am not optimistic that he will ever clear this infection and heal the wounds. I worry that he would fail a partial calcanectomy as well, as he does not have adequate soft tissue coverage. And again, this is all in the setting of brittle diabetes and vasculopathy. After discussion, he expressed his desire to move forward with a below the knee amputation. I think this is a very reasonable decision. I have asked Dr. Lawson of the vascular service to see him, and he felt that from a vascular standpoint, he was optimized for a below the knee amputation, and would hopefully be able to heal it. He did not feel that any further vascular intervention was warranted. We will plan on moving forward with a below the knee amputation on 02/19/18. In the meantime, he will remain nonweightbearing on the left lower extremity. He should be n.p.o. at midnight, on Friday night. All of Ramon's questions were answered. Gurpreet Garcia MD
--- NOTE | 2018-02-17 17:42 | PN ---
Hospitalist Progress Note Date of Service: 02/17/18 Pt seen and examined. Meds and labs reviewed. ROS: Denied HAY/dizziness, F/C, N/V, CP, SOB, increased cough, sputum production , abd pain, diarrhea, constipation, dysuria, myalgias, arthralgias, throat pain , and new skin lesions. The rest of the 14 point ROS are unremarkable. PHYSICAL EXAM: GEN APPEARANCE: Awake, not in acute distress HEENT: NC/AT, PERRLA, moist oral mucosa, (-) throat erythema NECK: Soft, supple, (-) cervical LAD, (-)JVD HEART: S1S2 WNL, RRR, No MRG CHEST: CTA, BL, GAE, No W/R/R ABD: Soft, ND/NT, NABS 4x Q EXT: No C/C/(+)3-4+ BLLE SKIN: Warm to touch PSYCH: No active psychosis, hallucinations, depression, SI/HI Assess/Plan/Problems-Billing Assessment: - Patient Problems (1) Chronic ulcer of left lower extremity Current Visit: Yes Status: Acute Code(s): L97.929 - NON-PRS CHRONIC ULC UNSP PRT OF L LOW LEG W UNSP SEVERITY SNOMED Code(s): 53303052 Comment: --with Cellulitis and calcaneal osteomyelitis --ID and vascular Sx following for possible plan for LLE BKA on ? Will defer --Continue IV Abx (2) PVD (peripheral vascular disease) Current Visit: Yes Status: Acute Code(s): I73.9 - PERIPHERAL VASCULAR DISEASE, UNSPECIFIED SNOMED Code(s): 602140792 Comment: --Continue statins and plavix --for possible BKA on ? (3) Diabetes Current Visit: Yes Status: Acute Code(s): E11.9 - TYPE 2 DIABETES MELLITUS WITHOUT COMPLICATIONS SNOMED Code(s): 45510256 Comment: --Continue current regimen --Consider adjustin in AM if more frequent values above 180 (4) HTN (hypertension) Current Visit: Yes Status: Acute Code(s): I10 - ESSENTIAL (PRIMARY) HYPERTENSION SNOMED Code(s): 78326628 Comment: --Continue beta beverley and ACEI --Well controlled at this time and will continue watchful waiting.
[2018-02-17] MEDS: Insulin GLARGINE(*) 1 UNITS UNIT SUBCUT SCH (20:36)
[2018-02-18] MEDS: metroNIDAZOLE IV 500 MG/100ML* 500 MG/100 ML BAG IVPB SCH ×4 (00:19→23:51)
[2018-02-18] MEDS: NS 0.9% 1000 ML* 1,000 ML IV SCH (02:46)
[2018-02-18] MEDS: Cefepime 2 GM in Dextrose(*) 2 GM/50 ML BAG IV SCH ×2 (05:55→17:45)
[2018-02-18] MEDS: Levothyroxine TAB* 50 MCG TAB PO SCH (05:57)
[2018-02-18 08:46] LABS: ABS Basophils 0.1 10^3/ul (0-0.2); ABS Eosinophils 0.2 10^3/ul (0-0.6); ABS Lymphocytes 0.7 10^3/ul (1.0-4.8); ABS Monocytes 0.8 10^3/ul (0-0.8); ABS Neutrophils 16.3 10^3/ul (1.5-7.7); ABS Nucleated RBC 0 10^3/ul; Eosinophil % 1.2 % (0-6); Hematocrit 24 % (42-52); Hemoglobin 7.9 g/dl (14.0-18.0); Lymphocyte % 3.9 % (25-47); Mean Corpuscular HGB Conc 33 g/dl (31-36); Mean Corpuscular Hemoglobin 30 pg (27-31); Mean Corpuscular Volume 90 fL (80-94); Nucleated Red Blood Cells % 0; Platelet Count 400 10^3/ul (150-450); Red Blood Count 2.67 10^6/ul (4.0-5.4); Red Cell Distribution Width 15 % (10.5-15); White Blood Count 18.1 10^3/ul (3.5-10.8)
--- NOTE | 2018-02-18 09:00 | ADMNOTE ---
Subjective Date of Service: 02/18/18 Interval History: No pain. Appetite OK. No bowel c/o. Review of Systems - Measurements Intake and Output: Intake and Output Last 24 Hours 02/16/18 02/17/18 02/18/18 02/19/18 06:59 06:59 06:59 06:59 Intake Total 50 2335 Output Total 600 Balance 50 1735 Weight 149 lb 148 lb 14.4 oz Intake: IV Fluids 1385 NS (0.9%) 1385 IVPB 50 ABX - CEFEPIME 50 Oral 0 950 Output: Urine 600 Other: # Bowel Movements 0 1 Estimated Stool Amount Small # Voids 5 1 Objective Active Medications: Aspirin (Aspirin 81 Mg Chew Tab*) 81 mg PO DAILY [facility] Last Admin: 02/17/18 07:24 Dose: 81 mg Atorvastatin Calcium (Lipitor*) 20 mg PO DAILY [facility] Last Admin: 02/17/18 07:24 Dose: 20 mg Cholecalciferol (Vitamin D Tab*) 2,000 units PO DAILY [facility] Last Admin: 02/17/18 07:24 Dose: 2,000 units Clopidogrel Bisulfate (Plavix Tab*) 75 mg PO DAILY [facility] Last Admin: 02/17/18 07:25 Dose: 75 mg Dextrose (D50w Syringe 50 Ml*) 12.5 gm IV PUSH .FOR FS < 60 - SS PRN PRN Reason: FS < 60 Furosemide (Lasix Tab*) 20 mg PO DAILY [facility] Last Admin: 02/17/18 07:24 Dose: 20 mg Hard Fat/Phenylephrine (Preparation H Supp*) 1 supp NJ Q4H PRN PRN Reason: PAIN Metronidazole/Sodium Chloride (Flagyl 500 Mg Ivpb*) 500 mg in 100 mls @ 100 mls /hr IVPB Q8H [facility] Last Admin: 02/18/18 00:19 Dose: 100 mls/hr Cefepime HCl (Maxipime 2 Gm In Dextrose Duplex (*)) 2 gm in 50 mls @ 100 mls/ hr IV Q12H [facility] Last Admin: 02/18/18 05:55 Dose: 100 mls/hr Sodium Chloride (Ns 0.9% 1000 Ml*) 1,000 mls @ 125 mls/hr IV PER RATE [facility] Last Admin: 02/18/18 02:46 Dose: 125 mls/hr Insulin Glargine (Lantus(*)) 10 units SUBCUT BEDTIME [facility] Last Admin: 02/17/18 20:36 Dose: 10 unit Insulin Human Lispro (Humalog*) 0 units SUBCUT ACHS [facility] PRN Reason: Protocol Last Admin: 02/17/18 20:37 Dose: 4 units Levothyroxine Sodium (Synthroid Tab*) 50 mcg PO DAILY@0600 [facility] Last Admin: 02/18/18 05:57 Dose: 50 mcg Lisinopril (Prinivil Tab*) 10 mg PO DAILY [facility] Last Admin: 02/17/18 07:24 Dose: 10 mg Metoprolol Succinate (Toprol Xl Tab*) 50 mg PO DAILY [facility] Last Admin: 02/17/18 07:24 Dose: 50 mg Sertraline HCl (Zoloft*) 50 mg PO DAILY [facility] Last Admin: 02/17/18 07:24 Dose: 50 mg Vital Signs - 8 hr 02/18/18 02/18/18 03:37 07:29 Temperature 98.4 F 98.3 F Pulse Rate 74 73 Respiratory 16 17 Rate Blood Pressure 145/51 144/70 (mmHg) O2 Sat by Pulse 97 98 Oximetry Oxygen Devices in Use Now: None Appearance: Alert, partly up in bed. In good spirits. Looks comfortabole. Eyes: No Scleral Icterus Respiratory: Symmetrical Chest Expansion and Respiratory Effort, Clear to Auscultation, Clear to Percussion Cardiovascular: NL Sounds; No Murmurs; No JVD, RRR, No Edema, - Extremities: No Clubbing, Cyanosis, - - 1+ edema L leg, L foot bandaged. R BKA. Skin: No Rash or Ulcers, No Nodules or Sclerosis, - Neurological: Alert and Oriented x 3, NL Sensation Result Diagrams: 02/18/18 08:16 02/17/18 05:58 Additional Lab and Data: Lab Results 02/16/18 02/16/18 02/16/18 Range/Units 13:47 13:47 13:47 WBC (3.5-10.8) 10^3/ul RBC (4.0-5.4) 10^6/ul Hgb (14.0-18.0) g/dl Hct (42-52) % MCV (80-94) fL MCH (27-31) pg MCHC (31-36) g/dl RDW (10.5-15) % Plt Count (150-450) 10^3/ul MPV (7.4-10.4) um3 Neut % (Auto) (38-83) % Lymph % (Auto) (25-47) % [place] % (Auto) (0-7) % Eos % (Auto) (0-6) % Baso % (Auto) (0-2) % Absolute Neuts (auto) (1.5-7.7) 10^3/ul Absolute Lymphs (auto) (1.0-4.8) 10^3/ul Absolute Monos (auto) (0-0.8) 10^3/ul Absolute Eos (auto) (0-0.6) 10^3/ul Absolute Basos (auto) (0-0.2) 10^3/ul Absolute Nucleated RBC 10^3/ul Nucleated RBC % INR (Anticoag Therapy) 1.25 H (0.77-1.02) APTT 33.3 (26.0-36.3) seconds Sodium 134 L (139-145) mmol/L Potassium 4.6 (3.5-5.0) mmol/L Chloride 104 (101-111) mmol/L Carbon Dioxide 24 (22-32) mmol/L Anion Gap 6 (2-11) mmol/L BUN 59 H (6-24) mg/dL Creatinine 1.51 H (0.67-1.17) mg/dL Est GFR ( Amer) 58.1 (>60) Est GFR (Non-Af Amer) 45.2 (>60) BUN/Creatinine Ratio 39.1 H (8-20) Glucose 155 H (70-100) mg/dL Lactic Acid 0.9 (0.5-2.0) mmol/L Calcium 8.3 L (8.6-10.3) mg/dL Total Bilirubin 0.40 (0.2-1.0) mg/dL AST 44 H (13-39) U/L ALT 39 (7-52) U/L Alkaline Phosphatase 328 H (34-104) U/L C-Reactive Protein 141.68 H (< 5.00) mg/L Total Protein 5.5 L (6.4-8.9) g/dL Albumin 2.4 L (3.2-5.2) g/dL Globulin 3.1 (2-4) g/dL Albumin/Globulin Ratio 0.8 L (1-3) 02/16/18 Range/Units 13:47 WBC 20.5 H (3.5-10.8) 10^3/ul RBC 2.88 L (4.0-5.4) 10^6/ul Hgb 8.5 L (14.0-18.0) g/dl Hct 26 L (42-52) % MCV 90 (80-94) fL MCH 30 (27-31) pg MCHC 33 (31-36) g/dl RDW 15 (10.5-15) % Plt Count 447 (150-450) 10^3/ul MPV 8.9 (7.4-10.4) um3 Neut % (Auto) 90.5 H (38-83) % Lymph % (Auto) 3.5 L (25-47) % [place] % (Auto) 4.7 (0-7) % Eos % (Auto) 0.8 (0-6) % Baso % (Auto) 0.5 (0-2) % Absolute Neuts (auto) 18.6 H (1.5-7.7) 10^3/ul Absolute Lymphs (auto) 0.7 L (1.0-4.8) 10^3/ul Absolute Monos (auto) 1.0 H (0-0.8) 10^3/ul Absolute Eos (auto) 0.2 (0-0.6) 10^3/ul Absolute Basos (auto) 0.1 (0-0.2) 10^3/ul Absolute Nucleated RBC 0 10^3/ul Nucleated RBC % 0 INR (Anticoag Therapy) (0.77-1.02) APTT (26.0-36.3) seconds Sodium (139-145) mmol/L Potassium (3.5-5.0) mmol/L Chloride (101-111) mmol/L Carbon Dioxide (22-32) mmol/L Anion Gap (2-11) mmol/L BUN (6-24) mg/dL Creatinine (0.67-1.17) mg/dL Est GFR ( Amer) (>60) Est GFR (Non-Af Amer) (>60) BUN/Creatinine Ratio (8-20) Glucose (70-100) mg/dL Lactic Acid (0.5-2.0) mmol/L Calcium (8.6-10.3) mg/dL Total Bilirubin (0.2-1.0) mg/dL AST (13-39) U/L ALT (7-52) U/L Alkaline Phosphatase (34-104) U/L C-Reactive Protein (< 5.00) mg/L Total Protein (6.4-8.9) g/dL Albumin (3.2-5.2) g/dL Globulin (2-4) g/dL Albumin/Globulin Ratio (1-3) Microbiology and Other Data: Microbiology 02/16/18 20:30 Gram Stain - Final Foot Left Wound Culture - Preliminary Proteus Mirabilis Assess/Plan/Problems-Billing Assessment: - Patient Problems (1) Osteomyelitis Current Visit: Yes Status: Acute Code(s): M86.9 - OSTEOMYELITIS, UNSPECIFIED SNOMED Code(s): 03492443 Comment: Calcaneal. Continue cefepime, vanco, metro. Surgery 02/19. (2) PVD (peripheral vascular disease) Current Visit: Yes Status: Acute Code(s): I73.9 - PERIPHERAL VASCULAR DISEASE, UNSPECIFIED SNOMED Code(s): 200341269 Comment: --Continue statin, ASA, and plavix (3) Diabetes Current Visit: Yes Status: Acute Code(s): E11.9 - TYPE 2 DIABETES MELLITUS WITHOUT COMPLICATIONS SNOMED Code(s): 49008984 Comment: --Continue Lantus, SS Lispro. (4) HTN (hypertension) Current Visit: Yes Status: Acute Code(s): I10 - ESSENTIAL (PRIMARY) HYPERTENSION SNOMED Code(s): 56390255 Comment: --Continue beta beverley and ACEI, furosemide. (5) Hypothyroid Current Visit: Yes Status: Acute Code(s): E03.9 - HYPOTHYROIDISM, UNSPECIFIED SNOMED Code(s): 67462932 Comment: TSH wnl 01/05/18, Continue levothyroxine.
[2018-02-18] MEDS: Insulin LISPRO* 1 UNITS UNIT SUBCUT SCH ×4 (09:09→20:44)
[2018-02-18 09:21] LABS: EGFR Non-African American 53.7 (>60)
[2018-02-18] MEDS: Metoprolol Succinate XL TAB* 50 MG PO SCH (09:23)
[2018-02-18] MEDS: Furosemide TAB* 20 MG PO SCH (09:23)
[2018-02-18] MEDS: Atorvastatin* 20 MG TAB PO SCH (09:23)
[2018-02-18] MEDS: Aspirin 81 mg CHEW TAB* 81 MG TAB.CHEW PO SCH (09:24)
[2018-02-18] MEDS: Clopidogrel TAB* 75 MG PO SCH (09:24)
[2018-02-18] MEDS: Sertraline* 50 MG TAB PO SCH (09:24)
[2018-02-18] MEDS: Lisinopril TAB* 10 MG PO SCH (09:24)
[2018-02-18] MEDS: Cholecalciferol TAB* 1000 UNITS PO SCH (09:24)
[2018-02-18] MEDS: Polyethylene Glycol 3350* 17 GM PACKET PO SCH ×2 (10:44→20:44)
[2018-02-18] MEDS ORDERED: Buffered Lidocaine 0.9% SYRIN* 5 ML/SYR SYRINGE INTRADERM ONE (11:25)
--- NOTE | 2018-02-18 16:12 | PN ---
Progress Note - Progress Note Date of Service: 02/18/18 SOAP: Subjective: []Patient seen at bedside. He is prepared for surgery tomorrow and has no further questions. Denies fever, chills, CP, SOB, dizziness. Objective: [] Vital Signs Temp 98.2 F 02/18/18 13:54 Pulse 65 02/18/18 13:54 Resp 24 02/18/18 13:54 BP 126/55 02/18/18 13:54 Pulse Ox 99 02/18/18 13:54 Intake & Output 02/17/18 02/18/18 02/18/18 18:59 06:59 18:59 Intake Total 950 1385 700 Output Total 600 100 Balance 950 785 600 Weight 148 lb 14.4 oz Intake: IV Fluids 1385 NS (0.9%) 1385 IVPB 100 ABX - FLAGYL 100 Oral 950 0 600 Output: Urine 600 100 Other: # Bowel Movements 1 1 Estimated Stool Amount Small Medium # Voids 1 Laboratory Last Values WBC 18.1 10^3/ul (3.5-10.8) H 02/18/18 08:16 RBC 2.67 10^6/ul (4.0-5.4) L 02/18/18 08:16 Hgb 7.9 g/dl (14.0-18.0) L 02/18/18 08:16 Hct 24 % (42-52) L 02/18/18 08:16 MCV 90 fL (80-94) 02/18/18 08:16 MCH 30 pg (27-31) 02/18/18 08:16 MCHC 33 g/dl (31-36) 02/18/18 08:16 RDW 15 % (10.5-15) 02/18/18 08:16 Plt Count 400 10^3/ul (150-450) 02/18/18 08:16 MPV 9.0 um3 (7.4-10.4) 02/18/18 08:16 Neut % (Auto) 89.9 % (38-83) H 02/18/18 08:16 Lymph % (Auto) 3.9 % (25-47) L 02/18/18 08:16 [place] % (Auto) 4.5 % (0-7) 02/18/18 08:16 Eos % (Auto) 1.2 % (0-6) 02/18/18 08:16 Baso % (Auto) 0.5 % (0-2) 02/18/18 08:16 Absolute Neuts (auto) 16.3 10^3/ul (1.5-7.7) H 02/18/18 08:16 Absolute Lymphs (auto) 0.7 10^3/ul (1.0-4.8) L 02/18/18 08:16 Absolute Monos (auto) 0.8 10^3/ul (0-0.8) 02/18/18 08:16 Absolute Eos (auto) 0.2 10^3/ul (0-0.6) 02/18/18 08:16 Absolute Basos (auto) 0.1 10^3/ul (0-0.2) 02/18/18 08:16 Absolute Nucleated RBC 0 10^3/ul 02/18/18 08:16 Nucleated RBC % 0 02/18/18 08:16 INR (Anticoag Therapy) 1.25 (0.77-1.02) H 02/16/18 13:47 APTT 33.3 seconds (26.0-36.3) 02/16/18 13:47 Sodium 138 mmol/L (139-145) L 02/18/18 08:16 Potassium 4.1 mmol/L (3.5-5.0) 02/18/18 08:16 Chloride 111 mmol/L (101-111) 02/18/18 08:16 Carbon Dioxide 21 mmol/L (22-32) L 02/18/18 08:16 Anion Gap 6 mmol/L (2-11) 02/18/18 08:16 BUN 48 mg/dL (6-24) H 02/18/18 08:16 Creatinine 1.30 mg/dL (0.67-1.17) H 02/18/18 08:16 Est GFR ( Amer) 69.0 (>60) 02/18/18 08:16 Est GFR (Non-Af Amer) 53.7 (>60) 02/18/18 08:16 BUN/Creatinine Ratio 36.9 (8-20) H 02/18/18 08:16 Glucose 77 mg/dL (70-100) 02/18/18 08:16 POC Glucose (mg/dL) 220 mg/dL (70-100) H 02/18/18 11:37 Lactic Acid 0.9 mmol/L (0.5-2.0) 02/16/18 13:47 Calcium 7.5 mg/dL (8.6-10.3) L 02/18/18 08:16 Magnesium 1.6 mg/dL (1.9-2.7) L 02/18/18 08:16 Total Bilirubin 0.40 mg/dL (0.2-1.0) 02/18/18 08:16 AST 39 U/L (13-39) 02/18/18 08:16 ALT 30 U/L (7-52) 02/18/18 08:16 Alkaline Phosphatase 282 U/L (34-104) H 02/18/18 08:16 C-Reactive Protein 141.68 mg/L (< 5.00) H 02/16/18 13:47 Total Protein 5.1 g/dL (6.4-8.9) L 02/18/18 08:16 Albumin 2.1 g/dL (3.2-5.2) L 02/18/18 08:16 Globulin 3.0 g/dL (2-4) 02/18/18 08:16 Albumin/Globulin Ratio 0.7 (1-3) L 02/18/18 08:16 General: Laying comfortably in bed, well appearing, NAD LLE: s/p transmetatarsal amp. left foot: No erythema or edema. large plantar heel ulcer, 2 ulcers of the amputation stump medially and laterally. Assessment: []osteomyelitis LLE Plan: []NWB NPO after midnight, hold plavix and asa for surgery left below knee amputation 02/19/18
[2018-02-18] MEDS ORDERED: Vancomycin Trough Check NOTE FOLLOW UP ONE (16:30)
[2018-02-18] MEDS: Insulin GLARGINE(*) 1 UNITS UNIT SUBCUT SCH (20:44)
[2018-02-18] MEDS ORDERED: Acetaminophen ADULT LIQ* 650 MG/20.3 ML UDC PO PRN (20:48)
[2018-02-19] MEDS: Cefepime 2 GM in Dextrose(*) 2 GM/50 ML BAG IV SCH (05:33)
[2018-02-19] MEDS: Levothyroxine TAB* 50 MCG TAB PO SCH (05:36)
[2018-02-19] MEDS: Lisinopril TAB* 10 MG PO SCH (08:05)
[2018-02-19] MEDS: metroNIDAZOLE IV 500 MG/100ML* 500 MG/100 ML BAG IVPB SCH ×4 (08:05→20:31)
[2018-02-19] MEDS: Furosemide TAB* 20 MG PO SCH (08:05)
[2018-02-19] MEDS: Sertraline* 50 MG TAB PO SCH (08:05)
[2018-02-19] MEDS: Atorvastatin* 20 MG TAB PO SCH (08:05)
[2018-02-19] MEDS: Metoprolol Succinate XL TAB* 50 MG PO SCH (08:05)
[2018-02-19] MEDS: Clopidogrel TAB* 75 MG PO SCH (08:06)
[2018-02-19] MEDS: Cholecalciferol TAB* 1000 UNITS PO SCH (08:06)
[2018-02-19] MEDS: Aspirin 81 mg CHEW TAB* 81 MG TAB.CHEW PO SCH (08:07)
[2018-02-19] MEDS: Insulin LISPRO* 1 UNITS UNIT SUBCUT SCH ×4 (08:08→20:23)
[2018-02-19] MEDS: Polyethylene Glycol 3350* 17 GM PACKET PO SCH ×2 (08:08→20:18)
--- NOTE | 2018-02-19 12:14 | CONS ---
CONSULTATION REPORT: DATE OF CONSULT: 02/19/18 REQUESTING PHYSICIAN: Ladan Murcia NP CONSULTING SERVICE: Infectious Disease. REASON FOR CONSULTATION: Left foot infection. IMPRESSION: 1. Left foot gangrene in the setting of a transmetatarsal amputation in the distant past. It had be en complicated by a nonhealing wound. He will follow up with the wound clinic with hyperbaric oxygen . Wound swab grew Staphylococcus aureus, proteus, Escherichia coli. He has been seen by Orthopedics with plan for below-knee amputation. 2. Left lower extremity cellulitis, myositis and chronic osteomyelitis of the foot. 3. Chronic kidney disease. 4. Peripheral vascular disease. 5. Status post right [id number] amputation. RECOMMENDATIONS: Continue cefepime, decreased to 1 g IV twice daily given his chronic kidney disease and body weight. We will continue his Flagyl and await operative findings. Further antibiotic jayesh mmendations pending. HISTORY OF PRESENT ILLNESS: This is a 78-year-old man with vascular disease, history of left transme tatarsal amputation that was complicated by an amputation site wound, followed by wound clinic and hy perbaric and debridement. He had also had a calcaneal ulceration with debridement. Wound culture as an outpatient of the left foot on 02/05/18 grew group B Strep, proteus, Staph aureus. On the , the results were the same. He had been on some oral antibiotics as an outpatient, but because of seeing redness, pain and swelling and foul odor, he came to the hospital on 02/16/18. He had a whit e count of 20,000 at that time. He was started on vancomycin, cefepime and Flagyl and seen by Orthop edics. He is to have a left kepjf-ros-[id number] amputation in the near future. He denies pain, fever, ra sh or diarrhea. No trouble with IV and feels he is tolerating his antibiotics well. PAST MEDICAL HISTORY: 1. Coronary artery disease, status post CABG. 2. Type 2 diabetes, insulin dependent. 3. Chronic kidney disease, stage 3. 4. Diastolic congestive heart failure. 5. Peripheral vascular disease with history of lower extremity interventions. 6. Hyperlipidemia. 7. Hypertension. 8. Gastroesophageal reflux disease. 9. Benign prostatic hypertrophy. 10. Status post right [id number] amputation. 11. Status post left transmetatarsal amputation. 12. Anemia. MEDICATIONS: 1. Tylenol. 2. Aspirin. 3. Lipitor. 4. Cholecalciferol. 5. Plavix. 6. Lasix. 7. Levothyroxine. 8. Lisinopril. 9. Cefepime 2 g every 12 hours. 10. Flagyl 500 mg every 8 hours. 11. Sertraline. ALLERGIES: OMEPRAZOLE. FAMILY HISTORY: No recurrent infections. SOCIAL HISTORY: He has been living at [facility]. No sick contacts. Nonsmoker. REVIEW OF SYSTEMS: All negative except as noted above. PHYSICAL EXAM: Vital Signs: Temperature 36, heart rate 70, respiratory rate 16, blood pressure 150/ 70, oxygen saturation 97% on room air. In general, he is awake, not in distress. Neurologic: He is oriented x3. Follows all commands. HEENT: There is no conjunctival hemorrhage. Oropharynx is with out lesions. Neck is supple without mass. Heart: Regular rate and rhythm without murmurs, rubs or gallops. Lungs are clear to auscultation bilaterally. Abdomen is soft, nontender, nondistended. Moo wel sounds present. Skin: There is no rash or splinter hemorrhages. Musculoskeletal: There is no spinous tenderness to palpation. The right leg is surgically absent below the knee. The left foot h as a transmetatarsal amputation. There is a necrotic black eschar at the dorsal surface of his foot with ulcerations and deeper necrosis, mild surrounding erythema and edema. DIAGNOSTIC STUDIES/LAB DATA: White blood cell count 18, hemoglobin 8, platelets 400, MCV is 90. Cre atinine is 1.3, CRP was 140 on admission. Please see impression and recommendations outlined above, which I have discussed with Dr. Wills. Thank you for asking me to see Mr. Chowdhury in consultation. [id number]/[facility] #: [id number]
[2018-02-19 13:05] LABS: Hematocrit 26 % (42-52); Hemoglobin 8.1 g/dl (14.0-18.0); Mean Corpuscular HGB Conc 32 g/dl (31-36); Mean Corpuscular Hemoglobin 29 pg (27-31); Mean Corpuscular Volume 91 fL (80-94); Mean Platelet Volume 8.9 um3 (7.4-10.4); Platelet Count 434 10^3/ul (150-450); Red Blood Count 2.82 10^6/ul (4.0-5.4); Red Cell Distribution Width 15 % (10.5-15); White Blood Count 22.1 10^3/ul (3.5-10.8)
[2018-02-19] MEDS ORDERED: Ondansetron INJ* 2 MG/ML VIAL IV PRN ×2 (13:11→15:21)
[2018-02-19] MEDS ORDERED: fentaNYL* 50 MCG/ML 2 ML VIAL (100 MCG VIAL) IV PRN ×2 (13:11→15:21)
[2018-02-19] MEDS ORDERED: oxyCODONE TAB* 5 MG TAB PO PRN ×2 (13:11→15:21)
[2018-02-19] MEDS ORDERED: Naloxone* 0.4 MG/ML 1 ML VIAL IV PRN ×2 (13:11→15:21)
[2018-02-19] MEDS ORDERED: HYDROmorphone INJ* 1 MG/ML CARPUJECT SYRINGE IV PRN ×2 (13:11→15:21)
[2018-02-19 13:20] LABS: EGFR Non-African American 55.1 (>60)
[2018-02-19] MEDS ORDERED: Levalbuterol 0.63MG/3ML NEB* UNIT OF USE INH PRN (15:21)
[2018-02-19] MEDS ORDERED: Acetaminophen TAB* 325 MG PO PRN (15:21)
--- NOTE | 2018-02-19 17:12 | OP ---
Operative Report - Blank - Operative Report Date of Operation: 02/19/18 Note: PATIENT: Emile Chowdhury DATE OF : 1940 DATE OF SURGERY: 02/19/2018 SURGEON: Gurpreet Garcia MD DAY CARE ATTENDANT: RACHEL Gudino, whos assistance was necessary for positioning, retraction, help with instrumentation, and closure. ANESTHESIOLOGIST: Dr. Reyes PREOPERATIVE DIAGNOSIS: Left foot ulcers, infection with osteomyelitis POSTOPERATIVE DIAGNOSIS: Left foot ulcers, infection with osteomyelitis OPERATION: Left below the knee amputation ANESTHESIA: MAC IMPLANTS: none TOURNIQUET TIME: 7 minutes with a well-padded thigh tourniquet at 250mmHg. SPECIMENS: Foot sent to pathology ESTIMATED BLOOD LOSS: 250cc COMPLICATIONS: none STATUS: Stable from the operating room to the recovery room and then back to the hospital floor. INDICATIONS FOR PROCEDURE: Ramon is a very pleasant man who is a brittle diabetic with severe peripheral vascular disease. I had previously performed a right below the knee amputation on him. He had a previous left transmetatarsal amputation. He has developed multiple ulcers on the left foot, including a large plantar heel ulcer with underlying calcaneal osteomyelitis. Both operative and non operative treatment alternatives were reviewed. Further, the nature and risks of surgery were reviewed in careful detail. Our discussions regarding the risks of surgery included, but were not limited to, infection, wound problems, nerve injury, neuroma, RSD, persistent symptoms, blood clot, persistent or worsening infection , phantom limb pain, failure of the surgery, need for further amputation, and even the remote chance of catastrophic complication, including . DESCRIPTION OF PROCEDURE: The patient was seen in the preoperative holding unit and informed written consent was obtained. The appropriate extremity was marked. The patient was then brought to the operating room and carefully positioned on the operating room table. Anesthesia was induced. All bony prominences were padded with great care. A well-padded thigh tourniquet was placed. A chlorhexidine based pre- scrub was performed followed by a chloraprep prep and drape in standard sterile fashion. A surgical safety pause was then conducted in which we confirmed the appropriate patient, extremity, planned procedure, availability of equipment, indication and administration of antibiotics, and DVT prophylaxis in the form of a compression boot on the non-surgical extremity. We began with Esmarch exsanguination of the limb, avoiding the involved foot, and inflated the tourniquet. I utilized a posterior flap-based incision. The tibial osteotomy was measured to be about 15cm below the level of the knee joint. I carefully planned out the incision and then began the incision anteriorly. It quickly became apparent that the tourniquet was not working, possibly because of his calcified vessels. Therefore, the tourniquet was let down after only 7 minutes. I dissected down through the anterior compartment musculature and identified the peroneal nerves and anterior tibial neurovascular bundle. The bundle was carefully tied off with 0 silk hand ties and the nerves were transected proximally in the soft tissue. The dissection was carried down to the intermuscular septum. I then dissected medially from the tibial crest. The saphenous nerve and vein were identified and transected proximally and ligated, respectively. I then continued the incision distally both medially and laterally with great care taken to maintain hemostasis. At this point, I performed a tibial and then fibular osteotomy with an oscillating saw. The fibular osteotomy was made a couple of centimeters proximal to the tibial osteotomy. The leg was then flexed through the osteotomy site and I dissected down the posterior aspect of the tibia and fibula and removed the specimen after completing the posterior incision and coming across the posterior flap distally. The posterior flap was maintained at approximately 15cm in length. Hemostasis was obtained after the leg was passed off to be sent to pathology. I then dissected out the posterior neurovascular bundle. The tibial artery and vein were ligated with 0 silk hand ties. The tibial nerve was then transected proximal to the stump of the remnant tibia. I debulked the posterior flap and removed excess skin and soft tissue from the posterior flap. I identified the sural nerve and transected this as far proximally as possible. I beveled the anterior tibia with a small oscillating saw and used a rasp to smooth the stump. There were no longer any sharp edges. The wound was copiously irrigated. I then used a 2.5 mm drill to drill 2 holes into the distal tibia through which #2 Ethibond was passed and then also passed into the Achilles to perform a myodesis, bringing the gastroc-soleus complex and Achilles tendon up to the remnant tibia. This nicely covered the tibial stump. I then passed a 10-[place] Emir drain through the wound and out of the lateral leg. The wound was again copiously irrigated and then meticulously closed in layers utilizing #1 Vicryl, 0 Vicryl, 2-0 Vicryl, 3-0 Monocryl, and 3- 0 nylon on the skin. Xeroform and a sterile dressing were then applied followed by a posterior splint with the knee fully extended. The patient was then awakened from anesthesia and transferred to the recovery room in stable condition. There were no complications. All needle and sponge counts were correct at the end of the case. ATTESTATION: I attest I was present and scrubbed and performed the critical portions of the procedure myself. POSTOPERATIVE PLAN: The patient will be readmitted to the hospitalist service postoperatively. We will monitor the drain output and pull it out when there is minimal to no output. The sutures will be left in the stump for a likely duration of 3-4 weeks.
[2018-02-19] MEDS: Cefepime(*) 1 GM in NS 0.9% 50 ML* 50 ML IVPB SCH (17:59)
[2018-02-19] MEDS ORDERED: Cefepime 1 GM in Dextrose(*) 1 GM/50 ML BAG IV SCH (18:00)
[2018-02-19] MEDS: Insulin GLARGINE(*) 1 UNITS UNIT SUBCUT SCH (20:29)
[2018-02-20] MEDS: Cefepime(*) 1 GM in NS 0.9% 50 ML* 50 ML IVPB SCH (05:55)
[2018-02-20] MEDS: Levothyroxine TAB* 50 MCG TAB PO SCH (05:58)
[2018-02-20] MEDS: Atorvastatin* 20 MG TAB PO SCH (08:35)
[2018-02-20] MEDS: Cholecalciferol TAB* 1000 UNITS PO SCH (08:35)
[2018-02-20] MEDS: Metoprolol Succinate XL TAB* 50 MG PO SCH (08:35)
[2018-02-20] MEDS: Furosemide TAB* 20 MG PO SCH (08:35)
[2018-02-20] MEDS: Polyethylene Glycol 3350* 17 GM PACKET PO SCH ×2 (08:36→21:10)
[2018-02-20] MEDS: Lisinopril TAB* 10 MG PO SCH (08:36)
[2018-02-20] MEDS: Clopidogrel TAB* 75 MG PO SCH (08:36)
[2018-02-20] MEDS: Insulin LISPRO* 1 UNITS UNIT SUBCUT SCH ×4 (08:36→20:42)
[2018-02-20] MEDS: Aspirin 81 mg CHEW TAB* 81 MG TAB.CHEW PO SCH (08:36)
[2018-02-20] MEDS: Sertraline* 50 MG TAB PO SCH (08:36)
[2018-02-20] MEDS: metroNIDAZOLE IV 500 MG/100ML* 500 MG/100 ML BAG IVPB SCH ×2 (08:36→20:48)
--- NOTE | 2018-02-20 16:20 | PN ---
Progress Note - Progress Note Date of Service: 02/20/18 SOAP: Subjective: 78 year old male s/p BKA 02/[address] Garcia. VSS afebrile. Patient resting comfortably in bed, no questions/ concerns. Objective: General- Well appearing, NAD, AO resting in bed comfortably. MSK- Splint in place, no induration noted, PACO drain intact, serousang drainage noted. non-tender. Vital Signs Temp 98.4 F 02/20/18 11:21 Pulse 79 02/20/18 11:21 Resp 18 02/20/18 11:21 BP 129/63 02/20/18 11:21 Pulse Ox 96 02/20/18 11:21 Intake & Output 02/19/18 02/20/18 02/20/18 18:59 06:59 18:59 Intake Total 1325 200 920 Output Total 550 145 805 Balance 775 55 115 Weight 68.311 kg Intake: IV Fluids 1325 NS (0.9%) 325 lr 1000 Oral 0 200 920 Output: PACO #1 25 5 Urine 300 120 800 Estimated Blood Loss 250 Other: # Bowel Movements 2 0 1 Estimated Stool Amount Medium Medium # Voids 0 2 Assessment: Stable 78 year old male s/p BKA 02/[address] Garcia Plan: - DVT prophylaxis - plavix, aspirin - NWB LLE - Conintue pain medication - ABX per ID- appreciate consult - D/C per ID, medicine. Acetaminophen (Tylenol Adult Liq*) 650 mg PO Q4H PRN PRN Reason: PAIN/FEVER Last Admin: 02/18/18 21:41 Dose: 650 mg Aspirin (Aspirin 81 Mg Chew Tab*) 81 mg PO DAILY [facility] Last Admin: 02/20/18 08:36 Dose: 81 mg Atorvastatin Calcium (Lipitor*) 20 mg PO DAILY [facility] Last Admin: 02/20/18 08:35 Dose: 20 mg Cholecalciferol (Vitamin D Tab*) 2,000 units PO DAILY [facility] Last Admin: 02/20/18 08:35 Dose: 2,000 units Clopidogrel Bisulfate (Plavix Tab*) 75 mg PO DAILY [facility] Last Admin: 02/20/18 08:36 Dose: 75 mg Dextrose (D50w Syringe 50 Ml*) 12.5 gm IV PUSH .FOR FS < 60 - SS PRN PRN Reason: FS < 60 Furosemide (Lasix Tab*) 20 mg PO DAILY [facility] Last Admin: 02/20/18 08:35 Dose: 20 mg Hard Fat/Phenylephrine (Preparation H Supp*) 1 supp RI Q4H PRN PRN Reason: PAIN Lactated Ringer's (Lactated Ringers 1000 Ml Bag*) 1,000 mls @ 125 mls/hr IV PER RATE [facility] Metronidazole/Sodium Chloride (Flagyl 500 Mg Ivpb*) 500 mg in 100 mls @ 100 mls /hr IVPB 0900,2100 [facility] Last Admin: 02/20/18 08:36 Dose: 100 mls/hr Cefepime HCl 1 gm/ Sodium (Chloride) 50 mls @ 100 mls/hr IVPB Q12H [facility] Stop: 02/20/18 17:59 Last Admin: 02/20/18 05:55 Dose: 100 mls/hr Ceftriaxone Sodium 1 gm/ (Sodium Chloride) 50 mls @ 200 mls/hr IVPB Q24H [facility] Insulin Glargine (Lantus(*)) 10 units SUBCUT BEDTIME [facility] Last Admin: 02/19/18 20:29 Dose: 10 unit Insulin Human Lispro (Humalog*) 0 units SUBCUT ACHS [facility] PRN Reason: Protocol Last Admin: 02/20/18 12:47 Dose: 2 units Levothyroxine Sodium (Synthroid Tab*) 50 mcg PO DAILY@0600 [facility] Last Admin: 02/20/18 05:58 Dose: 50 mcg Lisinopril (Prinivil Tab*) 10 mg PO DAILY [facility] Last Admin: 02/20/18 08:36 Dose: 10 mg Metoprolol Succinate (Toprol Xl Tab*) 50 mg PO DAILY [facility] Last Admin: 02/20/18 08:35 Dose: 50 mg Polyethylene Glycol/Electrolytes (Miralax*) 17 gm PO 0800,2100 [facility] Last Admin: 02/20/18 08:36 Dose: 17 gm Sertraline HCl (Zoloft*) 50 mg PO DAILY [facility] Last Admin: 02/20/18 08:36 Dose: 50 mg
--- NOTE | 2018-02-20 17:26 | PN ---
Subjective Date of Service: 02/20/18 Interval History: Interviewed and examined patient at bedside; Discussed case with Dr. Wills; Reviewed previous notes and radiology results; Stable 78 year old male s/p BKA 02/[address] Garcia discussed his abx regimen and plans for dc. pain level acceptable- meds acceptable. . Family History: Unchanged from Admission Social History: Unchanged from Admission Past Medical History: Unchanged from Admission Objective Active Medications: . Acetaminophen (Tylenol Adult Liq*) 650 mg PO Q4H PRN PRN Reason: PAIN/FEVER Last Admin: 02/18/18 21:41 Dose: 650 mg Aspirin (Aspirin 81 Mg Chew Tab*) 81 mg PO DAILY [facility] Last Admin: 02/20/18 08:36 Dose: 81 mg Atorvastatin Calcium (Lipitor*) 20 mg PO DAILY [facility] Last Admin: 02/20/18 08:35 Dose: 20 mg Cholecalciferol (Vitamin D Tab*) 2,000 units PO DAILY [facility] Last Admin: 02/20/18 08:35 Dose: 2,000 units Clopidogrel Bisulfate (Plavix Tab*) 75 mg PO DAILY [facility] Last Admin: 02/20/18 08:36 Dose: 75 mg Dextrose (D50w Syringe 50 Ml*) 12.5 gm IV PUSH .FOR FS < 60 - SS PRN PRN Reason: FS < 60 Furosemide (Lasix Tab*) 20 mg PO DAILY [facility] Last Admin: 02/20/18 08:35 Dose: 20 mg Hard Fat/Phenylephrine (Preparation H Supp*) 1 supp [place] Q4H PRN PRN Reason: PAIN Lactated Ringer's (Lactated Ringers 1000 Ml Bag*) 1,000 mls @ 125 mls/hr IV PER RATE [facility] Metronidazole/Sodium Chloride (Flagyl 500 Mg Ivpb*) 500 mg in 100 mls @ 100 mls /hr IVPB 0900,2100 [facility] Last Admin: 02/20/18 08:36 Dose: 100 mls/hr Cefepime HCl 1 gm/ Sodium (Chloride) 50 mls @ 100 mls/hr IVPB Q12H [facility] Stop: 02/20/18 17:59 Last Admin: 02/20/18 05:55 Dose: 100 mls/hr Ceftriaxone Sodium 1 gm/ (Sodium Chloride) 50 mls @ 200 mls/hr IVPB Q24H [facility] Insulin Glargine (Lantus(*)) 10 units SUBCUT BEDTIME [facility] Last Admin: 02/19/18 20:29 Dose: 10 unit Insulin Human Lispro (Humalog*) 0 units SUBCUT ACHS [facility] PRN Reason: Protocol Last Admin: 02/20/18 16:36 Dose: 2 units Levothyroxine Sodium (Synthroid Tab*) 50 mcg PO DAILY@0600 [facility] Last Admin: 02/20/18 05:58 Dose: 50 mcg Lisinopril (Prinivil Tab*) 10 mg PO DAILY [facility] Last Admin: 02/20/18 08:36 Dose: 10 mg Metoprolol Succinate (Toprol Xl Tab*) 50 mg PO DAILY [facility] Last Admin: 02/20/18 08:35 Dose: 50 mg Polyethylene Glycol/Electrolytes (Miralax*) 17 gm PO 0800,2100 [facility] Last Admin: 02/20/18 08:36 Dose: 17 gm Sertraline HCl (Zoloft*) 50 mg PO DAILY [facility] Last Admin: 02/20/18 08:36 Dose: 50 mg Vital Signs - 8 hr 02/20/18 11:21 Temperature 98.4 F Pulse Rate 79 Respiratory 18 Rate Blood Pressure 129/63 (mmHg) O2 Sat by Pulse 96 Oximetry Oxygen Devices in Use Now: None Appearance: NAD Eyes: No Scleral Icterus, PERRLA Ears/Nose/Mouth/Throat: NL Teeth, Lips, Gums Neck: NL Appearance and Movements; NL JVP Respiratory: Symmetrical Chest Expansion and Respiratory Effort Cardiovascular: NL Sounds; No Murmurs; No JVD Abdominal: NL Sounds; No Tenderness; No Distention Lymphatic: No Cervical Adenopathy Extremities: No Edema, - - bilateral BKA. Left new...PACO drain in place Skin: No Rash or Ulcers Neurological: Alert and Oriented x 3 Lines/Tubes/Other Access: Clean, Dry and Intact Peripheral IV Nutrition: Taking PO's Result Diagrams: 02/19/18 12:42 02/19/18 12:42 Additional Lab and Data: . Microbiology and Other Data: Microbiology 02/16/18 20:30 Gram Stain - Final Foot Left Wound Culture - Preliminary Proteus Mirabilis Assess/Plan/Problems-Billing . 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 On 07/17/17 he underwent RLE arteriography with balloon angioplasty of the right SFA, pop and infrapopliteal arteries followed by right BKA 07/24/17 with good stump healing. This admission, he c/o open non-healing left heel ulcer and CT of the foot showed likely osteomyelitis of the calcaneal tuberosity. The patient was admitted with leukocytosis of 20, elevated CRP at 141. Other medical problems: 1. Coronary artery disease and h/o STEMI. 2. Insulin dependent type 2 diabetes. 3. 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 4. Thrombocytopenia. 5. Diastolic congestive heart failure. 6. Peripheral arterial disease. 7. Hyperlipidemia. 8. Hypertension. 9. GERD. 10. BPH. 11. Anemia. - Patient Problems (1) Chronic ulcer of left lower extremity Current Visit: Yes Status: Acute Code(s): L97.929 - NON-PRS CHRONIC ULC UNSP PRT OF L LOW LEG W UNSP SEVERITY Comment: - with Cellulitis and calcaneal osteomyelitis - s/p LLE BKA on 02/19 - Continue IV Abx for a few more days (2) Osteomyelitis Current Visit: Yes Status: Acute Priority: High Code(s): M86.9 - OSTEOMYELITIS, UNSPECIFIED Comment: - Calcaneal. - Continue IV antibiotics - Surgery 02/19. (3) Diabetes Current Visit: Yes Status: Chronic Priority: High Code(s): E11.9 - TYPE 2 DIABETES MELLITUS WITHOUT COMPLICATIONS Comment: --Continue Lantus, SS Lispro. (4) HTN (hypertension) Current Visit: Yes Status: Chronic Priority: High Code(s): I10 - ESSENTIAL (PRIMARY) HYPERTENSION Comment: - Continue beta beverley and ACEI, furosemide. (5) Hypothyroid Current Visit: Yes Status: Acute Priority: High Code(s): E03.9 - HYPOTHYROIDISM, UNSPECIFIED Comment: - TSH wnl 01/05/18, - Continue levothyroxine. (6) PVD (peripheral vascular disease) Current Visit: Yes Status: Acute Priority: High Code(s): I73.9 - PERIPHERAL VASCULAR DISEASE, UNSPECIFIED Comment: - Continue statin, ASA, and plavix
[2018-02-20] MEDS: cefTRIAXone(*) 1 GM in NS 0.9% 50 ML* 50 ML IVPB SCH (17:56)
[2018-02-20] MEDS ORDERED: Cefepime(*) 1 GM in D5W 50 ML BAG* 50 ML IVPB SCH (18:00)
[2018-02-20] MEDS: Insulin GLARGINE(*) 1 UNITS UNIT SUBCUT SCH (20:57)
[2018-02-21] MEDS: Levothyroxine TAB* 50 MCG TAB PO SCH (06:22)
[2018-02-21 06:38] LABS: ABS Basophils 0.1 10^3/ul (0-0.2); ABS Eosinophils 0.1 10^3/ul (0-0.6); ABS Lymphocytes 0.6 10^3/ul (1.0-4.8); ABS Monocytes 0.7 10^3/ul (0-0.8); ABS Neutrophils 17.7 10^3/ul (1.5-7.7); ABS Nucleated RBC 0 10^3/ul; Eosinophil % 0.7 % (0-6); Hematocrit 21 % (42-52); Hemoglobin 6.8 g/dl (14.0-18.0); Lymphocyte % 3.2 % (25-47); Mean Corpuscular HGB Conc 32 g/dl (31-36); Mean Corpuscular Hemoglobin 29 pg (27-31); Mean Corpuscular Volume 90 fL (80-94); Mean Platelet Volume 8.9 um3 (7.4-10.4); Nucleated Red Blood Cells % 0; Platelet Count 419 10^3/ul (150-450); Red Blood Count 2.35 10^6/ul (4.0-5.4); Red Cell Distribution Width 15 % (10.5-15); White Blood Count 19.3 10^3/ul (3.5-10.8)
[2018-02-21 06:55] LABS: EGFR Non-African American 49.7 (>60)
[2018-02-21] MEDS: Insulin LISPRO* 1 UNITS UNIT SUBCUT SCH ×4 (08:49→21:32)
[2018-02-21] MEDS: Polyethylene Glycol 3350* 17 GM PACKET PO SCH ×2 (10:25→21:33)
[2018-02-21] MEDS: Cholecalciferol TAB* 1000 UNITS PO SCH (10:28)
[2018-02-21] MEDS: Metoprolol Succinate XL TAB* 50 MG PO SCH (10:28)
[2018-02-21] MEDS: Sertraline* 50 MG TAB PO SCH (10:28)
[2018-02-21] MEDS: Furosemide TAB* 20 MG PO SCH (10:28)
[2018-02-21] MEDS: Atorvastatin* 20 MG TAB PO SCH (10:28)
[2018-02-21] MEDS: metroNIDAZOLE IV 500 MG/100ML* 500 MG/100 ML BAG IVPB SCH ×2 (10:29→21:45)
[2018-02-21] MEDS: Aspirin 81 mg CHEW TAB* 81 MG TAB.CHEW PO SCH (10:29)
[2018-02-21] MEDS: Lisinopril TAB* 10 MG PO SCH (10:29)
[2018-02-21] MEDS: Clopidogrel TAB* 75 MG PO SCH (10:29)
--- NOTE | 2018-02-21 12:46 | PN ---
Progress Note - Progress Note Date of Service: 02/21/18 SOAP: Subjective: Pt lying comfortably in bed. No complaint of pain. Denies F/C Objective: Vital Signs: Temp Pulse Resp BP Pulse Ox 98.2 F 79 16 145/66 99 02/21/18 08:18 02/21/18 08:18 02/21/18 08:18 02/21/18 08:18 02/21/18 08:18 Laboratory Last Values WBC 19.3 10^3/ul (3.5-10.8) H 02/21/18 06:17 RBC 2.35 10^6/ul (4.0-5.4) L 02/21/18 06:17 Hgb 6.8 g/dl (14.0-18.0) L 02/21/18 06:17 Hct 21 % (42-52) L 02/21/18 06:17 MCV 90 fL (80-94) 02/21/18 06:17 MCH 29 pg (27-31) 02/21/18 06:17 MCHC 32 g/dl (31-36) 02/21/18 06:17 RDW 15 % (10.5-15) 02/21/18 06:17 Plt Count 419 10^3/ul (150-450) 02/21/18 06:17 MPV 8.9 um3 (7.4-10.4) 02/21/18 06:17 Neut % (Auto) 92.1 % (38-83) H 02/21/18 06:17 Lymph % (Auto) 3.2 % (25-47) L 02/21/18 06:17 Treasure % (Auto) 3.5 % (0-7) 02/21/18 06:17 Eos % (Auto) 0.7 % (0-6) 02/21/18 06:17 Baso % (Auto) 0.5 % (0-2) 02/21/18 06:17 Absolute Neuts (auto) 17.7 10^3/ul (1.5-7.7) H 02/21/18 06:17 Absolute Lymphs (auto) 0.6 10^3/ul (1.0-4.8) L 02/21/18 06:17 Absolute Monos (auto) 0.7 10^3/ul (0-0.8) 02/21/18 06:17 Absolute Eos (auto) 0.1 10^3/ul (0-0.6) 02/21/18 06:17 Absolute Basos (auto) 0.1 10^3/ul (0-0.2) 02/21/18 06:17 Absolute Nucleated RBC 0 10^3/ul 02/21/18 06:17 Nucleated RBC % 0 02/21/18 06:17 INR (Anticoag Therapy) 1.25 (0.77-1.02) H 02/16/18 13:47 APTT 33.3 seconds (26.0-36.3) 02/16/18 13:47 Sodium 141 mmol/L (139-145) 02/21/18 06:17 Potassium 4.0 mmol/L (3.5-5.0) 02/21/18 06:17 Chloride 115 mmol/L (101-111) H 02/21/18 06:17 Carbon Dioxide 19 mmol/L (22-32) L 02/21/18 06:17 Anion Gap 7 mmol/L (2-11) 02/21/18 06:17 BUN 48 mg/dL (6-24) H 02/21/18 06:17 Creatinine 1.39 mg/dL (0.67-1.17) H 02/21/18 06:17 Est GFR ( Amer) 63.9 (>60) 02/21/18 06:17 Est GFR (Non-Af Amer) 49.7 (>60) 02/21/18 06:17 BUN/Creatinine Ratio 34.5 (8-20) H 02/21/18 06:17 Glucose 145 mg/dL (70-100) H 02/21/18 06:17 POC Glucose (mg/dL) 168 mg/dL (70-100) H 02/21/18 11:34 Lactic Acid 0.9 mmol/L (0.5-2.0) 02/16/18 13:47 Calcium 7.8 mg/dL (8.6-10.3) L 02/21/18 06:17 Magnesium 1.6 mg/dL (1.9-2.7) L 02/18/18 08:16 Iron 18 ug/dL (50-212) L 02/21/18 06:17 TIBC 108 mcg/dL (250-450) L 02/21/18 06:17 % Saturation 17 % (15-55) 02/21/18 06:17 Unsat Iron Binding 90 ug/dL 02/21/18 06:17 Transferrin 77 mg/dL (203-362) L 02/21/18 06:17 Ferritin 532.4 ng/mL (24-336) H 02/21/18 06:17 Total Bilirubin 0.40 mg/dL (0.2-1.0) 02/18/18 08:16 AST 39 U/L (13-39) 02/18/18 08:16 ALT 30 U/L (7-52) 02/18/18 08:16 Alkaline Phosphatase 282 U/L (34-104) H 02/18/18 08:16 C-Reactive Protein 141.68 mg/L (< 5.00) H 02/16/18 13:47 Total Protein 5.1 g/dL (6.4-8.9) L 02/18/18 08:16 Albumin 2.1 g/dL (3.2-5.2) L 02/18/18 08:16 Globulin 3.0 g/dL (2-4) 02/18/18 08:16 Albumin/Globulin Ratio 0.7 (1-3) L 02/18/18 08:16 Blood Type A Positive 02/19/18 12:24 Antibody Screen Negative 02/19/18 12:24 Crossmatch See Detail 02/19/18 12:24 Splint intact, PACO drain intact, minimal serousang drainage noted, Assessment: 78 yo male s/p left BKA 02/[address] Garcia Plan: DVT prophylaxis - Plavix, Asprin NWB LLE Continue pain medications IV ABX per ID Drain pulled DC per ID, medicine
--- NOTE | 2018-02-21 16:47 | PN ---
Subjective Date of Service: 02/21/18 Interval History: . patient in good spirits, but a bit tired. hgb was a bit low and we discussed him receiving a blood transfusion and he is agreeable (1 unit ordered, prbc). denies other s/sx Family History: Unchanged from Admission Social History: Unchanged from Admission Past Medical History: Unchanged from Admission Objective Active Medications: . Acetaminophen (Tylenol Adult Liq*) 650 mg PO Q4H PRN PRN Reason: PAIN/FEVER Last Admin: 02/18/18 21:41 Dose: 650 mg Aspirin (Aspirin 81 Mg Chew Tab*) 81 mg PO DAILY [facility] Last Admin: 02/21/18 10:29 Dose: 81 mg Atorvastatin Calcium (Lipitor*) 20 mg PO DAILY [facility] Last Admin: 02/21/18 10:28 Dose: 20 mg Cholecalciferol (Vitamin D Tab*) 2,000 units PO DAILY [facility] Last Admin: 02/21/18 10:28 Dose: 2,000 units Clopidogrel Bisulfate (Plavix Tab*) 75 mg PO DAILY [facility] Last Admin: 02/21/18 10:29 Dose: 75 mg Dextrose (D50w Syringe 50 Ml*) 12.5 gm IV PUSH .FOR FS < 60 - SS PRN PRN Reason: FS < 60 Furosemide (Lasix Tab*) 20 mg PO DAILY [facility] Last Admin: 02/21/18 10:28 Dose: 20 mg Hard Fat/Phenylephrine (Preparation H Supp*) 1 supp [place] Q4H PRN PRN Reason: PAIN Lactated Ringer's (Lactated Ringers 1000 Ml Bag*) 1,000 mls @ 125 mls/hr IV PER RATE [facility] Metronidazole/Sodium Chloride (Flagyl 500 Mg Ivpb*) 500 mg in 100 mls @ 100 mls /hr IVPB 0900,2100 [facility] Last Admin: 02/21/18 10:29 Dose: 100 mls/hr Ceftriaxone Sodium 1 gm/ (Sodium Chloride) 50 mls @ 200 mls/hr IVPB Q24H [facility] Last Admin: 02/20/18 17:56 Dose: 200 mls/hr Insulin Glargine (Lantus(*)) 10 units SUBCUT BEDTIME [facility] Last Admin: 02/20/18 20:57 Dose: 10 unit Insulin Human Lispro (Humalog*) 0 units SUBCUT ACHS [facility] PRN Reason: Protocol Last Admin: 02/21/18 13:45 Dose: Not Given Levothyroxine Sodium (Synthroid Tab*) 50 mcg PO DAILY@0600 [facility] Last Admin: 02/21/18 06:22 Dose: 50 mcg Lisinopril (Prinivil Tab*) 10 mg PO DAILY [facility] Last Admin: 02/21/18 10:29 Dose: 10 mg Metoprolol Succinate (Toprol Xl Tab*) 50 mg PO DAILY [facility] Last Admin: 02/21/18 10:28 Dose: 50 mg Polyethylene Glycol/Electrolytes (Miralax*) 17 gm PO 0800,2100 [facility] Last Admin: 02/21/18 10:25 Dose: Not Given Sertraline HCl (Zoloft*) 50 mg PO DAILY [facility] Last Admin: 02/21/18 10:28 Dose: 50 mg . Vital Signs - 8 hr 02/21/18 02/21/18 02/21/18 11:33 12:41 12:59 Temperature 98.2 F 97.7 F 97.4 F Pulse Rate 76 71 71 Respiratory 22 18 18 Rate Blood Pressure 153/71 179/53 174/62 (mmHg) O2 Sat by Pulse 98 100 98 Oximetry 02/21/18 15:29 Temperature 97.8 F Pulse Rate 72 Respiratory 18 Rate Blood Pressure 154/71 (mmHg) O2 Sat by Pulse 100 Oximetry Oxygen Devices in Use Now: None Appearance: elderly, frail; s/p BKA Eyes: No Scleral Icterus Ears/Nose/Mouth/Throat: Clear Oropharnyx Neck: NL Appearance and Movements; NL JVP Respiratory: Symmetrical Chest Expansion and Respiratory Effort Cardiovascular: NL Sounds; No Murmurs; No JVD Lymphatic: No Cervical Adenopathy Extremities: - - bilateral amputation Skin: No Rash or Ulcers Neurological: Alert and Oriented x 3 Lines/Tubes/Other Access: Clean, Dry and Intact Peripheral IV Nutrition: Taking PO's Result Diagrams: 02/21/18 06:17 02/21/18 06:17 Additional Lab and Data: . Microbiology and Other Data: Microbiology 02/16/18 20:30 Gram Stain - Final Foot Left Wound Culture - Preliminary Proteus Mirabilis Assess/Plan/Problems-Billing . 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 On 07/17/17 he underwent RLE arteriography with balloon angioplasty of the right SFA, pop and infrapopliteal arteries followed by right BKA 07/24/17 with good stump healing. This admission, he c/o open non-healing left heel ulcer and CT of the foot showed likely osteomyelitis of the calcaneal tuberosity. The patient was admitted with leukocytosis of 20, elevated CRP at 141. Other medical problems: 1. Coronary artery disease and h/o STEMI. 2. Insulin dependent type 2 diabetes. 3. 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 4. Thrombocytopenia. 5. Diastolic congestive heart failure. 6. Peripheral arterial disease. 7. Hyperlipidemia. 8. Hypertension. 9. GERD. 10. BPH. 11. Anemia. - Patient Problems (1) Anemia Current Visit: No Status: Acute Priority: Medium Code(s): D64.9 - ANEMIA, UNSPECIFIED Comment: - mixed type, component of iron deficiency and also anemia of chronic disease ( osteomyelitis + wound). - hgb now < 7 in post op setting and patient expressed fatigue --> 1 unit prbc indicated and will be ordered. - check AM CBC. - iron studies added on to previously drawn blood... - iron supplementation ongoing. (2) Chronic ulcer of left lower extremity Current Visit: Yes Status: Acute Code(s): L97.929 - NON-PRS CHRONIC ULC UNSP PRT OF L LOW LEG W UNSP SEVERITY Comment: - with Cellulitis and calcaneal osteomyelitis - s/p LLE BKA on 02/19 - Continue IV Abx for a few more days (3) Osteomyelitis Current Visit: Yes Status: Acute Priority: High Code(s): M86.9 - OSTEOMYELITIS, UNSPECIFIED Comment: - Calcaneal. - Continue IV antibiotics - Surgery 02/19. (4) Diabetes Current Visit: Yes Status: Chronic Priority: High Code(s): E11.9 - TYPE 2 DIABETES MELLITUS WITHOUT COMPLICATIONS Comment: --Continue Lantus, SS Lispro. (5) HTN (hypertension) Current Visit: Yes Status: Chronic Priority: High Code(s): I10 - ESSENTIAL (PRIMARY) HYPERTENSION Comment: - Continue beta beverley and ACEI, furosemide. (6) Hypothyroid Current Visit: Yes Status: Acute Priority: High Code(s): E03.9 - HYPOTHYROIDISM, UNSPECIFIED Comment: - TSH wnl 01/05/18, - Continue levothyroxine. (7) PVD (peripheral vascular disease) Current Visit: Yes Status: Acute Priority: High Code(s): I73.9 - PERIPHERAL VASCULAR DISEASE, UNSPECIFIED Comment: - Continue statin, ASA, and plavix
[2018-02-21] MEDS: cefTRIAXone(*) 1 GM in NS 0.9% 50 ML* 50 ML IVPB SCH (17:29)
[2018-02-21] MEDS: Insulin GLARGINE(*) 1 UNITS UNIT SUBCUT SCH (21:40)
[2018-02-22] MEDS: Levothyroxine TAB* 50 MCG TAB PO SCH (06:32)
[2018-02-22 07:12] LABS: ABS Basophils 0.1 10^3/ul (0-0.2); ABS Eosinophils 0.4 10^3/ul (0-0.6); ABS Lymphocytes 0.9 10^3/ul (1.0-4.8); ABS Monocytes 0.7 10^3/ul (0-0.8); ABS Neutrophils 17.5 10^3/ul (1.5-7.7); ABS Nucleated RBC 0 10^3/ul; Hematocrit 25 % (42-52); Hemoglobin 8.1 g/dl (14.0-18.0); Lymphocyte % 4.6 % (25-47); Mean Corpuscular HGB Conc 33 g/dl (31-36); Mean Corpuscular Hemoglobin 30 pg (27-31); Mean Corpuscular Volume 90 fL (80-94); Nucleated Red Blood Cells % 0; Platelet Count 438 10^3/ul (150-450); Red Blood Count 2.75 10^6/ul (4.0-5.4); Red Cell Distribution Width 15 % (10.5-15); White Blood Count 19.6 10^3/ul (3.5-10.8)
[2018-02-22 07:24] LABS: EGFR Non-African American 55.1 (>60)
[2018-02-22] MEDS: Clopidogrel TAB* 75 MG PO SCH (09:05)
[2018-02-22] MEDS: Metoprolol Succinate XL TAB* 50 MG PO SCH (09:05)
[2018-02-22] MEDS: metroNIDAZOLE IV 500 MG/100ML* 500 MG/100 ML BAG IVPB SCH ×2 (09:05→20:34)
[2018-02-22] MEDS: Lisinopril TAB* 10 MG PO SCH (09:06)
[2018-02-22] MEDS: Cholecalciferol TAB* 1000 UNITS PO SCH (09:06)
[2018-02-22] MEDS: Furosemide TAB* 20 MG PO SCH (09:06)
[2018-02-22] MEDS: Insulin LISPRO* 1 UNITS UNIT SUBCUT SCH ×4 (09:06→20:37)
[2018-02-22] MEDS: Atorvastatin* 20 MG TAB PO SCH (09:06)
[2018-02-22] MEDS: Polyethylene Glycol 3350* 17 GM PACKET PO SCH ×2 (09:06→20:34)
[2018-02-22] MEDS: Sertraline* 50 MG TAB PO SCH (09:06)
[2018-02-22] MEDS: Aspirin 81 mg CHEW TAB* 81 MG TAB.CHEW PO SCH (09:06)
--- NOTE | 2018-02-22 17:40 | PN ---
Subjective Date of Service: 02/22/18 Interval History: . Good spirits overall. Did well with transfusion yesterday and appropriate bump in hgb this AM as a result. Ongoing IV antibiotics until at least friday, then can convert to oral agents. In terms of placement, patient still wishes to go home, but it is not clear how he will support himself in that setting. 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 Will ask case management for further input tomorrow. Patient is also interested in learning more about prosthetics and I told him I would ask one of our physiatrists to see him this week. . Family History: Unchanged from Admission Social History: Unchanged from Admission Past Medical History: Unchanged from Admission Objective Active Medications: Acetaminophen (Tylenol Adult Liq*) 650 mg PO Q4H PRN PRN Reason: PAIN/FEVER Last Admin: 02/18/18 21:41 Dose: 650 mg Aspirin (Aspirin 81 Mg Chew Tab*) 81 mg PO DAILY [facility] Last Admin: 02/22/18 09:06 Dose: 81 mg Atorvastatin Calcium (Lipitor*) 20 mg PO DAILY [facility] Last Admin: 02/22/18 09:06 Dose: 20 mg Cholecalciferol (Vitamin D Tab*) 2,000 units PO DAILY [facility] Last Admin: 02/22/18 09:06 Dose: 2,000 units Clopidogrel Bisulfate (Plavix Tab*) 75 mg PO DAILY [facility] Last Admin: 02/22/18 09:05 Dose: 75 mg Dextrose (D50w Syringe 50 Ml*) 12.5 gm IV PUSH .FOR FS < 60 - SS PRN PRN Reason: FS < 60 Furosemide (Lasix Tab*) 20 mg PO DAILY [facility] Last Admin: 02/22/18 09:06 Dose: 20 mg Hard Fat/Phenylephrine (Preparation H Supp*) 1 supp [place] Q4H PRN PRN Reason: PAIN Metronidazole/Sodium Chloride (Flagyl 500 Mg Ivpb*) 500 mg in 100 mls @ 100 mls /hr IVPB 0900,2100 [facility] Last Admin: 02/22/18 09:05 Dose: 100 mls/hr Ceftriaxone Sodium 1 gm/ (Sodium Chloride) 50 mls @ 200 mls/hr IVPB Q24H [facility] Last Admin: 02/21/18 17:29 Dose: 200 mls/hr Insulin Glargine (Lantus(*)) 10 units SUBCUT BEDTIME [facility] Last Admin: 02/21/18 21:40 Dose: 10 unit Insulin Human Lispro (Humalog*) 0 units SUBCUT ACHS [facility] PRN Reason: Protocol Last Admin: 02/22/18 12:50 Dose: 4 units Levothyroxine Sodium (Synthroid Tab*) 50 mcg PO DAILY@0600 [facility] Last Admin: 02/22/18 06:32 Dose: 50 mcg Lisinopril (Prinivil Tab*) 10 mg PO DAILY [facility] Last Admin: 02/22/18 09:06 Dose: 10 mg Metoprolol Succinate (Toprol Xl Tab*) 50 mg PO DAILY [facility] Last Admin: 02/22/18 09:05 Dose: 50 mg Polyethylene Glycol/Electrolytes (Miralax*) 17 gm PO 0800,2100 [facility] Last Admin: 02/22/18 09:06 Dose: Not Given Sertraline HCl (Zoloft*) 50 mg PO DAILY [facility] Last Admin: 02/22/18 09:06 Dose: 50 mg Vital Signs - 8 hr 02/22/18 02/22/18 11:07 14:16 Temperature 98.0 F 98.9 F Pulse Rate 77 70 Respiratory 16 16 Rate Blood Pressure 155/72 153/67 (mmHg) O2 Sat by Pulse 98 99 Oximetry Oxygen Devices in Use Now: None Appearance: NAD Eyes: No Scleral Icterus Ears/Nose/Mouth/Throat: Clear Oropharnyx Neck: NL Appearance and Movements; NL JVP Respiratory: Symmetrical Chest Expansion and Respiratory Effort, Clear to Auscultation Cardiovascular: NL Sounds; No Murmurs; No JVD Abdominal: NL Sounds; No Tenderness; No Distention Lymphatic: No Cervical Adenopathy Extremities: - - bilateral LE amputations Skin: No Rash or Ulcers Neurological: Alert and Oriented x 3 Lines/Tubes/Other Access: Clean, Dry and Intact Peripheral IV Nutrition: Taking PO's Result Diagrams: 02/22/18 06:52 02/22/18 06:52 Additional Lab and Data: . Microbiology and Other Data: Microbiology 02/16/18 20:30 Gram Stain - Final Foot Left Wound Culture - Preliminary Proteus Mirabilis Assess/Plan/Problems-Billing . 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 On 07/17/17 he underwent RLE arteriography with balloon angioplasty of the right SFA, pop and infrapopliteal arteries followed by right BKA 07/24/17 with good stump healing. This admission, he c/o open non-healing left heel ulcer and CT of the foot showed likely osteomyelitis of the calcaneal tuberosity. The patient was admitted with leukocytosis of 20, elevated CRP at 141. Other medical problems: 1. Coronary artery disease and h/o STEMI. 2. Insulin dependent type 2 diabetes. 3. 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 4. Thrombocytopenia. 5. Diastolic congestive heart failure. 6. Peripheral arterial disease. 7. Hyperlipidemia. 8. Hypertension. 9. GERD. 10. BPH. 11. Anemia. - Patient Problems (1) Anemia Current Visit: No Status: Acute Priority: Medium Code(s): D64.9 - ANEMIA, UNSPECIFIED Comment: - mixed type, component of iron deficiency and also anemia of chronic disease ( osteomyelitis + wound). - hgb was < 7 in post op setting and patient expressed fatigue --> 1 unit prbc indicated and was transfused. - follow up CBC improved, as desired. - iron studies added on to previously drawn blood...elevated ferritin c/w ACD...low iron c/w iron deficiency. - iron supplementation ongoing. (2) Chronic ulcer of left lower extremity Current Visit: Yes Status: Acute Code(s): L97.929 - NON-PRS CHRONIC ULC UNSP PRT OF L LOW LEG W UNSP SEVERITY Comment: - with Cellulitis and calcaneal osteomyelitis - s/p LLE BKA on 02/19 - Continue IV Abx until at least 02/23/18 (3) Osteomyelitis Current Visit: Yes Status: Acute Priority: High Code(s): M86.9 - OSTEOMYELITIS, UNSPECIFIED Comment: - Calcaneal. - Continue IV antibiotics until 02/23 - Surgery 02/19. (4) Diabetes Current Visit: Yes Status: Chronic Priority: High Code(s): E11.9 - TYPE 2 DIABETES MELLITUS WITHOUT COMPLICATIONS Comment: --Continue Lantus, SS Lispro. (5) HTN (hypertension) Current Visit: Yes Status: Chronic Priority: High Code(s): I10 - ESSENTIAL (PRIMARY) HYPERTENSION Comment: - Continue beta beverley and ACEI, furosemide. (6) Hypothyroid Current Visit: Yes Status: Acute Priority: High Code(s): E03.9 - HYPOTHYROIDISM, UNSPECIFIED Comment: - TSH wnl 01/05/18, - Continue levothyroxine. (7) PVD (peripheral vascular disease) Current Visit: Yes Status: Acute Priority: High Code(s): I73.9 - PERIPHERAL VASCULAR DISEASE, UNSPECIFIED Comment: - Continue statin, ASA, and plavix
[2018-02-22] MEDS: cefTRIAXone(*) 1 GM in NS 0.9% 50 ML* 50 ML IVPB SCH (17:43)
--- NOTE | 2018-02-22 18:44 | PN ---
Progress Note - Progress Note Date of Service: 02/22/18 SOAP: Subjective: Lying comfortably in bed. No complaint of pain. Denies F/C Objective: Vital Signs: Temp Pulse Resp BP Pulse Ox 98.9 F 70 16 153/67 99 02/22/18 14:16 02/22/18 14:16 02/22/18 14:16 02/22/18 14:16 02/22/18 14:16 Laboratory Last Values WBC 19.6 10^3/ul (3.5-10.8) H 02/22/18 06:52 RBC 2.75 10^6/ul (4.0-5.4) L 02/22/18 06:52 Hgb 8.1 g/dl (14.0-18.0) L 02/22/18 06:52 Hct 25 % (42-52) L 02/22/18 06:52 MCV 90 fL (80-94) 02/22/18 06:52 MCH 30 pg (27-31) 02/22/18 06:52 MCHC 33 g/dl (31-36) 02/22/18 06:52 RDW 15 % (10.5-15) 02/22/18 06:52 Plt Count 438 10^3/ul (150-450) 02/22/18 06:52 MPV 9.0 um3 (7.4-10.4) 02/22/18 06:52 Neut % (Auto) 89.1 % (38-83) H 02/22/18 06:52 Lymph % (Auto) 4.6 % (25-47) L 02/22/18 06:52 [place] % (Auto) 3.7 % (0-7) 02/22/18 06:52 Eos % (Auto) 2.0 % (0-6) 02/22/18 06:52 Baso % (Auto) 0.6 % (0-2) 02/22/18 06:52 Absolute Neuts (auto) 17.5 10^3/ul (1.5-7.7) H 02/22/18 06:52 Absolute Lymphs (auto) 0.9 10^3/ul (1.0-4.8) L 02/22/18 06:52 Absolute Monos (auto) 0.7 10^3/ul (0-0.8) 02/22/18 06:52 Absolute Eos (auto) 0.4 10^3/ul (0-0.6) 02/22/18 06:52 Absolute Basos (auto) 0.1 10^3/ul (0-0.2) 02/22/18 06:52 Absolute Nucleated RBC 0 10^3/ul 02/22/18 06:52 Nucleated RBC % 0 02/22/18 06:52 INR (Anticoag Therapy) 1.25 (0.77-1.02) H 02/16/18 13:47 APTT 33.3 seconds (26.0-36.3) 02/16/18 13:47 Sodium 139 mmol/L (139-145) 02/22/18 06:52 Potassium 3.8 mmol/L (3.5-5.0) 02/22/18 06:52 Chloride 113 mmol/L (101-111) H 02/22/18 06:52 Carbon Dioxide 22 mmol/L (22-32) 02/22/18 06:52 Anion Gap 4 mmol/L (2-11) 02/22/18 06:52 BUN 42 mg/dL (6-24) H 02/22/18 06:52 Creatinine 1.27 mg/dL (0.67-1.17) H 02/22/18 06:52 Est GFR ( Amer) 70.9 (>60) 02/22/18 06:52 Est GFR (Non-Af Amer) 55.1 (>60) 02/22/18 06:52 BUN/Creatinine Ratio 33.1 (8-20) H 02/22/18 06:52 Glucose 69 mg/dL (70-100) L 02/22/18 06:52 POC Glucose (mg/dL) 124 mg/dL (70-100) H 02/22/18 17:14 Lactic Acid 0.9 mmol/L (0.5-2.0) 02/16/18 13:47 Calcium 7.7 mg/dL (8.6-10.3) L 02/22/18 06:52 Magnesium 1.6 mg/dL (1.9-2.7) L 02/18/18 08:16 Iron 18 ug/dL (50-212) L 02/21/18 06:17 TIBC 108 mcg/dL (250-450) L 02/21/18 06:17 % Saturation 17 % (15-55) 02/21/18 06:17 Unsat Iron Binding 90 ug/dL 02/21/18 06:17 Transferrin 77 mg/dL (203-362) L 02/21/18 06:17 Ferritin 532.4 ng/mL (24-336) H 02/21/18 06:17 Total Bilirubin 0.40 mg/dL (0.2-1.0) 02/18/18 08:16 AST 39 U/L (13-39) 02/18/18 08:16 ALT 30 U/L (7-52) 02/18/18 08:16 Alkaline Phosphatase 282 U/L (34-104) H 02/18/18 08:16 C-Reactive Protein 141.68 mg/L (< 5.00) H 02/16/18 13:47 Total Protein 5.1 g/dL (6.4-8.9) L 02/18/18 08:16 Albumin 2.1 g/dL (3.2-5.2) L 02/18/18 08:16 Globulin 3.0 g/dL (2-4) 02/18/18 08:16 Albumin/Globulin Ratio 0.7 (1-3) L 02/18/18 08:16 Blood Type A Positive 02/19/18 12:24 Antibody Screen Negative 02/19/18 12:24 Crossmatch See Detail 02/19/18 12:24 Splint C/D/I, no edema Assessment: 78 yo male s/p BKA Plan: DVT prophylaxis - Plavix, aspirin NWB LLE Pain control IV abx per ID DC per ID and Hospitalist
[2018-02-22] MEDS: Insulin GLARGINE(*) 1 UNITS UNIT SUBCUT SCH (20:37)
[2018-02-23] MEDS: Levothyroxine TAB* 50 MCG TAB PO SCH (05:58)
[2018-02-23] MEDS: Insulin LISPRO* 1 UNITS UNIT SUBCUT SCH ×4 (08:04→20:52)
[2018-02-23] MEDS: Polyethylene Glycol 3350* 17 GM PACKET PO SCH ×2 (09:31→20:52)
[2018-02-23] MEDS: Atorvastatin* 20 MG TAB PO SCH (09:43)
[2018-02-23] MEDS: Lisinopril TAB* 10 MG PO SCH (09:43)
[2018-02-23] MEDS: Clopidogrel TAB* 75 MG PO SCH (09:43)
[2018-02-23] MEDS: Metoprolol Succinate XL TAB* 50 MG PO SCH (09:43)
[2018-02-23] MEDS: Cholecalciferol TAB* 1000 UNITS PO SCH (09:43)
[2018-02-23] MEDS: Aspirin 81 mg CHEW TAB* 81 MG TAB.CHEW PO SCH (09:43)
[2018-02-23] MEDS: Furosemide TAB* 20 MG PO SCH (09:43)
[2018-02-23] MEDS: Sertraline* 50 MG TAB PO SCH (09:44)
[2018-02-23] MEDS: metroNIDAZOLE IV 500 MG/100ML* 500 MG/100 ML BAG IVPB SCH ×2 (09:44→20:49)
--- NOTE | 2018-02-23 14:45 | PN ---
Progress Note - Progress Note Date of Service: 02/23/18 SOAP: Subjective: []Patient seen at bedside, RACHEL Reese accompanying me. He feels well without LLE pain. Objective: [] Vital Signs Temp 98.2 F 02/23/18 07:20 Pulse 67 02/23/18 07:20 Resp 16 02/23/18 07:20 BP 160/81 02/23/18 07:20 Pulse Ox 99 02/23/18 07:20 Intake & Output 02/22/18 02/23/18 02/23/18 18:59 06:59 18:59 Intake Total 440 920 Output Total 200 400 100 Balance 240 -400 820 Weight 147 lb 1.6 oz Intake: Oral 440 920 Output: Urine 200 400 100 Other: Estimated Void Large Medium # Bowel Movements 0 0 0 # Voids 1 1 2 Laboratory Last Values WBC 19.6 10^3/ul (3.5-10.8) H 02/22/18 06:52 RBC 2.75 10^6/ul (4.0-5.4) L 02/22/18 06:52 Hgb 8.1 g/dl (14.0-18.0) L 02/22/18 06:52 Hct 25 % (42-52) L 02/22/18 06:52 MCV 90 fL (80-94) 02/22/18 06:52 MCH 30 pg (27-31) 02/22/18 06:52 MCHC 33 g/dl (31-36) 02/22/18 06:52 RDW 15 % (10.5-15) 02/22/18 06:52 Plt Count 438 10^3/ul (150-450) 02/22/18 06:52 MPV 9.0 um3 (7.4-10.4) 02/22/18 06:52 Neut % (Auto) 89.1 % (38-83) H 02/22/18 06:52 Lymph % (Auto) 4.6 % (25-47) L 02/22/18 06:52 [place] % (Auto) 3.7 % (0-7) 02/22/18 06:52 Eos % (Auto) 2.0 % (0-6) 02/22/18 06:52 Baso % (Auto) 0.6 % (0-2) 02/22/18 06:52 Absolute Neuts (auto) 17.5 10^3/ul (1.5-7.7) H 02/22/18 06:52 Absolute Lymphs (auto) 0.9 10^3/ul (1.0-4.8) L 02/22/18 06:52 Absolute Monos (auto) 0.7 10^3/ul (0-0.8) 02/22/18 06:52 Absolute Eos (auto) 0.4 10^3/ul (0-0.6) 02/22/18 06:52 Absolute Basos (auto) 0.1 10^3/ul (0-0.2) 02/22/18 06:52 Absolute Nucleated RBC 0 10^3/ul 02/22/18 06:52 Nucleated RBC % 0 02/22/18 06:52 INR (Anticoag Therapy) 1.25 (0.77-1.02) H 02/16/18 13:47 APTT 33.3 seconds (26.0-36.3) 02/16/18 13:47 Sodium 139 mmol/L (139-145) 02/22/18 06:52 Potassium 3.8 mmol/L (3.5-5.0) 02/22/18 06:52 Chloride 113 mmol/L (101-111) H 02/22/18 06:52 Carbon Dioxide 22 mmol/L (22-32) 02/22/18 06:52 Anion Gap 4 mmol/L (2-11) 02/22/18 06:52 BUN 42 mg/dL (6-24) H 02/22/18 06:52 Creatinine 1.27 mg/dL (0.67-1.17) H 02/22/18 06:52 Est GFR ( Amer) 70.9 (>60) 02/22/18 06:52 Est GFR (Non-Af Amer) 55.1 (>60) 02/22/18 06:52 BUN/Creatinine Ratio 33.1 (8-20) H 02/22/18 06:52 Glucose 69 mg/dL (70-100) L 02/22/18 06:52 POC Glucose (mg/dL) 149 mg/dL (70-100) H 02/23/18 12:07 Lactic Acid 0.9 mmol/L (0.5-2.0) 02/16/18 13:47 Calcium 7.7 mg/dL (8.6-10.3) L 02/22/18 06:52 Magnesium 1.6 mg/dL (1.9-2.7) L 02/18/18 08:16 Iron 18 ug/dL (50-212) L 02/21/18 06:17 TIBC 108 mcg/dL (250-450) L 02/21/18 06:17 % Saturation 17 % (15-55) 02/21/18 06:17 Unsat Iron Binding 90 ug/dL 02/21/18 06:17 Transferrin 77 mg/dL (203-362) L 02/21/18 06:17 Ferritin 532.4 ng/mL (24-336) H 02/21/18 06:17 Total Bilirubin 0.40 mg/dL (0.2-1.0) 02/18/18 08:16 AST 39 U/L (13-39) 02/18/18 08:16 ALT 30 U/L (7-52) 02/18/18 08:16 Alkaline Phosphatase 282 U/L (34-104) H 02/18/18 08:16 C-Reactive Protein 141.68 mg/L (< 5.00) H 02/16/18 13:47 Total Protein 5.1 g/dL (6.4-8.9) L 02/18/18 08:16 Albumin 2.1 g/dL (3.2-5.2) L 02/18/18 08:16 Globulin 3.0 g/dL (2-4) 02/18/18 08:16 Albumin/Globulin Ratio 0.7 (1-3) L 02/18/18 08:16 Blood Type A Positive 02/19/18 12:24 Antibody Screen Negative 02/19/18 12:24 Crossmatch See Detail 02/19/18 12:24 General: Well appearing, NAD LLE: Splint changed. Incision CDI with well approximated wound edges and without surrounding erythema or edema. No skin breakdown, erythema or edema proximal to splint. Assessment: 78 yo male s/p left BKA Plan: DVT prophylaxis - Plavix, aspirin NWB LLE IV abx per ID: ceftriaxone and flagyl DC per ID and Hospitalist
[2018-02-23] MEDS: cefTRIAXone(*) 1 GM in NS 0.9% 50 ML* 50 ML IVPB SCH (18:21)
--- NOTE | 2018-02-23 18:40 | PN ---
Subjective Date of Service: 02/23/18 Interval History: . Patient reports he is doing well today. Denies any pain and reports he is comfortable. He reports less fatigue since blood transfusion. Denies SOB/CP. Reports good appetite. Denies N/V/D. Family History: Unchanged from Admission Social History: Unchanged from Admission Past Medical History: Unchanged from Admission Objective Active Medications: Acetaminophen (Tylenol Adult Liq*) 650 mg PO Q4H PRN PRN Reason: PAIN/FEVER Last Admin: 02/18/18 21:41 Dose: 650 mg Aspirin (Aspirin 81 Mg Chew Tab*) 81 mg PO DAILY [facility] Last Admin: 02/23/18 09:43 Dose: 81 mg Atorvastatin Calcium (Lipitor*) 20 mg PO DAILY [facility] Last Admin: 02/23/18 09:43 Dose: 20 mg Cholecalciferol (Vitamin D Tab*) 2,000 units PO DAILY [facility] Last Admin: 02/23/18 09:43 Dose: 2,000 units Clopidogrel Bisulfate (Plavix Tab*) 75 mg PO DAILY [facility] Last Admin: 02/23/18 09:43 Dose: 75 mg Dextrose (D50w Syringe 50 Ml*) 12.5 gm IV PUSH .FOR FS < 60 - SS PRN PRN Reason: FS < 60 Furosemide (Lasix Tab*) 20 mg PO DAILY [facility] Last Admin: 02/23/18 09:43 Dose: 20 mg Hard Fat/Phenylephrine (Preparation H Supp*) 1 supp [place] Q4H PRN PRN Reason: PAIN Metronidazole/Sodium Chloride (Flagyl 500 Mg Ivpb*) 500 mg in 100 mls @ 100 mls /hr IVPB 0900,2100 [facility] Last Admin: 02/23/18 09:44 Dose: 100 mls/hr Ceftriaxone Sodium 1 gm/ (Sodium Chloride) 50 mls @ 200 mls/hr IVPB Q24H [facility] Last Admin: 02/23/18 18:21 Dose: 200 mls/hr Insulin Glargine (Lantus(*)) 10 units SUBCUT BEDTIME [facility] Last Admin: 02/22/18 20:37 Dose: 10 unit Insulin Human Lispro (Humalog*) 0 units SUBCUT ACHS [facility] PRN Reason: Protocol Last Admin: 02/23/18 18:20 Dose: 2 units Levothyroxine Sodium (Synthroid Tab*) 50 mcg PO DAILY@0600 [facility] Last Admin: 02/23/18 05:58 Dose: 50 mcg Lisinopril (Prinivil Tab*) 10 mg PO DAILY [facility] Last Admin: 02/23/18 09:43 Dose: 10 mg Metoprolol Succinate (Toprol Xl Tab*) 50 mg PO DAILY [facility] Last Admin: 02/23/18 09:43 Dose: 50 mg Polyethylene Glycol/Electrolytes (Miralax*) 17 gm PO 0800,2100 [facility] Last Admin: 02/23/18 09:31 Dose: Not Given Sertraline HCl (Zoloft*) 50 mg PO DAILY [facility] Last Admin: 02/23/18 09:44 Dose: 50 mg Vital Signs - 8 hr 02/23/18 02/23/18 12:59 15:32 Temperature 98.1 F Pulse Rate 66 62 Respiratory 18 22 Rate Blood Pressure 171/76 158/76 (mmHg) O2 Sat by Pulse 98 99 Oximetry Oxygen Devices in Use Now: None Appearance: 78 yo chronically ill male A+O x3 sitting up in bed in NAD Eyes: No Scleral Icterus, PERRLA Ears/Nose/Mouth/Throat: NL Teeth, Lips, Gums, Mucous Membranes Moist Neck: NL Appearance and Movements; NL JVP Respiratory: Symmetrical Chest Expansion and Respiratory Effort, Clear to Auscultation Cardiovascular: NL Sounds; No Murmurs; No JVD, RRR, No Edema Abdominal: NL Sounds; No Tenderness; No Distention, No Hepatosplenomegaly Extremities: No Edema, No Clubbing, Cyanosis Skin: No Rash or Ulcers, No Nodules or Sclerosis Neurological: Alert and Oriented x 3, NL Sensation, NL Muscle Strength and Tone Lines/Tubes/Other Access: Clean, Dry and Intact Peripheral IV Nutrition: Taking PO's Result Diagrams: 02/22/18 06:52 02/22/18 06:52 Additional Lab and Data: . Microbiology and Other Data: Microbiology 02/16/18 20:30 Gram Stain - Final Foot Left Wound Culture - Preliminary Proteus Mirabilis Assess/Plan/Problems-Billing . 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 On 07/17/17 he underwent RLE arteriography with balloon angioplasty of the right SFA, pop and infrapopliteal arteries followed by right BKA 07/24/17 with good stump healing. This admission, he c/o open non-healing left heel ulcer and was sent from wound clinic for concern of osteo, CT of the foot showed likely osteomyelitis of the calcaneal tuberosity. The patient was admitted with leukocytosis of 20, elevated CRP at 141. Other medical problems: 1. Coronary artery disease and h/o STEMI. 2. Insulin dependent type 2 diabetes. 3. 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 4. Thrombocytopenia. 5. Diastolic congestive heart failure. 6. Peripheral arterial disease. 7. Hyperlipidemia. 8. Hypertension. 9. GERD. 10. BPH. 11. Anemia. - Patient Problems (1) Chronic ulcer of left lower extremity Comment: - with Cellulitis and calcaneal osteomyelitis. - s/p LLE BKA on 02/19 - Ortho following - changed dressing today, per note healing well. - Continues to have high WBCs, recheck in am along with CRP. No fevers. - Continue IV Abx - f/u with ID (2) Hypothyroid Comment: - TSH wnl 01/05/18 - Continue levothyroxine. (3) PVD (peripheral vascular disease) Comment: - Continue statin, ASA, and plavix (4) Diabetes Comment: --Continue Lantus, SS Lispro. (5) HTN (hypertension) Comment: - Continue beta beverley and ACEI, furosemide. (6) Anemia Comment: - mixed type, component of iron deficiency and also anemia of chronic disease ( osteomyelitis + wound). - hgb was < 7 in post op setting and patient expressed fatigue --> 1 unit prbc indicated and was transfused - hbg up to 8.1 - recheck in am - follow up CBC improved, as desired. - iron studies added on to previously drawn blood...elevated ferritin c/w ACD...low iron c/w iron deficiency. - iron supplementation ongoing. (7) DVT prophylaxis Comment: - SQ heparin. (8) Full code status Status and Disposition: inpatient. Possible DC to subacute rehab vs home.
[2018-02-23] MEDS: Insulin GLARGINE(*) 1 UNITS UNIT SUBCUT SCH (20:52)
[2018-02-24] MEDS: Levothyroxine TAB* 50 MCG TAB PO SCH (05:45)
[2018-02-24 06:46] LABS: ABS Basophils 0.1 10^3/ul (0-0.2); ABS Eosinophils 0.6 10^3/ul (0-0.6); ABS Lymphocytes 1.1 10^3/ul (1.0-4.8); ABS Monocytes 0.6 10^3/ul (0-0.8); ABS Neutrophils 10.3 10^3/ul (1.5-7.7); ABS Nucleated RBC 0 10^3/ul; Eosinophil % 4.7 % (0-6); Hematocrit 27 % (42-52); Mean Corpuscular HGB Conc 33 g/dl (31-36); Mean Corpuscular Hemoglobin 30 pg (27-31); Mean Corpuscular Volume 90 fL (80-94); Nucleated Red Blood Cells % 0; Platelet Count 455 10^3/ul (150-450); Red Cell Distribution Width 15 % (10.5-15); White Blood Count 12.8 10^3/ul (3.5-10.8)
[2018-02-24 07:08] LABS: EGFR Non-African American 65.1 (>60)
[2018-02-24] MEDS: Insulin LISPRO* 1 UNITS UNIT SUBCUT SCH ×4 (07:33→21:02)
[2018-02-24] MEDS: metroNIDAZOLE IV 500 MG/100ML* 500 MG/100 ML BAG IVPB SCH (08:46)
[2018-02-24] MEDS: Furosemide TAB* 20 MG PO SCH (08:47)
[2018-02-24] MEDS: Metoprolol Succinate XL TAB* 50 MG PO SCH (08:47)
[2018-02-24] MEDS: Clopidogrel TAB* 75 MG PO SCH (08:47)
[2018-02-24] MEDS: Sertraline* 50 MG TAB PO SCH (08:48)
[2018-02-24] MEDS: Cholecalciferol TAB* 1000 UNITS PO SCH (08:48)
[2018-02-24] MEDS: Lisinopril TAB* 10 MG PO SCH (08:48)
[2018-02-24] MEDS: Atorvastatin* 20 MG TAB PO SCH (08:48)
[2018-02-24] MEDS: Aspirin 81 mg CHEW TAB* 81 MG TAB.CHEW PO SCH (08:48)
[2018-02-24] MEDS: Polyethylene Glycol 3350* 17 GM PACKET PO SCH ×2 (08:49→20:45)
--- NOTE | 2018-02-24 16:20 | PN ---
Progress Note - Progress Note Date of Service: 02/24/18 SOAP: Subjective: []Patient seen at bedside. He has no complaints, no pain of LLE. Denies CP, SOB , dizziness, feeling of fever or chills. Splint is comfortable. Objective: []General: Well appearing, NAD. Pleasant and cooperative. LLE: Splint CDI without erythema or tenderness proximally. No noted skin breakdown at proximal edge. Assessment: 78 yo male s/p left BKA Plan: DVT prophylaxis - Plavix, aspirin NWB LLE IV abx per ID: ceftriaxone and flagyl DC per ID and Hospitalist Vital Signs Temp 97.9 F 02/24/18 07:16 Pulse 67 02/24/18 07:16 Resp 16 02/24/18 08:00 BP 145/72 02/24/18 07:16 Pulse Ox 99 02/24/18 07:16 Intake & Output 02/23/18 02/24/18 02/24/18 18:59 06:59 18:59 Intake Total 1080 120 450 Output Total 100 75 Balance 980 45 450 Intake: IV Fluids 160 ABX - FLAGYL 100 NS (0.9%) 10 ceftrioxone 50 Oral 920 120 450 Output: Urine 100 75 Other: Estimated Void Medium Small # Bowel Movements 0 0 1 Estimated Stool Amount Medium Large # Voids 2 1 Laboratory Last Values WBC 12.8 10^3/ul (3.5-10.8) H 02/24/18 05:43 RBC 3.00 10^6/ul (4.0-5.4) L 02/24/18 05:43 Hgb 9.0 g/dl (14.0-18.0) L 02/24/18 05:43 Hct 27 % (42-52) L 02/24/18 05:43 MCV 90 fL (80-94) 02/24/18 05:43 MCH 30 pg (27-31) 02/24/18 05:43 MCHC 33 g/dl (31-36) 02/24/18 05:43 RDW 15 % (10.5-15) 02/24/18 05:43 Plt Count 455 10^3/ul (150-450) H 02/24/18 05:43 MPV 9.0 um3 (7.4-10.4) 02/24/18 05:43 Neut % (Auto) 80.5 % (38-83) 02/24/18 05:43 Lymph % (Auto) 9.0 % (25-47) L 02/24/18 05:43 [place] % (Auto) 4.6 % (0-7) 02/24/18 05:43 Eos % (Auto) 4.7 % (0-6) 02/24/18 05:43 Baso % (Auto) 1.2 % (0-2) 02/24/18 05:43 Absolute Neuts (auto) 10.3 10^3/ul (1.5-7.7) H 02/24/18 05:43 Absolute Lymphs (auto) 1.1 10^3/ul (1.0-4.8) 02/24/18 05:43 Absolute Monos (auto) 0.6 10^3/ul (0-0.8) 02/24/18 05:43 Absolute Eos (auto) 0.6 10^3/ul (0-0.6) 02/24/18 05:43 Absolute Basos (auto) 0.1 10^3/ul (0-0.2) 02/24/18 05:43 Absolute Nucleated RBC 0 10^3/ul 02/24/18 05:43 Nucleated RBC % 0 02/24/18 05:43 INR (Anticoag Therapy) 1.25 (0.77-1.02) H 02/16/18 13:47 APTT 33.3 seconds (26.0-36.3) 02/16/18 13:47 Sodium 138 mmol/L (139-145) L 02/24/18 05:43 Potassium 3.8 mmol/L (3.5-5.0) 02/24/18 05:43 Chloride 109 mmol/L (101-111) 02/24/18 05:43 Carbon Dioxide 23 mmol/L (22-32) 02/24/18 05:43 Anion Gap 6 mmol/L (2-11) 02/24/18 05:43 BUN 38 mg/dL (6-24) H 02/24/18 05:43 Creatinine 1.10 mg/dL (0.67-1.17) 02/24/18 05:43 Est GFR ( Amer) 83.7 (>60) 02/24/18 05:43 Est GFR (Non-Af Amer) 65.1 (>60) 02/24/18 05:43 BUN/Creatinine Ratio 34.5 (8-20) H 02/24/18 05:43 Glucose 63 mg/dL (70-100) L 02/24/18 05:43 POC Glucose (mg/dL) 172 mg/dL (70-100) H 02/24/18 11:53 Lactic Acid 0.9 mmol/L (0.5-2.0) 02/16/18 13:47 Calcium 7.8 mg/dL (8.6-10.3) L 02/24/18 05:43 Magnesium 1.4 mg/dL (1.9-2.7) L 02/24/18 05:43 Iron 18 ug/dL (50-212) L 02/21/18 06:17 TIBC 108 mcg/dL (250-450) L 02/21/18 06:17 % Saturation 17 % (15-55) 02/21/18 06:17 Unsat Iron Binding 90 ug/dL 02/21/18 06:17 Transferrin 77 mg/dL (203-362) L 02/21/18 06:17 Ferritin 532.4 ng/mL (24-336) H 02/21/18 06:17 Total Bilirubin 0.40 mg/dL (0.2-1.0) 02/18/18 08:16 AST 39 U/L (13-39) 02/18/18 08:16 ALT 30 U/L (7-52) 02/18/18 08:16 Alkaline Phosphatase 282 U/L (34-104) H 02/18/18 08:16 C-Reactive Protein 42.25 mg/L (< 5.00) H 02/24/18 05:43 Total Protein 5.1 g/dL (6.4-8.9) L 02/18/18 08:16 Albumin 2.1 g/dL (3.2-5.2) L 02/18/18 08:16 Globulin 3.0 g/dL (2-4) 02/18/18 08:16 Albumin/Globulin Ratio 0.7 (1-3) L 02/18/18 08:16 Blood Type A Positive 02/19/18 12:24 Antibody Screen Negative 02/19/18 12:24 Crossmatch See Detail 02/19/18 12:24
[2018-02-24] MEDS: cefTRIAXone(*) 1 GM in NS 0.9% 50 ML* 50 ML IVPB SCH (16:50)
--- NOTE | 2018-02-24 17:18 | PN ---
Subjective Date of Service: 02/24/18 Interval History: patient offers no complaints today and states he feels well. he denies any pain. Reports his appetite is good. Hopes to go home soon. Denies SOB, CP. Family History: Unchanged from Admission Social History: Unchanged from Admission Past Medical History: Unchanged from Admission Objective Active Medications: Acetaminophen (Tylenol Adult Liq*) 650 mg PO Q4H PRN PRN Reason: PAIN/FEVER Last Admin: 02/18/18 21:41 Dose: 650 mg Aspirin (Aspirin 81 Mg Chew Tab*) 81 mg PO DAILY [facility] Last Admin: 02/24/18 08:48 Dose: 81 mg Atorvastatin Calcium (Lipitor*) 20 mg PO DAILY [facility] Last Admin: 02/24/18 08:48 Dose: 20 mg Cholecalciferol (Vitamin D Tab*) 2,000 units PO DAILY [facility] Last Admin: 02/24/18 08:48 Dose: 2,000 units Clopidogrel Bisulfate (Plavix Tab*) 75 mg PO DAILY [facility] Last Admin: 02/24/18 08:47 Dose: 75 mg Dextrose (D50w Syringe 50 Ml*) 12.5 gm IV PUSH .FOR FS < 60 - SS PRN PRN Reason: FS < 60 Furosemide (Lasix Tab*) 20 mg PO DAILY [facility] Last Admin: 02/24/18 08:47 Dose: 20 mg Hard Fat/Phenylephrine (Preparation H Supp*) 1 supp [place] Q4H PRN PRN Reason: PAIN Metronidazole/Sodium Chloride (Flagyl 500 Mg Ivpb*) 500 mg in 100 mls @ 100 mls /hr IVPB 0900,2100 [facility] Last Admin: 02/24/18 08:46 Dose: 100 mls/hr Ceftriaxone Sodium 1 gm/ (Sodium Chloride) 50 mls @ 200 mls/hr IVPB Q24H [facility] Last Admin: 02/24/18 16:50 Dose: 200 mls/hr Insulin Glargine (Lantus(*)) 10 units SUBCUT BEDTIME [facility] Last Admin: 02/23/18 20:52 Dose: 10 unit Insulin Human Lispro (Humalog*) 0 units SUBCUT ACHS [facility] PRN Reason: Protocol Last Admin: 02/24/18 16:50 Dose: 1 units Levothyroxine Sodium (Synthroid Tab*) 50 mcg PO DAILY@0600 [facility] Last Admin: 02/24/18 05:45 Dose: 50 mcg Lisinopril (Prinivil Tab*) 10 mg PO DAILY [facility] Last Admin: 02/24/18 08:48 Dose: 10 mg Metoprolol Succinate (Toprol Xl Tab*) 50 mg PO DAILY [facility] Last Admin: 02/24/18 08:47 Dose: 50 mg Polyethylene Glycol/Electrolytes (Miralax*) 17 gm PO 0800,2100 [facility] Last Admin: 02/24/18 08:49 Dose: Not Given Sertraline HCl (Zoloft*) 50 mg PO DAILY [facility] Last Admin: 02/24/18 08:48 Dose: 50 mg Oxygen Devices in Use Now: None Appearance: 78 yo male A+Ox3 in NAD Eyes: No Scleral Icterus, PERRLA Neck: NL Appearance and Movements; NL JVP Respiratory: Symmetrical Chest Expansion and Respiratory Effort, Clear to Auscultation Cardiovascular: NL Sounds; No Murmurs; No JVD, RRR, No Edema Abdominal: NL Sounds; No Tenderness; No Distention Extremities: - - B/L BKA Skin: No Rash or Ulcers, No Nodules or Sclerosis Neurological: Alert and Oriented x 3, NL Sensation, NL Muscle Strength and Tone Lines/Tubes/Other Access: Clean, Dry and Intact Peripheral IV Nutrition: Taking PO's Result Diagrams: 02/24/18 05:43 02/24/18 05:43 Additional Lab and Data: . Microbiology and Other Data: Microbiology 02/16/18 20:30 Gram Stain - Final Foot Left Wound Culture - Preliminary Proteus Mirabilis Assess/Plan/Problems-Billing . 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 On 07/17/17 he underwent RLE arteriography with balloon angioplasty of the right SFA, pop and infrapopliteal arteries followed by right BKA 07/24/17 with good stump healing. This admission, he c/o open non-healing left heel ulcer and was sent from wound clinic for concern of osteo, CT of the foot showed likely osteomyelitis of the calcaneal tuberosity. The patient was admitted with leukocytosis of 20, elevated CRP at 141. Other medical problems: 1. Coronary artery disease and h/o STEMI. 2. Insulin dependent type 2 diabetes. 3. 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 4. Thrombocytopenia. 5. Diastolic congestive heart failure. 6. Peripheral arterial disease. 7. Hyperlipidemia. 8. Hypertension. 9. GERD. 10. BPH. 11. Anemia. - Patient Problems (1) Chronic ulcer of left lower extremity Comment: - with Cellulitis and calcaneal osteomyelitis. - s/p LLE BKA on 02/19 - Ortho following - Continues to have high WBCs trending down, No fevers. - Discussed with ID - ok to DC IV abx. Started Augmentin x 5 days (2) Hypothyroid Comment: - TSH wnl 01/05/18 - Continue levothyroxine. (3) Diastolic CHF Comment: pt has chronic diastolic CHF no symptoms of acute CHF noted Appears a little dry - plan to home lasix (4) PVD (peripheral vascular disease) Comment: - Continue statin, ASA, and plavix (5) Diabetes Comment: --Continue Lantus, SS Lispro. (6) HTN (hypertension) Comment: - Continue beta beverley and ACEI, hold furosemide. (7) Anemia Comment: - mixed type, component of iron deficiency and also anemia of chronic disease ( osteomyelitis + wound). - hgb was < 7 in post op setting and patient expressed fatigue --> 1 unit prbc indicated and was transfused - hbg up to 9 - follow up CBC improved, as desired. - iron studies added on to previously drawn blood...elevated ferritin c/w ACD...low iron c/w iron deficiency. - iron supplementation ongoing. (8) DVT prophylaxis Comment: - SQ heparin. (9) Full code status Status and Disposition: inpatient. Possible DC to home when medically stable
[2018-02-24] MEDS: Amoxicillin/Clavulanate TAB* 875 MG PO SCH (21:00)
[2018-02-24] MEDS: Insulin GLARGINE(*) 1 UNITS UNIT SUBCUT SCH (21:01)
[2018-02-25] MEDS: Levothyroxine TAB* 50 MCG TAB PO SCH (05:56)
[2018-02-25] MEDS: Insulin LISPRO* 1 UNITS UNIT SUBCUT SCH ×4 (09:34→21:03)
[2018-02-25] MEDS: Sertraline* 50 MG TAB PO SCH (09:36)
[2018-02-25] MEDS: Cholecalciferol TAB* 1000 UNITS PO SCH (09:36)
[2018-02-25] MEDS: Atorvastatin* 20 MG TAB PO SCH (09:36)
[2018-02-25] MEDS: Clopidogrel TAB* 75 MG PO SCH (09:36)
[2018-02-25] MEDS: Amoxicillin/Clavulanate TAB* 875 MG PO SCH ×2 (09:36→21:03)
[2018-02-25] MEDS: Metoprolol Succinate XL TAB* 50 MG PO SCH (09:36)
[2018-02-25] MEDS: Lisinopril TAB* 10 MG PO SCH (09:37)
[2018-02-25] MEDS: Aspirin 81 mg CHEW TAB* 81 MG TAB.CHEW PO SCH (09:37)
[2018-02-25] MEDS: Polyethylene Glycol 3350* 17 GM PACKET PO SCH ×2 (09:37→21:04)
--- NOTE | 2018-02-25 17:02 | PN ---
Progress Note - Progress Note Date of Service: 02/25/18 SOAP: Subjective: []Patient seen at bedside. He has no complaints, no pain of LLE. Denies CP, SOB , dizziness, feeling of fever or chills. Splint is comfortable. Objective: []General: Well appearing, NAD. Pleasant and cooperative. LLE: Splint removed, dressed with telfa, kerlix and kevin wrap. Incision was CDI with well approximated wound edges. Skin without breakdown or erythema, leg nonedematous. Assessment: 78 yo male s/p left BKA Plan: DVT prophylaxis - Plavix, aspirin NWB LLE ABX now on augmentin DC per Hospitalist Vital Signs Temp 97.4 F 02/25/18 13:30 Pulse 65 02/25/18 13:30 Resp 16 02/25/18 13:30 BP 132/82 02/25/18 13:30 Pulse Ox 100 02/25/18 13:30 Intake & Output 02/24/18 02/25/18 02/25/18 18:59 06:59 18:59 Intake Total 1158 0 1120 Output Total 300 500 Balance 1158 -300 620 Intake: IV Fluids 168 ABX - FLAGYL 110 ceftrioxone 58 Oral 990 0 1120 Output: Urine 300 500 Other: Estimated Void Small # Bowel Movements 1 0 Estimated Stool Amount Large Small Small # Voids 1 Laboratory Last Values WBC 12.8 10^3/ul (3.5-10.8) H 02/24/18 05:43 RBC 3.00 10^6/ul (4.0-5.4) L 02/24/18 05:43 Hgb 9.0 g/dl (14.0-18.0) L 02/24/18 05:43 Hct 27 % (42-52) L 02/24/18 05:43 MCV 90 fL (80-94) 02/24/18 05:43 MCH 30 pg (27-31) 02/24/18 05:43 MCHC 33 g/dl (31-36) 02/24/18 05:43 RDW 15 % (10.5-15) 02/24/18 05:43 Plt Count 455 10^3/ul (150-450) H 02/24/18 05:43 MPV 9.0 um3 (7.4-10.4) 02/24/18 05:43 Neut % (Auto) 80.5 % (38-83) 02/24/18 05:43 Lymph % (Auto) 9.0 % (25-47) L 02/24/18 05:43 [place] % (Auto) 4.6 % (0-7) 02/24/18 05:43 Eos % (Auto) 4.7 % (0-6) 02/24/18 05:43 Baso % (Auto) 1.2 % (0-2) 02/24/18 05:43 Absolute Neuts (auto) 10.3 10^3/ul (1.5-7.7) H 02/24/18 05:43 Absolute Lymphs (auto) 1.1 10^3/ul (1.0-4.8) 02/24/18 05:43 Absolute Monos (auto) 0.6 10^3/ul (0-0.8) 02/24/18 05:43 Absolute Eos (auto) 0.6 10^3/ul (0-0.6) 02/24/18 05:43 Absolute Basos (auto) 0.1 10^3/ul (0-0.2) 02/24/18 05:43 Absolute Nucleated RBC 0 10^3/ul 02/24/18 05:43 Nucleated RBC % 0 02/24/18 05:43 INR (Anticoag Therapy) 1.25 (0.77-1.02) H 02/16/18 13:47 APTT 33.3 seconds (26.0-36.3) 02/16/18 13:47 Sodium 138 mmol/L (139-145) L 02/24/18 05:43 Potassium 3.8 mmol/L (3.5-5.0) 02/24/18 05:43 Chloride 109 mmol/L (101-111) 02/24/18 05:43 Carbon Dioxide 23 mmol/L (22-32) 02/24/18 05:43 Anion Gap 6 mmol/L (2-11) 02/24/18 05:43 BUN 38 mg/dL (6-24) H 02/24/18 05:43 Creatinine 1.10 mg/dL (0.67-1.17) 02/24/18 05:43 Est GFR ( Amer) 83.7 (>60) 02/24/18 05:43 Est GFR (Non-Af Amer) 65.1 (>60) 02/24/18 05:43 BUN/Creatinine Ratio 34.5 (8-20) H 02/24/18 05:43 Glucose 63 mg/dL (70-100) L 02/24/18 05:43 POC Glucose (mg/dL) 161 mg/dL (70-100) H 02/25/18 16:32 Lactic Acid 0.9 mmol/L (0.5-2.0) 02/16/18 13:47 Calcium 7.8 mg/dL (8.6-10.3) L 02/24/18 05:43 Magnesium 1.4 mg/dL (1.9-2.7) L 02/24/18 05:43 Iron 18 ug/dL (50-212) L 02/21/18 06:17 TIBC 108 mcg/dL (250-450) L 02/21/18 06:17 % Saturation 17 % (15-55) 02/21/18 06:17 Unsat Iron Binding 90 ug/dL 02/21/18 06:17 Transferrin 77 mg/dL (203-362) L 02/21/18 06:17 Ferritin 532.4 ng/mL (24-336) H 02/21/18 06:17 Total Bilirubin 0.40 mg/dL (0.2-1.0) 02/18/18 08:16 AST 39 U/L (13-39) 02/18/18 08:16 ALT 30 U/L (7-52) 02/18/18 08:16 Alkaline Phosphatase 282 U/L (34-104) H 02/18/18 08:16 C-Reactive Protein 42.25 mg/L (< 5.00) H 02/24/18 05:43 Total Protein 5.1 g/dL (6.4-8.9) L 02/18/18 08:16 Albumin 2.1 g/dL (3.2-5.2) L 02/18/18 08:16 Globulin 3.0 g/dL (2-4) 02/18/18 08:16 Albumin/Globulin Ratio 0.7 (1-3) L 02/18/18 08:16 Blood Type A Positive 02/19/18 12:24 Antibody Screen Negative 02/19/18 12:24 Crossmatch See Detail 02/19/18 12:24
--- NOTE | 2018-02-25 19:03 | PN ---
Subjective Date of Service: 02/25/18 Interval History: patient reports he feels well today, denies pain, fever or chills. Reports good appetite. Transferring with 2 assist with the slide board. Family History: Unchanged from Admission Social History: Unchanged from Admission Past Medical History: Unchanged from Admission Objective Active Medications: Acetaminophen (Tylenol Adult Liq*) 650 mg PO Q4H PRN PRN Reason: PAIN/FEVER Last Admin: 02/18/18 21:41 Dose: 650 mg Amoxicillin/Clavulanate Potassium (Augmentin Tab*) 875 mg PO BID [facility] Stop: 03/01/18 20:59 Last Admin: 02/25/18 09:36 Dose: 875 mg Aspirin (Aspirin 81 Mg Chew Tab*) 81 mg PO DAILY [facility] Last Admin: 02/25/18 09:37 Dose: 81 mg Atorvastatin Calcium (Lipitor*) 20 mg PO DAILY [facility] Last Admin: 02/25/18 09:36 Dose: 20 mg Cholecalciferol (Vitamin D Tab*) 2,000 units PO DAILY [facility] Last Admin: 02/25/18 09:36 Dose: 2,000 units Clopidogrel Bisulfate (Plavix Tab*) 75 mg PO DAILY [facility] Last Admin: 02/25/18 09:36 Dose: 75 mg Dextrose (D50w Syringe 50 Ml*) 12.5 gm IV PUSH .FOR FS < 60 - SS PRN PRN Reason: FS < 60 Hard Fat/Phenylephrine (Preparation H Supp*) 1 supp MT Q4H PRN PRN Reason: PAIN Insulin Glargine (Lantus(*)) 10 units SUBCUT BEDTIME [facility] Last Admin: 02/24/18 21:01 Dose: 10 unit Insulin Human Lispro (Humalog*) 0 units SUBCUT ACHS [facility] PRN Reason: Protocol Last Admin: 02/25/18 17:02 Dose: 2 units Levothyroxine Sodium (Synthroid Tab*) 50 mcg PO DAILY@0600 [facility] Last Admin: 02/25/18 05:56 Dose: 50 mcg Lisinopril (Prinivil Tab*) 10 mg PO DAILY [facility] Last Admin: 02/25/18 09:37 Dose: 10 mg Metoprolol Succinate (Toprol Xl Tab*) 50 mg PO DAILY [facility] Last Admin: 02/25/18 09:36 Dose: 50 mg Polyethylene Glycol/Electrolytes (Miralax*) 17 gm PO 0800,2100 [facility] Last Admin: 02/25/18 09:37 Dose: Not Given Sertraline HCl (Zoloft*) 50 mg PO DAILY [facility] Last Admin: 02/25/18 09:36 Dose: 50 mg Vital Signs - 8 hr 02/25/18 02/25/18 11:23 13:30 Temperature 97.4 F 97.4 F Pulse Rate 66 65 Respiratory 19 16 Rate Blood Pressure 152/55 132/82 (mmHg) O2 Sat by Pulse 100 100 Oximetry Oxygen Devices in Use Now: None Appearance: A+O x3 in NAD Eyes: No Scleral Icterus, PERRLA Ears/Nose/Mouth/Throat: NL Teeth, Lips, Gums, Mucous Membranes Moist Neck: NL Appearance and Movements; NL JVP Respiratory: Symmetrical Chest Expansion and Respiratory Effort, Clear to Auscultation Cardiovascular: NL Sounds; No Murmurs; No JVD, RRR Extremities: - - s/p b/l BKA - right LE has a CD+I dressing Neurological: Alert and Oriented x 3 Lines/Tubes/Other Access: Clean, Dry and Intact Peripheral IV Nutrition: Taking PO's Result Diagrams: 02/24/18 05:43 02/24/18 05:43 Additional Lab and Data: . Microbiology and Other Data: Microbiology 02/16/18 20:30 Gram Stain - Final Foot Left Wound Culture - Preliminary Proteus Mirabilis Assess/Plan/Problems-Billing . 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 On 07/17/17 he underwent RLE arteriography with balloon angioplasty of the right SFA, pop and infrapopliteal arteries followed by right BKA 07/24/17 with good stump healing. This admission, he c/o open non-healing left heel ulcer and was sent from wound clinic for concern of osteo, CT of the foot showed likely osteomyelitis of the calcaneal tuberosity. The patient was admitted with leukocytosis of 20, elevated CRP at 141. Other medical problems: 1. Coronary artery disease and h/o STEMI. 2. Insulin dependent type 2 diabetes. 3. 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 4. Thrombocytopenia. 5. Diastolic congestive heart failure. 6. Peripheral arterial disease. 7. Hyperlipidemia. 8. Hypertension. 9. GERD. 10. BPH. 11. Anemia. - Patient Problems (1) Chronic ulcer of left lower extremity Comment: - with Cellulitis and calcaneal osteomyelitis now s/p LLE BKA on 02/19 - Ortho following - Continues to have high WBCs trending down, No fevers. - Discussed with ID - ok to DC IV abx. Started Augmentin x 5 days (2) Hypothyroid Comment: - TSH wnl 01/05/18 - Continue levothyroxine. (3) Diastolic CHF Comment: pt has chronic diastolic CHF no symptoms of acute CHF noted Appears a little dry - plan to hold lasix (4) PVD (peripheral vascular disease) Comment: - Continue statin, ASA, and plavix (5) Diabetes Comment: --Continue Lantus, SS Lispro. (6) HTN (hypertension) Comment: - Continue beta beverley and ACEI, hold furosemide. (7) Anemia Comment: - stable - mixed type, component of iron deficiency and also anemia of chronic disease ( osteomyelitis + wound). - hgb was < 7 in post op setting and patient expressed fatigue --> 1 unit prbc indicated and was transfused - hbg up to 9 - follow up CBC improved, as desired. - iron studies added on to previously drawn blood...elevated ferritin c/w ACD...low iron c/w iron deficiency. - iron supplementation ongoing. (8) DVT prophylaxis Comment: - SQ heparin. (9) Full code status Status and Disposition: inpatient. Possible DC to home when medically stable
[2018-02-25] MEDS: Insulin GLARGINE(*) 1 UNITS UNIT SUBCUT SCH (21:03)
[2018-02-26] MEDS ORDERED: Loperamide CAP* 2 MG PO PRN (00:32)
[2018-02-26] MEDS: Levothyroxine TAB* 50 MCG TAB PO SCH (05:16)
[2018-02-26 06:14] LABS: ABS Basophils 0.1 10^3/ul (0-0.2); ABS Eosinophils 0.2 10^3/ul (0-0.6); ABS Lymphocytes 0.6 10^3/ul (1.0-4.8); ABS Monocytes 0.6 10^3/ul (0-0.8); ABS Neutrophils 10.4 10^3/ul (1.5-7.7); ABS Nucleated RBC 0 10^3/ul; Eosinophil % 1.4 % (0-6); Hematocrit 30 % (42-52); Hemoglobin 9.6 g/dl (14.0-18.0); Lymphocyte % 4.7 % (25-47); Mean Corpuscular HGB Conc 32 g/dl (31-36); Mean Corpuscular Hemoglobin 29 pg (27-31); Mean Corpuscular Volume 92 fL (80-94); Mean Platelet Volume 8.9 um3 (7.4-10.4); Nucleated Red Blood Cells % 0; Platelet Count 450 10^3/ul (150-450); Red Blood Count 3.32 10^6/ul (4.0-5.4); Red Cell Distribution Width 16 % (10.5-15); White Blood Count 11.9 10^3/ul (3.5-10.8)
[2018-02-26 06:33] LABS: EGFR Non-African American 75.2 (>60)
--- NOTE | 2018-02-26 07:28 | PN ---
Subjective Date of Service: 02/26/18 Interval History: Patient reports he feels "great" and is looking forward to going home. Offers no complaints. Denies fever or chills. No pain. NL BMs. Good appetite. Feels stronger everyday. Feels that he can be successful at home. Family History: Unchanged from Admission Social History: Unchanged from Admission Past Medical History: Unchanged from Admission Objective Active Medications: Acetaminophen (Tylenol Adult Liq*) 650 mg PO Q4H PRN PRN Reason: PAIN/FEVER Last Admin: 02/18/18 21:41 Dose: 650 mg Amoxicillin/Clavulanate Potassium (Augmentin Tab*) 875 mg PO BID [facility] Stop: 03/01/18 20:59 Last Admin: 02/25/18 21:03 Dose: 875 mg Aspirin (Aspirin 81 Mg Chew Tab*) 81 mg PO DAILY [facility] Last Admin: 02/25/18 09:37 Dose: 81 mg Atorvastatin Calcium (Lipitor*) 20 mg PO DAILY [facility] Last Admin: 02/25/18 09:36 Dose: 20 mg Cholecalciferol (Vitamin D Tab*) 2,000 units PO DAILY [facility] Last Admin: 02/25/18 09:36 Dose: 2,000 units Clopidogrel Bisulfate (Plavix Tab*) 75 mg PO DAILY [facility] Last Admin: 02/25/18 09:36 Dose: 75 mg Dextrose (D50w Syringe 50 Ml*) 12.5 gm IV PUSH .FOR FS < 60 - SS PRN PRN Reason: FS < 60 Hard Fat/Phenylephrine (Preparation H Supp*) 1 supp IA Q4H PRN PRN Reason: PAIN Magnesium Sulfate 3 gm/ Sodium (Chloride) 106 mls @ 53 mls/hr IVPB ONCE ONE Stop: 02/26/18 09:20 Insulin Human Lispro (Humalog*) 0 units SUBCUT ACHS [facility] PRN Reason: Protocol Last Admin: 02/25/18 21:03 Dose: Not Given Levothyroxine Sodium (Synthroid Tab*) 50 mcg PO DAILY@0600 [facility] Last Admin: 02/26/18 05:16 Dose: 50 mcg Lisinopril (Prinivil Tab*) 10 mg PO DAILY [facility] Last Admin: 02/25/18 09:37 Dose: 10 mg Lisinopril (Prinivil Tab*) 20 mg PO DAILY [facility] Loperamide HCl (Imodium Cap*) 2 mg PO .SEE DIRECTIONS PRN PRN Reason: DIARRHEA Last Admin: 02/26/18 01:37 Dose: 2 mg Metoprolol Succinate (Toprol Xl Tab*) 50 mg PO DAILY [facility] Last Admin: 02/25/18 09:36 Dose: 50 mg Polyethylene Glycol/Electrolytes (Miralax*) 17 gm PO 0800,2100 [facility] Last Admin: 02/25/18 21:04 Dose: Not Given Sertraline HCl (Zoloft*) 50 mg PO DAILY [facility] Last Admin: 02/25/18 09:36 Dose: 50 mg Vital Signs - 8 hr 02/26/18 02/26/18 02/26/18 01:37 03:25 05:15 Pulse Rate 78 Respiratory 16 16 18 Rate Blood Pressure 166/75 (mmHg) O2 Sat by Pulse 99 Oximetry Oxygen Devices in Use Now: None Appearance: 78 yo male A+O x3 in NAD Eyes: No Scleral Icterus, PERRLA Ears/Nose/Mouth/Throat: NL Teeth, Lips, Gums, Mucous Membranes Moist Neck: NL Appearance and Movements; NL JVP Respiratory: Symmetrical Chest Expansion and Respiratory Effort, Clear to Auscultation Cardiovascular: NL Sounds; No Murmurs; No JVD, RRR, No Edema Abdominal: NL Sounds; No Tenderness; No Distention, - Extremities: - - s/p b/l BKAs - left LE dressing with CD+I dressing Skin: No Rash or Ulcers, No Nodules or Sclerosis Neurological: Alert and Oriented x 3, NL Muscle Strength and Tone Lines/Tubes/Other Access: Clean, Dry and Intact Peripheral IV Nutrition: Taking PO's Result Diagrams: 02/26/18 05:33 02/26/18 05:33 Additional Lab and Data: . Microbiology and Other Data: Microbiology 02/16/18 20:30 Gram Stain - Final Foot Left Wound Culture - Preliminary Proteus Mirabilis Assess/Plan/Problems-Billing . 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 On 07/17/17 he underwent RLE arteriography with balloon angioplasty of the right SFA, pop and infrapopliteal arteries followed by right BKA 07/24/17 with good stump healing. This admission, he c/o open non-healing left heel ulcer and was sent from wound clinic for concern of osteo, CT of the foot showed likely osteomyelitis of the calcaneal tuberosity. The patient was admitted with leukocytosis of 20, elevated CRP at 141. Other medical problems: 1. Coronary artery disease and h/o STEMI. 2. Insulin dependent type 2 diabetes. 3. 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 4. Thrombocytopenia. 5. Diastolic congestive heart failure. 6. Peripheral arterial disease. 7. Hyperlipidemia. 8. Hypertension. 9. GERD. 10. BPH. 11. Anemia. - Patient Problems (1) Chronic ulcer of left lower extremity Comment: - with Cellulitis and calcaneal osteomyelitis now s/p LLE BKA on 02/19 - Ortho following - Leukocytosis trending down, No fevers. - Discussed with ID - ok to DC IV abx. Started Augmentin x 5 days - Day 12/01 - (2) Hypothyroid Comment: - TSH wnl 01/05/18 - Continue levothyroxine. (3) Diastolic CHF Comment: pt has chronic diastolic CHF no symptoms of acute CHF noted Appears a little dry - plan to hold lasix - ok to restart on discharge continue BB, Matthew (4) PVD (peripheral vascular disease) Comment: - Continue statin, ASA, and plavix (5) Diabetes Comment: --Continue Lantus, SS Lispro. (6) HTN (hypertension) Comment: - Runs a little high SBP 130-160 - Continue beta beverley and increase lisinopril to 20 mg daily, (7) Anemia Comment: - stable - mixed type, component of iron deficiency and also anemia of chronic disease ( osteomyelitis + wound). - hgb was < 7 in post op setting and patient expressed fatigue --> 1 unit prbc indicated and was transfused - hbg up to 9.6 - iron studies added on to previously drawn blood...elevated ferritin c/w ACD...low iron c/w iron deficiency. - iron supplementation ongoing. (8) DVT prophylaxis Comment: - SQ heparin. (9) Full code status Status and Disposition: inpatient. Plan for DC to home tomorrow at 10 am.
[2018-02-26] MEDS ORDERED: Magnesium Sulfate IV* 3 GM in NS 0.9% 100 ML* 100 ML IVPB ONE (07:30)
[2018-02-26] MEDS: Insulin LISPRO* 1 UNITS UNIT SUBCUT SCH ×4 (07:48→21:30)
[2018-02-26] MEDS: Polyethylene Glycol 3350* 17 GM PACKET PO SCH ×2 (07:49→21:31)
[2018-02-26] MEDS: Atorvastatin* 20 MG TAB PO SCH (08:02)
[2018-02-26] MEDS: Aspirin 81 mg CHEW TAB* 81 MG TAB.CHEW PO SCH (08:03)
[2018-02-26] MEDS: Metoprolol Succinate XL TAB* 50 MG PO SCH (08:03)
[2018-02-26] MEDS: Cholecalciferol TAB* 1000 UNITS PO SCH (08:03)
[2018-02-26] MEDS: Sertraline* 50 MG TAB PO SCH (08:03)
[2018-02-26] MEDS: Clopidogrel TAB* 75 MG PO SCH (08:03)
[2018-02-26] MEDS: Lisinopril TAB* 10 MG PO SCH (08:03)
[2018-02-26] MEDS: Amoxicillin/Clavulanate TAB* 875 MG PO SCH (08:03)
--- NOTE | 2018-02-26 10:15 | PN ---
Progress Note - Progress Note Date of Service: 02/26/18 SOAP: Subjective: CC: left leg infection HPI: 78 year old man left foot gangrene now s/p BKA, feels well, no fever, rash , or diarrhea. Tolerating antibiotics well. Objective: Vital Signs Temp 36.7 C 02/25/18 23:07 Pulse 83 02/26/18 07:30 Resp 16 02/26/18 07:30 BP 150/72 02/26/18 07:30 Pulse Ox 98 02/26/18 07:30 Intake & Output 02/25/18 02/26/18 02/26/18 18:59 06:59 18:59 Intake Total 1330 0 Output Total 500 300 Balance 830 -300 Weight 145 lb 4.8 oz Intake: Oral 1330 0 Output: Urine 500 300 Other: Estimated Void Medium # Bowel Movements 1 Estimated Stool Amount Small Large # Voids 1 Gen:awake, no distress HEENT:no thrush Heart:RRR no murmur Lungs:CTA BL Abd:+BS NTND soft Skin: no rash MSK: no spine tenderness; L BKA incision intact Laboratory Results - last 24 hr 02/25/18 02/25/18 02/25/18 11:56 16:32 20:50 WBC RBC Hgb Hct MCV MCH MCHC RDW Plt Count MPV Neut % (Auto) Lymph % (Auto) [place] % (Auto) Eos % (Auto) Baso % (Auto) Absolute Neuts (auto) Absolute Lymphs (auto) Absolute Monos (auto) Absolute Eos (auto) Absolute Basos (auto) Absolute Nucleated RBC Nucleated RBC % Sodium Potassium Chloride Carbon Dioxide Anion Gap BUN Creatinine Est GFR ( Amer) Est GFR (Non-Af Amer) BUN/Creatinine Ratio Glucose POC Glucose (mg/dL) 192 H 161 H 129 H Calcium Magnesium 02/26/18 02/26/18 02/26/18 05:33 05:33 07:42 WBC 11.9 H RBC 3.32 L Hgb 9.6 L Hct 30 L MCV 92 MCH 29 MCHC 32 RDW 16 H Plt Count 450 MPV 8.9 Neut % (Auto) 88.0 H Lymph % (Auto) 4.7 L [place] % (Auto) 4.7 Eos % (Auto) 1.4 Baso % (Auto) 1.2 Absolute Neuts (auto) 10.4 H Absolute Lymphs (auto) 0.6 L Absolute Monos (auto) 0.6 Absolute Eos (auto) 0.2 Absolute Basos (auto) 0.1 Absolute Nucleated RBC 0 Nucleated RBC % 0 Sodium 138 L Potassium 4.2 Chloride 111 Carbon Dioxide 21 L Anion Gap 6 BUN 30 H Creatinine 0.97 Est GFR ( Amer) 96.8 Est GFR (Non-Af Amer) 75.2 BUN/Creatinine Ratio 30.9 H Glucose 52 L POC Glucose (mg/dL) 71 Calcium 8.0 L Magnesium 1.6 L Assessment: 1. left foot gangrene s/p BKA 2. PAD 3. hx R BKA 4. Diabetes with neuropathy Plan: 1. augmentin 500 mg po bid for 3 more days to cover any remaining soft tissue infection 25 minutes floor time >50% discussing antibiotics plans
[2018-02-26] MEDS: Amoxicillin/Clavulanate TAB* 500 MG PO SCH (21:30)
[2018-02-27] MEDS: Levothyroxine TAB* 50 MCG TAB PO SCH (05:53)
[2018-02-27] MEDS: Insulin LISPRO* 1 UNITS UNIT SUBCUT SCH (08:21)
[2018-02-27 08:22] VITALS: BP 137/64
[2018-02-27] MEDS: Polyethylene Glycol 3350* 17 GM PACKET PO SCH (08:29)
[2018-02-27] MEDS: Aspirin 81 mg CHEW TAB* 81 MG TAB.CHEW PO SCH (08:50)
[2018-02-27] MEDS: Lisinopril TAB* 10 MG PO SCH (08:50)
[2018-02-27] MEDS: Cholecalciferol TAB* 1000 UNITS PO SCH (08:50)
[2018-02-27] MEDS: Metoprolol Succinate XL TAB* 50 MG PO SCH (08:50)
[2018-02-27] MEDS: Atorvastatin* 20 MG TAB PO SCH (08:50)
[2018-02-27] MEDS: Clopidogrel TAB* 75 MG PO SCH (08:50)
[2018-02-27] MEDS: Amoxicillin/Clavulanate TAB* 500 MG PO SCH (08:50)
[2018-02-27] MEDS: Sertraline* 50 MG TAB PO SCH (08:50)
--- NOTE | 2018-02-27 12:49 | DS ---
DISCHARGE SUMMARY: DATE OF ADMISSION: 02/16/18 DATE OF DISCHARGE: 02/27/18 PROVIDER: Vinod Martinez NP ATTENDING PHYSICIAN: Dr. Og * (report dictated by Vinod Martinez NP) PRIMARY CARE PROVIDER: Dr. Kevin Ortega. DISPOSITION: Discharge to home. HOSPITAL STATUS: Inpatient. DISCHARGE DIAGNOSES: 1. 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 2. Peripheral vascular disease. 3. Chronic kidney disease. 4. Insulin dependent type 2 diabetes. SECONDARY DIAGNOSES: 1. Status post right [id number] amputation. 2. Anemia. 3. Benign prostatic hyperplasia. 4. Gastroesophageal reflux disease. 5. Hypertension. 6. Hyperlipidemia. 7. History of diastolic congestive heart failure. 8. History of thrombocytopenia. 9. Chronic kidney disease, stage 3. 10. History of coronary artery disease, status post 3-vessel CABG and history of NSTEMI. DISCHARGE MEDICATIONS: 1. Plavix 75 mg p.o. daily. 2. Lisinopril 20 mg p.o. daily (please note this was increased from 10 mg p.o. daily. 3. Imodium 2 mg p.o. p.r.n. 4. Metoprolol succinate 50 mg p.o. daily. 5. Zoloft 50 mg p.o. daily. 6. Synthroid 50 mcg p.o. daily. 7. Vitamin D 2000 units p.o. daily. 8. Aspirin 81 mg p.o. daily. 9. Acetaminophen 650 mg p.o. q. 4 hours p.r.n. 10. Lispro sliding scale a.c. and h.s. Discussed with patient to go back on his home dose sliding scale. 11. Lasix 20 mg p.o. daily. New medications: 1. Augmentin 500 mg p.o. b.i.d. x5 more doses. 2. Magnesium oxide 400 mg p.o. daily. HISTORY OF PRESENT ILLNESS AND HOSPITAL COURSE: Please see history and physical by myself, Vinod Martinez NP, for full admission details but in summary, this is a 78-year-old male who presented to the emergency department on 02/16/18 from the wound clinic for concern of osteomyelitis and necrotic left foot nonhealing wound, who underwent a [id number] amputation on with Dr. Garcia. Mr. Chowdhury has a complex past medical history of peripheral vascular disease, noninsulin type 2 diabetes, coronary artery disease with remote transmetatarsal amputation with a nonhealing wound, in which he was being followed by the Wound Clinic. He also has a right below-the- knee amputation, which is well healed. The patient has done very well postoperatively and tolerated the surgery well. He was seen in consultation by Dr. Dixon, Infectious Disease, who recommended cefepime and Flagyl. On admission, he was started on vancomycin, Flagyl and cefepime. Blood cultures had no growth. Left foot, skin and soft tissue wound culture grew multiple organisms including Staph aureus but was negative for MRSA as well as Proteus mirabilis, E. coli, Proteus penneri. On admission, the patient had significant leukocytosis of 20.5, which is trended down over his hospitalization. He has remained afebrile throughout his hospitalization as well as maintained stable vital signs. Postoperatively, he was anemic and his hemoglobin dropped to 6.8 and 21 and he was given a unit of blood and today on evaluation, his hemoglobin and hematocrit is 9.6 and 30 and he has required intermittent replacement of his magnesium and will be placed on oral magnesium supplementation at discharge. The patient has had his blood sugars monitored a.c. and h.s. and has noted to have some low fasting blood sugars and his Lantus has been held throughout hospitalization. He has remained on the lispro sliding scale and I have discontinued his home Lantus on discharge. The patient is recommended to continue close fingerstick monitoring at home on a daily basis. The patient has been followed by the orthopedic team who would like to see the patient next week in the office. The patient has been followed by Physical Therapy and is using a slide board with PT and to assist, which initially was a concern in sending him home. However, the patient and the family have hired private aides and it is reported that there will be 2 people to help him at home for transfers and electric motorized wheelchair has been ordered for the patient. She will continue outpatient PT. Overall, the patient has done extremely well throughout his hospitalization and overall feels very positive about returning to functioning status. DISCHARGE PLAN: 1. Follow up with primary care provider, Dr. Ortega, within 1 week. 2. Follow up with the [facility] Orthopedics team, Dr. Garcia, next week in the office. 3. Continue diabetic monitoring with fingersticks a.c. and h.s. Again, please note that his long-acting Lantus has been discontinued due to some low fasting blood sugars. Otherwise, his blood sugars have been fairly well controlled. 4. Continue outpatient PT. TIME SPENT: Approximately 60 minutes was spent on this discharge. VINOD MARTINEZ, MARILUZ [id number]/CPS #: [id number] ANDREW
[2018-02-28] MEDS ORDERED: glipiZIDE TAB* 5 MG PO SCH (09:00)
== END 2018-02-27 10:00 | disposition home health service (06) | DRG 617 ==
LOC: ED 13:09 → MED 16:37
PROVIDERS: ADMIT Internal Medicine; ATTEND Internal Medicine
PROC: 0Y6J0Z1 Detachment at Left Lower Leg, High, Open Approach (ICD-10-PCS; principal; 2018-02-16)
PROC: 30233N1 Transfusion of Nonautologous Red Blood Cells into Peripheral Vein, Percutaneous Approach (ICD-10-PCS; 2018-02-21)
DX: E11.69 Type 2 diabetes mellitus with other specified complication (principal); I13.0 Hypertensive heart and chronic kidney disease with heart failure and stage 1 through stage 4 chronic kidney disease, or unspecified chronic kidney disease; I50.32 Chronic diastolic (congestive) heart failure; L97.421 Non-pressure chronic ulcer of left heel and midfoot limited to breakdown of skin; E11.52 Type 2 diabetes mellitus with diabetic peripheral angiopathy with gangrene; L03.116 Cellulitis of left lower limb; M86.672 Other chronic osteomyelitis, left ankle and foot; E11.319 Type 2 diabetes mellitus with unspecified diabetic retinopathy without macular edema; E11.40 Type 2 diabetes mellitus with diabetic neuropathy, unspecified; I25.10 Atherosclerotic heart disease of native coronary artery without angina pectoris; F32.9 Major depressive disorder, single episode, unspecified; K64.9 Unspecified hemorrhoids; E03.9 Hypothyroidism, unspecified; E11.621 Type 2 diabetes mellitus with foot ulcer; K21.9 Gastro-esophageal reflux disease without esophagitis; E11.22 Type 2 diabetes mellitus with diabetic chronic kidney disease; N18.3 Chronic kidney disease, stage 3 (moderate); E78.5 Hyperlipidemia, unspecified; B95.61 Methicillin susceptible Staphylococcus aureus infection as the cause of diseases classified elsewhere; N40.0 Benign prostatic hyperplasia without lower urinary tract symptoms; D63.1 Anemia in chronic kidney disease; D50.9 Iron deficiency anemia, unspecified; Z95.1 Presence of aortocoronary bypass graft; Z86.14 Personal history of Methicillin resistant Staphylococcus aureus infection; Z83.3 Family history of diabetes mellitus; Z89.511 Acquired absence of right leg below knee; Z88.8 Allergy status to other drugs, medicaments and biological substances; Z89.422 Acquired absence of other left toe(s); Z72.89 Other problems related to lifestyle; Z87.891 Personal history of nicotine dependence; I25.2 Old myocardial infarction; Z82.49 Family history of ischemic heart disease and other diseases of the circulatory system; Z79.82 Long term (current) use of aspirin; Z79.02 Long term (current) use of antithrombotics/antiplatelets
CPT/HCPCS: 36415; 80048; 80053; 82728; 83540; 83550; 83605; 83735; 85025; 85027; 85610; 85730; 86140; 86850; 86900; 86901; 86922; 87040; 87070; 87077; 87186; 87205; 87640; 87641; 88307; 88311; 93005; 99284; A9270-GY; G8978-GP-CL; G8978-GP-CM; G8979-GP-CI; G8987-GO-CL; G8988-GO-CI; G8989-GO-CI; J0692; J0696; J2250; J2704; J3010; J3370; J3475; J3490; P9040